=== PATIENT | male | born 1935 | race Caucasian/White ===

== ENCOUNTER 2017-01-12 16:01 | Emergency (ER) | payer OTHER ==
[2017-01-12 16:06] VITALS: BP 141/63; PULSE 100; TEMP 98; BMI 25.8
[2017-01-12] MEDS ORDERED: DIPHTH,PERTUSS(ACELL),TET 0.5 ML DISP.SYRIN IM ONE (16:54)
--- NOTE | 2017-01-12 16:57 | PDOC ---
Rapid Medical Evaluation Chief Complaint: Laceration Time Seen by Provider: 01/12/17 16:20 Medical Evaluation: Allergies Allergy/AdvReac Type Severity Reaction Status Date / Time Sulfa (Sulfonamide Allergy Mild Rash Verified 01/12/17 16:06 Antibiotics) Vital Signs Temp Pulse Resp BP Pulse Ox 98 F 100 H 18 141/63 99 01/12/17 16:03 01/12/17 16:03 01/12/17 16:03 01/12/17 16:03 01/12/17 16:03 01/12/17 16:53 Mr. Arguelles is an 81 yo M presenting to the ER s/p fall last night onto a glass bottle PT denies other complaints of pain or trauma on examination: 2cm laceration of the palm overlying 5th metacarpal head superficial laceration center of the palm Will order xray right hand (r/o fb) Boostrix (I was not clear as to whether this pt had recent tetanus shot) 01/12/17 16:55 01/12/17 18:14
--- NOTE | 2017-01-12 18:35 | PDOC ---
History of Present Illness - General Chief Complaint: Laceration Stated Complaint: LT HAND LACERATION Time Seen by Provider: 01/12/17 16:20 History Source: Patient Exam Limitations: No Limitations - History of Present Illness Initial Comments: 01/12/17 18:30 Status post fall last night causing palmar laceration to his left hand. States left fifth metatarsal injury was gaping and had a superficial laceration midpoint palm that approximately 5 cm. States washed with soap and water and alcohol. Put antibiotic cream on, and thought could have evaluated and treated today. Patient states is mildly uncomfortable but no drainage, redness or swelling. Has full range of motion to fingers Occurred: reports: yesterday Severity: reports: mild, moderate Pain Location: reports: upper extremity Modifying Factors: improves with: None Loss of Consciousness: no loss of consciousness Associated Symptoms (Fall): denies symptoms Past History - Travel Traveled outside of the country in the last 30 days: No Close contact w/someone who was outside of country & ill: No (left hand) - Past Medical History Allergies/Adverse Reactions: Allergies Allergy/AdvReac Type Severity Reaction Status Date / Time Sulfa (Sulfonamide Allergy Mild Rash Verified 01/12/17 16:06 Antibiotics) Home Medications: Ambulatory Orders Atacand Hct 32-12.5 mg Tab 32 mg PO DAILY 01/12/12 Atorvastatin Ca [Lipitor] 10 mg PO DAILY 01/12/12 Omeprazole 20 mg PO DAILY 01/12/12 Anemia: Yes Asthma: No Cancer: No Cardiac Disorders: No CVA: No COPD: No CHF: No Dementia: No Diabetes: No GI Disorders: Yes (GERD) Disorders: No HTN: Yes Hypercholesterolemia: Yes Liver Disease: No Seizures: No Thyroid Disease: No - Surgical History Abdominal Surgery: Yes (PROSTATECTOMY) Appendectomy: No Cardiac Surgery: No Cholecystectomy: No Lung Surgery: No Neurologic Surgery: No Orthopedic Surgery: No - Psycho/Social/Smoking Cessation Hx Suicidal Ideation: No Smoking History: Never smoked Have you smoked in the past 12 months: No Information on smoking cessation initiated: No Hx Alcohol Use: Yes (SOCIAL) Drug/Substance Use Hx: No Substance Use Type: None Hx Substance Use Treatment: No Trauma Specific PMHX - Complaint Specific PMHX Back Injury: No Neck Injury: No Review of Systems - Review of Systems Able to Perform ROS?: Yes Is the patient limited Mohawk proficient: Yes Constitutional: Yes: Symptoms Reported HEENTM: No: Symptoms Reported Musculoskeletal: Yes: Symptoms Reported All Other Systems: Reviewed and Negative *Physical Exam - Vital Signs Last Vital Signs Temp Pulse Resp BP Pulse Ox 98 F 100 H 18 141/63 99 01/12/17 16:03 01/12/17 16:03 01/12/17 16:03 01/12/17 16:03 01/12/17 16:03 - Physical Exam General Appearance: Yes: Nourished, Appropriately Dressed HEENT: positive: ABHISHEK, Normal ENT Inspection, TMs Normal, Pharynx Normal Neck: positive: Supple. negative: Lymphadenopathy (R), Lymphadenopathy (L) Gastrointestinal/Abdominal: positive: Soft Musculoskeletal: positive: Normal Inspection (full range of motion with strong flexion and extension all fingers, neurovascular intact, patient has extensive osteoarthritis but no changes in contour. No deformity) Extremity: positive: Normal Capillary Refill, Normal Inspection Integumentary: positive: Normal Color Neurologic: positive: ux developer II-XII NML intact, Fully Oriented, Alert, Normal Mood/ Affect, Normal Response, Motor Strength 5/5 ED Treatment Course - Medications Given in the ED: ED Medications Discontinued Medications Generic Name Dose Route Start Last Admin Trade Name Freq PRN Reason Stop Dose Admin Diphtheria/Tetanus/Acell Pertussis 0.5 ml 01/12/17 16:54 01/12/17 17:59 Boostrix - IM 01/12/17 16:55 0.5 ml .ONCE ONE Administration Progress Note - Progress Note Progress Note: Hand lacerations 24 hours old, wounds were cleaned and superficially dressed with Steri-Strips and dressing as are too old for suture repair. Tetanus/ diphtheria/pertussis booster updated today *DC/Admit/Observation/Transfer Diagnosis at time of Disposition: Laceration of hand, left Qualifiers: Encounter type: initial encounter Foreign body presence: without foreign body Qualified Code(s): S61.412A - Laceration without foreign body of left hand, initial encounter - Discharge Dispostion Disposition: HOME Condition at time of disposition: Stable Admit: No - Patient Instructions Printed Discharge Instructions: DI for Abrasion Additional Instructions: Rest, elevate, avoid strenuous activity or heavy lifting until STERI- strips fall away Leave dressing on for the next 24 hours, Return to emergency department for redness, swelling, signs of infection Your tetanus/diphtheria/pertussis booster was updated today May use Tylenol or Motrin for pain relief
== END 2017-01-12 18:41 | disposition home or self-care (01) ==
LOC: JERFT 16:01
PROC: 3E0234Z Introduction of Serum, Toxoid and Vaccine into Muscle, Percutaneous Approach (ICD-10-PCS; principal; 2017-01-12)
DX: S61.412A Laceration without foreign body of left hand, initial encounter (principal); W18.39XA Other fall on same level, initial encounter; Y93.9 Activity, unspecified; Y92.9 Unspecified place or not applicable; K21.9 Gastro-esophageal reflux disease without esophagitis; I10 Essential (primary) hypertension
CPT/HCPCS: 73130-TC-RT; 90471; 90715; 99281-25

== ENCOUNTER 2019-05-21 13:33 | Inpatient (IN) | payer OTHER ==
--- NOTE | 2019-05-21 13:46 | PDOC ---
Rapid Medical Evaluation Time Seen by Provider: 05/21/19 13:40 Medical Evaluation: Allergies Allergy/AdvReac Type Severity Reaction Status Date / Time Sulfa (Sulfonamide Allergy Mild Rash Verified 01/12/17 16:06 Antibiotics) 05/21/19 13:44 This patient had a brief in-person evaluation in triage CC:sent by pmd for admission for chf. Patient states had echo done and sent to ed for abnormal results reports shortness of breath and chest discomfort PE: NAD clear lungs bilaterally + bipedal edema L>R orders: ekg, labs, iv access This patient will proceed to the ED for further evaluation Discharge Disposition - Diagnosis Chest discomfort - Referrals - Patient Instructions - Post Discharge Activity
--- NOTE | 2019-05-21 14:57 | EKG ---
Test Reason : Blood Pressure : / mmHG Vent. Rate : 118 BPM Atrial Rate : 141 BPM P-R Int : 000 ms QRS Dur : 092 ms QT Int : 342 ms P-R-T Axes : 000 077 041 degrees QTc Int : 479 ms ATRIAL FIBRILLATION WITH RAPID VENTRICULAR RESPONSE WITH PREMATURE VENTRICULAR OR ABERRANTLY CONDUCTED COMPLEXES INCOMPLETE RIGHT BUNDLE BRANCH BLOCK CANNOT RULE OUT ANTERIOR INFARCT , AGE UNDETERMINED ABNORMAL ECG WHEN COMPARED WITH ECG OF 07-APR-2008 11:22, ATRIAL FIBRILLATION HAS REPLACED SINUS RHYTHM VENT. RATE HAS INCREASED BY 45 BPM INCOMPLETE RIGHT BUNDLE BRANCH BLOCK IS NOW PRESENT MINIMAL CRITERIA FOR ANTERIOR INFARCT ARE NOW PRESENT Confirmed by BERNICE LA, FRANK ([id number]) on 05/21/2019 2:56:51 PM Referred By: Confirmed By:FRANK QUEEN MD
--- NOTE | 2019-05-21 15:17 | PDOC ---
History of Present Illness - General Chief Complaint: Chest Pain Stated Complaint: CHEST PAIN Time Seen by Provider: 05/21/19 13:40 Past History - Past Medical History Allergies/Adverse Reactions: Allergies Allergy/AdvReac Type Severity Reaction Status Date / Time Sulfa (Sulfonamide Allergy Mild Rash Verified 01/12/17 16:06 Antibiotics) Home Medications: Ambulatory Orders Atacand Hct 32-12.5 mg Tab 32 mg PO DAILY 01/12/12 Atorvastatin Ca [Lipitor] 10 mg PO DAILY 01/12/12 Omeprazole 20 mg PO DAILY 01/12/12 Anemia: Yes Asthma: No Cancer: No Cardiac Disorders: No CVA: No COPD: No CHF: No Dementia: No Diabetes: No GI Disorders: Yes (GERD) Disorders: No HTN: Yes Hypercholesterolemia: Yes Liver Disease: No Seizures: No Thyroid Disease: No - Surgical History Abdominal Surgery: Yes (PROSTATECTOMY) Appendectomy: No Cardiac Surgery: No Cholecystectomy: No Lung Surgery: No Neurologic Surgery: No Orthopedic Surgery: No - Suicide/Smoking/Psychosocial Hx Smoking History: Never smoked Have you smoked in the past 12 months: No Information on smoking cessation initiated: No Hx Alcohol Use: No Drug/Substance Use Hx: No Substance Use Type: None Hx Substance Use Treatment: No *Physical Exam - Vital Signs Last Vital Signs Temp Pulse Resp BP Pulse Ox 97.6 F 66 18 117/78 96 05/21/19 13:41 05/21/19 13:41 05/21/19 13:41 05/21/19 13:41 05/21/19 13:41 *DC/Admit/Observation/Transfer Diagnosis at time of Disposition: Chest discomfort - Referrals Referrals: Manolo Brunson MD [Primary Care Provider] - - Patient Instructions - Post Discharge Activity
--- NOTE | 2019-05-21 16:09 | PDOC ---
History of Present Illness - General Chief Complaint: Chest Pain Stated Complaint: CHEST PAIN Time Seen by Provider: 05/21/19 13:40 Past History - Past Medical History Allergies/Adverse Reactions: Allergies Allergy/AdvReac Type Severity Reaction Status Date / Time Sulfa (Sulfonamide Allergy Mild Rash Verified 05/21/19 20:24 Antibiotics) Home Medications: Ambulatory Orders Atorvastatin Ca [Lipitor] 10 mg PO HS 05/21/19 Calcium Citrate/Vitamin D3 [Calcium Cit 315-Vit D3 200 Cpt] 2 each PO DAILY Iron 65 mg PO DAILY 05/21/19 Lansoprazole [Prevacid] 30 mg PO DAILY 05/21/19 Olmesartan/Hydrochlorothiazide [Olmesartan-Hctz 20-12.5 mg Tab] 1 each PO DAILY 05/21/19 Anemia: Yes Asthma: No Cancer: No Cardiac Disorders: No CVA: No COPD: No CHF: No Dementia: No Diabetes: No GI Disorders: Yes (GERD) Disorders: No HTN: Yes Hypercholesterolemia: Yes Liver Disease: No Seizures: No Thyroid Disease: No - Surgical History Abdominal Surgery: Yes (PROSTATECTOMY) Appendectomy: No Cardiac Surgery: No Cholecystectomy: No Lung Surgery: No Neurologic Surgery: No Orthopedic Surgery: No - Suicide/Smoking/Psychosocial Hx Smoking History: Never smoked Have you smoked in the past 12 months: No Information on smoking cessation initiated: No Hx Alcohol Use: No Drug/Substance Use Hx: No Substance Use Type: None Hx Substance Use Treatment: No *Physical Exam - Vital Signs Last Vital Signs Temp Pulse Resp BP Pulse Ox 97.6 F 66 18 117/78 96 05/21/19 13:41 05/21/19 13:41 05/21/19 13:41 05/21/19 13:41 05/21/19 13:41 ED Treatment Course - LABORATORY CBC & Chemistry Diagram: 05/21/19 16:14 05/21/19 16:14 Medical Decision Making - Medical Decision Making HPI: 83yo M with PMH of HTN, HLD, prostate CA sent by his primary care physician for admission for new-onset CHF. Patient had an ECHO two days ago. He endorses mild substernal chest pain on exertion x 1 week. He has dyspnea on exertion just walking across the room. He has noticed leg swelling for the past five months. Denies orthopnea. No nausea, vomiting, or diaphoresis. Never seen a customer relations representative before. Denies personal or family history of [place]. No fevers or chills. All My Data Dial Painter: [id number] PCP: Dr. Jimmy Enriquez: does not know what they are, one for HTN and one for HLD ROS: Constitutional: no fever, no chills HEENT: no throat pain, no dysphagia Cardiovascular: +chest pain, no palpitations Respiratory: no cough, +shortness of breath Gastrointestinal: no abdominal pain, no nausea Genitourinary: no dysuria, no frequency Musculoskeletal: no myalgia, +BLE edema Skin: no rash, no itching Neurologic: no headache, +weakness PE: General: Awake, alert, and fully oriented, in no acute distress Head: No signs of trauma Eyes: EOMI, sclera anicteric ENT: Moist mucus membranes Neck: Normal ROM, supple Lungs: Lungs clear, Normal breath sounds Cardio: Irregular rhythm, S1 and S2 present Abdomen: Soft, nontender Extremities: Normal range of motion, Distal pulses present, 2+ pitting edema BLE , no calf tenderness SKIN: Warm, Dry, normal turgor Neurologic: Cranial nerves II through XII grossly intact. Normal Speech ED Courses/MDM: DDX including but not limited to afib, CHF, ACS, PE EKG: rate 118, QTc 478, Afib with RVR, incomplete RBBB Patient denies history of abnormal heart rhythm. This is likely new-onset afib. CHADS-VASc Score for Atrial Fibrillation Stroke Risk: 4, moderate-high 40 Lasix Labs CXR 05/21/19 16:07 20 gauge IV placed in Left AC by myself Labs sent 05/21/19 16:28 CXR: "3 views of the chest have been submitted. Since the prior study of 2007, there is a more prominent mediastinum with larger heart, sclerotic unfolded aorta, increased central lung markings and blunting of the right angle with some scarring or atelectasis. The soft tissues are intact and there are degenerative changes with wedging. Correlation recommended. " CMP Sodium 139 mmol/L (136-145) 05/21/19 16:14 Potassium 4.5 mmol/L (3.5-5.1) 05/21/19 16:14 Chloride 103 mmol/L (98-107) 05/21/19 16:14 Carbon Dioxide 30 mmol/L (21-32) 05/21/19 16:14 Anion Gap 7 MMOL/L (8-16) L 05/21/19 16:14 BUN 36.5 mg/dL (7-18) H 05/21/19 16:14 Creatinine 1.8 mg/dL (0.55-1.3) H 05/21/19 16:14 Est GFR (CKD-EPI)AfAm 39.46 05/21/19 16:14 Est GFR (CKD-EPI)NonAf 34.05 05/21/19 16:14 Random Glucose 94 mg/dL (74-106) 05/21/19 16:14 Calcium 9.2 mg/dL (8.5-10.1) 05/21/19 16:14 Total Bilirubin 0.8 mg/dL (0.2-1) 05/21/19 16:14 AST 60 U/L (15-37) H 05/21/19 16:14 ALT 49 U/L (13-61) 05/21/19 16:14 Alkaline Phosphatase 133 U/L (45-117) H 05/21/19 16:14 Troponin I < 0.02 ng/ml (0.00-0.05) 05/21/19 16:14 B-Natriuretic Peptide 7707.9 pg/ml (5-450) H 05/21/19 16:14 Total Protein 6.3 g/dl (6.4-8.2) L 05/21/19 16:14 Albumin 3.8 g/dl (3.4-5.0) 05/21/19 16:14 Electrolytes unremarkable BUN and Cr elevated, 36.5/1.8 (was 32.2/1.5 on 05/12/19) Tpn undetectable BNP is high, no prior values Pending CBC. Call to lab that it is processing as patient has cold-agglutin variant. 05/21/19 17:07 Updated daughter, Diaz, at the bedside. She can be reached at [phone] 05/21/19 18:33 CBC WBC 13.7 K/mm3 (4.0-10.0) H 05/21/19 16:14 RBC 4.03 M/mm3 (4.00-5.60) 05/21/19 16:14 Hgb 12.8 GM/dL (11.7-16.9) 05/21/19 16:14 Hct 36.6 % (35.4-49) 05/21/19 16:14 MCV 90.9 fl (80-96) 05/21/19 16:14 MCH 31.7 pg (25.7-33.7) 05/21/19 16:14 MCHC 34.9 g/dl (32.0-35.9) 05/21/19 16:14 RDW 14.5 % (11.9-15.9) 05/21/19 16:14 Plt Count 175 K/MM3 (134-434) 05/21/19 16:14 MPV 8.5 fl (7.5-11.1) 05/21/19 16:14 Absolute Neuts (auto) 7.9 K/mm3 (1.5-8.0) 05/21/19 16:14 Neutrophils % No Result Required. 05/21/19 16:14 Neutrophils % (Manual) 68.0 % (42.8-82.8) 05/21/19 16:14 Band Neutrophils % 2.0 % 05/21/19 16:14 Lymphocytes % No Result Required. 05/21/19 16:14 Lymphocytes % (Manual) 23.0 % (8-40) 05/21/19 16:14 Monocytes % (Manual) 7 % (3.8-10.2) 05/21/19 16:14 Eosinophils % (Manual) 0.0 % (0-4.5) 05/21/19 16:14 Basophils % (Manual) 0.0 % (0-2.0) 05/21/19 16:14 Platelet Estimate Adequate 05/21/19 16:14 Mild leukocytosis No anemia Plan for admission 05/21/19 18:46 Discussed case with hospitalist, Tino Penny, who accepted patient for admission under Dr. Marquez. 05/21/19 19:23 *DC/Admit/Observation/Transfer Diagnosis at time of Disposition: Chest discomfort, New onset of congestive heart failure, New onset a-fib - Discharge Dispostion Condition at time of disposition: Guarded Decision to Admit order: Yes - Referrals - Patient Instructions - Post Discharge Activity
[2019-05-21] MEDS ORDERED: FUROSEMIDE 40 MG/4 ML INJECTABLE VIAL IVPUSH ONE (16:22)
--- NOTE | 2019-05-21 16:25 | PDOC ---
Documentation entered by Jose A Alvarado SCRIBE, acting as scribe for Yady Mai MD. Yady Mai MD: This documentation has been prepared by the Jenny simon Xhesika, SCRIBE, under my direction and personally reviewed by me in its entirety. I confirm that the documentation accurately reflects all work, treatment, procedures, and medical decision making performed by me. Attending Attestation - Resident Resident Name: Anna Marie SheppardMagalys - ED Attending Attestation I have performed the following: I have examined & evaluated the patient, The case was reviewed & discussed with the resident, I agree w/resident's findings & plan, Exceptions are as noted - HPI HPI: 05/21/19 16:23 83 yo M h/o HTN, HLD referred to the ER for assessment due to progressive shortness of breath Pt has noted increasing shortness of breath with exertion He now notes symptoms after walking 15 feet He also notes chest pain He has lower extremity edema He is able to lay flat No h/o CAD No prior MS - Physicial Exam PE: 05/21/19 16:16 GENERAL: The patient is in no acute distress. ENT: Ears normal, nares patent, oropharynx clear without exudates. Moist mucous membranes. NECK: Normal range of motion LUNGS: Breath sounds equal, clear to auscultation bilaterally. No wheezes, and no crackles. HEART: Irregularly Irregular, no murmurs noted ABDOMEN: Soft, nontender EXTREMITIES: Bilateral 3 + pitting edema to above the knees NEUROLOGICAL: Cranial nerves II through XII grossly intact. Normal speech. No focal neurological deficits. SKIN: Warm, Dry, normal turgor, no rashes or lesions noted. - Medical Decision Making 05/21/19 16:21 EKG: Afib rate of 118 bpm, axis nml, intervals nml, no st elevation or depression Pt examination reveals CHF and new onset Afib Will place on monitor Will give Lasix Will give Cardizem for rate control if needed Awaiting labs (including trop) Admit to hospitalist Cardiology consult 05/21/19 18:18 Laboratory Tests 05/21/19 05/21/19 16:14 16:14 INR 1.52 H Sodium 139 Potassium 4.5 Chloride 103 Carbon Dioxide 30 BUN 36.5 H Creatinine 1.8 H Random Glucose 94 Troponin I < 0.02 B-Natriuretic Peptide 7707.9 H 05/21/19 18:20 CXR - cardiomegaly, increased central lung markings and blunting of the right angle with scarring/atalectasis CBC pending (had to be repeated) will admit Clinical Impression: Stable angina, initial presentation CHF, initial presentation Afib, initial presentation
[2019-05-21] MEDS ORDERED: FUROSEMIDE 40 MG/4 ML INJECTABLE VIAL ONE (16:29)
[2019-05-21 16:54] LABS: INR 1.52 (0.83-1.09)
[2019-05-21 16:57] LABS: ACTIVATED PTT 28.9 SECONDS (25.2-36.5)
[2019-05-21 17:02] LABS: ALBUMIN 3.8 g/dl (3.4-5.0); ALK PHOS 133 U/L (45-117); ANION GAP 7 MMOL/L (8-16); BILIRUBIN,TOTAL 0.8 mg/dL (0.2-1); BLOOD UREA NITROGEN 36.5 mg/dL (7-18); CALCIUM 9.2 mg/dL (8.5-10.1); CHLORIDE 103 mmol/L (98-107); CO2 30 mmol/L (21-32); CREATININE 1.8 mg/dL (0.55-1.3); GLUCOSE,RANDOM 94 mg/dL (74-106); N-TERMINAL BNP 7707.9 pg/ml (5-450); POTASSIUM 4.5 mmol/L (3.5-5.1); SGOT/AST 60 U/L (15-37); SGPT/ALT 49 U/L (13-61); SODIUM 139 mmol/L (136-145); TOT PROT 6.3 g/dl (6.4-8.2)
[2019-05-21 18:36] LABS: HEMATOCRIT 36.6 % (35.4-49); HEMOGLOBIN 12.8 GM/dL (11.7-16.9); MEAN CELL VOLUME 90.9 fl (80-96); RBC 4.03 M/mm3 (4.00-5.60); WHITE BLOOD COUNT 13.7 K/mm3 (4.0-10.0)
[2019-05-21 18:37] LABS: MCH 31.7 pg (25.7-33.7); MCHC 34.9 g/dl (32.0-35.9); MEAN PLT VOLUME 8.5 fl (7.5-11.1); PLATELET COUNT 175 K/MM3 (134-434); RDW 14.5 % (11.9-15.9)
[2019-05-21 18:38] LABS: PLATELET ESTIMATE ADEQUATE
[2019-05-21] MEDS ORDERED: HEPARIN NA (PORCINE) 5,000 UNITS/ML 1ML VIAL SQ SCH (22:30)
[2019-05-21] MEDS ORDERED: HEPARIN NA (PORCINE) 5,000 UNITS/ML 1ML VIAL ONE (22:54)
--- NOTE | 2019-05-22 00:05 | HP ---
CHIEF COMPLAINT: Chest Pain and Shortness of Breath PCP: Himanshu Marquez HISTORY OF PRESENT ILLNESS: 83yo M, (Vincentian speaking) with PMH of HTN, HLD, prostate CA sent by his primary care physician for admission for new-onset CHF. Patient had an ECHO two days ago. He complains of mild substernal chest pain on exertion x 1 week. He has dyspnea on exertion just walking across the room. He has noticed leg swelling for the past five months. Denies orthopnea. No nausea, vomiting, or diaphoresis. 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 Denies personal or family history of [place]. No fevers or chills. Daughter at at bedside translated. Daughter explains patient was driving around about a week and now he has just been too tired to so lately. Pt states he has been having dark stools and has one today. ER course was notable for: (1) New onset AFib (2) New onset CHF (3) 40mg Lasix (4) CXR- "3 views of the chest have been submitted. Since the prior study of 07/2008, there is a more prominent mediastinum with larger heart, sclerotic unfolded aorta, increased central lung markings and blunting of the right angle with some scarring or atelectasis. The soft tissues are intact and there are degenerative changes with wedging. Correlation recommended. " Recent Travel: PAST MEDICAL HISTORY: Prostate Cancer PAST SURGICAL HISTORY: Prostate Social History: Smoking: Denies Alcohol: 5 Beers a day Drugs: Denies Family History: Allergies Sulfa (Sulfonamide Antibiotics) Allergy (Mild, Verified 05/21/19 20:24) Rash HOME MEDICATIONS: Home Medications Medication Instructions Recorded Atorvastatin Ca [Lipitor] 10 mg PO HS 05/21/19 Calcium Citrate/Vitamin D3 2 each PO DAILY 05/21/19 [Calcium Cit 315-Vit D3 200 Cpt] Iron 65 mg PO DAILY 05/21/19 Lansoprazole [Prevacid] 30 mg PO DAILY 05/21/19 Olmesartan/Hydrochlorothiazide 1 each PO DAILY 05/21/19 [Olmesartan-Hctz 20-12.5 mg Tab] REVIEW OF SYSTEMS CONSTITUTIONAL: Absent: fever, chills, diaphoresis, generalized weakness, malaise, loss of appetite, weight change HEENT: Absent: rhinorrhea, nasal congestion, throat pain, throat swelling, difficulty swallowing, mouth swelling, ear pain, eye pain, visual changes CARDIOVASCULAR: Absent: chest pain, syncope, palpitations, irregular heart rate, lightheadedness , peripheral edema RESPIRATORY: Absent: cough, shortness of breath, dyspnea with exertion, orthopnea, wheezing, stridor, hemoptysis GASTROINTESTINAL: Absent: abdominal pain, abdominal distension, nausea, vomiting, diarrhea, constipation, melena, hematochezia GENITOURINARY: Absent: dysuria, frequency, urgency, hesitancy, hematuria, flank pain, genital pain MUSCULOSKELETAL: Absent: myalgia, arthralgia, joint swelling, back pain, neck pain SKIN: Absent: rash, itching, pallor HEMATOLOGIC/IMMUNOLOGIC: Absent: easy bleeding, easy bruising, lymphadenopathy, frequent infections ENDOCRINE: Absent: unexplained weight gain, unexplained weight loss, heat intolerance, cold intolerance NEUROLOGIC: Absent: headache, focal weakness or paresthesias, dizziness, unsteady gait, seizure, mental status changes, bladder or bowel incontinence PSYCHIATRIC: Absent: anxiety, depression, suicidal or homicidal ideation, hallucinations. PHYSICAL EXAMINATION Vital Signs - 24 hr 05/21/19 05/21/19 05/21/19 13:41 16:22 18:13 Temperature 97.6 F 97.4 F L Pulse Rate 66 Pulse Rate [ 101 H Left Radial] Respiratory 18 Rate Blood Pressure 117/78 Blood Pressure 128/90 [Right Arm] O2 Sat by Pulse 96 96 98 Oximetry (%) 05/21/19 21:03 Temperature 97.2 F L Pulse Rate Pulse Rate [ 95 H Left Radial] Respiratory 22 H Rate Blood Pressure Blood Pressure 123/82 [Right Arm] O2 Sat by Pulse 100 Oximetry (%) GENERAL: Awake, alert, and fully oriented, in no acute distress. HEAD: Normal with no signs of trauma. EYES: Pupils equal, round and reactive to light, extraocular movements intact, sclera anicteric, conjunctiva clear. No lid lag. EARS, NOSE, THROAT: Ears normal, nares patent, oropharynx clear without exudates. Moist mucous membranes. NECK: Normal range of motion, supple without lymphadenopathy, JVD, or masses. LUNGS: Breath sounds equal, clear to auscultation bilaterally. No wheezes, and no crackles. No accessory muscle use. HEART: Currently in A Fib ABDOMEN: Soft, nontender, not distended, normoactive bowel sounds, no guarding, no rebound, no masses. MUSCULOSKELETAL: Normal range of motion at all joints. No bony deformities or tenderness. No CVA tenderness. UPPER EXTREMITIES: 2+ pulses, warm, well-perfused. No cyanosis. No clubbing. No edema LOWER EXTREMITIES: 2+ pulses, warm, well-perfused. No calf tenderness. +2 pitting edema BLLE NEUROLOGICAL: Normal speech. Normal gait. PSYCHIATRIC: Cooperative. Good eye contact. Appropriate mood and affect. SKIN: Warm, dry, normal turgor, no rashes or lesions noted, normal capillary refill. Laboratory Results - last 24 hr 05/21/19 05/21/19 05/21/19 16:14 16:14 16:14 WBC 13.7 H RBC 4.03 Hgb 12.8 Hct 36.6 MCV 90.9 MCH 31.7 MCHC 34.9 RDW 14.5 Plt Count 175 MPV 8.5 Absolute Neuts (auto) 7.9 Neutrophils % No Result Required. Neutrophils % (Manual) 68.0 Band Neutrophils % 2.0 Lymphocytes % No Result Required. Lymphocytes % (Manual) 23.0 Monocytes % (Manual) 7 Eosinophils % (Manual) 0.0 Basophils % (Manual) 0.0 Platelet Estimate Adequate PT with INR 18.00 H INR 1.52 H PTT (Actin FS) 28.9 Sodium 139 Potassium 4.5 Chloride 103 Carbon Dioxide 30 Anion Gap 7 L BUN 36.5 H Creatinine 1.8 H Est GFR (CKD-EPI)AfAm 39.46 Est GFR (CKD-EPI)NonAf 34.05 Random Glucose 94 Calcium 9.2 Total Bilirubin 0.8 AST 60 H ALT 49 Alkaline Phosphatase 133 H Troponin I < 0.02 B-Natriuretic Peptide 7707.9 H Total Protein 6.3 L Albumin 3.8 ASSESSMENT/PLAN: 83yo M with PMH of HTN, HLD, prostate CA sent by his primary care physician for admission for new-onset CHF, Melena. Patient had an ECHO two days ago Chest Pain -serial troponins -chest xray -ekg x2 Afib (New Onset) -Stable -Eliquis 2.5 BID CHF (New Onset) -40mg IV Push Lasix Daily -Daughter said he had an Echo on Sunday. Provider tomorrow will have to work on getting the report. -Monitor I&0s -Daily Weights JOHN -Monitor Labs -Nephrology Consulted HTN -Valsartan 160mg HLD -Continue Atorvastatin Melena -Occult Blood sample-Negative -No Bleeding noted on exam -Monitor H&H -Monitor Vitals -Consider GI consult if condition worsens FEN -Cholesterol low sodium diet DVT Prophylaxis -Eliquis 2.5mg BID -Duplex Vasc US Bilateral Legs Dispo inpatient Full code Daughter, Diaz Fontaine [phone] Visit type - Emergency Visit Emergency Visit: Yes ED Registration Date: 05/21/19 Care time: The patient presented to the Emergency Department on the above date and was hospitalized for further evaluation of their emergent condition. - New Patient This patient is new to me today: Yes Date on this admission: 05/22/19 - Critical Care Critical Care patient: No
[2019-05-22 01:16] LABS: EPI CELLS 7.7 /HPF (0-5/HPF); HYALINE CASTS 82 /lpf (0-8); URINE APPEARANCE CLEAR; URINE BILIRUBIN NEGATIVE (NEGATIVE); URINE COLOR YELLOW; URINE GLUCOSE (UA) NEGATIVE (NEGATIVE); URINE KETONE NEGATIVE (NEGATIVE); URINE LEUK ESTERASE 3+ (NEGATIVE); URINE NITRITE NEGATIVE (NEGATIVE); URINE PROTEIN NEGATIVE (NEGATIVE); URINE RBC 1 /hpf (0-4); URINE UROBILINOGEN 0.2 mg/dL (0.2-1.0); URINE WBC 1 /hpf (0-5)
[2019-05-22 07:33] LABS: INR 1.47 (0.83-1.09); PROTHROMBIN TIME (PATIENT) 17.4 SEC (9.7-13.0)
[2019-05-22 07:36] LABS: ACTIVATED PTT 24.7 SECONDS (25.2-36.5); ALBUMIN 3.2 g/dl (3.4-5.0); BILIRUBIN,TOTAL 0.8 mg/dL (0.2-1); BLOOD UREA NITROGEN 38.6 mg/dL (7-18); CALCIUM 8.6 mg/dL (8.5-10.1); CREATININE 1.7 mg/dL (0.55-1.3); MAGNESIUM 2.1 mg/dL (1.8-2.4); PHOSPHOROUS 4.1 mg/dL (2.5-4.9); POTASSIUM 3.5 mmol/L (3.5-5.1); TOT PROT 5.3 g/dl (6.4-8.2)
--- NOTE | 2019-05-22 08:09 | PN ---
Progress Note (short form) - Note Progress Note: Admission noted reviewed CBC, BMP 05/22/19 06:30 Abnormal Lab Results 05/21/19 05/21/19 05/21/19 16:14 16:14 16:14 WBC 13.7 H PT with INR 18.00 H INR 1.52 H PTT (Actin FS) Anion Gap 7 L BUN 36.5 H Creatinine 1.8 H AST 60 H Alkaline Phosphatase 133 H B-Natriuretic Peptide 7707.9 H Total Protein 6.3 L Albumin Ur Leukocyte Esterase 05/22/19 05/22/19 05/22/19 00:52 06:30 06:30 WBC PT with INR 17.40 H INR 1.47 H PTT (Actin FS) 24.7 L Anion Gap BUN 38.6 H Creatinine 1.7 H AST 51 H Alkaline Phosphatase B-Natriuretic Peptide Total Protein 5.3 L Albumin 3.2 L Ur Leukocyte Esterase 3+ H Vital Signs Period Temp Pulse Resp BP Sys/Brewer Pulse Ox Last 24 Hr 97.2 F-98.4 F 66-116 18-22 117-146/78-90 96-100 s1s2 irreg.irreg. 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 palpitations and lower extremity edema in er in rapid afib acute fritz plan telemetry bblocker eliquis iv lasix NOAC decrease arb dose requested card. 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
[2019-05-22] MEDS ORDERED: HYDROCHLOROTHIAZIDE 12.5 MG CAPSULE (FP) PO SCH (10:00)
[2019-05-22] MEDS ORDERED: VALSARTAN 80 MG TABLET (UD) PO SCH (10:00)
[2019-05-22] MEDS ORDERED: METOPROLOL TARTRATE 25 MG TABLET (FP) PO SCH (10:00)
[2019-05-22] MEDS ORDERED: VALSARTAN 160 MG TABLET (UD) PO SCH (10:00)
[2019-05-22] MEDS ORDERED: FERROUS SO4 325 MG TABLET (FP) PO SCH (10:00)
[2019-05-22] MEDS ORDERED: PANTOPRAZOLE 40 MG TABLET (FP) PO SCH (10:00)
[2019-05-22] MEDS: FUROSEMIDE 40 MG/4 ML INJECTABLE VIAL IVPUSH SCH (10:03)
[2019-05-22] MEDS: CALCIUM (OYSTER SHELL) 500 MG TABLET (FP) PO SCH (10:03)
[2019-05-22] MEDS: APIXABAN 2.5 MG TABLET PO SCH ×2 (10:03→22:33)
[2019-05-22 11:29] LABS: HEMOGLOBIN 11.3 GM/dL (11.7-16.9); MCH 31.7 pg (25.7-33.7); MCHC 35.4 g/dl (32.0-35.9); MEAN CELL VOLUME 89.5 fl (80-96); MEAN PLT VOLUME 9.3 fl (7.5-11.1); PLATELET COUNT 225 K/MM3 (134-434); RBC 3.58 M/mm3 (4.00-5.60); RDW 14.7 % (11.9-15.9)
[2019-05-22 12:52] LABS: PH,URINE 6.5 (5.0-8.0); URINE APPEARANCE CLEAR; URINE BILIRUBIN NEGATIVE (NEGATIVE); URINE COLOR YELLOW; URINE GLUCOSE (UA) NEGATIVE (NEGATIVE); URINE KETONE NEGATIVE (NEGATIVE); URINE LEUK ESTERASE NEGATIVE (NEGATIVE); URINE NITRITE NEGATIVE (NEGATIVE); URINE PROTEIN NEGATIVE (NEGATIVE); URINE UROBILINOGEN 0.2 mg/dL (0.2-1.0)
--- NOTE | 2019-05-22 13:21 | PN ---
Progress Note (short form) - Note Progress Note: ID CONSULT DICTATED LEUKOCYTOSIS, SOURCE UNCLEAR DECOMPENSATED CHF NEW ONSET AFIB AZOTEMIA OBTAIN BC OBSERVE OFF ANTIBIOTICS DOPPLER LE B/L
--- NOTE | 2019-05-22 13:31 | ECHO ---
Name: RYAN, KOKO Exam:Adult Echocardiogram Study Date: 05/22/2019 10:55 AM Age: 83 yrs Reason For Study: LVSF Height: 69 in Weight: 164 lb BSA: 1.9 m2 MMode/2D Measurements & Calculations IVSd: 1.1 cm Ao root diam: 2.5 cm LVIDd: 4.1 cm ACS: 1.8 cm LVIDs: 3.0 cm LVPWd: 1.5 cm EDV(Teich): 74.9 ml LVOT diam: 1.8 cm ESV(Teich): 35.9 ml RV S Tomas: 10.8 cm/sec Doppler Measurements & Calculations Ao V2 max: 129.4 cm/sec LV V1 max P.4 mmHg Ao max P.7 mmHg LV V1 mean P.2 mmHg Ao V2 mean: 85.9 cm/sec LV V1 max: 77.7 cm/sec Ao mean P.3 mmHg LV V1 mean: 49.0 cm/sec Ao V2 VTI: 22.4 cm LV V1 VTI: 14.8 cm PAVEL(I,D): 1.7 cm2 PAVEL(V,D): 1.5 cm2 SV(LVOT): 38.3 ml TR max tomas: 304.1 cm/sec TR max P.6 mmHg PI end-d tomas: 120.8 cm/sec Med Peak E' Tomas: 7.7 cm/sec Lat Peak E' Tomas: 8.8 cm/sec Procedure A complete two-dimensional transthoracic echocardiogram was performed (2D, M-mode, Doppler and color flow Doppler). The patient was in atrial fibrillation with rapid ventricular response during the exam with a heart rate exceeding 100 bpm. Left Ventricle The left ventricular size, thickness and function are normal. The left ventricular ejection fraction is normal. Ejection Fraction = 55-60%. The left ventricular wall motion is normal. Right Ventricle The right ventricle is mildly dilated. The right ventricular systolic function is mildly reduced. Atria The left atrium is moderately dilated. The right atrium is moderately dilated. Mitral Valve There is trace to mild mitral regurgitation. Tricuspid Valve There is moderate to severe tricuspid regurgitation. Right ventricular systolic pressure is elevated at 40- 50mmHg. Aortic Valve The aortic valve is trileaflet. There is mild aortic valve thickening. Pulmonic Valve Mild pulmonic valvular regurgitation. Great Vessels The aortic root is normal size. Pericardium/Pleura There is no pericardial effusion. Interpretation Summary The patient was in atrial fibrillation with rapid ventricular response during the exam. The left ventricular size, thickness and function are normal The right ventricle is mildly dilated. The right ventricular systolic function is mildly reduced. The left atrium is moderately dilated. The right atrium is moderately dilated. There is trace to mild mitral regurgitation. There is moderate to severe tricuspid regurgitation. Right ventricular systolic pressure is elevated at 40-50mmHg. Mild pulmonic valvular regurgitation. MD Matteo Gavin 05/22/2019 01:30 PM
--- NOTE | 2019-05-22 13:40 | CONS ---
INFECTIOUS DISEASE CONSULTATION DATE OF CONSULTATION: DATE OF DICTATION: 05/22/2019 The patient is an 83-year-old male who is evaluated for leukocytosis. He was admitted to the hospital with worsening shortness of breath and chest discomfort. The patient was found to have bilateral lower extremity edema. He was diagnosed with decompensated congestive heart failure. His course was complicated by new onset of atrial fibrillation. His clinical course has been significant for tachycardia. Today, he was noted to have a white blood cell count 22,000. At the present time, he denies chest pain. He denies any dyspnea at rest. No complaints of cough, sputum production, or hemoptysis. He denies any vomiting or diarrhea. No dysuria or hematuria. He did not appear to receive any corticosteroid therapy. PAST MEDICAL HISTORY: Positive for hypertension, hyperlipidemia. PAST SURGICAL HISTORY: Status post prostatectomy. ALLERGIES: SULFA. MEDICATIONS: Eliquis, Lipitor, Lasix, metoprolol, Protonix, valsartan. SOCIAL HISTORY: He resides at home in the community. He is a nonsmoker. Positive history of alcohol use. SYSTEMS REVIEW: Neurologic: No loss of consciousness, seizure activity, focal weakness. Cardiac: As per HPI. Respiratory: As per HPI. Gastrointestinal: Negative vomiting or diarrhea. Genitourinary: Negative for urinary tract infection. LABORATORY DATA: White count on admission 13.7, presently 22,000; no differential available; hematocrit 32.0; platelet count 225. Creatinine 1.7. Total bilirubin 0.8. Alkaline phosphatase 103, AST 51. Urinalysis: White cells 1. Chest x-ray shows congestion bilaterally. No focal consolidation. PHYSICAL EXAMINATION: General: He is awake and alert, supine in bed, in no acute distress. Vital Signs: Temperature 98; blood pressure 143/82; pulse 118, regular; respirations 20 per minute. HEENT: Sclerae are anicteric. Heart: Sounds S1, S2. Irregular. Lungs: Crepitations at the bases bilaterally. Abdomen: Soft. No tenderness elicited. No mass, rebound, or rigidity. Extremities: Lower extremity edema 2+ bilaterally. IMPRESSION: 1. Leukocytosis, unclear source. 2. Decompensated congestive heart failure. 3. New-onset atrial fibrillation. Source of leukocytosis is not clear. The patient is afebrile, does not appear toxic. Will observe off antibiotic therapy, obtain cultures, follow up CBC. Will follow. Thank you for the kind referral. HILARY ORANTES M.D. GHASSAN/[id number]
--- NOTE | 2019-05-22 13:52 | CON.CARD ---
Consult Consult Specialty:: Cardiology Referred by:: Chuck Reason for Consultation:: CHF, Afib, cp - History of Present Illness Chief Complaint: sob, edema cp History of Present Illness: 83yo M, (Chinese speaking) with PMH of HTN, HLD, prostate CA sent by his primary care physician for admission for new-onset CHF and atrial fibrillation with RVR. He complains of mild substernal chest pain on exertion x 1 week. He has dyspnea on exertion just walking across the room. He has noticed leg swelling for the past five months. +2-3 pillow orthopnea. No PND. No palpitations, dizziness or syncope. Echo 05/22/19: normal EF, dilated RV, mild dec RV function. mod LAE/KARRIE. trace to mild MR. Mod to sev TR RVSP 40-50. - History Source History Provided By: Patient, Medical Record - Alcohol/Substance Use Hx Alcohol Use: No - Smoking History Smoking history: Never smoked Have you smoked in the past 12 months: No Home Medications - Allergies Allergies/Adverse Reactions: Allergies Allergy/AdvReac Type Severity Reaction Status Date / Time Sulfa (Sulfonamide Allergy Mild Rash Verified 05/21/19 20:24 Antibiotics) - Home Medications Home Medications: Ambulatory Orders Atorvastatin Ca [Lipitor] 10 mg PO HS 05/21/19 Calcium Citrate/Vitamin D3 [Calcium Cit 315-Vit D3 200 Cpt] 2 each PO DAILY Iron 65 mg PO DAILY 05/21/19 Lansoprazole [Prevacid] 30 mg PO DAILY 05/21/19 Olmesartan/Hydrochlorothiazide [Olmesartan-Hctz 20-12.5 mg Tab] 1 each PO DAILY 05/21/19 Vital Signs: Vital Signs Temperature 98 F 05/22/19 08:36 Pulse Rate 118 H 05/22/19 08:36 Respiratory Rate 20 05/22/19 08:39 Blood Pressure 143/82 05/22/19 08:36 O2 Sat by Pulse Oximetry (%) 97 05/22/19 08:39 Constitutional: Yes: No Distress, Calm Eyes: Yes: EOM Intact HENT: Yes: Normocephalic Neck: Yes: Trachea Midline Gastrointestinal: Yes: Normal Bowel Sounds, Soft Cardiovascular: Yes: Tachycardia, Pulse Irregular JVD: Yes Carotid Bruit: No PMI: Non-Displaced Heart Sounds: Yes: S1, S2 Murmur: Yes: Systolic Murmur, Grade 2 Extremities: Yes: WNL Edema: Yes Edema: LLE: 3+, RLE: 3+ - Other Data Labs, Other Data: CBC, BMP 05/22/19 06:30 05/22/19 06:30 INR, PTT INR 1.47 (0.83-1.09) H 05/22/19 06:30 Troponin, BNP 05/21/19 05/21/19 05/22/19 16:14 23:45 06:30 Troponin I < 0.02 0.02 0.02 B-Natriuretic Peptide 7707.9 H Troponin, BNP 05/21/19 05/21/19 05/22/19 16:14 23:45 06:30 Troponin I < 0.02 0.02 0.02 B-Natriuretic Peptide 7707.9 H Imaging - Results Chest X-ray: Report Reviewed EKG: Report Reviewed (af rvr irbbb) Assessment/Plan 83 year old man with a history of HTN, HLD, prostate CA sent by his primary care physician for admission for new-onset CHF and atrial fibrillation with RVR. He complains of mild substernal chest pain on exertion x 1 week. He has dyspnea on exertion just walking across the room. He has noticed leg swelling for the past five months. +2-3 pillow orthopnea. No PND. No palpitations, dizziness or syncope. Echo 05/22/19: normal EF, dilated RV, mild dec RV function. mod LAE/KARRIE. trace to mild MR. Mod to sev TR RVSP 40-50. New onset atrial fibrillation -agree with eliquis -would get CTA or VQ scan to rule out PE given RV findings and new afib, cp -increase metoprolol to 75 mg bid. CHF -acute on chronic right sided chf -mainly edema rather than pulmonary congestion. -diurese with lasix 40 bid -stop diovan given CKD and normal EF.
--- NOTE | 2019-05-22 14:38 | EKG ---
Test Reason : Blood Pressure : / mmHG Vent. Rate : 093 BPM Atrial Rate : 202 BPM P-R Int : 000 ms QRS Dur : 094 ms QT Int : 364 ms P-R-T Axes : 000 079 060 degrees QTc Int : 452 ms ATRIAL FIBRILLATION INCOMPLETE RIGHT BUNDLE BRANCH BLOCK ABNORMAL ECG WHEN COMPARED WITH ECG OF 21-MAY-2019 13:29, NO SIGNIFICANT CHANGE WAS FOUND Confirmed by YUSEF NIEVES MD ([id number]) on 05/22/2019 2:38:03 PM Referred By: Confirmed By:YUESF NIEVES MD
--- NOTE | 2019-05-22 14:49 | CONSULT ---
Consult Consult Specialty:: Nephrology Reason for Consultation:: JOHN - History of Present Illness Chief Complaint: shortness of breath and lower ext edema History of Present Illness: Pt is an 83 year old male with pmhx of htn, HLD, prostate cancer who was sent in for chf. He was also found to be in new onset a-fib. He complains of lower ext edema that began a few months ago and has gotten worse. He is unable to lay flat without shortness of breath. He gets shortness of breath with ambulation. He was found to be in [facility] and I was called to evaluate him. He denies hematuria or dysuria. He denies nsaid use. He is on olmesartan hctz at home. - History Source History Provided By: Patient, Medical Record - Past Medical History Cardio/Vascular: Yes: HTN Gastrointestinal: Yes: GERD - Alcohol/Substance Use Hx Alcohol Use: No - Smoking History Smoking history: Never smoked Have you smoked in the past 12 months: No Home Medications - Allergies Allergies/Adverse Reactions: Allergies Allergy/AdvReac Type Severity Reaction Status Date / Time Sulfa (Sulfonamide Allergy Mild Rash Verified 05/21/19 20:24 Antibiotics) - Home Medications Home Medications: Ambulatory Orders Atorvastatin Ca [Lipitor] 10 mg PO HS 05/21/19 Calcium Citrate/Vitamin D3 [Calcium Cit 315-Vit D3 200 Cpt] 2 each PO DAILY Iron 65 mg PO DAILY 05/21/19 Lansoprazole [Prevacid] 30 mg PO DAILY 05/21/19 Olmesartan/Hydrochlorothiazide [Olmesartan-Hctz 20-12.5 mg Tab] 1 each PO DAILY 05/21/19 Family Disease History - Family Disease History Family History: Denies Review of Systems - Review of Systems Constitutional: reports: Malaise Eyes: reports: No Symptoms HENT: reports: No Symptoms Neck: reports: No Symptoms Cardiovascular: reports: Edema, Shortness of Breath. denies: Palpitations Respiratory: reports: SOB, SOB on Exertion Gastrointestinal: reports: No Symptoms Genitourinary: reports: No Symptoms Musculoskeletal: reports: No Symptoms Integumentary: reports: No Symptoms Neurological: reports: No Symptoms Endocrine: reports: No Symptoms Hematology/Lymphatic: reports: No Symptoms Psychiatric: reports: No Symptoms Physical Exam Vital Signs: Vital Signs Temperature 98 F 05/22/19 08:36 Pulse Rate 118 H 05/22/19 08:36 Respiratory Rate 20 05/22/19 08:39 Blood Pressure 143/82 05/22/19 08:36 O2 Sat by Pulse Oximetry (%) 97 05/22/19 08:39 Constitutional: Yes: Calm Eyes: Yes: Conjunctiva Clear HENT: Yes: Atraumatic Neck: Yes: Supple Cardiovascular: Yes: S1 Respiratory: Yes: Rhonchi Gastrointestinal: Yes: Soft Renal/: Yes: WNL Musculoskeletal: Yes: WNL Edema: Yes Edema: LLE: 2+, RLE: 2+ Integumentary: Yes: Venous Stasis Changes Neurological: Yes: Oriented Psychiatric: Yes: Oriented Labs: CBC, BMP 05/22/19 06:30 05/22/19 06:30 Laboratory Tests 11/21/10 05/12/19 05/21/19 13:45 18:15 16:14 WBC 13.7 H Creatinine 0.9 1.5 H Urine Protein Urine Blood 05/21/19 05/22/19 05/22/19 16:14 00:52 06:30 WBC 22.0 H Creatinine 1.8 H Urine Protein Negative Urine Blood Trace 05/22/19 05/22/19 06:30 12:30 WBC Creatinine 1.7 H Urine Protein Negative Urine Blood Negative Imaging - Results Chest X-ray: Report Reviewed Problem List - Problems (1) JOHN (acute kidney injury) Code(s): N17.9 - ACUTE KIDNEY FAILURE, UNSPECIFIED (2) Chest discomfort Code(s): R07.89 - OTHER CHEST PAIN (3) New onset a-fib Code(s): I48.91 - UNSPECIFIED ATRIAL FIBRILLATION (4) New onset of congestive heart failure Code(s): I50.9 - HEART FAILURE, UNSPECIFIED Assessment/Plan Current Medications Generic Name Dose Route Start Last Admin Trade Name Freq PRN Reason Stop Dose Admin Apixaban 2.5 mg 05/22/19 10:00 05/22/19 10:03 Eliquis - PO 2.5 mg BID MILI Administration Atorvastatin Calcium 10 mg 05/22/19 22:00 Lipitor - PO HS MILI Calcium Carbonate 1,000 mg 05/22/19 10:00 05/22/19 10:03 Os-Dionicio 500mg - PO 1,000 mg DAILY MILI Administration Ferrous Sulfate 325 mg 05/22/19 10:00 05/22/19 10:03 Feosol - PO 325 mg DAILY MILI Administration Furosemide 40 mg 05/22/19 10:00 05/22/19 10:03 Lasix Injection - IVPUSH 40 mg DAILY MILI Administration Metoprolol Tartrate 50 mg 05/22/19 22:00 Lopressor - PO BID MILI Metoprolol Tartrate 5 mg 05/22/19 11:38 Lopressor Injection - IVPUSH Q4H PRN TACHYCARDIA Pantoprazole Sodium 40 mg 05/22/19 10:00 05/22/19 10:03 Protonix - PO 40 mg DAILY MILI Administration Impression 1. JOHN 2. chf 3. a-fib 4. htn 5. gerd Plan - ua neg for blood or protein - repeat labs in am - agree with holding arb for now - cont with lasix - monitor volume status - check renal ultrasound to r/o obstruction - check echo to evaluate cardiac function
[2019-05-22 15:32] LABS: OVALOCYTE 1+; TEAR DROP CELLS 1+
--- NOTE | 2019-05-22 21:25 | CON.GI ---
Consult Consult Specialty:: Gastroenterology Referred by:: Dr Kya Gore Reason for Consultation:: History of GI bleeding - History of Present Illness Chief Complaint: Dyspnea, leg swelling , chest pain History of Present Illness: 83M was referred from the office with c/o chest pain and NAIR in the setting of increasing lower extremity edema. In the ER he was found to be in new BECKY and was started on Eliquis. He tells me that his stools were black for the last 3 days. 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 He underwent ERBE cauterizations with ar in 2007, 2009, 2010 and the last on 01/02/12 at which point he had only a few recurrent ectasias. He last had a colonoscopy with ar in 12/09 which led to the removal of 2 descending colon adenomas and which revealed diverticulosis universally. His baseline Hb when I last saw him on 03/02/14 was 11. Despite my advice against it he continues top drink about a six pack of beer daily and has occasional vodka. - History Source History Provided By: Patient, Medical Record - Past Medical History Cardio/Vascular: Yes: AFIB, HTN, Hyperlipdemia Gastrointestinal: Yes: GERD, 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 , and .), Hiatal Hernia, Other (descending colon adenomas removed 12/09) Renal/: Yes: Cancer (Prostate cancer with radical prostatectomy in 2002) - Past Surgical History Past Surgical History: Yes: Colonoscopy, Prostatectomy (radical prostatectomy 2002 for cancer), Upper Endoscopy - Alcohol/Substance Use Hx Alcohol Use: Yes (6 pacn beer daily) History of Substance Use: reports: None - Smoking History Smoking history: Former smoker Have you smoked in the past 12 months: No If you are a former smoker, when did you quit?: 1999 - Social History Usual Living Arrangement: With Spouse ADL: Independent Place of : Other ([place]) Came to [place]year): age 50 Home Medications - Allergies Allergies/Adverse Reactions: Allergies Allergy/AdvReac Type Severity Reaction Status Date / Time Sulfa (Sulfonamide Allergy Mild Rash Verified 05/21/19 20:24 Antibiotics) - Home Medications Home Medications: Ambulatory Orders Atorvastatin Ca [Lipitor] 10 mg PO HS 05/21/19 Calcium Citrate/Vitamin D3 [Calcium Cit 315-Vit D3 200 Cpt] 2 each PO DAILY Iron 65 mg PO DAILY 05/21/19 Lansoprazole [Prevacid] 30 mg PO DAILY 05/21/19 Olmesartan/Hydrochlorothiazide [Olmesartan-Hctz 20-12.5 mg Tab] 1 each PO DAILY 05/21/19 Family Disease History - Family Disease History Family Disease History: CA: Father ( prostate cancer), Other: Mother ( of CVA), Brother (seizure disorder) Review of Systems - Review of Systems Constitutional: reports: Lethargy, Malaise, Weakness Eyes: reports: No Symptoms HENT: reports: No Symptoms Neck: reports: No Symptoms Cardiovascular: reports: Chest Pain, Palpitations, Shortness of Breath, Other ( leg swelling for 5 months) Respiratory: reports: Exercise Intolerance Gastrointestinal: reports: Diarrhea Genitourinary: reports: No Symptoms Musculoskeletal: reports: Joint Pain Physical Exam-GI Vital Signs: Vital Signs Temperature 98.5 F 05/22/19 17:00 Pulse Rate 96 H 05/22/19 17:00 Respiratory Rate 18 05/22/19 17:00 Blood Pressure 119/78 05/22/19 17:00 O2 Sat by Pulse Oximetry (%) 97 05/22/19 08:39 CBC,CMP WBC 22.0 K/mm3 (4.0-10.0) H 05/22/19 06:30 RBC 3.58 M/mm3 (4.00-5.60) L 05/22/19 06:30 Hgb 11.3 GM/dL (11.7-16.9) L 05/22/19 06:30 Hct 32.0 % (35.4-49) L 05/22/19 06:30 MCV 89.5 fl (80-96) 05/22/19 06:30 MCH 31.7 pg (25.7-33.7) 05/22/19 06:30 MCHC 35.4 g/dl (32.0-35.9) 05/22/19 06:30 RDW 14.7 % (11.9-15.9) 05/22/19 06:30 Plt Count 225 K/MM3 (134-434) D 05/22/19 06:30 MPV 9.3 fl (7.5-11.1) 05/22/19 06:30 Absolute Neuts (auto) 10.7 K/mm3 (1.5-8.0) H 05/22/19 06:30 Total Counted 100 05/22/19 06:30 Neutrophils % No Result Required. 05/22/19 06:30 Neutrophils % (Manual) 50.0 % (42.8-82.8) D 05/22/19 06:30 Band Neutrophils % 1.0 % 05/22/19 06:30 Lymphocytes % No Result Required. 05/22/19 06:30 Lymphocytes % (Manual) 34.0 % (8-40) D 05/22/19 06:30 Monocytes % (Manual) 15 % (3.8-10.2) H D 05/22/19 06:30 Eosinophils % (Manual) 0.0 % (0-4.5) 05/21/19 16:14 Basophils % (Manual) 0.0 % (0-2.0) 05/21/19 16:14 Myelocytes % (Man) Cancelled 05/22/19 06:30 Promyelocytes % (Man) Cancelled 05/22/19 06:30 Blast Cells % (Manual) Cancelled 05/22/19 06:30 Nucleated RBC % 1 % (0-0) H 05/22/19 06:30 Metamyelocytes Cancelled 05/22/19 06:30 Differential Comment Cancelled 05/22/19 06:30 Hypersegmented Neuts Cancelled 05/22/19 06:30 Plasma Cells Cancelled 05/22/19 06:30 Smudge Cells Cancelled 05/22/19 06:30 Other Cell Type Cancelled 05/22/19 06:30 Hypochromia Cancelled 05/22/19 06:30 Toxic Granulation Cancelled 05/22/19 06:30 Dohle Bodies Cancelled 05/22/19 06:30 Olinda Rods Cancelled 05/22/19 06:30 Platelet Estimate Adequate 05/21/19 16:14 Platelet Comment Cancelled 05/22/19 06:30 Platelet Comment Cancelled 05/22/19 06:30 Polychromasia Cancelled 05/22/19 06:30 Poikilocytosis Cancelled 05/22/19 06:30 Basophilic Stippling Cancelled 05/22/19 06:30 Anisocytosis Cancelled 05/22/19 06:30 Microcytosis Cancelled 05/22/19 06:30 Macrocytosis Cancelled 05/22/19 06:30 Spherocytes Cancelled 05/22/19 06:30 Siderocytes Cancelled 05/22/19 06:30 Sickle Cells Cancelled 05/22/19 06:30 Target Cells Cancelled 05/22/19 06:30 Tear Drop Cells 1+ 05/22/19 06:30 Ovalocytes 1+ 05/22/19 06:30 Stomatocytes Cancelled 05/22/19 06:30 Helmet Cells Cancelled 05/22/19 06:30 Ji-[place] Bodies Cancelled 05/22/19 06:30 [place] Rings Cancelled 05/22/19 06:30 [place] Cells Cancelled 05/22/19 06:30 Acanthocytes (Spur) Cancelled 05/22/19 06:30 Rouleaux Cancelled 05/22/19 06:30 Fragmented RBCs Cancelled 05/22/19 06:30 Schistocytes Cancelled 05/22/19 06:30 Sodium 140 mmol/L (136-145) 05/22/19 06:30 Potassium 3.5 mmol/L (3.5-5.1) 05/22/19 06:30 Chloride 104 mmol/L (98-107) 05/22/19 06:30 Carbon Dioxide 27 mmol/L (21-32) 05/22/19 06:30 Anion Gap 9 MMOL/L (8-16) 05/22/19 06:30 BUN 38.6 mg/dL (7-18) H 05/22/19 06:30 Creatinine 1.7 mg/dL (0.55-1.3) H 05/22/19 06:30 Est GFR (CKD-EPI)AfAm 42.28 05/22/19 06:30 Est GFR (CKD-EPI)NonAf 36.48 05/22/19 06:30 Random Glucose 82 mg/dL (74-106) 05/22/19 06:30 Calcium 8.6 mg/dL (8.5-10.1) 05/22/19 06:30 Phosphorus 4.1 mg/dL (2.5-4.9) 05/22/19 06:30 Magnesium 2.1 mg/dL (1.8-2.4) 05/22/19 06:30 Total Bilirubin 0.8 mg/dL (0.2-1) 05/22/19 06:30 AST 51 U/L (15-37) H 05/22/19 06:30 ALT 40 U/L (13-61) 05/22/19 06:30 Alkaline Phosphatase 103 U/L (45-117) 05/22/19 06:30 Creatine Kinase 84 U/L (26-308) 05/22/19 06:30 Troponin I 0.02 ng/ml (0.00-0.05) 05/22/19 06:30 B-Natriuretic Peptide 7707.9 pg/ml (5-450) H 05/21/19 16:14 Total Protein 5.3 g/dl (6.4-8.2) L 05/22/19 06:30 Albumin 3.2 g/dl (3.4-5.0) L 05/22/19 06:30 Current Medications Generic Name Dose Route Start Last Admin Trade Name Freq PRN Reason Stop Dose Admin Apixaban 2.5 mg 05/22/19 10:00 05/22/19 10:03 Eliquis - PO 2.5 mg BID MILI Administration Atorvastatin Calcium 10 mg 05/22/19 22:00 Lipitor - PO HS MILI Calcium Carbonate 1,000 mg 05/22/19 10:00 05/22/19 10:03 Os-Dionicio 500mg - PO 1,000 mg DAILY MILI Administration Ferrous Sulfate 325 mg 05/22/19 10:00 05/22/19 10:03 Feosol - PO 325 mg DAILY MILI Administration Furosemide 40 mg 05/22/19 10:00 05/22/19 10:03 Lasix Injection - IVPUSH 40 mg DAILY MILI Administration Metoprolol Tartrate 50 mg 05/22/19 22:00 Lopressor - PO BID MILI Metoprolol Tartrate 5 mg 05/22/19 11:38 Lopressor Injection - IVPUSH Q4H PRN TACHYCARDIA Pantoprazole Sodium 40 mg 05/22/19 10:00 05/22/19 10:03 Protonix - PO 40 mg DAILY MILI Administration Constitutional: Yes: Calm Eyes: Yes: Conjunctiva Clear HENT: Yes: Atraumatic Neck: Yes: Supple Cardiovascular: Yes: Tachycardia, Pulse Irregular Respiratory: Yes: Rales (at bases) Gastrointestinal Inspection: Yes: Scars (healed vertical suprapubic and RIH incisions) ...Auscultate: Yes: Normoactive Bowel Sounds ...Palpate: Yes: Soft, Other (nontender) ...Rectal Exam: Yes: Guaiac Positive (loose iron stained strongly guaiac positive stool, no prostate palpable) Edema: Yes Edema: LLE: 4+, RLE: 4+ Neurological: Yes: Alert, Oriented Labs: CBC, BMP 05/22/19 06:30 05/22/19 06:30 INR, PTT INR 1.47 (0.83-1.09) H 05/22/19 06:30 Laboratory Tests 05/21/19 16:14 Total Bilirubin 0.8 AST 60 H ALT 49 Alkaline Phosphatase 133 H B-Natriuretic Peptide 7707.9 H Imaging - Results Ultrasound: Report Reviewed ( Final Report US KIDNEY / RENAL US Show Printer-Friendly Version Patient Name: Maximino Davis : 1935 ID: [id number] Study Date: 22-May-2019 19:10 Yvonne Marleen Name: MAXIMINO DAVIS DEPARTMENT OF RADIOLOGY Phys: Amy Ceja MD : 1935 Age : 83 Sex: M [facility] Acct: [id number] Loc: [address] Exam Date: 05/22/19 Status: [place] [address] Unit Number : [id number] EXAM#: TYPE/ EXAM: RESULT: [id number] US/KIDNEY / RENAL US HISTORY PROVIDED: Renal insufficiency. Real time examination of the kidneys demonstrates the following: There is a small amount of ascites within the upper abdomen. The kidneys are normal in size with the right kidney measuring 11.3 x 6.1 x 5.2 cm and the left kidney measuring 12.3 x 6.0 x 6.4 cm. They are normal in position and texture with no evidence of hydronephrosis or contour deforming renal masses. IMPRESSION: 1. Ascites. 2. Morphologically normal kidneys with no evidence of hydronephrosis or acute pathology. Reported By: Christopher Patel MD 05/22/191999 Technologist: Angelica Hansen Transcribed Date/Time: 05/22/191999 Veterinary Virologist: Christopher Patel Printed Date/Time: By: Signed by: Christopher Patel Signed on: 22-May-2019 20:02) Problem List - Problems (1) GI bleed Assessment/Plan: I suspect that the bleeding is from recurrent gastric vascular ectasias and that they will require further ablation. Please notify us when he is cardiologically stable enough to have an EGD and to have his anticoagulation interrupted temporarily so as to allow cauterization. I cannot exclude an ulcer , GERD or alcohol induced gastritis or even perhaps portal gastropathy as contributing given his daily alcohol consumption so I will start a PPI drip. I have told him that he must stop his alcohol intake. He will need to be watched for alcohol withdrawal. Code(s): K92.2 - GASTROINTESTINAL HEMORRHAGE, UNSPECIFIED (2) Abnormal liver function tests Assessment/Plan: Given his regular alcohol intake and the AST/ALT pattern I suspect alcoholic gastritis. 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 Code(s): R94.5 - ABNORMAL RESULTS OF LIVER FUNCTION STUDIES (3) GAVE (gastric antral vascular ectasia) Code(s): K31.819 - ANGIODYSPLASIA OF STOMACH AND DUODENUM WITHOUT BLEEDING (4) Colon adenomas Code(s): D12.6 - BENIGN NEOPLASM OF COLON, UNSPECIFIED (5) Diverticulosis Code(s): K57.90 - DVRTCLOS OF INTEST, PART UNSP, W/O PERF OR ABSCESS W/O BLEED (6) History of radical prostatectomy Code(s): Z90.79 - ACQUIRED ABSENCE OF OTHER GENITAL ORGAN(S) (7) Prostate cancer Code(s): C61 - MALIGNANT NEOPLASM OF PROSTATE (8) Hypertension Code(s): I10 - ESSENTIAL (PRIMARY) HYPERTENSION (9) Hyperlipidemia Code(s): E78.5 - HYPERLIPIDEMIA, UNSPECIFIED Assessment/Plan Assessment: - I suspect that the bleeding is from recurrent gastric vascular ectasias and that they will require further ablation. Please notify us when he is cardiologically stable enough to have an EGD and to have his anticoagulation interrupted temporarily so as to allow cauterization. I cannot exclude an ulcer , GERD or alcohol induced gastritis or even perhaps portal gastropathy as contributing given his daily alcohol consumption so I will start a PPI drip. -Given his regular alcohol intake and the AST/ALT pattern I suspect alcoholic gastritis. 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 -- He will need to be watched for alcohol withdrawal. -- EGD with GAVE ablation when the clinical condition permits . This will require interrupting his A/C -- Fibroscan as outpatient -- AFP and other liver testing including a sonogram to exclude a hepatoma
[2019-05-22] MEDS: METOPROLOL TARTRATE 25 MG TABLET (FP) PO SCH (22:33)
[2019-05-22] MEDS: ATORVASTATIN CA 10 MG TABLET (FP) PO SCH (22:33)
[2019-05-22] MEDS: PANTOPRAZOLE SODIUM 80 MG in SODIUM CHLORIDE 100 ML IVPB SCH (23:16)
--- NOTE | 2019-05-23 07:26 | PN ---
Progress Note (short form) - Note Progress Note: Vital Signs Period Temp Pulse Resp BP Sys/Brewer Pulse Ox Last 24 Hr 97.7 F-98.6 F 80-118 18-20 119-143/69-88 97 s1s2 irreg.irreg. 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 palpitations and lower extremity edema in er in rapid afib-hr better now with bblocker, echo a acute fritz-renal us ok, +ascites echo nl lv fnct, dilated ra, la, rv, mod.severe tr, pulm htn anemia with guiac pos stools-h/o gastric ectasias plan telemetry bbsuzaner stop eliquis, start lmwh, since egd planned, tentatively next week iv lasix ppi drip consults appreciated
[2019-05-23] MEDS: PANTOPRAZOLE SODIUM 80 MG in SODIUM CHLORIDE 100 ML IVPB SCH ×2 (08:09→20:38)
[2019-05-23 08:16] LABS: ALBUMIN 3.2 g/dl (3.4-5.0); BILIRUBIN,TOTAL 0.8 mg/dL (0.2-1); BLOOD UREA NITROGEN 40.7 mg/dL (7-18); CALCIUM 8.7 mg/dL (8.5-10.1); CREATININE 1.7 mg/dL (0.55-1.3); POTASSIUM 3.4 mmol/L (3.5-5.1); TOT PROT 5.6 g/dl (6.4-8.2)
[2019-05-23 09:18] LABS: BILIRUBIN,DIRECT 0.3 mg/dL (0.0-0.2)
[2019-05-23] MEDS: METOPROLOL TARTRATE 25 MG TABLET (FP) PO SCH (10:46)
[2019-05-23] MEDS: FUROSEMIDE 40 MG/4 ML INJECTABLE VIAL IVPUSH SCH (10:46)
[2019-05-23] MEDS: CALCIUM (OYSTER SHELL) 500 MG TABLET (FP) PO SCH (10:46)
[2019-05-23] MEDS: ENOXAPARIN NA (PORCINE) 80 MG/0.8 ML DISP.SYRIN SQ SCH (10:52)
--- NOTE | 2019-05-23 12:20 | PN ---
Progress Note, Physician Chief Complaint: still with soboe tele af controlled VR while lying down, RVR on minimal exertion. History of Present Illness: 83yo M, ([place] speaking) with PMH of HTN, HLD, prostate CA sent by his primary care physician for admission for new-onset CHF and atrial fibrillation with RVR. He complains of mild substernal chest pain on exertion x 1 week. He has dyspnea on exertion just walking across the room. He has noticed leg swelling for the past five months. +2-3 pillow orthopnea. No PND. No palpitations, dizziness or syncope. Echo 05/22/19: normal EF, dilated RV, mild dec RV function. mod LAE/KARRIE. trace to mild MR. Mod to sev TR RVSP 40-50. - Current Medication List Current Medications: Active Medications Atorvastatin Calcium (Lipitor -) 10 mg PO HS [facility] Last Admin: 05/22/19 22:33 Dose: 10 mg Calcium Carbonate (Os-Dionicio 500mg -) 1,000 mg PO DAILY [facility] Last Admin: 05/23/19 10:46 Dose: 1,000 mg Enoxaparin Sodium (Lovenox -) 70 mg SQ DAILY [facility] Last Admin: 05/23/19 10:52 Dose: 70 mg Furosemide (Lasix Injection -) 40 mg IVPUSH DAILY [facility] Last Admin: 05/23/19 10:46 Dose: 40 mg Pantoprazole Sodium 80 mg/ (Sodium Chloride) 100 mls @ 10 mls/hr IVPB Q10H [facility] Last Admin: 05/23/19 08:09 Dose: 10 mls/hr Metoprolol Tartrate (Lopressor -) 50 mg PO BID [facility] Last Admin: 05/23/19 10:46 Dose: 50 mg Metoprolol Tartrate (Lopressor Injection -) 5 mg IVPUSH Q4H PRN PRN Reason: TACHYCARDIA - Objective Vital Signs: Vital Signs Temperature 97.8 F 05/23/19 08:43 Pulse Rate 90 05/23/19 08:43 Respiratory Rate 18 05/23/19 08:46 Blood Pressure 130/75 05/23/19 08:43 O2 Sat by Pulse Oximetry (%) 97 05/22/19 08:39 Constitutional: Yes: No Distress, Calm Eyes: Yes: EOM Intact HENT: Yes: Normocephalic Neck: Yes: Trachea Midline Cardiovascular: Yes: Pulse Irregular Respiratory: Yes: CTA Bilaterally Gastrointestinal: Yes: Normal Bowel Sounds, Soft Musculoskeletal: Yes: WNL Extremities: Yes: WNL Edema: LLE: 1+, RLE: 1+ Labs: CBC, BMP 05/23/19 06:35 INR, PTT INR 1.47 (0.83-1.09) H 05/22/19 06:30 Assessment/Plan 83 year old man with a history of HTN, HLD, prostate CA sent by his primary care physician for admission for new-onset CHF and atrial fibrillation with RVR. He complains of mild substernal chest pain on exertion x 1 week. He has dyspnea on exertion just walking across the room. He has noticed leg swelling for the past five months. +2-3 pillow orthopnea. No PND. No palpitations, dizziness or syncope. Echo 05/22/19: normal EF, dilated RV, mild dec RV function. mod LAE/KARRIE. trace to mild MR. Mod to sev TR RVSP 40-50. New onset atrial fibrillation -agree with eliquis -would get CTA or VQ scan to rule out PE given RV findings and new afib, cp -increase metoprolol to 100 mg bid. CHF -acute on chronic right sided chf -mainly edema rather than pulmonary congestion. -diurese with lasix 40 bid -stop diovan given CKD and normal EF.
[2019-05-23 13:55] LABS: BASO % 0.9 % (0-2.0); EOS % 0.8 % (0-4.5); HEMOGLOBIN 10.9 GM/dL (11.7-16.9); LYMPH % 35.7 % (8-40); MCH 37.2 pg (25.7-33.7); MEAN CELL VOLUME 92.1 fl (80-96); MEAN PLT VOLUME 9.3 fl (7.5-11.1); MONO % 19.1 % (3.8-10.2); NEUT % 43.5 % (42.8-82.8); PLATELET COUNT 416 K/MM3 (134-434); RBC 2.93 M/mm3 (4.00-5.60); RDW 14.4 % (11.9-15.9); RETICULOCYTES 1.19 % (0.5-1.5)
[2019-05-23 13:56] LABS: MCHC 40.4 g/dl (32.0-35.9)
[2019-05-23 13:58] LABS: WHITE BLOOD COUNT 47.5 K/mm3 (4.0-10.0)
[2019-05-23 14:11] LABS: ANISOCYTOSIS 2+; MACROCYTOSIS 0; PLATELET ESTIMATE NORMAL; TEAR DROP CELLS 1+
[2019-05-23] MEDS ORDERED: FUROSEMIDE 40 MG/4 ML INJECTABLE VIAL IVPUSH ONE ×2 (15:11→20:45)
--- NOTE | 2019-05-23 15:11 | PN ---
Progress Note, Physician History of Present Illness: Pt seen and examined at bedside. He still gets shortness of breath and does not feel that the lower ext edema is improved. - Current Medication List Current Medications: Active Medications Atorvastatin Calcium (Lipitor -) 10 mg PO HS [facility] Last Admin: 05/22/19 22:33 Dose: 10 mg Calcium Carbonate (Os-Dionicio 500mg -) 1,000 mg PO DAILY [facility] Last Admin: 05/23/19 10:46 Dose: 1,000 mg Enoxaparin Sodium (Lovenox -) 70 mg SQ DAILY [facility] Last Admin: 05/23/19 10:52 Dose: 70 mg Furosemide (Lasix Injection -) 40 mg IVPUSH DAILY [facility] Last Admin: 05/23/19 10:46 Dose: 40 mg Pantoprazole Sodium 80 mg/ (Sodium Chloride) 100 mls @ 10 mls/hr IVPB Q10H [facility] Last Admin: 05/23/19 08:09 Dose: 10 mls/hr Metoprolol Tartrate (Lopressor Injection -) 5 mg IVPUSH Q4H PRN PRN Reason: TACHYCARDIA Metoprolol Tartrate (Lopressor -) 100 mg PO BID [facility] - Objective Vital Signs: Vital Signs Temperature 97.8 F 05/23/19 08:43 Pulse Rate 90 05/23/19 08:43 Respiratory Rate 18 05/23/19 08:46 Blood Pressure 130/75 05/23/19 08:43 O2 Sat by Pulse Oximetry (%) 97 05/22/19 08:39 Constitutional: Yes: Calm Eyes: Yes: Conjunctiva Clear HENT: Yes: Atraumatic Neck: Yes: Supple Cardiovascular: Yes: S1, S2 Respiratory: Yes: CTA Bilaterally Gastrointestinal: Yes: Soft Genitourinary: Yes: WNL Musculoskeletal: Yes: WNL Edema: Yes Edema: LLE: 2+, RLE: 2+ Neurological: Yes: Oriented Psychiatric: Yes: Oriented Labs: CBC, BMP 05/23/19 06:35 05/23/19 06:35 INR, PTT INR 1.47 (0.83-1.09) H 05/22/19 06:30 Problem List - Problems (1) JOHN (acute kidney injury) Code(s): N17.9 - ACUTE KIDNEY FAILURE, UNSPECIFIED (2) Chest discomfort Code(s): R07.89 - OTHER CHEST PAIN (3) New onset a-fib Code(s): I48.91 - UNSPECIFIED ATRIAL FIBRILLATION (4) New onset of congestive heart failure Code(s): I50.9 - HEART FAILURE, UNSPECIFIED Assessment/Plan Current Medications Generic Name Dose Route Start Last Admin Trade Name Robert PRN Reason Stop Dose Admin Atorvastatin Calcium 10 mg 05/22/19 22:00 05/22/19 22:33 Lipitor - PO 10 mg HS MILI Administration Calcium Carbonate 1,000 mg 05/22/19 10:00 05/23/19 10:46 Os-Dionicio 500mg - PO 1,000 mg DAILY MILI Administration Enoxaparin Sodium 70 mg 05/23/19 10:00 05/23/19 10:52 Lovenox - SQ 70 mg DAILY MILI Administration Furosemide 40 mg 05/22/19 10:00 05/23/19 10:46 Lasix Injection - IVPUSH 40 mg DAILY MILI Administration Pantoprazole Sodium 80 mg/ 100 mls @ 10 mls/hr 05/22/19 22:15 05/23/19 08:09 Sodium Chloride IVPB 10 mls/hr Q10H MILI Administration 8 MG/HR Metoprolol Tartrate 5 mg 05/22/19 11:38 Lopressor Injection - IVPUSH Q4H PRN TACHYCARDIA Metoprolol Tartrate 100 mg 05/23/19 13:35 Lopressor - PO BID MILI Impression 1. JOHN 2. chf 3. a-fib 4. htn 5. gerd Plan - increase lasix to bid, cardio input appreciated - will order for a second dose - monitor renal function - last ua neg for blood or protein - will need outpt follow up - renal ultrasound report reviewed
[2019-05-23] MEDS ORDERED: POTASSIUM CHLORIDE TABS 20 MEQ TABLET.ER (FP) PO ONE ×2 (15:12→20:45)
--- NOTE | 2019-05-23 15:46 | PN ---
Progress Note, Physician History of Present Illness: SUPINE IN BED WBC TODAY 47k! NO FEVER NO C/O CHEST PAIN/ COUGH NO DIARRHEA BC (-) URINE C/S CONTAMINANT - Current Medication List Current Medications: Active Medications Atorvastatin Calcium (Lipitor -) 10 mg PO HS [facility] Last Admin: 05/22/19 22:33 Dose: 10 mg Calcium Carbonate (Os-Dionicio 500mg -) 1,000 mg PO DAILY [facility] Last Admin: 05/23/19 10:46 Dose: 1,000 mg Enoxaparin Sodium (Lovenox -) 70 mg SQ DAILY [facility] Last Admin: 05/23/19 10:52 Dose: 70 mg Furosemide (Lasix Injection -) 40 mg IVPUSH BID@0600,1400 [facility] Pantoprazole Sodium 80 mg/ (Sodium Chloride) 100 mls @ 10 mls/hr IVPB Q10H [facility] Last Admin: 05/23/19 08:09 Dose: 10 mls/hr Metoprolol Tartrate (Lopressor Injection -) 5 mg IVPUSH Q4H PRN PRN Reason: TACHYCARDIA Metoprolol Tartrate (Lopressor -) 100 mg PO BID [facility] - Objective Vital Signs: Vital Signs Temperature 98 F 05/23/19 14:00 Pulse Rate 92 H 05/23/19 14:00 Respiratory Rate 18 05/23/19 14:00 Blood Pressure 129/75 05/23/19 14:00 O2 Sat by Pulse Oximetry (%) 97 05/22/19 08:39 Constitutional: Yes: No Distress Eyes: Yes: Conjunctiva Clear Cardiovascular: Yes: Regular Rate and Rhythm, S1, S2 Respiratory: Yes: CTA Bilaterally Gastrointestinal: Yes: Normal Bowel Sounds, Soft. No: Tenderness Edema: Yes Edema: LLE: 1+, RLE: 1+ Labs: CBC, BMP 05/23/19 06:35 05/23/19 06:35 INR, PTT INR 1.47 (0.83-1.09) H 05/22/19 06:30 Assessment/Plan MARKED LEUKOCYTOSIS ? SOURCE CULTURES NEGATIVE OBSERVE OFF ANTIBIOTICS ? HEMATOLOGY EVALUATION
[2019-05-23] MEDS: METOPROLOL TARTRATE 50 MG TABLET (FP) PO SCH (21:22)
[2019-05-23] MEDS: ATORVASTATIN CA 10 MG TABLET (FP) PO SCH (21:22)
[2019-05-23] MEDS ORDERED: PT OWN MED DRAWER 7, Y5N ONE (22:44)
[2019-05-24] MEDS: PANTOPRAZOLE SODIUM 80 MG in SODIUM CHLORIDE 100 ML IVPB SCH ×2 (05:25→13:45)
[2019-05-24] MEDS ORDERED: FUROSEMIDE 40 MG/4 ML INJECTABLE VIAL IVPUSH SCH (06:00)
[2019-05-24 07:36] LABS: ALBUMIN 3.1 g/dl (3.4-5.0); BILIRUBIN,DIRECT 0.3 mg/dL (0.0-0.2); BILIRUBIN,TOTAL 0.9 mg/dL (0.2-1); TOT PROT 5.4 g/dl (6.4-8.2)
[2019-05-24 09:53] LABS: MEAN PLT VOLUME 8.9 fl (7.5-11.1); PLATELET COUNT 163 K/MM3 (134-434); WHITE BLOOD COUNT 19.3 K/mm3 (4.0-10.0)
[2019-05-24 10:01] LABS: HEMATOCRIT 36.8 % (35.4-49); MCH 30.1 pg (25.7-33.7); MCHC 32.7 g/dl (32.0-35.9); MEAN CELL VOLUME 92.3 fl (80-96); RBC 3.99 M/mm3 (4.00-5.60); RDW 14.6 % (11.9-15.9)
[2019-05-24] MEDS: ENOXAPARIN NA (PORCINE) 80 MG/0.8 ML DISP.SYRIN SQ SCH (10:07)
[2019-05-24] MEDS: METOPROLOL TARTRATE 50 MG TABLET (FP) PO SCH ×2 (10:08→21:51)
[2019-05-24] MEDS: CALCIUM (OYSTER SHELL) 500 MG TABLET (FP) PO SCH (10:08)
[2019-05-24 12:43] LABS: BLOOD UREA NITROGEN 41.8 mg/dL (7-18); CALCIUM 8.8 mg/dL (8.5-10.1); CREATININE 1.9 mg/dL (0.55-1.3); POTASSIUM 3.7 mmol/L (3.5-5.1)
--- NOTE | 2019-05-24 12:57 | PN ---
Progress Note, Physician History of Present Illness: Pt seen and examined at bedside. He is awake and alert. He feels that his lower ext edema is starting to improve. - Current Medication List Current Medications: Active Medications Atorvastatin Calcium (Lipitor -) 10 mg PO HS [facility] Last Admin: 05/23/19 21:22 Dose: 10 mg Calcium Carbonate (Os-Dionicio 500mg -) 1,000 mg PO DAILY [facility] Last Admin: 05/24/19 10:08 Dose: 1,000 mg Enoxaparin Sodium (Lovenox -) 70 mg SQ DAILY [facility] Last Admin: 05/24/19 10:07 Dose: 70 mg Furosemide (Lasix Injection -) 40 mg IVPUSH BID@0600,1400 [facility] Last Admin: 05/24/19 06:29 Dose: 40 mg Pantoprazole Sodium 80 mg/ (Sodium Chloride) 100 mls @ 10 mls/hr IVPB Q10H [facility] Last Admin: 05/24/19 05:25 Dose: 10 mls/hr Metoprolol Tartrate (Lopressor Injection -) 5 mg IVPUSH Q4H PRN PRN Reason: TACHYCARDIA Metoprolol Tartrate (Lopressor -) 100 mg PO BID [facility] Last Admin: 05/24/19 10:08 Dose: 100 mg - Objective Vital Signs: Vital Signs Temperature 98.0 F 05/24/19 08:52 Pulse Rate 98 H 05/24/19 08:52 Respiratory Rate 18 05/24/19 08:52 Blood Pressure 127/81 05/24/19 08:52 O2 Sat by Pulse Oximetry (%) 97 05/22/19 08:39 Constitutional: Yes: Calm Eyes: Yes: Conjunctiva Clear HENT: Yes: Atraumatic Neck: Yes: Supple Cardiovascular: Yes: S1, S2 Respiratory: Yes: CTA Bilaterally Gastrointestinal: Yes: Soft Genitourinary: Yes: WNL Musculoskeletal: Yes: WNL Edema: Yes Edema: LLE: 2+, RLE: 2+ Neurological: Yes: Oriented Psychiatric: Yes: Oriented Labs: CBC, BMP 05/24/19 06:20 05/24/19 06:20 INR, PTT INR 1.47 (0.83-1.09) H 05/22/19 06:30 Problem List - Problems (1) JOHN (acute kidney injury) Code(s): N17.9 - ACUTE KIDNEY FAILURE, UNSPECIFIED (2) Chest discomfort Code(s): R07.89 - OTHER CHEST PAIN (3) New onset a-fib Code(s): I48.91 - UNSPECIFIED ATRIAL FIBRILLATION (4) New onset of congestive heart failure Code(s): I50.9 - HEART FAILURE, UNSPECIFIED Assessment/Plan Current Medications Generic Name Dose Route Start Last Admin Trade Name Freq PRN Reason Stop Dose Admin Atorvastatin Calcium 10 mg 05/22/19 22:00 05/23/19 21:22 Lipitor - PO 10 mg HS MILI Administration Calcium Carbonate 1,000 mg 05/22/19 10:00 05/24/19 10:08 Os-Dionicio 500mg - PO 1,000 mg DAILY [facility]I Administration Enoxaparin Sodium 70 mg 05/23/19 10:00 05/24/19 10:07 Lovenox - SQ 70 mg DAILY [facility]I Administration Furosemide 40 mg 05/24/19 06:00 05/24/19 06:29 Lasix Injection - IVPUSH 40 mg BID@0600,1400 MILI Administration Pantoprazole Sodium 80 mg/ 100 mls @ 10 mls/hr 05/22/19 22:15 05/24/19 05:25 Sodium Chloride IVPB 10 mls/hr Q10H MILI Administration 8 MG/HR Metoprolol Tartrate 5 mg 05/22/19 11:38 Lopressor Injection - IVPUSH Q4H PRN TACHYCARDIA Metoprolol Tartrate 100 mg 05/23/19 13:35 05/24/19 10:08 Lopressor - PO 100 mg BID MILI Administration Impression 1. JOHN 2. chf 3. a-fib 4. htn 5. gerd Plan - cont lasix - repeat labs in am - will change back to daily as senior project controls specialist is rising - will order more extensive renal workup - echo report reviewed - cardio follow up
--- NOTE | 2019-05-24 15:08 | PN ---
Progress Note, Physician Chief Complaint: No new complaints - Current Medication List Current Medications: Active Medications Atorvastatin Calcium (Lipitor -) 10 mg PO HS [facility] Last Admin: 05/23/19 21:22 Dose: 10 mg Calcium Carbonate (Os-Dionicio 500mg -) 1,000 mg PO DAILY [facility] Last Admin: 05/24/19 10:08 Dose: 1,000 mg Enoxaparin Sodium (Lovenox -) 70 mg SQ DAILY [facility] Last Admin: 05/24/19 10:07 Dose: 70 mg Furosemide (Lasix Injection -) 40 mg IVPUSH DAILY [facility] Pantoprazole Sodium 80 mg/ (Sodium Chloride) 100 mls @ 10 mls/hr IVPB Q10H [facility] Last Admin: 05/24/19 13:45 Dose: 10 mls/hr Metoprolol Tartrate (Lopressor Injection -) 5 mg IVPUSH Q4H PRN PRN Reason: TACHYCARDIA Metoprolol Tartrate (Lopressor -) 100 mg PO BID [facility] Last Admin: 05/24/19 10:08 Dose: 100 mg - Objective Vital Signs: Vital Signs Temperature 98.0 F 05/24/19 08:52 Pulse Rate 98 H 05/24/19 08:52 Respiratory Rate 18 05/24/19 08:52 Blood Pressure 127/81 05/24/19 08:52 O2 Sat by Pulse Oximetry (%) 97 05/22/19 08:39 Constitutional: Yes: No Distress Neck: Yes: Supple Cardiovascular: Yes: Pulse Irregular, S1, S2 Respiratory: Yes: CTA Bilaterally Gastrointestinal: Yes: Normal Bowel Sounds, Soft Edema: Yes Neurological: Yes: Alert, Oriented. No: Loss of Sensation ...Motor Strength: WNL Labs: CBC, BMP 05/24/19 06:20 05/24/19 06:20 INR, PTT INR 1.47 (0.83-1.09) H 05/22/19 06:30 Problem List - Problems (1) GI bleed Assessment/Plan: EGD planned, IV PPI Code(s): K92.2 - GASTROINTESTINAL HEMORRHAGE, UNSPECIFIED (2) New onset a-fib Assessment/Plan: Rate controlled, metoprolol reduced as per cardiology, Lovenox Code(s): I48.91 - UNSPECIFIED ATRIAL FIBRILLATION (3) Leukocytosis Assessment/Plan: WBC lower today, no apparent source Code(s): D72.829 - ELEVATED WHITE BLOOD CELL COUNT, UNSPECIFIED (4) JOHN (acute kidney injury) Assessment/Plan: Cr 1.9, cont Lasix Code(s): N17.9 - ACUTE KIDNEY FAILURE, UNSPECIFIED
--- NOTE | 2019-05-24 15:48 | PN ---
Progress Note (short form) - Note Progress Note: feels improved, less lower extremity edema no cough no diarrhea or dysuria Vital Signs Period Temp Pulse Resp BP Sys/Brewer Pulse Ox Last 24 Hr 98.0 F-98.4 F 81-98 18-18 127-134/77-91 cor-rrr lungs decreased bs at bases abd soft,nt ext +edema CBC, BMP 05/24/19 06:20 05/24/19 06:20 Microbiology 05/22/19 12:55 Blood - Peripheral Venous Blood Culture - Preliminary NO GROWTH OBTAINED AFTER 48 HOURS, INCUBATION TO CONTINUE FOR 3 DAYS. 05/22/19 12:37 Blood - Peripheral Venous Blood Culture - Preliminary NO GROWTH OBTAINED AFTER 48 HOURS, INCUBATION TO CONTINUE FOR 3 DAYS. 05/22/19 12:30 Urine - Urine Clean Catch Urine Culture - Final Lactobacillus Species Staphylococcus Coagulase Neg a/p leukocytosis trending down- ?reactive observe off antibiotics diuresis/chf management per PMD
[2019-05-24 16:08] LABS: TRANSGLUTAMINASE IGA < 2 U/mL (0-3); TRANSGLUTAMINASE IGG < 2 U/mL (0-5)
--- NOTE | 2019-05-24 17:28 | PN ---
Progress Note, Physician Chief Complaint: Appears comfortable History of Present Illness: This is a 83yo M, (Polish speaking) with PMH of HTN, HLD, prostate CA sent by his primary care physician for admission for new-onset CHF and atrial fibrillation with RVR. He complains of mild substernal chest pain on exertion x 1 week. He has dyspnea on exertion just walking across the room. He has noticed leg swelling for the past five months. +2-3 pillow orthopnea. No PND. No palpitations, dizziness or syncope. Echo 05/22/19: normal EF, dilated RV, mild dec RV function. mod LAE/KARRIE. trace to mild MR. Mod to sev TR RVSP 40-50. - Current Medication List Current Medications: Active Medications Atorvastatin Calcium (Lipitor -) 10 mg PO HS [facility] Last Admin: 05/23/19 21:22 Dose: 10 mg Calcium Carbonate (Os-Dionicio 500mg -) 1,000 mg PO DAILY [facility] Last Admin: 05/24/19 10:08 Dose: 1,000 mg Enoxaparin Sodium (Lovenox -) 70 mg SQ DAILY [facility] Last Admin: 05/24/19 10:07 Dose: 70 mg Furosemide (Lasix Injection -) 40 mg IVPUSH DAILY [facility] Pantoprazole Sodium 80 mg/ (Sodium Chloride) 100 mls @ 10 mls/hr IVPB Q10H [facility] Last Admin: 05/24/19 13:45 Dose: 10 mls/hr Metoprolol Tartrate (Lopressor Injection -) 5 mg IVPUSH Q4H PRN PRN Reason: TACHYCARDIA Metoprolol Tartrate (Lopressor -) 50 mg PO BID [facility] - Objective Vital Signs: Vital Signs Temperature 98.4 F 05/24/19 14:00 Pulse Rate 88 05/24/19 14:00 Respiratory Rate 18 05/24/19 14:00 Blood Pressure 126/92 05/24/19 14:00 O2 Sat by Pulse Oximetry (%) 97 05/22/19 08:39 Constitutional: Yes: No Distress Eyes: Yes: WNL HENT: Yes: WNL Neck: Yes: WNL Cardiovascular: Yes: Pulse Irregular, S1, S2 Respiratory: Yes: Dullness Gastrointestinal: Yes: Soft Edema: LLE: 2+, RLE: 2+ Neurological: Yes: Oriented Labs: CBC, BMP 05/24/19 06:20 05/24/19 06:20 INR, PTT INR 1.47 (0.83-1.09) H 05/22/19 06:30 Assessment/Plan 83yo M, (Polish speaking) with PMH of HTN, HLD, prostate CA sent by his primary care physician for admission for new-onset CHF and atrial fibrillation with RVR. He complains of mild substernal chest pain on exertion x 1 week. He has dyspnea on exertion just walking across the room. He has noticed leg swelling for the past five months. +2-3 pillow orthopnea. No PND. No palpitations, dizziness or syncope. New onset atrial fibrillation -Would favore Eliquis 2.5 mg PO BID -PE evaluation -increase metoprolol to 75 mg bid for better rate control CHF -acute on chronic right sided chf -mainly edema rather than pulmonary congestion. -Continue lasix 40 bid -Daily I's/O's/Wt's/Lytes
[2019-05-24 20:08] LABS: HEP B CORE AB, TOT Negative (Negative)
[2019-05-24] MEDS: ATORVASTATIN CA 10 MG TABLET (FP) PO SCH (21:51)
[2019-05-25] MEDS: PANTOPRAZOLE SODIUM 80 MG in SODIUM CHLORIDE 100 ML IVPB SCH ×2 (01:15→10:15)
[2019-05-25 07:17] LABS: ALBUMIN 3.1 g/dl (3.4-5.0); BILIRUBIN,DIRECT 0.3 mg/dL (0.0-0.2); BILIRUBIN,TOTAL 0.8 mg/dL (0.2-1); TOT PROT 5.4 g/dl (6.4-8.2)
[2019-05-25] MEDS: METOPROLOL TARTRATE 50 MG TABLET (FP) PO SCH ×2 (09:44→21:46)
[2019-05-25] MEDS: CALCIUM (OYSTER SHELL) 500 MG TABLET (FP) PO SCH (09:44)
[2019-05-25] MEDS: FUROSEMIDE 40 MG/4 ML INJECTABLE VIAL IVPUSH SCH (09:44)
[2019-05-25] MEDS: ENOXAPARIN NA (PORCINE) 80 MG/0.8 ML DISP.SYRIN SQ SCH (09:44)
[2019-05-25 12:23] LABS: HEMATOCRIT 33.2 % (35.4-49); HEMOGLOBIN 12.3 GM/dL (11.7-16.9); MCH 33.6 pg (25.7-33.7); MCHC 36.9 g/dl (32.0-35.9); MEAN CELL VOLUME 91.1 fl (80-96); MEAN PLT VOLUME 9.2 fl (7.5-11.1); PLATELET COUNT 214 K/MM3 (134-434); RBC 3.64 M/mm3 (4.00-5.60); RDW 14.4 % (11.9-15.9); WHITE BLOOD COUNT 16.8 K/mm3 (4.0-10.0)
--- NOTE | 2019-05-25 13:06 | PN ---
Progress Note, Physician History of Present Illness: Pt seen and examined at bedside. He is awake and alert. He feels that his breathing is improved. - Current Medication List Current Medications: Active Medications Atorvastatin Calcium (Lipitor -) 10 mg PO HS [facility] Last Admin: 05/24/19 21:51 Dose: 10 mg Calcium Carbonate (Os-Dionicio 500mg -) 1,000 mg PO DAILY [facility] Last Admin: 05/25/19 09:44 Dose: 1,000 mg Enoxaparin Sodium (Lovenox -) 70 mg SQ DAILY [facility] Last Admin: 05/25/19 09:44 Dose: 70 mg Furosemide (Lasix Injection -) 40 mg IVPUSH DAILY [facility] Last Admin: 05/25/19 09:44 Dose: 40 mg Pantoprazole Sodium 80 mg/ (Sodium Chloride) 100 mls @ 10 mls/hr IVPB Q10H [facility] Last Admin: 05/25/19 01:15 Dose: 10 mls/hr Metoprolol Tartrate (Lopressor Injection -) 5 mg IVPUSH Q4H PRN PRN Reason: TACHYCARDIA Metoprolol Tartrate (Lopressor -) 50 mg PO BID [facility] Last Admin: 05/25/19 09:44 Dose: 50 mg - Objective Vital Signs: Vital Signs Temperature 98.5 F 05/25/19 10:00 Pulse Rate 100 H 05/25/19 10:00 Respiratory Rate 20 05/25/19 10:00 Blood Pressure 141/86 05/25/19 10:00 O2 Sat by Pulse Oximetry (%) 95 05/25/19 09:00 Constitutional: Yes: Calm Eyes: Yes: Conjunctiva Clear HENT: Yes: Atraumatic Neck: Yes: Supple Cardiovascular: Yes: S1, S2 Respiratory: Yes: CTA Bilaterally Gastrointestinal: Yes: Soft Genitourinary: Yes: WNL Musculoskeletal: Yes: WNL Edema: Yes Edema: LLE: 2+, RLE: 2+ Neurological: Yes: Oriented Psychiatric: Yes: Oriented Labs: CBC, BMP 05/25/19 06:19 05/24/19 06:20 INR, PTT INR 1.47 (0.83-1.09) H 05/22/19 06:30 Problem List - Problems (1) JOHN (acute kidney injury) Code(s): N17.9 - ACUTE KIDNEY FAILURE, UNSPECIFIED (2) Chest discomfort Code(s): R07.89 - OTHER CHEST PAIN (3) New onset a-fib Code(s): I48.91 - UNSPECIFIED ATRIAL FIBRILLATION (4) New onset of congestive heart failure Code(s): I50.9 - HEART FAILURE, UNSPECIFIED Assessment/Plan Current Medications Generic Name Dose Route Start Last Admin Trade Name Freq PRN Reason Stop Dose Admin Atorvastatin Calcium 10 mg 05/22/19 22:00 05/24/19 21:51 Lipitor - PO 10 mg HS MILI Administration Calcium Carbonate 1,000 mg 05/22/19 10:00 05/25/19 09:44 Os-Dionicio 500mg - PO 1,000 mg DAILY [facility] Administration Enoxaparin Sodium 70 mg 05/23/19 10:00 05/25/19 09:44 Lovenox - SQ 70 mg DAILY [facility] Administration Furosemide 40 mg 05/25/19 10:00 05/25/19 09:44 Lasix Injection - IVPUSH 40 mg DAILY [facility] Administration Pantoprazole Sodium 80 mg/ 100 mls @ 10 mls/hr 05/22/19 22:15 05/25/19 01:15 Sodium Chloride IVPB 10 mls/hr Q10H [facility]I Administration 8 MG/HR Metoprolol Tartrate 5 mg 05/22/19 11:38 Lopressor Injection - IVPUSH Q4H PRN TACHYCARDIA Metoprolol Tartrate 50 mg 05/24/19 22:00 05/25/19 09:44 Lopressor - PO 50 mg BID [facility]I Administration Impression 1. JOHN 2. chf 3. a-fib 4. htn 5. gerd Plan - cont with lasix - pulmonary status improving, pt still with edea - renal workup in progress - check bmp - may need a bigger dose of lasix - cardio follow up appreciated
--- NOTE | 2019-05-25 18:32 | PN ---
Progress Note, Physician Chief Complaint: No new complaints - Current Medication List Current Medications: Active Medications Atorvastatin Calcium (Lipitor -) 10 mg PO HS [facility] Last Admin: 05/24/19 21:51 Dose: 10 mg Calcium Carbonate (Os-Dionicio 500mg -) 1,000 mg PO DAILY [facility] Last Admin: 05/25/19 09:44 Dose: 1,000 mg Enoxaparin Sodium (Lovenox -) 70 mg SQ DAILY [facility] Last Admin: 05/25/19 09:44 Dose: 70 mg Furosemide (Lasix Injection -) 40 mg IVPUSH DAILY [facility] Last Admin: 05/25/19 09:44 Dose: 40 mg Pantoprazole Sodium 80 mg/ (Sodium Chloride) 100 mls @ 10 mls/hr IVPB Q10H [facility] Last Admin: 05/25/19 10:15 Dose: 10 mls/hr Metoprolol Tartrate (Lopressor Injection -) 5 mg IVPUSH Q4H PRN PRN Reason: TACHYCARDIA Metoprolol Tartrate (Lopressor -) 50 mg PO BID [facility] Last Admin: 05/25/19 09:44 Dose: 50 mg - Objective Vital Signs: Vital Signs Temperature 98.4 F 05/25/19 17:00 Pulse Rate 87 05/25/19 17:00 Respiratory Rate 20 05/25/19 17:00 Blood Pressure 127/79 05/25/19 17:00 O2 Sat by Pulse Oximetry (%) 95 05/25/19 09:00 Constitutional: Yes: No Distress Neck: Yes: Supple Cardiovascular: Yes: Pulse Irregular, S1, S2 Respiratory: Yes: CTA Bilaterally Gastrointestinal: Yes: Normal Bowel Sounds, Soft Neurological: Yes: Alert, Oriented Labs: CBC, BMP 05/25/19 06:19 05/24/19 06:20 INR, PTT INR 1.47 (0.83-1.09) H 05/22/19 06:30 Problem List - Problems (1) GI bleed Assessment/Plan: EGD planned, IV PPI Code(s): K92.2 - GASTROINTESTINAL HEMORRHAGE, UNSPECIFIED Qualifiers: GI bleed type/associated pathology: unspecified gastrointestinal hemorrhage type Qualified Code(s): K92.2 - Gastrointestinal hemorrhage, unspecified (2) New onset a-fib Assessment/Plan: Rate controlled. Code(s): I48.91 - UNSPECIFIED ATRIAL FIBRILLATION (3) Leukocytosis Assessment/Plan: WBC lower. Code(s): D72.829 - ELEVATED WHITE BLOOD CELL COUNT, UNSPECIFIED Qualifiers: Leukocytosis type: unspecified Qualified Code(s): D72.829 - Elevated white blood cell count, unspecified
[2019-05-25] MEDS: ATORVASTATIN CA 10 MG TABLET (FP) PO SCH (21:46)
[2019-05-26] MEDS: PANTOPRAZOLE SODIUM 80 MG in SODIUM CHLORIDE 100 ML IVPB SCH ×3 (02:00→16:15)
[2019-05-26 06:29] LABS: HEMATOCRIT 34.5 % (35.4-49); HEMOGLOBIN 11.9 GM/dL (11.7-16.9); MCH 31.4 pg (25.7-33.7); MCHC 34.4 g/dl (32.0-35.9); MEAN CELL VOLUME 91.1 fl (80-96); MEAN PLT VOLUME 9.2 fl (7.5-11.1); RBC 3.79 M/mm3 (4.00-5.60); RDW 14.2 % (11.9-15.9); WHITE BLOOD COUNT 29.9 K/mm3 (4.0-10.0)
[2019-05-26 08:09] LABS: ALBUMIN 3.1 g/dl (3.4-5.0); BILIRUBIN,DIRECT 0.3 mg/dL (0.0-0.2); BILIRUBIN,TOTAL 0.7 mg/dL (0.2-1); BLOOD UREA NITROGEN 33.8 mg/dL (7-18); CALCIUM 8.2 mg/dL (8.5-10.1); CREATININE 1.5 mg/dL (0.55-1.3); TOT PROT 5.2 g/dl (6.4-8.2)
[2019-05-26 08:10] LABS: POTASSIUM 2.9 mmol/L (3.5-5.1)
[2019-05-26] MEDS ORDERED: POTASSIUM CHLORIDE TABS 20 MEQ TABLET.ER (FP) PO ONE (08:51)
[2019-05-26 10:36] LABS: MAGNESIUM 1.9 mg/dL (1.8-2.4)
[2019-05-26] MEDS: CALCIUM (OYSTER SHELL) 500 MG TABLET (FP) PO SCH (10:38)
[2019-05-26] MEDS: FUROSEMIDE 40 MG/4 ML INJECTABLE VIAL IVPUSH SCH (10:38)
[2019-05-26] MEDS: METOPROLOL TARTRATE 50 MG TABLET (FP) PO SCH ×2 (10:38→21:32)
[2019-05-26] MEDS: KCL 10 MEQ IVPB 10 MEQ/100 ML INFUS.BAG IVPB SCH ×3 (10:39→13:33)
[2019-05-26] MEDS: POTASSIUM CHLORIDE TABS 20 MEQ TABLET.ER (FP) PO SCH ×2 (10:40→13:35)
[2019-05-26] MEDS: ENOXAPARIN NA (PORCINE) 80 MG/0.8 ML DISP.SYRIN SQ SCH (10:40)
[2019-05-26 11:31] LABS: PLATELET COUNT 216 K/MM3 (134-434)
--- NOTE | 2019-05-26 12:47 | PN ---
Progress Note, Physician History of Present Illness: SUPINE IN BED WBC TODAY BACK UP 29k NO FEVER C/O DYSPNEA ON EXERTION. NO C/O CHEST PAIN/ COUGH NO DIARRHEA (REPORTS NO BM FOR SEVERAL DAYS) BC (-) URINE C/S CONTAMINANT - Current Medication List Current Medications: Active Medications Atorvastatin Calcium (Lipitor -) 10 mg PO HS [facility] Last Admin: 05/25/19 21:46 Dose: 10 mg Calcium Carbonate (Os-Dionicio 500mg -) 1,000 mg PO DAILY [facility] Last Admin: 05/26/19 10:38 Dose: 1,000 mg Enoxaparin Sodium (Lovenox -) 70 mg SQ DAILY [facility] Last Admin: 05/26/19 10:40 Dose: 70 mg Furosemide (Lasix Injection -) 40 mg IVPUSH DAILY [facility] Last Admin: 05/26/19 10:38 Dose: 40 mg Pantoprazole Sodium 80 mg/ (Sodium Chloride) 100 mls @ 10 mls/hr IVPB Q10H [facility] Last Admin: 05/26/19 02:00 Dose: 10 mls/hr Metoprolol Tartrate (Lopressor Injection -) 5 mg IVPUSH Q4H PRN PRN Reason: TACHYCARDIA Metoprolol Tartrate (Lopressor -) 50 mg PO BID [facility] Last Admin: 05/26/19 10:38 Dose: 50 mg Potassium Chloride (K-Dur -) 40 meq PO 1000,1400 [facility] Stop: 05/26/19 14:01 Last Admin: 05/26/19 10:40 Dose: 40 meq - Objective Vital Signs: Vital Signs Temperature 98.3 F 05/26/19 10:00 Pulse Rate 98 H 05/26/19 10:00 Respiratory Rate 20 05/26/19 10:00 Blood Pressure 110/74 05/26/19 10:00 O2 Sat by Pulse Oximetry (%) 96 05/26/19 09:00 Constitutional: Yes: No Distress Eyes: Yes: Conjunctiva Clear Cardiovascular: Yes: Regular Rate and Rhythm, S1, S2 Respiratory: Yes: Other (+ RALES, BASES BILATERALLY) Gastrointestinal: Yes: Normal Bowel Sounds, Soft. No: Tenderness Edema: Yes Labs: CBC, BMP 05/26/19 05:50 05/26/19 05:50 INR, PTT INR 1.47 (0.83-1.09) H 05/22/19 06:30 Assessment/Plan MARKED LEUKOCYTOSIS ? SOURCE CULTURES NEGATIVE OFF ANTIBIOTICS WILL ORDER DOPPLER LE B/L R/O DVT ? HEMATOLOGY EVALUATION
[2019-05-26] MEDS ORDERED: SPIRONOLACTONE 25 MG TABLET (FP) PO ONE (14:23)
--- NOTE | 2019-05-26 14:23 | PN ---
Progress Note, Physician History of Present Illness: Pt seen and examined at bedside. He is awake and alert. He still has shortness of breath with ambulation. - Current Medication List Current Medications: Active Medications Atorvastatin Calcium (Lipitor -) 10 mg PO HS [facility] Last Admin: 05/25/19 21:46 Dose: 10 mg Calcium Carbonate (Os-Dionicio 500mg -) 1,000 mg PO DAILY [facility] Last Admin: 05/26/19 10:38 Dose: 1,000 mg Enoxaparin Sodium (Lovenox -) 70 mg SQ DAILY [facility] Last Admin: 05/26/19 10:40 Dose: 70 mg Furosemide (Lasix Injection -) 40 mg IVPUSH DAILY [facility] Last Admin: 05/26/19 10:38 Dose: 40 mg Pantoprazole Sodium 80 mg/ (Sodium Chloride) 100 mls @ 10 mls/hr IVPB Q10H [facility] Last Admin: 05/26/19 13:33 Dose: 10 mls/hr Metoprolol Tartrate (Lopressor Injection -) 5 mg IVPUSH Q4H PRN PRN Reason: TACHYCARDIA Metoprolol Tartrate (Lopressor -) 50 mg PO BID [facility] Last Admin: 05/26/19 10:38 Dose: 50 mg - Objective Vital Signs: Vital Signs Temperature 98.3 F 05/26/19 10:00 Pulse Rate 98 H 05/26/19 10:00 Respiratory Rate 20 05/26/19 10:00 Blood Pressure 110/74 05/26/19 10:00 O2 Sat by Pulse Oximetry (%) 96 05/26/19 09:00 Constitutional: Yes: Calm Eyes: Yes: Conjunctiva Clear HENT: Yes: Atraumatic Cardiovascular: Yes: S1, S2 Respiratory: Yes: CTA Bilaterally Gastrointestinal: Yes: Soft Genitourinary: Yes: WNL Musculoskeletal: Yes: WNL Edema: Yes Edema: LLE: 2+, RLE: 2+ Integumentary: Yes: WNL Neurological: Yes: Oriented Psychiatric: Yes: Oriented Labs: CBC, BMP 05/26/19 05:50 05/26/19 05:50 INR, PTT INR 1.47 (0.83-1.09) H 05/22/19 06:30 Problem List - Problems (1) JOHN (acute kidney injury) Code(s): N17.9 - ACUTE KIDNEY FAILURE, UNSPECIFIED (2) Chest discomfort Code(s): R07.89 - OTHER CHEST PAIN (3) New onset a-fib Code(s): I48.91 - UNSPECIFIED ATRIAL FIBRILLATION (4) New onset of congestive heart failure Code(s): I50.9 - HEART FAILURE, UNSPECIFIED Assessment/Plan Current Medications Generic Name Dose Route Start Last Admin Trade Name Freq PRN Reason Stop Dose Admin Atorvastatin Calcium 10 mg 05/22/19 22:00 05/25/19 21:46 Lipitor - PO 10 mg HS MILI Administration Calcium Carbonate 1,000 mg 05/22/19 10:00 05/26/19 10:38 Os-Dionicio 500mg - PO 1,000 mg DAILY [facility] Administration Enoxaparin Sodium 70 mg 05/23/19 10:00 05/26/19 10:40 Lovenox - SQ 70 mg DAILY [facility] Administration Furosemide 40 mg 05/25/19 10:00 05/26/19 10:38 Lasix Injection - IVPUSH 40 mg DAILY [facility] Administration Pantoprazole Sodium 80 mg/ 100 mls @ 10 mls/hr 05/22/19 22:15 05/26/19 13:33 Sodium Chloride IVPB 10 mls/hr Q10H [facility]I Administration 8 MG/HR Metoprolol Tartrate 5 mg 05/22/19 11:38 Lopressor Injection - IVPUSH Q4H PRN TACHYCARDIA Metoprolol Tartrate 50 mg 05/24/19 22:00 05/26/19 10:38 Lopressor - PO 50 mg BID [facility] Administration Impression 1. JOHN 2. chf 3. a-fib 4. htn 5. gerd 6. hypokalemia Plan - will replace potassium - cont with lasix - will give a dose of aldactone - cardiology follow up - follow repeat labs
[2019-05-26 15:39] LABS: BLOOD UREA NITROGEN 34.3 mg/dL (7-18); CALCIUM 8.7 mg/dL (8.5-10.1); CREATININE 1.8 mg/dL (0.55-1.3); MAGNESIUM 2.2 mg/dL (1.8-2.4); POTASSIUM 3.9 mmol/L (3.5-5.1)
--- NOTE | 2019-05-26 16:33 | PN ---
Progress Note, Physician Chief Complaint: No new complaints - Current Medication List Current Medications: Active Medications Atorvastatin Calcium (Lipitor -) 10 mg PO HS [facility] Last Admin: 05/25/19 21:46 Dose: 10 mg Calcium Carbonate (Os-Dionicio 500mg -) 1,000 mg PO DAILY [facility] Last Admin: 05/26/19 10:38 Dose: 1,000 mg Enoxaparin Sodium (Lovenox -) 70 mg SQ DAILY [facility] Last Admin: 05/26/19 10:40 Dose: 70 mg Furosemide (Lasix Injection -) 40 mg IVPUSH DAILY [facility] Last Admin: 05/26/19 10:38 Dose: 40 mg Pantoprazole Sodium 80 mg/ (Sodium Chloride) 100 mls @ 10 mls/hr IVPB Q10H [facility] Last Admin: 05/26/19 13:33 Dose: 10 mls/hr Metoprolol Tartrate (Lopressor Injection -) 5 mg IVPUSH Q4H PRN PRN Reason: TACHYCARDIA Metoprolol Tartrate (Lopressor -) 50 mg PO BID [facility] Last Admin: 05/26/19 10:38 Dose: 50 mg - Objective Vital Signs: Vital Signs Temperature 98.3 F 05/26/19 10:00 Pulse Rate 98 H 05/26/19 10:00 Respiratory Rate 20 05/26/19 10:00 Blood Pressure 110/74 05/26/19 10:00 O2 Sat by Pulse Oximetry (%) 96 05/26/19 09:00 Constitutional: Yes: No Distress Neck: Yes: Supple Cardiovascular: Yes: Regular Rate and Rhythm, S1, S2 Respiratory: Yes: CTA Bilaterally Gastrointestinal: Yes: Normal Bowel Sounds, Soft Neurological: Yes: Alert, Oriented. No: Loss of Sensation ...Motor Strength: WNL Labs: CBC, BMP 05/26/19 05:50 05/26/19 14:50 INR, PTT INR 1.47 (0.83-1.09) H 05/22/19 06:30 Problem List - Problems (1) GI bleed Assessment/Plan: Hb stable Code(s): K92.2 - GASTROINTESTINAL HEMORRHAGE, UNSPECIFIED Qualifiers: GI bleed type/associated pathology: unspecified gastrointestinal hemorrhage type Qualified Code(s): K92.2 - Gastrointestinal hemorrhage, unspecified (2) New onset a-fib Assessment/Plan: Rate controlled. Code(s): I48.91 - UNSPECIFIED ATRIAL FIBRILLATION (3) Leukocytosis Assessment/Plan: No clear source, will get hematology eval Code(s): D72.829 - ELEVATED WHITE BLOOD CELL COUNT, UNSPECIFIED Qualifiers: Leukocytosis type: unspecified Qualified Code(s): D72.829 - Elevated white blood cell count, unspecified
--- NOTE | 2019-05-26 16:40 | PN ---
Progress Note, Physician Chief Complaint: Appears comfortable History of Present Illness: This is a 83yo male with PMH of HTN, HLD, prostate CA sent by his primary care physician for admission for new-onset CHF and atrial fibrillation with RVR. He complains of mild substernal chest pain on exertion x 1 week. He has dyspnea on exertion just walking across the room. He has noticed leg swelling for the past five months. +2-3 pillow orthopnea. No PND. No palpitations, dizziness or syncope. Echo 05/22/19: normal EF, dilated RV, mild dec RV function. mod LAE/KARRIE. trace to mild MR. Mod to sev TR RVSP 40-50. - Current Medication List Current Medications: Active Medications Atorvastatin Calcium (Lipitor -) 10 mg PO HS [facility] Last Admin: 05/25/19 21:46 Dose: 10 mg Calcium Carbonate (Os-Dionicio 500mg -) 1,000 mg PO DAILY [facility] Last Admin: 05/26/19 10:38 Dose: 1,000 mg Enoxaparin Sodium (Lovenox -) 70 mg SQ DAILY [facility] Last Admin: 05/26/19 10:40 Dose: 70 mg Furosemide (Lasix Injection -) 40 mg IVPUSH DAILY [facility] Last Admin: 05/26/19 10:38 Dose: 40 mg Pantoprazole Sodium 80 mg/ (Sodium Chloride) 100 mls @ 10 mls/hr IVPB Q10H [facility] Last Admin: 05/26/19 13:33 Dose: 10 mls/hr Metoprolol Tartrate (Lopressor Injection -) 5 mg IVPUSH Q4H PRN PRN Reason: TACHYCARDIA Metoprolol Tartrate (Lopressor -) 50 mg PO BID [facility] Last Admin: 05/26/19 10:38 Dose: 50 mg - Objective Vital Signs: Vital Signs Temperature 98.3 F 05/26/19 10:00 Pulse Rate 98 H 05/26/19 10:00 Respiratory Rate 20 05/26/19 10:00 Blood Pressure 110/74 05/26/19 10:00 O2 Sat by Pulse Oximetry (%) 96 05/26/19 09:00 Constitutional: Yes: No Distress Eyes: Yes: WNL HENT: Yes: WNL Cardiovascular: Yes: Pulse Irregular, S1, S2 Respiratory: Yes: Dullness (Bibasilar crackles) Gastrointestinal: Yes: Soft Edema: LLE: 1+, RLE: 1+ Neurological: Yes: Alert, Oriented Labs: CBC, BMP 05/26/19 05:50 05/26/19 14:50 INR, PTT INR 1.47 (0.83-1.09) H 05/22/19 06:30 Assessment/Plan 83yo M, ([place] speaking) with PMH of HTN, HLD, prostate CA sent by his primary care physician for admission for new-onset CHF and atrial fibrillation with RVR. He complains of mild substernal chest pain on exertion x 1 week. He has dyspnea on exertion just walking across the room. He has noticed leg swelling for the past five months. +2-3 pillow orthopnea. No PND. No palpitations, dizziness or syncope. New onset atrial fibrillation Would favor Eliquis 2.5 mg PO BID Increase metoprolol tartrate to 75 mg bid for better rate control (On metoprolol tartrate 100 mg PO BID he was having > 2 sec pauses, on metoprolol tartrate 50 mg PO BID his HR is ~ 98 BPM) CHF Acute on chronic diastolic Would increase IV Lasix to 60 mg IVSS daily Daily I's/O's/Wt's/Lytes
[2019-05-26] MEDS: ATORVASTATIN CA 10 MG TABLET (FP) PO SCH (21:32)
[2019-05-26] MEDS: METOPROLOL TARTRATE 5 MG/5 ML VIAL IVPUSH PRN (21:53)
[2019-05-27] MEDS: PANTOPRAZOLE SODIUM 80 MG in SODIUM CHLORIDE 100 ML IVPB SCH ×2 (02:00→12:15)
[2019-05-27 08:19] LABS: ALBUMIN 3.3 g/dl (3.4-5.0); BILIRUBIN,TOTAL 0.7 mg/dL (0.2-1); BLOOD UREA NITROGEN 40.2 mg/dL (7-18); CALCIUM 8.4 mg/dL (8.5-10.1); CREATININE 1.9 mg/dL (0.55-1.3); MAGNESIUM 2.1 mg/dL (1.8-2.4); POTASSIUM 4.6 mmol/L (3.5-5.1); TOT PROT 5.9 g/dl (6.4-8.2)
--- NOTE | 2019-05-27 08:33 | PN ---
Progress Note, Physician Chief Complaint: still sob but lying flat edema improving tele intermittent RVR History of Present Illness: 83yo M, (Monegasque speaking) with PMH of HTN, HLD, prostate CA sent by his primary care physician for admission for new-onset CHF and atrial fibrillation with RVR. He complains of mild substernal chest pain on exertion x 1 week. He has dyspnea on exertion just walking across the room. He has noticed leg swelling for the past five months. +2-3 pillow orthopnea. No PND. No palpitations, dizziness or syncope. - Current Medication List Current Medications: Active Medications Atorvastatin Calcium (Lipitor -) 10 mg PO HS [facility] Last Admin: 05/26/19 21:32 Dose: 10 mg Calcium Carbonate (Os-Dionicio 500mg -) 1,000 mg PO DAILY [facility] Last Admin: 05/26/19 10:38 Dose: 1,000 mg Enoxaparin Sodium (Lovenox -) 70 mg SQ DAILY [facility] Last Admin: 05/26/19 10:40 Dose: 70 mg Furosemide (Lasix Injection -) 40 mg IVPUSH DAILY [facility] Last Admin: 05/26/19 10:38 Dose: 40 mg Pantoprazole Sodium 80 mg/ (Sodium Chloride) 100 mls @ 10 mls/hr IVPB Q10H [facility] Last Admin: 05/27/19 02:00 Dose: 10 mls/hr Metoprolol Tartrate (Lopressor Injection -) 5 mg IVPUSH Q4H PRN PRN Reason: TACHYCARDIA Last Admin: 05/26/19 21:53 Dose: 5 mg Metoprolol Tartrate (Lopressor -) 50 mg PO BID [facility] Last Admin: 05/26/19 21:32 Dose: 50 mg - Objective Vital Signs: Vital Signs Temperature 97.9 F 05/27/19 05:11 Pulse Rate 90 05/27/19 05:11 Respiratory Rate 20 05/27/19 05:11 Blood Pressure 127/74 05/27/19 05:11 O2 Sat by Pulse Oximetry (%) 96 05/26/19 20:34 Constitutional: Yes: Well Nourished, No Distress Eyes: Yes: Conjunctiva Clear, EOM Intact HENT: Yes: Normocephalic Neck: Yes: Trachea Midline Cardiovascular: Yes: Tachycardia, Pulse Irregular Respiratory: Yes: CTA Bilaterally Gastrointestinal: Yes: Normal Bowel Sounds, Soft Extremities: Yes: WNL Edema: Yes Edema: LLE: 1+, RLE: 1+ Peripheral Pulses WNL: Yes Labs: CBC, BMP 05/26/19 05:50 05/27/19 07:00 INR, PTT INR 1.47 (0.83-1.09) H 05/22/19 06:30 Assessment/Plan 83yo M, (Monegasque speaking) with PMH of HTN, HLD, prostate CA sent by his primary care physician for admission for new-onset CHF and atrial fibrillation with RVR. He complains of mild substernal chest pain on exertion x 1 week. He has dyspnea on exertion just walking across the room. He has noticed leg swelling for the past five months. +2-3 pillow orthopnea. No PND. No palpitations, dizziness or syncope. New onset atrial fibrillation Would favor Eliquis 2.5 mg PO BID Increase metoprolol tartrate to 75 mg bid for better rate control (On metoprolol tartrate 100 mg PO BID he was having > 2 sec pauses, on metoprolol tartrate 50 mg PO BID his HR is ~ 98 BPM) CHF Acute on chronic diastolic Would increase IV Lasix to 60 mg IVSS daily Daily I's/O's/Wt's/Lytes
[2019-05-27] MEDS: METOPROLOL TARTRATE 25 MG TABLET (FP) PO SCH ×2 (09:46→21:35)
[2019-05-27] MEDS: ENOXAPARIN NA (PORCINE) 80 MG/0.8 ML DISP.SYRIN SQ SCH (09:46)
[2019-05-27] MEDS: CALCIUM (OYSTER SHELL) 500 MG TABLET (FP) PO SCH (09:46)
[2019-05-27] MEDS: FUROSEMIDE 40 MG/4 ML INJECTABLE VIAL IVPUSH SCH (09:46)
[2019-05-27 10:10] LABS: ANTIGLOMERULAR BASEMENT MEN.AB 2 units (0-20)
--- NOTE | 2019-05-27 12:02 | CONSULT ---
Consultation: CONSULT REQUEST: Heme/Onc HISTORY OF PRESENT ILLNESS: Patient is an 83 yo M with a PMHx HTN, prostate ca (s/p prostectomy 2012), GAVE syndome w/ Iron deficiency, was sent to the ED by his PCP for new onset CHF. In the ED he was also found with new A-Fib. He complains of SOB and lower extremity swelling. He is now being treated with Lasix and rate control. He also mentions having dark stools over the last 4 days. He denies hematuria, hematochezia. During the hospitilization his WBC increased to 47.5, now 29. He says he has a history of anemia but denies known leukocytosis. He denies fevers, night sweats , weight loss, chills, abdominal pain. Colonoscopy: 2010 Background: [place] Family hx: Anemia in family Social: denies tobacco, drinks 6 packs of beer daily Allergies: sulfa Meds: Lipitor, olmesartan, prevacid, Iron 65mg daily REVIEW OF SYSTEMS: CONSTITUTIONAL: Absent: fever, chills, diaphoresis, generalized weakness, malaise, loss of appetite, weight change CARDIOVASCULAR: Absent: chest pain, syncope, palpitations, irregular heart rate, lightheadedness , peripheral edema RESPIRATORY: sob, fletcher Absent: cough, orthopnea, wheezing, stridor, hemoptysis GASTROINTESTINAL: melena Absent: abdominal pain, abdominal distension, nausea, vomiting, diarrhea, constipation, hematochezia GENITOURINARY: Absent: dysuria, frequency, urgency, hesitancy, hematuria, flank pain, genital pain HEMATOLOGIC/IMMUNOLOGIC: Absent: easy bleeding, easy bruising, lymphadenopathy, frequent infections NEUROLOGIC: Absent: headache, focal weakness or paresthesias, dizziness, unsteady gait, seizure, mental status changes, bladder or bowel incontinence PSYCHIATRIC: Absent: anxiety, depression, suicidal or homicidal ideation, hallucinations. PHYSICAL EXAMINATION Vital Signs - 24 hr 05/26/19 05/26/19 05/26/19 18:00 20:34 21:53 Temperature 98.5 F 98.4 F Pulse Rate 105 H 135 H 160 H Respiratory 20 20 Rate Blood Pressure 118/71 119/78 110/70 O2 Sat by Pulse 96 Oximetry (%) 05/27/19 05/27/19 05/27/19 01:40 05:11 09:00 Temperature 98.6 F 97.9 F Pulse Rate 99 H 90 Respiratory 20 20 20 Rate Blood Pressure 110/68 127/74 O2 Sat by Pulse 95 Oximetry (%) GENERAL: Awake, alert, and fully oriented, in no acute distress. EYES: Pupils equal, round and reactive to light, sclera anicteric, conjunctiva clear. EARS, NOSE, THROAT: oropharynx clear without exudates. Moist mucous membranes. NECK:supple without lymphadenopathy, JVD, or masses. LUNGS: bibasilar rales HEART: irregular rhythm, no murmurs appreciated ABDOMEN: Soft, nontender, not distended, normoactive bowel sounds, no guarding, no rebound, no masses LOWER EXTREMITIES: 2+ pulses, +edema. stasis. mottling of skin? TESTES: no palpable masses, circumsized, no discharge Laboratory Results - last 24 hr 05/25/19 05/26/19 05/27/19 06:19 14:50 07:00 Sodium 138 142 Potassium 3.9 4.6 Chloride 100 104 Carbon Dioxide 32 32 Anion Gap 6 L 6 L BUN 34.3 H 40.2 H Creatinine 1.8 H 1.9 H Est GFR (CKD-EPI)AfAm 39.46 36.96 Est GFR (CKD-EPI)NonAf 34.05 31.89 Random Glucose 122 H 87 Calcium 8.7 8.4 L Magnesium 2.2 2.1 Total Bilirubin 0.7 AST 52 H ALT 45 Alkaline Phosphatase 138 H Total Protein 5.9 L Albumin 3.3 L Double Strand DNA Ab <1 Glomerular Base Memb Ab 2 ASSESSMENT/PLAN: #Leukocytosis #Monocytosis -Likely reactive but r/o other causes: CMML, CML, AML, MDS. -Infectious causes, autoimmune, other inflammatory causes, bone marrow involvement by prostate cancer cannot be ruled out -TSH -EBV -order peripheral smear -will order Flow cytometry -consider bone marrow biopsy if no resolution Dispo: We will continue to follow the patient. Thank you for this consultative opportunity. <Arash Olson - Last Filed: 05/28/19 10:21> Consultation: REQUESTING PROVIDER: CONSULT REQUEST: We have been asked to medically evaluate this patient for ( specify). HISTORY OF PRESENT ILLNESS: REVIEW OF SYSTEMS: CONSTITUTIONAL: Absent: fever, chills, diaphoresis, generalized weakness, malaise, loss of appetite, weight change HEENT: Absent: rhinorrhea, nasal congestion, throat pain, throat swelling, difficulty swallowing, mouth swelling, ear pain, eye pain, visual changes CARDIOVASCULAR: Absent: chest pain, syncope, palpitations, irregular heart rate, lightheadedness , peripheral edema RESPIRATORY: Absent: cough, shortness of breath, dyspnea with exertion, orthopnea, wheezing, stridor, hemoptysis GASTROINTESTINAL: Absent: abdominal pain, abdominal distension, nausea, vomiting, diarrhea, constipation, melena, hematochezia GENITOURINARY: Absent: dysuria, frequency, urgency, hesitancy, hematuria, flank pain, genital pain MUSCULOSKELETAL: Absent: myalgia, arthralgia, joint swelling, back pain, neck pain SKIN: Absent: rash, itching, pallor HEMATOLOGIC/IMMUNOLOGIC: Absent: easy bleeding, easy bruising, lymphadenopathy, frequent infections ENDOCRINE: Absent: unexplained weight gain, unexplained weight loss, heat intolerance, cold intolerance NEUROLOGIC: Absent: headache, focal weakness or paresthesias, dizziness, unsteady gait, seizure, mental status changes, bladder or bowel incontinence PSYCHIATRIC: Absent: anxiety, depression, suicidal or homicidal ideation, hallucinations. PHYSICAL EXAMINATION GENERAL: Awake, alert, and fully oriented, in no acute distress. HEAD: Normal with no signs of trauma. EYES: Pupils equal, round and reactive to light, extraocular movements intact, sclera anicteric, conjunctiva clear. No lid lag. EARS, NOSE, THROAT: Ears normal, nares patent, oropharynx clear without exudates. Moist mucous membranes. NECK: Normal range of motion, supple without lymphadenopathy, JVD, or masses. LUNGS: Breath sounds equal, clear to auscultation bilaterally. No wheezes, and no crackles. No accessory muscle use. HEART: Regular rate and rhythm, normal S1 and S2 without murmur, rub or gallop. ABDOMEN: Soft, nontender, not distended, normoactive bowel sounds, no guarding, no rebound, no masses. No hepatomegaly or splenomegaly. MUSCULOSKELETAL: Normal range of motion at all joints. No bony deformities or tenderness. No CVA tenderness. UPPER EXTREMITIES: 2+ pulses, warm, well-perfused. No cyanosis. No clubbing. Cap refill <2 seconds. No peripheral edema. LOWER EXTREMITIES: 2+ pulses, warm, well-perfused. No calf tenderness. No peripheral edema. NEUROLOGICAL: Cranial nerves II-XII intact. Normal speech. Normal gait. PSYCHIATRIC: Cooperative. Good eye contact. Appropriate mood and affect. SKIN: Warm, dry, normal turgor, no rashes or lesions noted. ASSESSMENT/PLAN: Dispo: We will continue to follow the patient. Thank you for this consultative opportunity. <Sandip Bolaños - Last Filed: 06/14/19 13:54> Visit type - Emergency Visit Emergency Visit: Yes ED Registration Date: 05/21/19 Care time: The patient presented to the Emergency Department on the above date and was hospitalized for further evaluation of their emergent condition. - New Patient This patient is new to me today: Yes Date on this admission: 05/28/19 - Critical Care Critical Care patient: No <Arash Olson - Last Filed: 05/28/19 10:21> ATTENDING PHYSICIAN STATEMENT I saw and evaluated the patient. I reviewed the resident's note and discussed the case with the resident. I agree with the resident's findings and plan as documented. SUBJECTIVE: OBJECTIVE: ASSESSMENT AND PLAN: <Arash Olson - Last Filed: 05/28/19 10:21> ATTENDING PHYSICIAN STATEMENT I saw and evaluated the patient. I reviewed the resident's note and discussed the case with the resident. I agree with the resident's findings and plan as documented. 83 yo gentleman with a PMHx HTN, prostate ca (s/p prostectomy 2012), GAVE syndome w/ Iron deficiency, was sent to the ED by his PCP for new onset CHF. In the ED he was also found with new A-Fib. He complains of SOB and lower extremity swelling. He is now being treated with Lasix and rate control. He also mentions having dark stools over the last 4 days. He denies hematuria, hematochezia. During the hospitilization his WBC increased to 47.5, now 29. He says he has a history of anemia but denies known leukocytosis. He denies fevers, night sweats , weight loss, chills, abdominal pain. Plan: 1) GI Bleed/GAVE per primary team 2) Pathology review of peripheral blood 3) Flow cytometry analysis. 4) Thank you for this consult <Sandip Bolaños - Last Filed: 06/14/19 13:54>
--- NOTE | 2019-05-27 12:23 | PN ---
Progress Note, Physician History of Present Illness: Pt seen and examined at bedside. He complains of shortness of breath with ambulation. - Current Medication List Current Medications: Active Medications Atorvastatin Calcium (Lipitor -) 10 mg PO HS [facility] Last Admin: 05/26/19 21:32 Dose: 10 mg Calcium Carbonate (Os-Dionciio 500mg -) 1,000 mg PO DAILY [facility] Last Admin: 05/27/19 09:46 Dose: 1,000 mg Enoxaparin Sodium (Lovenox -) 70 mg SQ DAILY [facility] Last Admin: 05/27/19 09:46 Dose: 70 mg Furosemide (Lasix Injection -) 60 mg IVPUSH DAILY [facility] Last Admin: 05/27/19 09:46 Dose: 60 mg Pantoprazole Sodium 80 mg/ (Sodium Chloride) 100 mls @ 10 mls/hr IVPB Q10H [facility] Last Admin: 05/27/19 02:00 Dose: 10 mls/hr Metoprolol Tartrate (Lopressor Injection -) 5 mg IVPUSH Q4H PRN PRN Reason: TACHYCARDIA Last Admin: 05/26/19 21:53 Dose: 5 mg Metoprolol Tartrate (Lopressor -) 75 mg PO BID [facility] Last Admin: 05/27/19 09:46 Dose: 75 mg - Objective Vital Signs: Vital Signs Temperature 97.9 F 05/27/19 05:11 Pulse Rate 90 05/27/19 05:11 Respiratory Rate 20 05/27/19 09:00 Blood Pressure 127/74 05/27/19 05:11 O2 Sat by Pulse Oximetry (%) 95 05/27/19 09:00 Constitutional: Yes: Calm Eyes: Yes: Conjunctiva Clear HENT: Yes: Atraumatic Neck: Yes: Supple Cardiovascular: Yes: S1, S2 Respiratory: Yes: CTA Bilaterally Gastrointestinal: Yes: Normal Bowel Sounds, Soft Genitourinary: Yes: WNL Musculoskeletal: Yes: WNL Edema: Yes Edema: LLE: 1+, RLE: 1+ Neurological: Yes: Oriented Psychiatric: Yes: Oriented Labs: CBC, BMP 05/26/19 05:50 05/27/19 07:00 INR, PTT INR 1.47 (0.83-1.09) H 05/22/19 06:30 Problem List - Problems (1) JOHN (acute kidney injury) Code(s): N17.9 - ACUTE KIDNEY FAILURE, UNSPECIFIED (2) Chest discomfort Code(s): R07.89 - OTHER CHEST PAIN (3) New onset a-fib Code(s): I48.91 - UNSPECIFIED ATRIAL FIBRILLATION (4) New onset of congestive heart failure Code(s): I50.9 - HEART FAILURE, UNSPECIFIED Assessment/Plan Current Medications Generic Name Dose Route Start Last Admin Trade Name Freq PRN Reason Stop Dose Admin Atorvastatin Calcium 10 mg 05/22/19 22:00 05/26/19 21:32 Lipitor - PO 10 mg HS [facility] Administration Calcium Carbonate 1,000 mg 05/22/19 10:00 05/27/19 09:46 Os-Dionicio 500mg - PO 1,000 mg DAILY [facility] Administration Enoxaparin Sodium 70 mg 05/23/19 10:00 05/27/19 09:46 Lovenox - SQ 70 mg DAILY [facility] Administration Furosemide 60 mg 05/27/19 09:15 05/27/19 09:46 Lasix Injection - IVPUSH 60 mg DAILY [facility] Administration Pantoprazole Sodium 80 mg/ 100 mls @ 10 mls/hr 05/22/19 22:15 05/27/19 02:00 Sodium Chloride IVPB 10 mls/hr Q10H [facility] Administration 8 MG/HR Metoprolol Tartrate 5 mg 05/22/19 11:38 05/26/19 21:53 Lopressor Injection - IVPUSH 5 mg Q4H PRN Administration TACHYCARDIA Metoprolol Tartrate 75 mg 05/27/19 09:12 05/27/19 09:46 Lopressor - PO 75 mg BID [facility] Administration Impression 1. JOHN 2. chf 3. a-fib 4. htn 5. gerd 6. hypokalemia Plan - cont lasix - no congestion on cxr - monitor lytes - repeat labs in am - cardio input appreciated - monitor potassium level - aldactone held secondary to allergy history
[2019-05-27] MEDS: DOCUSATE SODIUM 100 MG CAPSULE (FP) PO SCH ×3 (15:42→21:35)
[2019-05-27] MEDS: MAGNESIUM HYDROX 2400MG/30ML ORAL SUSPENSION 30 ML CUP PO PRN (15:42)
--- NOTE | 2019-05-27 19:58 | PN ---
Teaching Attending Note Name of Resident: Arash Olson ATTENDING PHYSICIAN STATEMENT I saw and evaluated the patient. I reviewed the resident's note and discussed the case with the resident. I agree with the resident's findings and plan as documented. 83 y/o gentleman with a PMHx HTN, prostate ca (s/p prostectomy 2012), GAVE syndome w/ Iron deficiency, was sent to the ED by his PCP for new onset CHF. In the ED he was also found to have Rapid Atrial Fibrillation. His presenting symptoms were shortness of breath, lower extremity swelling and fatigue. He is being diuresed, rate controlled and anticoagulated. His WBC increased up to 47.5 K and Hematology consultation was requested SUBJECTIVE: Doing well. Mentioned fatigue and leg swelling for several weeks before presenting to his physician. Continues to feel fatigued, mentioned dark stools before but did not move his bowels for the past 3 days. OBJECTIVE: Last Vital Signs Temp Pulse Resp BP Pulse Ox 98.4 F 87 20 122/76 95 05/27/19 18:17 05/27/19 18:17 05/27/19 18:17 05/27/19 18:17 05/27/19 09:00 General: NAD. Pleasant HEENT: MMM. CVS: Irregular rhythm and rate Lungs: CTAB. Abdomen: Soft, NT, ND. Extremities: 1-2+ Edema Psych: Alert oriented. Conversant Neuro: Moves all extremities 05/26/19 05:50 05/27/19 07:00 ASSESSMENT AND PLAN: 83 y/o gentleman with newly diagnosed BECKY and CHF. He has a history of GAVE, HTN, prostate cancer (s/p prostatectomy 2012) with dynamic leukocytosis. Given the onset of leukocytosis at the time of significant stress (BECKY, CHF), possible gastrointestinal bleed and the subsequent decrease during the improvement phase, stress-induced leukocytosis should be high in the differential. Nevertheless, additional causes should be ruled out as well. Recommend: 1) Repeat CBC with differential and obtain peripheral blood smear for review. Obtain CRP. TSH. Consider EBV testing. 2) Peripheral blood flow cytometry. Monocytosis present. Unlikely but will need to rule out CMML, CML AML, MDS and other primary hematologic disorders. 3) Infectious causes, autoimmune, other inflammatory causes, bone marrow involvement by prostate cancer cannot be ruled out but appear less likely. 4) Will monitor with serial CBC, Differential and Smears. If no resolution, consideration for bone marrow examination should be given. 5) Thank you for this consultation
--- NOTE | 2019-05-27 20:34 | PN ---
Progress Note, Physician History of Present Illness: no complaints - Current Medication List Current Medications: Active Medications Apixaban (Eliquis -) 2.5 mg PO BID [facility] Atorvastatin Calcium (Lipitor -) 10 mg PO HS [facility] Last Admin: 05/26/19 21:32 Dose: 10 mg Calcium Carbonate (Os-Dionicio 500mg -) 1,000 mg PO DAILY [facility] Last Admin: 05/27/19 09:46 Dose: 1,000 mg Docusate Sodium (Colace -) 100 mg PO TID [facility] Last Admin: 05/27/19 15:43 Dose: Not Given Furosemide (Lasix Injection -) 60 mg IVPUSH DAILY [facility] Last Admin: 05/27/19 09:46 Dose: 60 mg Pantoprazole Sodium 80 mg/ (Sodium Chloride) 100 mls @ 10 mls/hr IVPB Q10H [facility] Last Admin: 05/27/19 12:15 Dose: 10 mls/hr Magnesium Hydroxide (Milk Of Magnesia -) 30 ml PO PRN PRN PRN Reason: CONSTIPATION Metoprolol Tartrate (Lopressor Injection -) 5 mg IVPUSH Q4H PRN PRN Reason: TACHYCARDIA Last Admin: 05/26/19 21:53 Dose: 5 mg Metoprolol Tartrate (Lopressor -) 75 mg PO BID [facility] Last Admin: 05/27/19 09:46 Dose: 75 mg - Objective Vital Signs: Vital Signs Temperature 98.2 F 05/27/19 19:58 Pulse Rate 105 H 05/27/19 19:58 Respiratory Rate 20 05/27/19 19:58 Blood Pressure 123/90 05/27/19 19:58 O2 Sat by Pulse Oximetry (%) 96 05/27/19 19:58 Constitutional: Yes: No Distress HENT: Yes: Atraumatic Neck: Yes: Supple Cardiovascular: Yes: Regular Rate and Rhythm Respiratory: Yes: Rhonchi Gastrointestinal: Yes: Normal Bowel Sounds Extremities: Yes: WNL Edema: No Peripheral Pulses WNL: Yes Neurological: Yes: Alert, Oriented Labs: CBC, BMP 05/26/19 05:50 05/27/19 07:00 INR, PTT INR 1.47 (0.83-1.09) H 05/22/19 06:30 Problem List - Problems (1) JOHN (acute kidney injury) Code(s): N17.9 - ACUTE KIDNEY FAILURE, UNSPECIFIED (2) GI bleed Assessment/Plan: h/h stable on protonix for endoscopy Code(s): K92.2 - GASTROINTESTINAL HEMORRHAGE, UNSPECIFIED Qualifiers: GI bleed type/associated pathology: unspecified gastrointestinal hemorrhage type Qualified Code(s): K92.2 - Gastrointestinal hemorrhage, unspecified (3) Hyperlipidemia Assessment/Plan: on meds Code(s): E78.5 - HYPERLIPIDEMIA, UNSPECIFIED (4) Hypertension Assessment/Plan: on meds Code(s): I10 - ESSENTIAL (PRIMARY) HYPERTENSION (5) New onset a-fib Assessment/Plan: on meds on AC Code(s): I48.91 - UNSPECIFIED ATRIAL FIBRILLATION (6) New onset of congestive heart failure Assessment/Plan: stable on meds Code(s): I50.9 - HEART FAILURE, UNSPECIFIED Assessment/Plan Impression 1. JOHN 2. chf 3. a-fib 4. htn 5. gerd 6. hypokalemia 7.gi bleed COVERING FOR DR LOPEZ TODAY
[2019-05-27] MEDS: APIXABAN 2.5 MG TABLET PO SCH (21:35)
[2019-05-27] MEDS: ATORVASTATIN CA 10 MG TABLET (FP) PO SCH (21:35)
[2019-05-27] MEDS ORDERED: APIXABAN 5 MG TABLET PO SCH (22:00)
[2019-05-28] MEDS: PANTOPRAZOLE SODIUM 80 MG in SODIUM CHLORIDE 100 ML IVPB SCH ×3 (00:12→20:20)
[2019-05-28] MEDS: DOCUSATE SODIUM 100 MG CAPSULE (FP) PO SCH ×3 (06:51→22:17)
[2019-05-28] MEDS: FUROSEMIDE 40 MG/4 ML INJECTABLE VIAL IVPUSH SCH (10:43)
[2019-05-28] MEDS: METOPROLOL TARTRATE 25 MG TABLET (FP) PO SCH ×2 (10:44→22:16)
[2019-05-28] MEDS: APIXABAN 2.5 MG TABLET PO SCH (10:44)
[2019-05-28] MEDS: CALCIUM (OYSTER SHELL) 500 MG TABLET (FP) PO SCH (10:44)
[2019-05-28 10:56] LABS: EOS % 0.3 % (0-4.5); HEMATOCRIT 23.3 % (35.4-49); HEMOGLOBIN 11.2 GM/dL (11.7-16.9); LYMPH % 34.7 % (8-40); MEAN CELL VOLUME 90.7 fl (80-96); MEAN PLT VOLUME 9.4 fl (7.5-11.1); MONO % 19.5 % (3.8-10.2); NEUT % 42.5 % (42.8-82.8); PLATELET COUNT 337 K/MM3 (134-434); RBC 2.57 M/mm3 (4.00-5.60); RDW 14.4 % (11.9-15.9)
[2019-05-28 10:57] LABS: MCH 43.5 pg (25.7-33.7)
[2019-05-28 11:03] LABS: WHITE BLOOD COUNT 31.1 K/mm3 (4.0-10.0)
[2019-05-28 11:54] LABS: ANISOCYTOSIS 0; MACROCYTOSIS 0; PLATELET ESTIMATE NORMAL
--- NOTE | 2019-05-28 12:04 | PN ---
Progress Note, Physician History of Present Illness: Pt seen and examined at bedside. He is awake and alert. He feels edema is getting better. He complains of shortness of breath with exertion. - Current Medication List Current Medications: Active Medications Apixaban (Eliquis -) 2.5 mg PO BID [facility] Last Admin: 05/28/19 10:44 Dose: 2.5 mg Atorvastatin Calcium (Lipitor -) 10 mg PO HS [facility] Last Admin: 05/27/19 21:35 Dose: 10 mg Calcium Carbonate (Os-Dionicio 500mg -) 1,000 mg PO DAILY [facility] Last Admin: 05/28/19 10:44 Dose: 1,000 mg Docusate Sodium (Colace -) 100 mg PO TID [facility] Last Admin: 05/28/19 06:51 Dose: Not Given Furosemide (Lasix Injection -) 60 mg IVPUSH DAILY [facility] Last Admin: 05/28/19 10:43 Dose: 60 mg Pantoprazole Sodium 80 mg/ (Sodium Chloride) 100 mls @ 10 mls/hr IVPB Q10H [facility] Last Admin: 05/28/19 10:43 Dose: 10 mls/hr Magnesium Hydroxide (Milk Of Magnesia -) 30 ml PO PRN PRN PRN Reason: CONSTIPATION Metoprolol Tartrate (Lopressor Injection -) 5 mg IVPUSH Q4H PRN PRN Reason: TACHYCARDIA Last Admin: 05/26/19 21:53 Dose: 5 mg Metoprolol Tartrate (Lopressor -) 75 mg PO BID [facility] Last Admin: 05/28/19 10:44 Dose: 75 mg - Objective Vital Signs: Vital Signs Temperature 97.9 F 05/28/19 05:50 Pulse Rate 76 05/28/19 05:50 Respiratory Rate 20 05/28/19 05:50 Blood Pressure 145/83 05/28/19 05:50 O2 Sat by Pulse Oximetry (%) 96 05/27/19 19:58 Constitutional: Yes: Calm Eyes: Yes: Conjunctiva Clear HENT: Yes: Atraumatic Neck: Yes: Supple Cardiovascular: Yes: S1, S2 Respiratory: Yes: CTA Bilaterally Gastrointestinal: Yes: Soft Genitourinary: Yes: WNL Musculoskeletal: Yes: WNL Extremities: Yes: WNL Edema: Yes Edema: LLE: 1+, RLE: 1+ Integumentary: Yes: WNL Neurological: Yes: Oriented Psychiatric: Yes: Oriented Labs: CBC, BMP 05/28/19 06:15 05/27/19 07:00 INR, PTT INR 1.47 (0.83-1.09) H 05/22/19 06:30 Problem List - Problems (1) JOHN (acute kidney injury) Code(s): N17.9 - ACUTE KIDNEY FAILURE, UNSPECIFIED (2) Chest discomfort Code(s): R07.89 - OTHER CHEST PAIN (3) New onset a-fib Code(s): I48.91 - UNSPECIFIED ATRIAL FIBRILLATION (4) New onset of congestive heart failure Code(s): I50.9 - HEART FAILURE, UNSPECIFIED Assessment/Plan Current Medications Generic Name Dose Route Start Last Admin Trade Name Freq PRN Reason Stop Dose Admin Apixaban 2.5 mg 05/27/19 22:00 05/28/19 10:44 Eliquis - PO 2.5 mg BID MILI Administration Atorvastatin Calcium 10 mg 05/22/19 22:00 05/27/19 21:35 Lipitor - PO 10 mg HS [facility]I Administration Calcium Carbonate 1,000 mg 05/22/19 10:00 05/28/19 10:44 Os-Dionicio 500mg - PO 1,000 mg DAILY [facility] Administration Docusate Sodium 100 mg 05/27/19 15:00 05/28/19 06:51 Colace - PO Not Given TID MILI Furosemide 60 mg 05/27/19 09:15 05/28/19 10:43 Lasix Injection - IVPUSH 60 mg DAILY [facility] Administration Pantoprazole Sodium 80 mg/ 100 mls @ 10 mls/hr 05/22/19 22:15 05/28/19 10:43 Sodium Chloride IVPB 10 mls/hr Q10H [facility]I Administration 8 MG/HR Magnesium Hydroxide 30 ml 05/27/19 14:38 Milk Of Magnesia - PO PRN PRN CONSTIPATION Metoprolol Tartrate 5 mg 05/22/19 11:38 05/26/19 21:53 Lopressor Injection - IVPUSH 5 mg Q4H PRN Administration TACHYCARDIA Metoprolol Tartrate 75 mg 05/27/19 09:12 05/28/19 10:44 Lopressor - PO 75 mg BID MILI Administration Laboratory Tests 05/23/19 05/25/19 06:35 06:19 ANDRE Screen Positive H ANDRE Nucleolar Pattern 1:320 H c-ANCA Pending Proteinase 3 (PR3) Pending p-ANCA Pending Atypical p-ANCA Pending Myeloperoxidase Ab Pending Double Strand DNA Ab <1 Glomerular Base Memb Ab 2 Hep Bs Antigen Negative Hep Bs Antibody Non reactive Hep B Core Total Ab Negative Hep B Core IgM Ab Negative Hepatitis Be Antibody Negative Hepatitis Be Antigen Negative Hep C Ab Diagnostic <0.1 Impression 1. JOHN 2. chf 3. a-fib 4. htn 5. gerd 6. hypokalemia 7. positive andre Plan - volume status improving - monitor renal function - rheum eval for pos andre - cardio follow up - Laboratory Tests 05/22/19 12:30 Urine Protein Negative Urine Blood Negative Ur Leukocyte Esterase Negative - last ua neg for protein or blood Dr Ceja
--- NOTE | 2019-05-28 16:45 | PN ---
Progress Note, Physician Chief Complaint: f/u for and he is much better his hb is stable and seen by neprho no nausea or vomiting History of Present Illness: He has chf,htn, afib with rapid heart rate ,gi bleeding upper needing endoscopy but not stable for that yet. - Current Medication List Current Medications: Active Medications Apixaban (Eliquis -) 2.5 mg PO BID [facility] Last Admin: 05/28/19 10:44 Dose: 2.5 mg Atorvastatin Calcium (Lipitor -) 10 mg PO HS [facility] Last Admin: 05/27/19 21:35 Dose: 10 mg Calcium Carbonate (Os-Dionicio 500mg -) 1,000 mg PO DAILY [facility] Last Admin: 05/28/19 10:44 Dose: 1,000 mg Docusate Sodium (Colace -) 100 mg PO TID [facility] Last Admin: 05/28/19 06:51 Dose: Not Given Furosemide (Lasix Injection -) 60 mg IVPUSH DAILY [facility] Last Admin: 05/28/19 10:43 Dose: 60 mg Pantoprazole Sodium 80 mg/ (Sodium Chloride) 100 mls @ 10 mls/hr IVPB Q10H [facility] Last Admin: 05/28/19 10:43 Dose: 10 mls/hr Magnesium Hydroxide (Milk Of Magnesia -) 30 ml PO PRN PRN PRN Reason: CONSTIPATION Metoprolol Tartrate (Lopressor Injection -) 5 mg IVPUSH Q4H PRN PRN Reason: TACHYCARDIA Last Admin: 05/26/19 21:53 Dose: 5 mg Metoprolol Tartrate (Lopressor -) 75 mg PO BID [facility] Last Admin: 05/28/19 10:44 Dose: 75 mg - Objective Vital Signs: Vital Signs Temperature 98.6 F 05/28/19 14:00 Pulse Rate 85 05/28/19 14:00 Respiratory Rate 20 05/28/19 14:00 Blood Pressure 118/71 05/28/19 14:00 O2 Sat by Pulse Oximetry (%) 97 05/28/19 09:00 Constitutional: Yes: Well Nourished HENT: Yes: Atraumatic Neck: Yes: Supple Cardiovascular: Yes: Pulse Irregular, JVD Respiratory: Yes: WNL, Regular Gastrointestinal: Yes: Normal Bowel Sounds, Soft Edema: Yes Edema: LLE: 1+, RLE: 1+ Labs: CBC, BMP 05/28/19 06:15 07/30/19 07:00 INR, PTT INR 1.47 (0.83-1.09) H 05/22/19 06:30 Problem List - Problems (1) GI bleed Assessment/Plan: He needs endoscopy and he is not stable yet and still have high heart rate Code(s): K92.2 - GASTROINTESTINAL HEMORRHAGE, UNSPECIFIED Qualifiers: GI bleed type/associated pathology: unspecified gastrointestinal hemorrhage type Qualified Code(s): K92.2 - Gastrointestinal hemorrhage, unspecified (2) Hyperlipidemia Assessment/Plan: continue cholesterol medications Code(s): E78.5 - HYPERLIPIDEMIA, UNSPECIFIED (3) Hypertension Assessment/Plan: blood pressure is good Code(s): I10 - ESSENTIAL (PRIMARY) HYPERTENSION (4) Leukocytosis Assessment/Plan: repeat labs is still high and he has no sign of infection and seen by hematology and recommended to f/u and may need w/u for bone marrow disorder Code(s): D72.829 - ELEVATED WHITE BLOOD CELL COUNT, UNSPECIFIED Qualifiers: Leukocytosis type: unspecified Qualified Code(s): D72.829 - Elevated white blood cell count, unspecified (5) New onset a-fib Assessment/Plan: getting his heart rate under control f/u cardiac continue eliquis Code(s): I48.91 - UNSPECIFIED ATRIAL FIBRILLATION (6) New onset of congestive heart failure Assessment/Plan: getting better , continue lasix Code(s): I50.9 - HEART FAILURE, UNSPECIFIED
--- NOTE | 2019-05-28 16:47 | PN ---
Progress Note, Physician Chief Complaint: Appears comfortable History of Present Illness: This is a 83yo male with PMH of HTN, HLD, prostate CA sent by his primary care physician for admission for new-onset CHF and atrial fibrillation with RVR. He complains of mild substernal chest pain on exertion x 1 week. He has dyspnea on exertion just walking across the room. He has noticed leg swelling for the past five months. +2-3 pillow orthopnea. No PND. No palpitations, dizziness or syncope. Echo 05/22/19: normal EF, dilated RV, mild dec RV function. mod LAE/KARRIE. trace to mild MR. Mod to sev TR RVSP 40-50. 05/28/19 clinically improving. - Current Medication List Current Medications: Active Medications Apixaban (Eliquis -) 2.5 mg PO BID [facility] Last Admin: 05/28/19 10:44 Dose: 2.5 mg Atorvastatin Calcium (Lipitor -) 10 mg PO HS [facility] Last Admin: 05/27/19 21:35 Dose: 10 mg Calcium Carbonate (Os-Dionicio 500mg -) 1,000 mg PO DAILY [facility] Last Admin: 05/28/19 10:44 Dose: 1,000 mg Docusate Sodium (Colace -) 100 mg PO TID [facility] Last Admin: 05/28/19 06:51 Dose: Not Given Furosemide (Lasix Injection -) 60 mg IVPUSH DAILY [facility] Last Admin: 05/28/19 10:43 Dose: 60 mg Pantoprazole Sodium 80 mg/ (Sodium Chloride) 100 mls @ 10 mls/hr IVPB Q10H [facility] Last Admin: 05/28/19 10:43 Dose: 10 mls/hr Magnesium Hydroxide (Milk Of Magnesia -) 30 ml PO PRN PRN PRN Reason: CONSTIPATION Metoprolol Tartrate (Lopressor Injection -) 5 mg IVPUSH Q4H PRN PRN Reason: TACHYCARDIA Last Admin: 05/26/19 21:53 Dose: 5 mg Metoprolol Tartrate (Lopressor -) 75 mg PO BID [facility] Last Admin: 05/28/19 10:44 Dose: 75 mg - Objective Vital Signs: Vital Signs Temperature 98.6 F 05/28/19 14:00 Pulse Rate 85 05/28/19 14:00 Respiratory Rate 20 05/28/19 14:00 Blood Pressure 118/71 05/28/19 14:00 O2 Sat by Pulse Oximetry (%) 97 05/28/19 09:00 Constitutional: Yes: No Distress Eyes: Yes: WNL HENT: Yes: WNL Neck: Yes: WNL Cardiovascular: Yes: Regular Rate and Rhythm, S1, S2 Respiratory: Yes: Rales (Minimal basilar rales) Gastrointestinal: Yes: Soft Edema: LLE: 1+, RLE: 1+ Neurological: Yes: Alert, Oriented Labs: CBC, BMP 05/28/19 06:15 05/27/19 07:00 INR, PTT INR 1.47 (0.83-1.09) H 05/22/19 06:30 Assessment/Plan 83yo M, with PMH of HTN, HLD, prostate CA sent by his primary care physician for admission for new-onset CHF and atrial fibrillation with RVR. He complains of mild substernal chest pain on exertion x 1 week. He has dyspnea on exertion just walking across the room. He has noticed leg swelling for the past five months. +2-3 pillow orthopnea. No PND. No palpitations, dizziness or syncope. New onset atrial fibrillation Would favor Eliquis 2.5 mg PO BID Increase metoprolol tartrate to 75 mg bid for better rate control (On metoprolol tartrate 100 mg PO BID he was having > 2 sec pauses, on metoprolol tartrate 50 mg PO BID his HR is ~ 98 BPM) CHF Acute on chronic diastolic Would increase IV Lasix to 60 mg IVSS daily Daily I's/O's/Wt's/Lytes HCT dropped from 34% to 23%, Would hold Eliquis and evaluate for GI bleeding There are no cardiac contraindications to a GI work-up including upper endoscopy and/or colonoscopy, the benefits outweigh the risks
--- NOTE | 2019-05-28 19:36 | CONS ---
DATE OF CONSULTATION: DATE OF DICTATION: 05/28/2019 CHIEF COMPLAINT: This is an 83-year-old male with past medical history of hypertension, hyperlipidemia, and prostate carcinoma admitted with new onset of congestive heart failure, elevation of creatinine and positive MAR. HISTORY OF PRESENT ILLNESS: The patient was admitted with a 1-week history of shortness of breath and edema in lower limbs. On admission, he was found to have atrial fibrillation, a chest x-ray was reported with enlarged mediastinum, large heart, and increased central lung markings. There were no infiltrates. An echocardiogram was reported with atrial fibrillation, left ventricle normal in size and function, right ventricle with mild dilatation and right ventricle systolic pressure of 40 to 50. Laboratory workup revealed on admission a CBC with a white blood cell count of 13.7, that increased on May 23, 2019, to 47 and the next day was 19.3. Today was 31.1. Hemoglobin was 10.9, platelets 406. Creatinine on admission was 1.5 and the next day 1.9. EGFR was 34.09, and urinalysis was negative for blood and protein. AST was 52 and ALT 45. MAR was 1:320 with nuclear pattern. Protein electrophoresis was negative for M spike. Anti-DNA double stranded, anti-Peterson and anti-ROUTE RIDER were negative, tissue transglutaminase IGG and IGA and glomerular basement membrane antibody were all negative. ANCA is pending. The patient denies peripheral joint pain, oral ulcers or fever. PHYSICAL EXAMINATION: General: The patient was not in distress. HEENT: Normal. Lungs: Clear. Heart: S1 and S2 normal with no gallop and no murmur. Abdomen: Soft, nontender, with no masses. Musculoskeletal: No active joints. Pitting edema in lower limbs extending to the middle third of both legs. IMPRESSION: New onset of congestive heart failure and probable pulmonary hypertension. The patient had MAR positive, urinalysis with normal sediment, and no clinical changes suggestive of lupus or other connective tissue disease. Probable prerenal disease. It is unlikely that he has a connective tissue disease, however ANCA testing for vasculitis evaluation is pending. Etiology of probable pulmonary hypertension to be determined . PLAN: Follow up results of ANCA. Thank you for this consult. Vy [id number] WARD
[2019-05-28] MEDS: ATORVASTATIN CA 10 MG TABLET (FP) PO SCH (22:16)
[2019-05-29] MEDS: DOCUSATE SODIUM 100 MG CAPSULE (FP) PO SCH ×3 (05:52→21:32)
[2019-05-29] MEDS: PANTOPRAZOLE SODIUM 80 MG in SODIUM CHLORIDE 100 ML IVPB SCH ×2 (05:52→19:08)
[2019-05-29] MEDS: FUROSEMIDE 40 MG/4 ML INJECTABLE VIAL IVPUSH SCH (11:02)
[2019-05-29] MEDS: CALCIUM (OYSTER SHELL) 500 MG TABLET (FP) PO SCH (11:02)
[2019-05-29] MEDS: METOPROLOL TARTRATE 25 MG TABLET (FP) PO SCH ×2 (11:02→21:29)
[2019-05-29] MEDS: METOPROLOL TARTRATE 5 MG/5 ML VIAL IVPUSH PRN (11:47)
[2019-05-29 15:08] LABS: ATYPICAL pANCA <1:20 titer (Neg:<1:20); C-ANCA <1:20 titer (Neg:<1:20)
--- NOTE | 2019-05-29 15:45 | PN ---
Progress Note, Physician History of Present Illness: Pt seen and examined at bedside. He still complains of shortness of breath. - Current Medication List Current Medications: Active Medications Amoxicillin/Clavulanate Potassium (Augmentin - 500mg Tablet) 1 tab PO BID [facility] Apixaban (Eliquis -) 2.5 mg PO BID [facility] Last Admin: 05/28/19 10:44 Dose: 2.5 mg Atorvastatin Calcium (Lipitor -) 10 mg PO HS [facility] Last Admin: 05/28/19 22:16 Dose: 10 mg Calcium Carbonate (Os-Dionicio 500mg -) 1,000 mg PO DAILY [facility] Last Admin: 05/29/19 11:02 Dose: 1,000 mg Docusate Sodium (Colace -) 100 mg PO TID [facility] Last Admin: 05/29/19 05:52 Dose: Not Given Furosemide (Lasix Injection -) 60 mg IVPUSH DAILY [facility] Last Admin: 05/29/19 11:02 Dose: 60 mg Pantoprazole Sodium 80 mg/ (Sodium Chloride) 100 mls @ 10 mls/hr IVPB Q10H [facility] Last Admin: 05/29/19 05:52 Dose: 10 mls/hr Magnesium Hydroxide (Milk Of Magnesia -) 30 ml PO PRN PRN PRN Reason: CONSTIPATION Metoprolol Tartrate (Lopressor Injection -) 5 mg IVPUSH Q4H PRN PRN Reason: TACHYCARDIA Last Admin: 05/29/19 11:47 Dose: 5 mg Metoprolol Tartrate (Lopressor -) 75 mg PO BID [facility] Last Admin: 05/29/19 11:02 Dose: 75 mg - Objective Vital Signs: Vital Signs Temperature 98.3 F 05/29/19 14:00 Pulse Rate 84 05/29/19 14:00 Respiratory Rate 18 05/29/19 14:00 Blood Pressure 131/75 05/29/19 14:00 O2 Sat by Pulse Oximetry (%) 98 05/29/19 09:00 Constitutional: Yes: Calm Eyes: Yes: Conjunctiva Clear HENT: Yes: Atraumatic Neck: Yes: Supple Cardiovascular: Yes: S1, S2 Respiratory: Yes: CTA Bilaterally Gastrointestinal: Yes: Normal Bowel Sounds, Soft Genitourinary: Yes: WNL Musculoskeletal: Yes: WNL Edema: Yes Edema: LLE: 1+, RLE: 1+ Integumentary: Yes: WNL Neurological: Yes: Oriented Psychiatric: Yes: Oriented Labs: CBC, BMP 05/28/19 06:15 05/27/19 07:00 INR, PTT INR 1.47 (0.83-1.09) H 05/22/19 06:30 Problem List - Problems (1) JOHN (acute kidney injury) Code(s): N17.9 - ACUTE KIDNEY FAILURE, UNSPECIFIED (2) Chest discomfort Code(s): R07.89 - OTHER CHEST PAIN (3) New onset a-fib Code(s): I48.91 - UNSPECIFIED ATRIAL FIBRILLATION (4) New onset of congestive heart failure Code(s): I50.9 - HEART FAILURE, UNSPECIFIED Assessment/Plan Current Medications Generic Name Dose Route Start Last Admin Trade Name Freq PRN Reason Stop Dose Admin Amoxicillin/Clavulanate Potassium 1 tab 05/29/19 11:15 Augmentin - 500mg Tablet PO BID MILI Apixaban 2.5 mg 05/27/19 22:00 05/28/19 10:44 Eliquis - PO 2.5 mg BID MILI Administration Atorvastatin Calcium 10 mg 05/22/19 22:00 05/28/19 22:16 Lipitor - PO 10 mg HS MILI Administration Calcium Carbonate 1,000 mg 05/22/19 10:00 05/29/19 11:02 Os-Dionicio 500mg - PO 1,000 mg DAILY MILI Administration Docusate Sodium 100 mg 05/27/19 15:00 05/29/19 05:52 Colace - PO Not Given TID MILI Furosemide 60 mg 05/27/19 09:15 05/29/19 11:02 Lasix Injection - IVPUSH 60 mg DAILY [facility]I Administration Pantoprazole Sodium 80 mg/ 100 mls @ 10 mls/hr 05/22/19 22:15 05/29/19 05:52 Sodium Chloride IVPB 10 mls/hr Q10H MILI Administration 8 MG/HR Magnesium Hydroxide 30 ml 05/27/19 14:38 Milk Of Magnesia - PO PRN PRN CONSTIPATION Metoprolol Tartrate 5 mg 05/22/19 11:38 05/29/19 11:47 Lopressor Injection - IVPUSH 5 mg Q4H PRN Administration TACHYCARDIA Metoprolol Tartrate 75 mg 05/27/19 09:12 05/29/19 11:02 Lopressor - PO 75 mg BID MILI Administration Laboratory Tests 05/23/19 05/25/19 06:35 06:19 ANDRE Screen Positive H c-ANCA <1:20 Proteinase 3 (PR3) <3.5 p-ANCA <1:20 Atypical p-ANCA <1:20 Myeloperoxidase Ab <9.0 Glomerular Base Memb Ab 2 Hep Bs Antigen Negative Hep Bs Antibody Non reactive Hep B Core Total Ab Negative Hep B Core IgM Ab Negative Hep C Ab Diagnostic <0.1 Impression 1. JOHN 2. chf 3. a-fib 4. htn 5. gerd 6. hypokalemia 7. positive andre Plan - follow rheum eval - check cmp - cont lasix - cardio input appreciated Dr Ceja
--- NOTE | 2019-05-29 16:39 | PN ---
Progress Note, Physician Chief Complaint: No new complaints - Current Medication List Current Medications: Active Medications Amoxicillin/Clavulanate Potassium (Augmentin - 500mg Tablet) 1 tab PO BID [facility] Apixaban (Eliquis -) 2.5 mg PO BID [facility] Last Admin: 05/28/19 10:44 Dose: 2.5 mg Atorvastatin Calcium (Lipitor -) 10 mg PO HS [facility] Last Admin: 05/28/19 22:16 Dose: 10 mg Calcium Carbonate (Os-Dionicio 500mg -) 1,000 mg PO DAILY [facility] Last Admin: 05/29/19 11:02 Dose: 1,000 mg Docusate Sodium (Colace -) 100 mg PO TID [facility] Last Admin: 05/29/19 05:52 Dose: Not Given Furosemide (Lasix Injection -) 60 mg IVPUSH DAILY [facility] Last Admin: 05/29/19 11:02 Dose: 60 mg Pantoprazole Sodium 80 mg/ (Sodium Chloride) 100 mls @ 10 mls/hr IVPB Q10H [facility] Last Admin: 05/29/19 05:52 Dose: 10 mls/hr Magnesium Hydroxide (Milk Of Magnesia -) 30 ml PO PRN PRN PRN Reason: CONSTIPATION Metoprolol Tartrate (Lopressor Injection -) 5 mg IVPUSH Q4H PRN PRN Reason: TACHYCARDIA Last Admin: 05/29/19 11:47 Dose: 5 mg Metoprolol Tartrate (Lopressor -) 75 mg PO BID [facility] Last Admin: 05/29/19 11:02 Dose: 75 mg - Objective Vital Signs: Vital Signs Temperature 98.3 F 05/29/19 14:00 Pulse Rate 84 05/29/19 14:00 Respiratory Rate 18 05/29/19 14:00 Blood Pressure 131/75 05/29/19 14:00 O2 Sat by Pulse Oximetry (%) 98 05/29/19 09:00 Constitutional: Yes: No Distress Neck: Yes: Supple Respiratory: Yes: CTA Bilaterally Gastrointestinal: Yes: Normal Bowel Sounds, Soft Neurological: Yes: Alert, Oriented. No: Loss of Sensation Labs: CBC, BMP 05/28/19 06:15 05/27/19 07:00 INR, PTT INR 1.47 (0.83-1.09) H 05/22/19 06:30 Problem List - Problems (1) GI bleed Assessment/Plan: Hb stable Code(s): K92.2 - GASTROINTESTINAL HEMORRHAGE, UNSPECIFIED Qualifiers: GI bleed type/associated pathology: unspecified gastrointestinal hemorrhage type Qualified Code(s): K92.2 - Gastrointestinal hemorrhage, unspecified (2) New onset a-fib Assessment/Plan: Rate controlled. Code(s): I48.91 - UNSPECIFIED ATRIAL FIBRILLATION (3) Leukocytosis Assessment/Plan: Started on Augmentin Code(s): D72.829 - ELEVATED WHITE BLOOD CELL COUNT, UNSPECIFIED Qualifiers: Leukocytosis type: unspecified Qualified Code(s): D72.829 - Elevated white blood cell count, unspecified
--- NOTE | 2019-05-29 16:46 | PN ---
Progress Note, Physician Chief Complaint: Appears comfortable History of Present Illness: This is a 83yo male with PMH of HTN, HLD, prostate CA sent by his primary care physician for admission for new-onset CHF and atrial fibrillation with RVR. He complains of mild substernal chest pain on exertion x 1 week. He has dyspnea on exertion just walking across the room. He has noticed leg swelling for the past five months. +2-3 pillow orthopnea. No PND. No palpitations, dizziness or syncope. Echo 05/22/19: normal EF, dilated RV, mild dec RV function. mod LAE/KARRIE. trace to mild MR. Mod to sev TR RVSP 40-50. 05/28/19 clinically improving. HCT 23.3 noted yesterday - Current Medication List Current Medications: Active Medications Amoxicillin/Clavulanate Potassium (Augmentin - 500mg Tablet) 1 tab PO BID [facility] Apixaban (Eliquis -) 2.5 mg PO BID [facility] Last Admin: 05/28/19 10:44 Dose: 2.5 mg Atorvastatin Calcium (Lipitor -) 10 mg PO HS [facility] Last Admin: 05/28/19 22:16 Dose: 10 mg Calcium Carbonate (Os-Dionicio 500mg -) 1,000 mg PO DAILY [facility] Last Admin: 05/29/19 11:02 Dose: 1,000 mg Docusate Sodium (Colace -) 100 mg PO TID [facility] Last Admin: 05/29/19 05:52 Dose: Not Given Furosemide (Lasix Injection -) 60 mg IVPUSH DAILY [facility] Last Admin: 05/29/19 11:02 Dose: 60 mg Pantoprazole Sodium 80 mg/ (Sodium Chloride) 100 mls @ 10 mls/hr IVPB Q10H [facility] Last Admin: 05/29/19 05:52 Dose: 10 mls/hr Magnesium Hydroxide (Milk Of Magnesia -) 30 ml PO PRN PRN PRN Reason: CONSTIPATION Metoprolol Tartrate (Lopressor Injection -) 5 mg IVPUSH Q4H PRN PRN Reason: TACHYCARDIA Last Admin: 05/29/19 11:47 Dose: 5 mg Metoprolol Tartrate (Lopressor -) 75 mg PO BID [facility] Last Admin: 05/29/19 11:02 Dose: 75 mg - Objective Vital Signs: Vital Signs Temperature 98.3 F 05/29/19 14:00 Pulse Rate 84 05/29/19 14:00 Respiratory Rate 18 05/29/19 14:00 Blood Pressure 131/75 05/29/19 14:00 O2 Sat by Pulse Oximetry (%) 98 05/29/19 09:00 Constitutional: Yes: No Distress Eyes: Yes: WNL HENT: Yes: WNL Neck: Yes: WNL Cardiovascular: Yes: Pulse Irregular, S1, S2 Respiratory: Yes: CTA Bilaterally Gastrointestinal: Yes: Soft Edema: LLE: 1+, RLE: 1+ Neurological: Yes: Alert, Oriented Labs: CBC, BMP 05/28/19 06:15 05/27/19 07:00 INR, PTT INR 1.47 (0.83-1.09) H 05/22/19 06:30 Assessment/Plan 83yo M, with PMH of HTN, HLD, prostate CA sent by his primary care physician for admission for new-onset CHF and atrial fibrillation with RVR. He complains of mild substernal chest pain on exertion x 1 week. He has dyspnea on exertion just walking across the room. He has noticed leg swelling for the past five months. +2-3 pillow orthopnea. No PND. No palpitations, dizziness or syncope. New onset atrial fibrillation Would favor Eliquis 2.5 mg PO BID Increase metoprolol tartrate to 75 mg bid for better rate control (On metoprolol tartrate 100 mg PO BID he was having > 2 sec pauses, on metoprolol tartrate 50 mg PO BID his HR is ~ 98 BPM) CHF Acute on chronic diastolic Would increase IV Lasix to 60 mg IVSS daily Daily I's/O's/Wt's/Lytes HCT dropped from 34% to 23%, Would hold Eliquis and evaluate for GI bleeding There are no cardiac contraindications to a GI work-up including upper endoscopy and/or colonoscopy, the benefits outweigh the risks
--- NOTE | 2019-05-29 18:27 | PN ---
Progress Note (short form) - Note Progress Note: Pending Flow Cytometry results Will order: BCL ABL, Kamila 2, FISH, Cytogenetics
[2019-05-29] MEDS: AMOX TR/POT CLAV 500MG/125MG TABLETS (FP) PO SCH ×2 (19:08→21:28)
[2019-05-29] MEDS: ATORVASTATIN CA 10 MG TABLET (FP) PO SCH (21:29)
--- NOTE | 2019-05-29 21:53 | PN ---
Teaching Attending Note ATTENDING PHYSICIAN STATEMENT I saw and evaluated the patient. I reviewed the resident's note and discussed the case with the resident. I agree with the resident's findings and plan as documented. SUBJECTIVE: OBJECTIVE: ASSESSMENT AND PLAN:
[2019-05-30] MEDS: DOCUSATE SODIUM 100 MG CAPSULE (FP) PO SCH ×2 (06:13→14:09)
[2019-05-30 08:47] LABS: HEMATOCRIT 35.5 % (35.4-49); HEMOGLOBIN 11.5 GM/dL (11.7-16.9); MCH 29.5 pg (25.7-33.7); MCHC 32.3 g/dl (32.0-35.9); MEAN CELL VOLUME 91.3 fl (80-96); MEAN PLT VOLUME 9.6 fl (7.5-11.1); RBC 3.89 M/mm3 (4.00-5.60); RDW 14.1 % (11.9-15.9)
[2019-05-30] MEDS ORDERED: PT OWN MED DRAWER 7, Y5N ONE (08:55)
[2019-05-30] MEDS: AMOX TR/POT CLAV 500MG/125MG TABLETS (FP) PO SCH ×2 (09:24→22:29)
[2019-05-30] MEDS: PANTOPRAZOLE 40 MG TABLET (FP) PO SCH ×2 (09:24→22:29)
[2019-05-30] MEDS: CALCIUM (OYSTER SHELL) 500 MG TABLET (FP) PO SCH (09:24)
[2019-05-30] MEDS: MAGNESIUM HYDROX 2400MG/30ML ORAL SUSPENSION 30 ML CUP PO PRN (09:25)
[2019-05-30] MEDS: FUROSEMIDE 40 MG/4 ML INJECTABLE VIAL IVPUSH SCH (09:25)
[2019-05-30] MEDS: METOPROLOL TARTRATE 25 MG TABLET (FP) PO SCH ×2 (09:25→22:29)
[2019-05-30 10:30] LABS: ALBUMIN 3.1 g/dl (3.4-5.0); BILIRUBIN,TOTAL 0.4 mg/dL (0.2-1); BLOOD UREA NITROGEN 32.5 mg/dL (7-18); CALCIUM 8.2 mg/dL (8.5-10.1); CREATININE 1.6 mg/dL (0.55-1.3); TOT PROT 5.1 g/dl (6.4-8.2)
[2019-05-30] MEDS: METOPROLOL TARTRATE 5 MG/5 ML VIAL IVPUSH PRN (10:56)
[2019-05-30 11:21] LABS: PLATELET ESTIMATE NORMAL
[2019-05-30] MEDS ORDERED: POTASSIUM CHLORIDE TABS 20 MEQ TABLET.ER (FP) PO ONE (11:30)
[2019-05-30 11:35] LABS: PLATELET COUNT 367 K/MM3 (134-434)
--- NOTE | 2019-05-30 13:45 | PN.GI ---
GI Progress Note Subjective: GI NOte: Recalled by Jimmy Jonas to schedule endoscopies as Maximino has now been cardiologically cleared for these. Maximino tells me that his stools are brown and formed. He denies abdominal pain or diarrhea. The etiology for his recurring leukocytosis remains to be determined. 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 I have again informed him of the potential for such complications as perforation and hemorrhage as well as BECKY. He has signed an informed consent for both. I have scheduled him for 06/02. - Objective Vital Signs: Vital Signs Temperature 98.6 F 05/30/19 10:00 Pulse Rate 132 H 05/30/19 10:59 Respiratory Rate 22 H 05/30/19 10:00 Blood Pressure 137/83 05/30/19 10:59 O2 Sat by Pulse Oximetry (%) 96 05/30/19 09:00 Laboratory Tests 05/21/19 05/23/19 05/24/19 16:14 06:35 06:20 WBC 13.7 H 47.5 H* 19.3 H Hgb 12.8 Neutrophils % (Manual) Lymphocytes % (Manual) Monocytes % (Manual) 05/26/19 05/28/19 05/30/19 05:50 06:15 05:56 WBC 29.9 H 31.1 H* 54.3 H* Hgb 11.5 L Neutrophils % (Manual) 37.8 L D Lymphocytes % (Manual) 45.2 H D Monocytes % (Manual) 16 H D Constitutional: Calm ...Auscultate: Yes: Normoactive Bowel Sounds ...Palpate: Yes: Soft, Other (nontender) Labs: CBC, BMP 05/30/19 05:56 05/30/19 05:56 INR, PTT INR 1.47 (0.83-1.09) H 05/22/19 06:30 Assessment/Plan Assessment: - 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 . -Alcoholic hepatitis. - Personal h/o colon adenomas - Diverticulosis Plan: -- PPI drip stopped -- I have told him Maximino that he must prep for the colonoscopy. -- EGD with GAVE ablation and colonoscopy to remove recurrent adenomas on 06/02 -- Dr Stein will be covering this weekend Problem List - Problems (1) GI bleed Code(s): K92.2 - GASTROINTESTINAL HEMORRHAGE, UNSPECIFIED Qualifiers: GI bleed type/associated pathology: unspecified gastrointestinal hemorrhage type Qualified Code(s): K92.2 - Gastrointestinal hemorrhage, unspecified (2) Abnormal liver function tests Code(s): R94.5 - ABNORMAL RESULTS OF LIVER FUNCTION STUDIES (3) GAVE (gastric antral vascular ectasia) Code(s): K31.819 - ANGIODYSPLASIA OF STOMACH AND DUODENUM WITHOUT BLEEDING (4) Colon adenomas Code(s): D12.6 - BENIGN NEOPLASM OF COLON, UNSPECIFIED (5) Diverticulosis Code(s): K57.90 - DVRTCLOS OF INTEST, PART UNSP, W/O PERF OR ABSCESS W/O BLEED (6) History of radical prostatectomy Code(s): Z90.79 - ACQUIRED ABSENCE OF OTHER GENITAL ORGAN(S) (7) Prostate cancer Code(s): C61 - MALIGNANT NEOPLASM OF PROSTATE (8) Hypertension Code(s): I10 - ESSENTIAL (PRIMARY) HYPERTENSION (9) Hyperlipidemia Code(s): E78.5 - HYPERLIPIDEMIA, UNSPECIFIED (10) Leukocytosis Code(s): D72.829 - ELEVATED WHITE BLOOD CELL COUNT, UNSPECIFIED Qualifiers: Leukocytosis type: unspecified Qualified Code(s): D72.829 - Elevated white blood cell count, unspecified
--- NOTE | 2019-05-30 13:58 | PN ---
Progress Note, Physician History of Present Illness: Pt seen and examined at bedside. He is awake and alert. He feels edema is improving. He denies dysuria. - Current Medication List Current Medications: Active Medications Amoxicillin/Clavulanate Potassium (Augmentin - 500mg Tablet) 1 tab PO BID [facility] Last Admin: 05/30/19 09:24 Dose: 1 tab Apixaban (Eliquis -) 2.5 mg PO BID [facility] Last Admin: 05/28/19 10:44 Dose: 2.5 mg Atorvastatin Calcium (Lipitor -) 10 mg PO HS [facility] Last Admin: 05/29/19 21:29 Dose: 10 mg Calcium Carbonate (Os-Dionicio 500mg -) 1,000 mg PO DAILY [facility] Last Admin: 05/30/19 09:24 Dose: 1,000 mg Docusate Sodium (Colace -) 100 mg PO TID [facility] Last Admin: 05/30/19 06:13 Dose: 100 mg Furosemide (Lasix Injection -) 60 mg IVPUSH DAILY [facility] Last Admin: 05/30/19 09:25 Dose: 60 mg Magnesium Hydroxide (Milk Of Magnesia -) 30 ml PO PRN PRN PRN Reason: CONSTIPATION Last Admin: 05/30/19 09:25 Dose: 30 ml Metoprolol Tartrate (Lopressor Injection -) 5 mg IVPUSH Q4H PRN PRN Reason: TACHYCARDIA Last Admin: 05/30/19 10:56 Dose: 5 mg Metoprolol Tartrate (Lopressor -) 75 mg PO BID [facility] Last Admin: 05/30/19 09:25 Dose: 75 mg Pantoprazole Sodium (Protonix -) 40 mg PO BID [facility] Last Admin: 05/30/19 09:24 Dose: 40 mg - Objective Vital Signs: Vital Signs Temperature 98.6 F 05/30/19 10:00 Pulse Rate 132 H 05/30/19 10:59 Respiratory Rate 22 H 05/30/19 10:00 Blood Pressure 137/83 05/30/19 10:59 O2 Sat by Pulse Oximetry (%) 96 05/30/19 09:00 Constitutional: Yes: Calm Eyes: Yes: Conjunctiva Clear HENT: Yes: Atraumatic Neck: Yes: Supple Cardiovascular: Yes: S1, S2 Respiratory: Yes: CTA Bilaterally Gastrointestinal: Yes: Soft Genitourinary: Yes: WNL Musculoskeletal: Yes: WNL Edema: Yes Edema: LLE: 1+, RLE: 1+ Neurological: Yes: Oriented Psychiatric: Yes: Oriented Labs: CBC, BMP 05/30/19 05:56 05/30/19 05:56 INR, PTT INR 1.47 (0.83-1.09) H 05/22/19 06:30 Problem List - Problems (1) JOHN (acute kidney injury) Code(s): N17.9 - ACUTE KIDNEY FAILURE, UNSPECIFIED (2) Chest discomfort Code(s): R07.89 - OTHER CHEST PAIN (3) New onset a-fib Code(s): I48.91 - UNSPECIFIED ATRIAL FIBRILLATION (4) New onset of congestive heart failure Code(s): I50.9 - HEART FAILURE, UNSPECIFIED Assessment/Plan Laboratory Tests Current Medications Generic Name Dose Route Start Last Admin Trade Name Freq PRN Reason Stop Dose Admin Amoxicillin/Clavulanate Potassium 1 tab 05/29/19 11:15 05/30/19 09:24 Augmentin - 500mg Tablet PO 1 tab BID [facility] Administration Apixaban 2.5 mg 05/27/19 22:00 05/28/19 10:44 Eliquis - PO 2.5 mg BID [facility] Administration Atorvastatin Calcium 10 mg 05/22/19 22:00 05/29/19 21:29 Lipitor - PO 10 mg HS [facility] Administration Calcium Carbonate 1,000 mg 05/22/19 10:00 05/30/19 09:24 Os-Dionicio 500mg - PO 1,000 mg DAILY [facility] Administration Docusate Sodium 100 mg 05/27/19 15:00 05/30/19 06:13 Colace - PO 100 mg TID [facility] Administration Furosemide 60 mg 05/27/19 09:15 05/30/19 09:25 Lasix Injection - IVPUSH 60 mg DAILY [facility] Administration Magnesium Hydroxide 30 ml 05/27/19 14:38 05/30/19 09:25 Milk Of Magnesia - PO 30 ml PRN PRN Administration CONSTIPATION Metoprolol Tartrate 5 mg 05/22/19 11:38 05/30/19 10:56 Lopressor Injection - IVPUSH 5 mg Q4H PRN Administration TACHYCARDIA Metoprolol Tartrate 75 mg 05/27/19 09:12 05/30/19 09:25 Lopressor - PO 75 mg BID [facility] Administration Pantoprazole Sodium 40 mg 05/30/19 10:00 05/30/19 09:24 Protonix - PO 40 mg BID [facility] Administration 05/23/19 05/25/19 06:35 06:19 ANDRE Screen Positive H c-ANCA <1:20 Proteinase 3 (PR3) <3.5 p-ANCA <1:20 Atypical p-ANCA <1:20 Myeloperoxidase Ab <9.0 Glomerular Base Memb Ab 2 Hep Bs Antigen Negative Hep Bs Antibody Non reactive Hep B Core Total Ab Negative Hep B Core IgM Ab Negative Hep C Ab Diagnostic <0.1 Impression 1. JOHN 2. chf 3. a-fib 4. htn 5. gerd 6. hypokalemia 7. positive andre Plan - replace potassium - cont to monitor renal function - rheum input appreciated, anca neg - cont lasix for now - GI workup in progress - oncology workup in progress, follow flow cytometry Dr Ceja
[2019-05-30] MEDS ORDERED: PHYTONADIONE 10 MG/1 ML AMP IVPB ONE (14:08)
[2019-05-30 14:21] LABS: WHITE BLOOD COUNT 35.4 K/mm3 (4.0-10.0)
--- NOTE | 2019-05-30 15:49 | PN ---
Progress Note, Physician Chief Complaint: Appears comfortable History of Present Illness: This is a 83yo male with PMH of HTN, HLD, prostate CA sent by his primary care physician for admission for new-onset CHF and atrial fibrillation with RVR. He complains of mild substernal chest pain on exertion x 1 week. He has dyspnea on exertion just walking across the room. He has noticed leg swelling for the past five months. +2-3 pillow orthopnea. No PND. No palpitations, dizziness or syncope. Echo 05/22/19: normal EF, dilated RV, mild dec RV function. mod LAE/KARRIE. trace to mild MR. Mod to sev TR RVSP 40-50. HCT 23.3 noted 05/28/19 Repeat HCT 05/30/19 35.5% K+ 3.0 Cr 1.8 WBC 35.4 - Current Medication List Current Medications: Active Medications Amoxicillin/Clavulanate Potassium (Augmentin - 500mg Tablet) 1 tab PO BID [facility] Last Admin: 05/30/19 09:24 Dose: 1 tab Apixaban (Eliquis -) 2.5 mg PO BID [facility] Last Admin: 05/28/19 10:44 Dose: 2.5 mg Atorvastatin Calcium (Lipitor -) 10 mg PO HS [facility] Last Admin: 05/29/19 21:29 Dose: 10 mg Calcium Carbonate (Os-Dionicio 500mg -) 1,000 mg PO DAILY [facility] Last Admin: 05/30/19 09:24 Dose: 1,000 mg Furosemide (Lasix Injection -) 60 mg IVPUSH DAILY [facility] Last Admin: 05/30/19 09:25 Dose: 60 mg Magnesium Hydroxide (Milk Of Magnesia -) 30 ml PO PRN PRN PRN Reason: CONSTIPATION Last Admin: 05/30/19 09:25 Dose: 30 ml Metoprolol Tartrate (Lopressor Injection -) 5 mg IVPUSH Q4H PRN PRN Reason: TACHYCARDIA Last Admin: 05/30/19 10:56 Dose: 5 mg Metoprolol Tartrate (Lopressor -) 75 mg PO BID [facility] Last Admin: 05/30/19 09:25 Dose: 75 mg Pantoprazole Sodium (Protonix -) 40 mg PO BID [facility] Last Admin: 05/30/19 09:24 Dose: 40 mg Polyethylene Glycol (Miralax (For Daily Use) -) 17 gm PO TID [facility] Polyethylene Glycol/Electrolytes (Golytely Solution -) 4,000 ml PO ONCE ONE Stop: 06/01/19 08:01 - Objective Vital Signs: Vital Signs Temperature 98.6 F 05/30/19 10:00 Pulse Rate 132 H 05/30/19 10:59 Respiratory Rate 22 H 05/30/19 10:00 Blood Pressure 137/83 05/30/19 10:59 O2 Sat by Pulse Oximetry (%) 96 05/30/19 09:00 Constitutional: Yes: No Distress Eyes: Yes: WNL, Occular Prosthesis HENT: Yes: Tonsillar Exudate Cardiovascular: Yes: Pulse Irregular, S1, S2 Respiratory: Yes: CTA Bilaterally Gastrointestinal: Yes: Soft Edema: LLE: 1+, RLE: Trace Neurological: Yes: Alert, Oriented Labs: CBC, BMP 05/30/19 05:56 05/30/19 05:56 INR, PTT INR 1.47 (0.83-1.09) H 05/22/19 06:30 Assessment/Plan 83yo male with PMH of HTN, HLD, prostate CA sent by his primary care physician for admission for new-onset CHF and atrial fibrillation with RVR. He complains of mild substernal chest pain on exertion x 1 week. He has dyspnea on exertion just walking across the room. He has noticed leg swelling for the past five months. +2-3 pillow orthopnea. No PND. No palpitations, dizziness or syncope. Echo 05/22/19: normal EF, dilated RV, mild dec RV function. mod LAE/KARRIE. trace to mild MR. Mod to sev TR RVSP 40-50. HCT 23.3 noted 05/28/19 Repeat HCT 05/30/19 35.5% K+ 3.0 Cr 1.8 WBC 35.4 New onset atrial fibrillation Eliquis 2.5 mg PO BID, Elliquis on hold pending GI evaluation Continue metoprolol tartrate to 75 mg bid CHF Acute on chronic diastolic Continue IV Lasix to 60 mg IVSS daily Daily I's/O's/Wt's/Lytes There are no cardiac contraindications to a GI work-up including upper endoscopy and/or colonoscopy, the benefits outweigh the risks
--- NOTE | 2019-05-30 17:54 | PN ---
Progress Note, Physician Chief Complaint: f/u for and he is much better his hb is stable and seen by stellao no nausea or vomiting his heart rate is better but still have mild sob\ his wbc count is still high and he has no symptoms of any infection History of Present Illness: He has chf,htn, afib with rapid heart rate ,gi bleeding upper needing endoscopy but not stable for that yet. - Current Medication List Current Medications: Active Medications Amoxicillin/Clavulanate Potassium (Augmentin - 500mg Tablet) 1 tab PO BID [facility] Last Admin: 05/30/19 09:24 Dose: 1 tab Apixaban (Eliquis -) 2.5 mg PO BID [facility] Last Admin: 05/28/19 10:44 Dose: 2.5 mg Atorvastatin Calcium (Lipitor -) 10 mg PO HS [facility] Last Admin: 05/29/19 21:29 Dose: 10 mg Calcium Carbonate (Os-Dionicio 500mg -) 1,000 mg PO DAILY [facility] Last Admin: 05/30/19 09:24 Dose: 1,000 mg Furosemide (Lasix Injection -) 60 mg IVPUSH DAILY [facility] Last Admin: 05/30/19 09:25 Dose: 60 mg Magnesium Hydroxide (Milk Of Magnesia -) 30 ml PO PRN PRN PRN Reason: CONSTIPATION Last Admin: 05/30/19 09:25 Dose: 30 ml Metoprolol Tartrate (Lopressor Injection -) 5 mg IVPUSH Q4H PRN PRN Reason: TACHYCARDIA Last Admin: 05/30/19 10:56 Dose: 5 mg Metoprolol Tartrate (Lopressor -) 75 mg PO BID [facility] Last Admin: 05/30/19 09:25 Dose: 75 mg Pantoprazole Sodium (Protonix -) 40 mg PO BID [facility] Last Admin: 05/30/19 09:24 Dose: 40 mg Polyethylene Glycol (Miralax (For Daily Use) -) 17 gm PO TID [facility] Polyethylene Glycol/Electrolytes (Golytely Solution -) 4,000 ml PO ONCE ONE Stop: 06/01/19 08:01 - Objective Vital Signs: Vital Signs Temperature 97.6 F 05/30/19 14:00 Pulse Rate 93 H 05/30/19 14:00 Respiratory Rate 20 05/30/19 14:00 Blood Pressure 131/87 05/30/19 14:00 O2 Sat by Pulse Oximetry (%) 96 05/30/19 09:00 Constitutional: Yes: No Distress Eyes: Yes: Conjunctiva Clear Neck: Yes: Supple Cardiovascular: Yes: Regular Rate and Rhythm, Pulse Irregular Respiratory: Yes: CTA Bilaterally Musculoskeletal: Yes: WNL Edema: LLE: Trace, RLE: Trace Labs: CBC, BMP 05/30/19 05:56 05/30/19 05:56 INR, PTT INR 1.47 (0.83-1.09) H 05/22/19 06:30 - ....Imaging Chest X-ray: Report Reviewed Problem List - Problems (1) GI bleed Assessment/Plan: He is cleared by cardio for endosocpy and d/w GI and will have upper and lower endo on Sunday continue protonox Code(s): K92.2 - GASTROINTESTINAL HEMORRHAGE, UNSPECIFIED Qualifiers: GI bleed type/associated pathology: unspecified gastrointestinal hemorrhage type Qualified Code(s): K92.2 - Gastrointestinal hemorrhage, unspecified (2) Hyperlipidemia Assessment/Plan: continue cholesterol medications Code(s): E78.5 - HYPERLIPIDEMIA, UNSPECIFIED (3) Hypertension Assessment/Plan: blood pressure is good Code(s): I10 - ESSENTIAL (PRIMARY) HYPERTENSION (4) Leukocytosis Assessment/Plan: repeat labs is still high and he has no sign of infection and seen by hematology and recommended to f/u and may need w/u for bone marrow disorder \ at this time will do ct chest abd and pelvis r/o any abscess and even though he has no diarrhea but will still do stool for c diff bc it may cuase high wbc count Code(s): D72.829 - ELEVATED WHITE BLOOD CELL COUNT, UNSPECIFIED Qualifiers: Leukocytosis type: unspecified Qualified Code(s): D72.829 - Elevated white blood cell count, unspecified (5) New onset a-fib Code(s): I48.91 - UNSPECIFIED ATRIAL FIBRILLATION (6) New onset of congestive heart failure Code(s): I50.9 - HEART FAILURE, UNSPECIFIED
[2019-05-30] MEDS: ATORVASTATIN CA 10 MG TABLET (FP) PO SCH (22:29)
[2019-05-30] MEDS: APIXABAN 2.5 MG TABLET PO SCH (22:29)
[2019-05-30] MEDS: POLYETHYLENE GLYCOL 3350 119 GM BTL PO SCH (22:30)
[2019-05-31] MEDS: POLYETHYLENE GLYCOL 3350 119 GM BTL PO SCH ×3 (06:50→22:28)
[2019-05-31 09:01] LABS: ALBUMIN 3.2 g/dl (3.4-5.0); BILIRUBIN,TOTAL 0.6 mg/dL (0.2-1); BLOOD UREA NITROGEN 37.5 mg/dL (7-18); CALCIUM 8.5 mg/dL (8.5-10.1); CREATININE 1.7 mg/dL (0.55-1.3); MAGNESIUM 2.4 mg/dL (1.8-2.4); POTASSIUM 3.5 mmol/L (3.5-5.1); TOT PROT 5.4 g/dl (6.4-8.2)
[2019-05-31 09:07] LABS: INR 1.41 (0.83-1.09); PROTHROMBIN TIME (PATIENT) 16.7 SEC (9.7-13.0)
[2019-05-31] MEDS: AMOX TR/POT CLAV 500MG/125MG TABLETS (FP) PO SCH ×2 (09:26→22:27)
[2019-05-31] MEDS: PANTOPRAZOLE 40 MG TABLET (FP) PO SCH ×2 (09:26→22:27)
[2019-05-31] MEDS: METOPROLOL TARTRATE 25 MG TABLET (FP) PO SCH ×2 (09:26→22:27)
[2019-05-31] MEDS: CALCIUM (OYSTER SHELL) 500 MG TABLET (FP) PO SCH (09:26)
[2019-05-31] MEDS: APIXABAN 2.5 MG TABLET PO SCH ×2 (09:26→22:27)
[2019-05-31] MEDS: FUROSEMIDE 40 MG/4 ML INJECTABLE VIAL IVPUSH SCH (10:12)
[2019-05-31 11:42] LABS: HEMATOCRIT 23.6 % (35.4-49); HEMOGLOBIN 8.9 GM/dL (11.7-16.9); MCH 33.6 pg (25.7-33.7); MCHC 37.5 g/dl (32.0-35.9); MEAN CELL VOLUME 89.7 fl (80-96); RBC 2.63 M/mm3 (4.00-5.60); RDW 14.3 % (11.9-15.9)
[2019-05-31 11:43] LABS: BASO % 0.4 % (0-2.0); EOS % 0.6 % (0-4.5); LYMPH % 32.9 % (8-40); MEAN PLT VOLUME 9.1 fl (7.5-11.1); MONO % 17.6 % (3.8-10.2); NEUT % 48.5 % (42.8-82.8); PLATELET COUNT 302 K/MM3 (134-434)
[2019-05-31 11:46] LABS: WHITE BLOOD COUNT 98.5 K/mm3 (4.0-10.0)
--- NOTE | 2019-05-31 12:25 | PN ---
Progress Note (short form) - Note Progress Note: RENAL Pt is awake and alert says he is dizzy and is difficult to walk he is able to move all extremities Last Vital Signs Temp Pulse Resp BP Pulse Ox 97.2 F L 82 20 129/83 96 05/31/19 09:00 05/31/19 09:00 05/31/19 09:00 05/31/19 09:00 05/31/19 09:00 lungs clear anteriorly cvs s1s2 rr abd soft ext +edema, has raynauds neuro a+ox3, +nystagmus CBC, BMP 05/31/19 07:05 05/31/19 07:05 Current Medications Generic Name Dose Route Start Last Admin Trade Name Freq PRN Reason Stop Dose Admin Amoxicillin/Clavulanate Potassium 1 tab 05/29/19 11:15 05/31/19 09:26 Augmentin - 500mg Tablet PO 1 tab BID [facility] Administration Apixaban 2.5 mg 05/27/19 22:00 05/31/19 09:26 Eliquis - PO 2.5 mg BID [facility] Administration Atorvastatin Calcium 10 mg 05/22/19 22:00 05/30/19 22:29 Lipitor - PO 10 mg HS [facility] Administration Calcium Carbonate 1,000 mg 05/22/19 10:00 05/31/19 09:26 Os-Dionicio 500mg - PO 1,000 mg DAILY [facility] Administration Furosemide 60 mg 05/27/19 09:15 05/31/19 10:12 Lasix Injection - IVPUSH 60 mg DAILY [facility] Administration Magnesium Hydroxide 30 ml 05/27/19 14:38 05/30/19 09:25 Milk Of Magnesia - PO 30 ml PRN PRN Administration CONSTIPATION Metoprolol Tartrate 5 mg 05/22/19 11:38 05/30/19 10:56 Lopressor Injection - IVPUSH 5 mg Q4H PRN Administration TACHYCARDIA Metoprolol Tartrate 75 mg 05/27/19 09:12 05/31/19 09:26 Lopressor - PO 75 mg BID [facility] Administration Pantoprazole Sodium 40 mg 05/30/19 10:00 05/31/19 09:26 Protonix - PO 40 mg BID [facility] Administration Polyethylene Glycol 17 gm 05/30/19 22:00 05/31/19 06:50 Miralax (For Daily Use) - PO Not Given TID [facility] Polyethylene Glycol/Electrolytes 4,000 ml 06/01/19 08:00 Golytely Solution - PO 06/01/19 08:01 ONCE ONE Impression 1. JOHN 2. chf 3. a-fib 4. htn 5. gerd 6. hypokalemia 7. positive andre 8 leukemoid reaction? 9. hyperviscosity syndrome Plan -heme and neuro follow up -CT/MRI of head - hold lasix for now MV
--- NOTE | 2019-05-31 14:12 | PN ---
Progress Note (short form) - Note Progress Note: Had d/w Dr. Grande. Thinks procedure should be postponed. WBC now 98K. Also Patient still receiving eliquis. D/C'd bowel prep.
--- NOTE | 2019-05-31 14:16 | PN ---
Progress Note (short form) - Note Progress Note: Patient seen and examined c/o visual distortion on waking up and unsteadiness/weakness Last Vital Signs Temp Pulse Resp BP Pulse Ox 97.2 F L 82 20 129/83 96 05/31/19 09:00 05/31/19 09:00 05/31/19 09:00 05/31/19 09:00 05/31/19 09:00 Cor: RSR, No murmurs, No gallops Lungs: Clear to P&A Abd: Soft, Normal bowel sounds, No organomegaly Ext:chronic venous stasis Abnormal Lab Results 05/30/19 05/31/19 05/31/19 05:56 07:05 07:05 WBC 35.4 H* 98.5 H* RBC 2.63 L Hgb 8.9 L Hct 23.6 L D MCHC 37.5 H Absolute Neuts (auto) 40.2 H Monocytes % 17.6 H Nucleated RBC % 1 H PT with INR INR Anion Gap 7 L BUN 37.5 H Creatinine 1.7 H AST 39 H Alkaline Phosphatase 126 H Total Protein 5.4 L Albumin 3.2 L 05/31/19 07:05 WBC RBC Hgb Hct MCHC Absolute Neuts (auto) Monocytes % Nucleated RBC % PT with INR 16.70 H INR 1.41 H Anion Gap BUN Creatinine AST Alkaline Phosphatase Total Protein Albumin Active Medications Amoxicillin/Clavulanate Potassium (Augmentin - 500mg Tablet) 1 tab PO BID [facility] Last Admin: 05/31/19 09:26 Dose: 1 tab Apixaban (Eliquis -) 2.5 mg PO BID [facility] Last Admin: 05/31/19 09:26 Dose: 2.5 mg Atorvastatin Calcium (Lipitor -) 10 mg PO HS [facility] Last Admin: 05/30/19 22:29 Dose: 10 mg Calcium Carbonate (Os-Dionicio 500mg -) 1,000 mg PO DAILY [facility] Last Admin: 05/31/19 09:26 Dose: 1,000 mg Furosemide (Lasix Injection -) 60 mg IVPUSH DAILY [facility] Last Admin: 05/31/19 10:12 Dose: 60 mg Magnesium Hydroxide (Milk Of Magnesia -) 30 ml PO PRN PRN PRN Reason: CONSTIPATION Last Admin: 05/30/19 09:25 Dose: 30 ml Metoprolol Tartrate (Lopressor Injection -) 5 mg IVPUSH Q4H PRN PRN Reason: TACHYCARDIA Last Admin: 05/30/19 10:56 Dose: 5 mg Metoprolol Tartrate (Lopressor -) 75 mg PO BID [facility] Last Admin: 05/31/19 09:26 Dose: 75 mg Pantoprazole Sodium (Protonix -) 40 mg PO BID [facility] Last Admin: 05/31/19 09:26 Dose: 40 mg Polyethylene Glycol (Miralax (For Daily Use) -) 17 gm PO TID [facility] Last Admin: 05/31/19 14:08 Dose: Not Given A/P 83 y/o gentleman with newly diagnosed BECKY and CHF. He has a history of GAVE, HTN, prostate cancer (s/p prostatectomy 2012) with dynamic leukocytosis. Came in with fatigue/exertional SOB Being treated for CHF On lasix 60mg bid Suspect dizziness due to diuresis/dehydration component Suspect part of leukocytosis due to fluid shift aswell Would hold lasix Gentle hydration Leukocytosis -- ruling our bone marrow pathology --- ? 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 Differential --neutrophilia/increased monocytes awaiting flow/cytognetics/FISH/bcr;abl Suspect componenet of stress/ fluid shifts aswell in addition recheck urine cx check LDH/uric acid Anemia -- ? gi bleed h/o GAVE discussed with cardiology/renal discussed with patient via shadowgraph scale operator
[2019-05-31 14:20] LABS: PLATELET ESTIMATE ADEQUATE
[2019-05-31] MEDS ORDERED: SODIUM CHLORIDE 1,000 ML IV SCH (14:30)
--- NOTE | 2019-05-31 16:13 | PN ---
Progress Note, Physician Chief Complaint: Cardiology FU Dyspnea and dizziness with minimal effort. HR increases to 160s w ambulation. - Current Medication List Current Medications: Active Medications Amoxicillin/Clavulanate Potassium (Augmentin - 500mg Tablet) 1 tab PO BID [facility] Last Admin: 05/31/19 09:26 Dose: 1 tab Apixaban (Eliquis -) 2.5 mg PO BID [facility] Last Admin: 05/31/19 09:26 Dose: 2.5 mg Atorvastatin Calcium (Lipitor -) 10 mg PO HS [facility] Last Admin: 05/30/19 22:29 Dose: 10 mg Calcium Carbonate (Os-Dionicio 500mg -) 1,000 mg PO DAILY [facility] Last Admin: 05/31/19 09:26 Dose: 1,000 mg Diltiazem HCl (Cardizem -) 30 mg PO Q6HPO [facility] Sodium Chloride (Normal Saline -) 1,000 mls @ 42 mls/hr IV ASDIR [facility] Magnesium Hydroxide (Milk Of Magnesia -) 30 ml PO PRN PRN PRN Reason: CONSTIPATION Last Admin: 05/30/19 09:25 Dose: 30 ml Metoprolol Tartrate (Lopressor Injection -) 5 mg IVPUSH Q4H PRN PRN Reason: TACHYCARDIA Last Admin: 05/30/19 10:56 Dose: 5 mg Metoprolol Tartrate (Lopressor -) 75 mg PO BID [facility] Last Admin: 05/31/19 09:26 Dose: 75 mg Pantoprazole Sodium (Protonix -) 40 mg PO BID [facility] Last Admin: 05/31/19 09:26 Dose: 40 mg Polyethylene Glycol (Miralax (For Daily Use) -) 17 gm PO TID [facility] Last Admin: 05/31/19 14:08 Dose: Not Given - Objective Vital Signs: Vital Signs Temperature 97.2 F L 05/31/19 09:00 Pulse Rate 82 05/31/19 09:00 Respiratory Rate 20 05/31/19 09:00 Blood Pressure 129/83 05/31/19 09:00 O2 Sat by Pulse Oximetry (%) 96 05/31/19 09:00 Constitutional: Yes: Well Nourished, No Distress Eyes: Yes: Conjunctiva Clear Neck: Yes: Trachea Midline Cardiovascular: Yes: Pulse Irregular, JVD, S1, S2 Respiratory: Yes: Regular, CTA Bilaterally Edema: Yes Edema: LLE: 2+, RLE: 2+ Labs: CBC, BMP 05/31/19 07:05 05/31/19 07:05 INR, PTT INR 1.41 (0.83-1.09) H 05/31/19 07:05 Problem List - Problems (1) New onset a-fib Code(s): I48.91 - UNSPECIFIED ATRIAL FIBRILLATION (2) New onset of congestive heart failure Code(s): I50.9 - HEART FAILURE, UNSPECIFIED Assessment/Plan 83yo male with PMH of HTN, HLD, prostate CA, GAVE with new-onset CHF and atrial fibrillation with RVR. He has noticed leg swelling for the past five months. Echo 05/22/19: normal EF, dilated RV, mild dec RV function. mod LAE/KARRIE. trace to mild MR. Mod to sev TR RVSP 40-50. Has dyspnea and dizziness with minimal effort. HR during ambulation is up to 170BPM Poorly controlled atrial fibrillation Add Diltiazem 30mg q6 hr Eliquis 2.5 mg PO BID Continue metoprolol tartrate to 75 mg bid CHF Lasix on hold. Monitor for volume overload. He has acute H/H drop. Repeat Hct and if further decline, would transfuse patient.
[2019-05-31] MEDS: dilTIAZem HCL 30 MG TABLET (FP) PO SCH (18:22)
--- NOTE | 2019-05-31 19:12 | PN ---
Progress Note, Physician Chief Complaint: f/u for and he is much better his hb is stable and seen by neprho no nausea or vomiting his heart rate is better but still have mild sob\ his wbc count is still high and he has no symptoms of any infection History of Present Illness: He has chf,htn, afib with rapid heart rate ,gi bleeding upper needing endoscopy but not stable for that yet. - Current Medication List Current Medications: Active Medications Amoxicillin/Clavulanate Potassium (Augmentin - 500mg Tablet) 1 tab PO BID [facility] Last Admin: 05/31/19 09:26 Dose: 1 tab Apixaban (Eliquis -) 2.5 mg PO BID [facility] Last Admin: 05/31/19 09:26 Dose: 2.5 mg Atorvastatin Calcium (Lipitor -) 10 mg PO HS [facility] Last Admin: 05/30/19 22:29 Dose: 10 mg Calcium Carbonate (Os-Dionicio 500mg -) 1,000 mg PO DAILY [facility] Last Admin: 05/31/19 09:26 Dose: 1,000 mg Diltiazem HCl (Cardizem -) 30 mg PO Q6HPO [facility] Last Admin: 05/31/19 18:22 Dose: 30 mg Sodium Chloride (Normal Saline -) 1,000 mls @ 42 mls/hr IV ASDIR [facility] Magnesium Hydroxide (Milk Of Magnesia -) 30 ml PO PRN PRN PRN Reason: CONSTIPATION Last Admin: 05/30/19 09:25 Dose: 30 ml Metoprolol Tartrate (Lopressor Injection -) 5 mg IVPUSH Q4H PRN PRN Reason: TACHYCARDIA Last Admin: 05/30/19 10:56 Dose: 5 mg Metoprolol Tartrate (Lopressor -) 75 mg PO BID [facility] Last Admin: 05/31/19 09:26 Dose: 75 mg Pantoprazole Sodium (Protonix -) 40 mg PO BID [facility] Last Admin: 05/31/19 09:26 Dose: 40 mg Polyethylene Glycol (Miralax (For Daily Use) -) 17 gm PO TID [facility] Last Admin: 05/31/19 14:08 Dose: Not Given - Objective Vital Signs: Vital Signs Temperature 98.3 F 05/31/19 18:30 Pulse Rate 92 H 05/31/19 18:30 Respiratory Rate 20 05/31/19 18:30 Blood Pressure 111/78 05/31/19 18:30 O2 Sat by Pulse Oximetry (%) 96 05/31/19 09:00 Constitutional: Yes: Well Nourished HENT: Yes: Atraumatic Cardiovascular: Yes: Tachycardia, Pulse Irregular Respiratory: Yes: Regular Edema: LLE: 1+, RLE: 1+ Neurological: Yes: WNL Labs: CBC, BMP 05/31/19 07:05 INR, PTT INR 1.41 (0.83-1.09) H 05/31/19 07:05 Problem List - Problems (1) GI bleed Assessment/Plan: He is cleared by cardio for endosocpy and d/w GI and will have upper and lower endo on Sunday continue protonox Code(s): K92.2 - GASTROINTESTINAL HEMORRHAGE, UNSPECIFIED Qualifiers: GI bleed type/associated pathology: unspecified gastrointestinal hemorrhage type Qualified Code(s): K92.2 - Gastrointestinal hemorrhage, unspecified (2) Hyperlipidemia Assessment/Plan: continue cholesterol medications Code(s): E78.5 - HYPERLIPIDEMIA, UNSPECIFIED (3) Hypertension Assessment/Plan: blood pressure is good Code(s): I10 - ESSENTIAL (PRIMARY) HYPERTENSION (4) Leukocytosis Assessment/Plan: repeat labs is still high and he has no sign of infection and seen by hematology and recommended to f/u and may need w/u for bone marrow disorder \ ct scans are no abscess found seen by oncology Code(s): D72.829 - ELEVATED WHITE BLOOD CELL COUNT, UNSPECIFIED Qualifiers: Leukocytosis type: unspecified Qualified Code(s): D72.829 - Elevated white blood cell count, unspecified (5) New onset a-fib Assessment/Plan: getting his heart rate under control f/u cardiac held eliquis for endoscopy added cardizem by cardio Code(s): I48.91 - UNSPECIFIED ATRIAL FIBRILLATION (6) New onset of congestive heart failure Code(s): I50.9 - HEART FAILURE, UNSPECIFIED
[2019-05-31 22:25] LABS: HEMATOCRIT 37.8 % (35.4-49); HEMOGLOBIN 12.6 GM/dL (11.7-16.9); MCH 30.4 pg (25.7-33.7); MCHC 33.3 g/dl (32.0-35.9); MEAN CELL VOLUME 91.2 fl (80-96); RBC 4.14 M/mm3 (4.00-5.60); RDW 14.4 % (11.9-15.9)
[2019-05-31] MEDS: ATORVASTATIN CA 10 MG TABLET (FP) PO SCH (22:27)
[2019-05-31 22:37] LABS: PLATELET COUNT 234 K/MM3 (134-434)
[2019-05-31 22:40] LABS: WHITE BLOOD COUNT 40.6 K/mm3 (4.0-10.0)
[2019-05-31] MEDS ORDERED: PT OWN MED DRAWER 7, Y5N ONE (22:51)
[2019-06-01] MEDS: dilTIAZem HCL 30 MG TABLET (FP) PO SCH ×4 (00:23→17:39)
[2019-06-01] MEDS: POLYETHYLENE GLYCOL 3350 119 GM BTL PO SCH ×3 (06:29→21:17)
[2019-06-01] MEDS ORDERED: PEG 3350/NA SULF BICARB CL/KCL 4000 ML SOLN.RECON PO ONE (08:00)
[2019-06-01 08:26] LABS: INR 1.59 (0.83-1.09); PROTHROMBIN TIME (PATIENT) 18.8 SEC (9.7-13.0)
[2019-06-01 08:45] LABS: BLOOD UREA NITROGEN 39.1 mg/dL (7-18); CALCIUM 8.2 mg/dL (8.5-10.1); CREATININE 1.6 mg/dL (0.55-1.3); POTASSIUM 3.5 mmol/L (3.5-5.1); URIC ACID 10.2 mg/dL (2.6-7.2)
[2019-06-01] MEDS: PANTOPRAZOLE 40 MG TABLET (FP) PO SCH ×2 (10:14→21:16)
[2019-06-01] MEDS: AMOX TR/POT CLAV 500MG/125MG TABLETS (FP) PO SCH ×2 (10:14→21:16)
[2019-06-01] MEDS: CALCIUM (OYSTER SHELL) 500 MG TABLET (FP) PO SCH (10:14)
[2019-06-01] MEDS: APIXABAN 2.5 MG TABLET PO SCH ×2 (10:14→21:16)
[2019-06-01] MEDS: METOPROLOL TARTRATE 25 MG TABLET (FP) PO SCH ×2 (10:14→21:16)
[2019-06-01 11:14] LABS: BASO % 0.5 % (0-2.0); EOS % 0.4 % (0-4.5); HEMATOCRIT 24.8 % (35.4-49); MCH 32.6 pg (25.7-33.7); MCHC 36.3 g/dl (32.0-35.9); MEAN CELL VOLUME 89.7 fl (80-96); MEAN PLT VOLUME 8.6 fl (7.5-11.1); MONO % 16.9 % (3.8-10.2); NEUT % 49.2 % (42.8-82.8); PLATELET COUNT 284 K/MM3 (134-434); RBC 2.76 M/mm3 (4.00-5.60); RDW 14.1 % (11.9-15.9)
--- NOTE | 2019-06-01 11:17 | PN ---
Progress Note (short form) - Note Progress Note: RENAL Pt is awake and alert still weak now edematous Last Vital Signs Temp Pulse Resp BP Pulse Ox 98.2 F 75 20 123/74 95 06/01/19 06:00 06/01/19 06:00 06/01/19 06:00 06/01/19 06:00 05/31/19 22:00 lungs clear anteriorly cvs s1s2 rr abd soft ext +edema, neuro a+ox3, has some edema of fingers and has mottling CBC, BMP 06/01/19 06:20 Current Medications Generic Name Dose Route Start Last Admin Trade Name Freq PRN Reason Stop Dose Admin Amoxicillin/Clavulanate Potassium 1 tab 05/29/19 11:15 06/01/19 10:14 Augmentin - 500mg Tablet PO 1 tab BID MILI Administration Apixaban 2.5 mg 05/27/19 22:00 06/01/19 10:14 Eliquis - PO 2.5 mg BID MILI Administration Atorvastatin Calcium 10 mg 05/22/19 22:00 05/31/19 22:27 Lipitor - PO 10 mg HS MILI Administration Calcium Carbonate 1,000 mg 05/22/19 10:00 06/01/19 10:14 Os-Dionicio 500mg - PO 1,000 mg DAILY [facility] Administration Diltiazem HCl 30 mg 05/31/19 18:00 06/01/19 06:29 Cardizem - PO 30 mg Q6HPO MILI Administration Sodium Chloride 1,000 mls @ 42 mls/hr 05/31/19 14:30 Normal Saline - IV ASDIR MILI Magnesium Hydroxide 30 ml 05/27/19 14:38 05/30/19 09:25 Milk Of Magnesia - PO 30 ml PRN PRN Administration CONSTIPATION Metoprolol Tartrate 5 mg 05/22/19 11:38 05/30/19 10:56 Lopressor Injection - IVPUSH 5 mg Q4H PRN Administration TACHYCARDIA Metoprolol Tartrate 75 mg 05/27/19 09:12 06/01/19 10:14 Lopressor - PO 75 mg BID MILI Administration Pantoprazole Sodium 40 mg 05/30/19 10:00 06/01/19 10:14 Protonix - PO 40 mg BID MILI Administration Polyethylene Glycol 17 gm 05/30/19 22:00 06/01/19 06:29 Miralax (For Daily Use) - PO Not Given TID MILI Impression 1. JOHN 2. chf 3. a-fib 4. htn 5. gerd 6. hypokalemia 7. positive andre 8 leukemoid reaction? 9. cmml possible according to heme, note splenomegaly 10 hyperuricemia Plan -heme follow up noted -monitor renal function -would keep off lasix and fluids -would start allopurinol low dose MV
[2019-06-01 11:32] LABS: WHITE BLOOD COUNT 90.2 K/mm3 (4.0-10.0)
[2019-06-01] MEDS: ALLOPURINOL 100 MG TABLET (FP) PO SCH (12:24)
--- NOTE | 2019-06-01 14:57 | PN ---
Progress Note, Physician Chief Complaint: Cardiology FU Unchanged dyspnea No dizziness. tele HR controlled. - Current Medication List Current Medications: Active Medications Allopurinol (Zyloprim -) 100 mg PO DAILY [facility] Last Admin: 06/01/19 12:24 Dose: 100 mg Amoxicillin/Clavulanate Potassium (Augmentin - 500mg Tablet) 1 tab PO BID [facility] Last Admin: 06/01/19 10:14 Dose: 1 tab Apixaban (Eliquis -) 2.5 mg PO BID [facility] Last Admin: 06/01/19 10:14 Dose: 2.5 mg Atorvastatin Calcium (Lipitor -) 10 mg PO HS [facility] Last Admin: 05/31/19 22:27 Dose: 10 mg Calcium Carbonate (Os-Dionicio 500mg -) 1,000 mg PO DAILY [facility] Last Admin: 06/01/19 10:14 Dose: 1,000 mg Diltiazem HCl (Cardizem -) 30 mg PO Q6HPO [facility] Last Admin: 06/01/19 12:24 Dose: 30 mg Sodium Chloride (Normal Saline -) 1,000 mls @ 42 mls/hr IV ASDIR [facility] Magnesium Hydroxide (Milk Of Magnesia -) 30 ml PO PRN PRN PRN Reason: CONSTIPATION Last Admin: 05/30/19 09:25 Dose: 30 ml Metoprolol Tartrate (Lopressor Injection -) 5 mg IVPUSH Q4H PRN PRN Reason: TACHYCARDIA Last Admin: 05/30/19 10:56 Dose: 5 mg Metoprolol Tartrate (Lopressor -) 75 mg PO BID [facility] Last Admin: 06/01/19 10:14 Dose: 75 mg Pantoprazole Sodium (Protonix -) 40 mg PO BID [facility] Last Admin: 06/01/19 10:14 Dose: 40 mg Polyethylene Glycol (Miralax (For Daily Use) -) 17 gm PO TID [facility] Last Admin: 06/01/19 13:50 Dose: Not Given - Objective Vital Signs: Vital Signs Temperature 98.1 F 06/01/19 10:00 Pulse Rate 80 06/01/19 10:00 Respiratory Rate 20 06/01/19 10:00 Blood Pressure 133/74 06/01/19 10:00 O2 Sat by Pulse Oximetry (%) 95 06/01/19 09:00 Constitutional: Yes: Well Nourished, No Distress Eyes: Yes: Conjunctiva Clear, EOM Intact HENT: Yes: Atraumatic, Normocephalic Neck: Yes: Supple, Trachea Midline Cardiovascular: Yes: Pulse Irregular, JVD Respiratory: Yes: Regular, Rales Gastrointestinal: Yes: Normal Bowel Sounds, Soft Edema: Yes Edema: LLE: 1+, RLE: 1+ Labs: CBC, BMP 06/01/19 06:20 06/01/19 06:20 INR, PTT INR 1.59 (0.83-1.09) H 06/01/19 06:20 Problem List - Problems (1) New onset a-fib Code(s): I48.91 - UNSPECIFIED ATRIAL FIBRILLATION (2) New onset of congestive heart failure Code(s): I50.9 - HEART FAILURE, UNSPECIFIED Assessment/Plan 83yo male with PMH of HTN, HLD, prostate CA, GAVE with new-onset CHF and atrial fibrillation with RVR. He has noticed leg swelling for the past five months. Echo 05/22/19: normal EF, dilated RV, mild dec RV function. mod LAE/KARRIE. trace to mild MR. Mod to sev TR RVSP 40-50. Has dyspnea and dizziness with minimal effort. HR during ambulation is up to 170BPM which seems better after adding diltiazem Afib rates are better today. Diltiazem 30mg q6 hr Eliquis 2.5 mg PO BID Continue metoprolol tartrate to 75 mg bid CHF Lasix on hold. Would stop IVF as well.
--- NOTE | 2019-06-01 20:58 | PN ---
Progress Note, Physician Chief Complaint: He is much better and wbc count is up again and his cr is better History of Present Illness: He has chf,htn, afib with rapid heart rate ,gi bleeding upper needing endoscopy but not stable for that yet. - Current Medication List Current Medications: Active Medications Allopurinol (Zyloprim -) 100 mg PO DAILY [facility] Last Admin: 06/01/19 12:24 Dose: 100 mg Amoxicillin/Clavulanate Potassium (Augmentin - 500mg Tablet) 1 tab PO BID [facility] Last Admin: 06/01/19 10:14 Dose: 1 tab Apixaban (Eliquis -) 2.5 mg PO BID [facility] Last Admin: 06/01/19 10:14 Dose: 2.5 mg Atorvastatin Calcium (Lipitor -) 10 mg PO HS [facility] Last Admin: 05/31/19 22:27 Dose: 10 mg Calcium Carbonate (Os-Dionicio 500mg -) 1,000 mg PO DAILY [facility] Last Admin: 06/01/19 10:14 Dose: 1,000 mg Diltiazem HCl (Cardizem -) 30 mg PO Q6HPO [facility] Last Admin: 06/01/19 17:39 Dose: 30 mg Magnesium Hydroxide (Milk Of Magnesia -) 30 ml PO PRN PRN PRN Reason: CONSTIPATION Last Admin: 05/30/19 09:25 Dose: 30 ml Metoprolol Tartrate (Lopressor Injection -) 5 mg IVPUSH Q4H PRN PRN Reason: TACHYCARDIA Last Admin: 05/30/19 10:56 Dose: 5 mg Metoprolol Tartrate (Lopressor -) 75 mg PO BID [facility] Last Admin: 06/01/19 10:14 Dose: 75 mg Pantoprazole Sodium (Protonix -) 40 mg PO BID [facility] Last Admin: 06/01/19 10:14 Dose: 40 mg Polyethylene Glycol (Miralax (For Daily Use) -) 17 gm PO TID [facility] Last Admin: 06/01/19 13:50 Dose: Not Given - Objective Vital Signs: Vital Signs Temperature 98.6 F 06/01/19 18:19 Pulse Rate 75 06/01/19 18:19 Respiratory Rate 20 06/01/19 18:19 Blood Pressure 132/81 06/01/19 18:19 O2 Sat by Pulse Oximetry (%) 95 06/01/19 09:00 Constitutional: Yes: No Distress HENT: Yes: Atraumatic Cardiovascular: Yes: Regular Rate and Rhythm, Pulse Irregular Respiratory: Yes: CTA Bilaterally Gastrointestinal: Yes: Normal Bowel Sounds Musculoskeletal: Yes: WNL Edema: LLE: 1+, RLE: 1+ Labs: CBC, BMP 06/01/19 06:20 06/01/19 06:20 INR, PTT INR 1.59 (0.83-1.09) H 06/01/19 06:20 - ....Imaging Chest X-ray: Report Reviewed Problem List - Problems (1) GI bleed Assessment/Plan: He is cleared by cardio for endosocpy and d/w GI and will upper and lower endo tomorrow continue protonox Code(s): K92.2 - GASTROINTESTINAL HEMORRHAGE, UNSPECIFIED Qualifiers: GI bleed type/associated pathology: unspecified gastrointestinal hemorrhage type Qualified Code(s): K92.2 - Gastrointestinal hemorrhage, unspecified (2) Hyperlipidemia Code(s): E78.5 - HYPERLIPIDEMIA, UNSPECIFIED (3) Hypertension Assessment/Plan: blood pressure is good Code(s): I10 - ESSENTIAL (PRIMARY) HYPERTENSION (4) Leukocytosis Assessment/Plan: repeat labs is still high and he has no sign of infection and seen by hematology and recommended to f/u and may need w/u for bone marrow disorder \ ct scans are no abscess found awaiting flow cytometery seen by oncology Code(s): D72.829 - ELEVATED WHITE BLOOD CELL COUNT, UNSPECIFIED Qualifiers: Leukocytosis type: unspecified Qualified Code(s): D72.829 - Elevated white blood cell count, unspecified (5) New onset a-fib Code(s): I48.91 - UNSPECIFIED ATRIAL FIBRILLATION (6) New onset of congestive heart failure Assessment/Plan: will hold iv fluids bc he is off lasix and i dont want him to go to heart failure Code(s): I50.9 - HEART FAILURE, UNSPECIFIED
[2019-06-01] MEDS: ATORVASTATIN CA 10 MG TABLET (FP) PO SCH (21:16)
--- NOTE | 2019-06-01 22:44 | PN ---
Progress Note, Physician History of Present Illness: No new complaints. Still with SOB. - Current Medication List Current Medications: Active Medications Allopurinol (Zyloprim -) 100 mg PO DAILY [facility] Last Admin: 06/01/19 12:24 Dose: 100 mg Amoxicillin/Clavulanate Potassium (Augmentin - 500mg Tablet) 1 tab PO BID [facility] Last Admin: 06/01/19 21:16 Dose: 1 tab Apixaban (Eliquis -) 2.5 mg PO BID [facility] Last Admin: 06/01/19 21:16 Dose: 2.5 mg Atorvastatin Calcium (Lipitor -) 10 mg PO HS [facility] Last Admin: 06/01/19 21:16 Dose: 10 mg Calcium Carbonate (Os-Dionicio 500mg -) 1,000 mg PO DAILY [facility] Last Admin: 06/01/19 10:14 Dose: 1,000 mg Diltiazem HCl (Cardizem -) 30 mg PO Q6HPO [facility] Last Admin: 06/01/19 17:39 Dose: 30 mg Magnesium Hydroxide (Milk Of Magnesia -) 30 ml PO PRN PRN PRN Reason: CONSTIPATION Last Admin: 05/30/19 09:25 Dose: 30 ml Metoprolol Tartrate (Lopressor Injection -) 5 mg IVPUSH Q4H PRN PRN Reason: TACHYCARDIA Last Admin: 05/30/19 10:56 Dose: 5 mg Metoprolol Tartrate (Lopressor -) 75 mg PO BID [facility] Last Admin: 06/01/19 21:16 Dose: 75 mg Pantoprazole Sodium (Protonix -) 40 mg PO BID [facility] Last Admin: 06/01/19 21:16 Dose: 40 mg Polyethylene Glycol (Miralax (For Daily Use) -) 17 gm PO TID [facility] Last Admin: 06/01/19 21:17 Dose: Not Given - Objective Vital Signs: Vital Signs Temperature 98.6 F 06/01/19 18:19 Pulse Rate 75 06/01/19 18:19 Respiratory Rate 20 06/01/19 18:19 Blood Pressure 132/81 06/01/19 18:19 O2 Sat by Pulse Oximetry (%) 95 06/01/19 09:00 Constitutional: Yes: No Distress Eyes: Yes: Conjunctiva Clear Neck: No: Lymphadenopathy Respiratory: Yes: Regular, CTA Bilaterally Gastrointestinal: Yes: Soft. No: Tenderness Edema: LLE: 2+, RLE: 2+ Labs: CBC, BMP 06/01/19 06:20 06/01/19 06:20 INR, PTT INR 1.59 (0.83-1.09) H 06/01/19 06:20 Assessment/Plan 83M with HTN, prostate cancer (s/p prostatectomy 2012), newly diagnosed AF and CHF. Also with leukocytosis and mild splenomegaly. Awaiting w/u -- peripheral flow, FISH, cytogenetics, BCR-ABL. Started on allopurinol. Continue to monitor CBC, uric acid, LDH, lytes, RF.
[2019-06-02] MEDS: dilTIAZem HCL 30 MG TABLET (FP) PO SCH ×4 (01:02→18:14)
[2019-06-02] MEDS: POLYETHYLENE GLYCOL 3350 119 GM BTL PO SCH ×3 (05:53→22:51)
[2019-06-02 06:24] LABS: MEAN PLT VOLUME 8.7 fl (7.5-11.1)
[2019-06-02 06:37] LABS: INR 1.74 (0.83-1.09); PROTHROMBIN TIME (PATIENT) 20.6 SEC (9.7-13.0)
[2019-06-02 06:49] LABS: BLOOD UREA NITROGEN 31.3 mg/dL (7-18); CALCIUM 8.2 mg/dL (8.5-10.1); CREATININE 1.5 mg/dL (0.55-1.3); POTASSIUM 3.3 mmol/L (3.5-5.1); URIC ACID 8.8 mg/dL (2.6-7.2)
[2019-06-02 10:23] LABS: RBC 3.77 M/mm3 (4.00-5.60)
[2019-06-02 10:24] LABS: HEMOGLOBIN 12.1 GM/dL (11.7-16.9)
[2019-06-02 10:25] LABS: HEMATOCRIT 34.1 % (35.4-49)
[2019-06-02 10:26] LABS: MEAN CELL VOLUME 90.5 fl (80-96)
[2019-06-02 10:27] LABS: MCHC 35.4 g/dl (32.0-35.9); RDW 14.2 % (11.9-15.9)
[2019-06-02 10:33] LABS: WHITE BLOOD COUNT 21.5 K/mm3 (4.0-10.0)
[2019-06-02 10:45] LABS: ROULEAU 3+
[2019-06-02 11:01] LABS: PLATELET COUNT 411 K/MM3 (134-434)
[2019-06-02] MEDS: METOPROLOL TARTRATE 25 MG TABLET (FP) PO SCH ×2 (11:06→22:51)
[2019-06-02] MEDS: ALLOPURINOL 100 MG TABLET (FP) PO SCH (11:07)
[2019-06-02] MEDS: AMOX TR/POT CLAV 500MG/125MG TABLETS (FP) PO SCH ×2 (11:07→22:51)
[2019-06-02] MEDS: PANTOPRAZOLE 40 MG TABLET (FP) PO SCH ×2 (11:07→22:52)
[2019-06-02] MEDS: CALCIUM (OYSTER SHELL) 500 MG TABLET (FP) PO SCH (11:07)
[2019-06-02 11:18] LABS: PLATELET ESTIMATE NORMAL
[2019-06-02] MEDS: APIXABAN 2.5 MG TABLET PO SCH (12:00)
--- NOTE | 2019-06-02 13:22 | PN ---
Progress Note, Physician History of Present Illness: 83yo male with PMH of HTN, HLD, prostate CA, GAVE with new-onset CHF and atrial fibrillation with RVR. He has noticed leg swelling for the past five months. Echo 05/22/19: normal EF, dilated RV, mild dec RV function. mod LAE/KARRIE. trace to mild MR. Mod to sev TR RVSP 40-50. - Current Medication List Current Medications: Active Medications Allopurinol (Zyloprim -) 100 mg PO DAILY [facility] Last Admin: 06/02/19 11:07 Dose: 100 mg Amoxicillin/Clavulanate Potassium (Augmentin - 500mg Tablet) 1 tab PO BID [facility] Last Admin: 06/02/19 11:07 Dose: 1 tab Apixaban (Eliquis -) 2.5 mg PO BID [facility] Last Admin: 06/01/19 21:16 Dose: 2.5 mg Atorvastatin Calcium (Lipitor -) 10 mg PO HS [facility] Last Admin: 06/01/19 21:16 Dose: 10 mg Calcium Carbonate (Os-Dionicio 500mg -) 1,000 mg PO DAILY [facility] Last Admin: 06/02/19 11:07 Dose: 1,000 mg Diltiazem HCl (Cardizem -) 30 mg PO Q6HPO [facility] Last Admin: 06/02/19 11:07 Dose: 30 mg Magnesium Hydroxide (Milk Of Magnesia -) 30 ml PO PRN PRN PRN Reason: CONSTIPATION Last Admin: 05/30/19 09:25 Dose: 30 ml Metoprolol Tartrate (Lopressor Injection -) 5 mg IVPUSH Q4H PRN PRN Reason: TACHYCARDIA Last Admin: 05/30/19 10:56 Dose: 5 mg Metoprolol Tartrate (Lopressor -) 75 mg PO BID [facility] Last Admin: 06/02/19 11:06 Dose: 75 mg Pantoprazole Sodium (Protonix -) 40 mg PO BID [facility] Last Admin: 06/02/19 11:07 Dose: 40 mg Polyethylene Glycol (Miralax (For Daily Use) -) 17 gm PO TID [facility] Last Admin: 06/02/19 05:53 Dose: Not Given - Objective Vital Signs: Vital Signs Temperature 98.2 F 06/02/19 06:00 Pulse Rate 73 06/02/19 06:00 Respiratory Rate 18 06/02/19 06:00 Blood Pressure 130/82 06/02/19 06:00 O2 Sat by Pulse Oximetry (%) 95 06/01/19 22:00 Constitutional: Yes: Well Nourished, No Distress, Calm Eyes: Yes: WNL, Conjunctiva Clear, EOM Intact HENT: Yes: WNL, Atraumatic, Normocephalic Neck: Yes: WNL, Supple, Trachea Midline Cardiovascular: Yes: Pulse Irregular, S1, S2 Respiratory: Yes: WNL, Regular, CTA Bilaterally Gastrointestinal: Yes: WNL, Normal Bowel Sounds, Soft ...Rectal Exam: Yes: Deferred Genitourinary: Yes: WNL Musculoskeletal: Yes: WNL Extremities: Yes: WNL Edema: LLE: Trace, RLE: Trace Peripheral Pulses WNL: Yes Peripheral Pulses: Left Radial: 2+, Right Radial: 2+, Left Doralis Pedis: 2+, Right Dorsalis Pedis: 2+, Left Femoral: 2+, Right Femoral: 2+ Integumentary: Yes: WNL Neurological: Yes: WNL, Alert, Oriented ...Motor Strength: WNL Psychiatric: Yes: WNL Labs: CBC, BMP 06/02/19 05:45 06/02/19 05:45 INR, PTT INR 1.74 (0.83-1.09) H 06/02/19 05:45 Fibrinogen 362.0 mg/dL (238-498) 06/02/19 05:00 Assessment/Plan 83yo male with PMH of HTN, HLD, prostate CA, GAVE with new-onset CHF and atrial fibrillation with RVR. He has noticed leg swelling for the past five months. Echo 05/22/19: normal EF, dilated RV, mild dec RV function. mod LAE/KARRIE. trace to mild MR. Mod to sev TR RVSP 40-50. Ventricular rates are better controlled in atrial fibrillation. Only short, nonsignificant pauses noted on telemetry. Continue metoprolol as currently. Switch to Cardizem CD 120 mg by mouth daily. Continue the other medications as currently. Hemoglobin seems to be stable. Medically optimized from the cardiac standpoint for GI workup. Cardiac stable.
--- NOTE | 2019-06-02 16:10 | PATH ---
Surgical Pathology Report Patient Name: KOKO DAVIS Med. Rec. #: [id number] /Age/Gender: 1935 (Age: 83) / M Account: [id number] Location: 4 W TELEMETRY U Taken: 05/30/2019 Received: 05/30/2019 Reported: 06/02/2019 Physicians: Christiane Altamirano M.D. Specimen(s) Received PERIPHERAL BLOOD Clinical History Monocytosis Rule out myeloproliferative disorder Final Diagnosis COMPREHENSIVE FLOW CYTOMETRY performed and interpreted at [facility], [place], [place] ([id number]) INTERPRETATION: The monocytic cells are 14% of total events. Decreased granulocytes No increase of myeloblasts. Small atypical B-cell population with nonspecific immunophenotype, 1.5% of total events, is detected. Expanded T-LGL (CD3+/CD57+) population, 21.6% of totals Phenotype: The CD34+ myeloblasts are 0.1%. Granulocytes are 30% of total cells. Monocytes are 14% of total cells. The T-cells (43% of total) show no vargas T-cell antigenic deletion. .The CD4:CD8 ratio is 0.3:1. The T-LGLs are 21.6%, the NK cells are 1.1% of total events. Atypical B-cell population with dim CD19 and moderate CD20 expression, with no definite surface immunoglobulin light chain expression or restriction, negative for CD5, CD10, and bright CD11c, 1.5% of total events, is present. MYELODYSPLASIA FISH PANEL performed and interpreted at [facility] in [place], [place] ([id number]) shows the following. INTERPRETATION: No evidence of deletion 5q or monosomy 5 is present. No evidence of deletion 7q or monosomy 7 is present. No evidence of trisomy 8 (+8) is present. No evidence of deletion 13q14.2 is present. No evidence of a rearrangement of 11q23. No evidence of a deletion of the p53 (17p13) locus. No evidence of deletion 20q12 is present. No BCR/ABL1 t (9;22) translocation is detected. Comment: The study is negative for many of the most common recurrent genetic abnormalities in Myelodysplastic Syndrome. Correlation with pending cytogenetics is recommended. See [facility] report for additional details. Electronically Signed Adrianna Chapman M.D. Addendum Reported: 06/03/2019 Addendum Diagnosis JAK2 (V617F) MUTATION ANALYSIS BY PCR performed and interpreted at [place], [place] ([id number]) shows the following: RESULTS: JAK2 V617F Mutation Status: NOT DETECTED INTERPRETATION: Negative for JAK2 (V617F) Mutation. See [facility] report ([id number]) for additional details. Adrianna Chapman M.D. Addendum Reported: 06/06/2019 Addendum Diagnosis JAK2 Exon 12 & 13 Mutation Analysis performed and interpreted at [place], [place] ([id number]). RESULTS: JAK2 Exon 12 Mutation: NOT DETECTED JAK2 Exon 13 Mutation: NOT DETECTED Interpretation: Negative for JAK2 (Exon 12 & 13) Mutations. See [facility] report for details. Adrianna Chapman M.D. Addendum Reported: 06/06/2019 Addendum Diagnosis BCR-ABL Gene Rearrangement (IS) Analysis performed and interpreted at [place], [place] ([id number]) Results: Negative BCR/ABL Major breakpoints (b2a2 and b3a2): Not Detected BCR/ABL Minor breakpoint (e1a2): Not Detected Interpretation: No BCR-ABL translocation was detected in this sample. Comment: The BCR/ABL fusion gene, formed by rearrangement of the breakpoint cluster region (bcr) on chromosome 22 with the c-abl gwendolyn-oncogene on chromosome 9, is present in vast majority of CML patients, and 35% of Ransom chromosome-positive precursor B-ALL. The BCR/ABL rearrangement causes production of an abnormal tyrosine kinase molecule with increased activity. The major breakpoint cluster region (M-bcr), detected mainly in CML, has two junctional variants, b2a2 and b3a2. The M-bcr gives rise to the BCR/ABL1 chimeric protein p210, a deregulated tyrosine kinase. The minor breakpoint region (m-bcr), detected in a small minority of CML patients and in a majority of patients with Ransom chromosome-positive precursor B-ALL, codes for the BCR/ABL1 chimeric protein p190. The quantification of BCR-ABL major breakpoints (b3a2 and b2a2) was compliant with the updated international recommendations, and contains an IS-MMR Calibrator to the International Scale (IS). The International Randomized Study of Interferon (IRIS) trial and follow up studies have demonstrated that achieving MMR, or a 3-log reduction in BCR-ABL1 expression from the standardized baseline level, is a somers clinical outcome. See [facility] report for additional details. Adrianna Chapman M.D. 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 Only sixteen metaphase cells were available for analysis. Two of these cell showed three copies of whole chromosomes 4 and 18. Four cells exhibited these trisomies for chromosomes 4 and 18, as well as, a rearranged chromosome 1 that had split at the centromere region and had a small quantity of unidentified chromatin added to the exposed short and long arm centromere regions, an translocation that placed most of the short arm of a chromosome 6 onto the distal short arm of a chromosome 10, and loss of one whole chromosome 21. The remaining ten cells displayed a normal chromosome complement. 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 Please correlate with clinical presentation and other diagnostic modalities. Analysis was performed on cells from an unstimulated culture and a culture that was stimulated with lymphoid mitogens. See [facility] report for additional details. Adrianna Chapman M.D. Gross Description Received are 3 lavender top tubes and 3 green top tubes of blood which are sent to [facility]. DL05/30/2019 saudi05/30/2019
--- NOTE | 2019-06-02 16:36 | PN ---
Physical Exam: SUBJECTIVE: Patient seen and examined. Offers no complaints. OBJECTIVE: Vital Signs Period Temp Pulse Resp BP Sys/Brewer Pulse Ox Last 24 Hr 97.5 F-98.6 F 73-83 18-20 125-132/74-82 95 GENERAL: The patient is awake, alert, and fully oriented, in no acute distress. ENT: moist mucous membranes. NECK: supple. LUNGS: cta HEART: irregular EXTREMITIES: 2+ pulses, +edema, stasis. mottling of skin? Laboratory Results - last 24 hr 06/01/19 06/02/19 06/02/19 06:20 05:00 05:45 WBC 21.5 H RBC 3.77 L Hgb 12.1 Hct 34.1 L D MCV 90.5 MCH 32.0 MCHC 35.4 RDW 14.2 Plt Count 411 D MPV 8.7 Absolute Neuts (auto) Total Counted Neutrophils % C Architect Neutrophils % (Manual) 55.0 47.0 Band Neutrophils % 2.0 0.0 Lymphocytes % C Architect Lymphocytes % (Manual) 28.0 31.4 Monocytes % C Architect Monocytes % (Manual) 14 H 20 H Eosinophils % C Architect Eosinophils % (Manual) 0.0 D Basophils % C Architect Basophils % (Manual) 0.0 Myelocytes % (Man) 0 Promyelocytes % (Man) 0 Blast Cells % (Manual) 0 Nucleated RBC % 1 H Metamyelocytes 0 D Differential Comment Hypersegmented Neuts Plasma Cells Smudge Cells Other Cell Type Hypochromia Toxic Granulation Dohle Bodies Olinda Rods Platelet Estimate Normal Platelet Comment Polychromasia Poikilocytosis Basophilic Stippling Anisocytosis Microcytosis Macrocytosis Spherocytes Siderocytes Sickle Cells Target Cells Tear Drop Cells Ovalocytes Stomatocytes Helmet Cells Ji-[place] Bodies [place] Rings [place] Cells Acanthocytes (Spur) Rouleaux 3+ Fragmented RBCs Schistocytes PT with INR INR Fibrinogen 362.0 Sodium Potassium Chloride Carbon Dioxide Anion Gap BUN Creatinine Est GFR (CKD-EPI)AfAm Est GFR (CKD-EPI)NonAf Random Glucose Uric Acid Calcium ASSESSMENT/PLAN: #Leukocytosis- 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 T-LGL, increased monocytes. May need further workup. -Will consider bone marrow biopsy if he agrees. -EGD/colon planned Visit type - Emergency Visit Emergency Visit: Yes ED Registration Date: 05/21/19 Care time: The patient presented to the Emergency Department on the above date and was hospitalized for further evaluation of their emergent condition. - New Patient This patient is new to me today: Yes Date on this admission: 06/04/19 - Critical Care Critical Care patient: No ATTENDING PHYSICIAN STATEMENT I saw and evaluated the patient. I reviewed the resident's note and discussed the case with the resident. I agree with the resident's findings and plan as documented. SUBJECTIVE: OBJECTIVE: ASSESSMENT AND PLAN:
--- NOTE | 2019-06-02 18:57 | PN ---
Progress Note (short form) - Note Progress Note: he is better but still dizzy nad sob his wbc count is coming down no fever or chills no distress vs stable Vital Signs Period Temp Pulse Resp BP Sys/Brewer Pulse Ox Last 24 Hr 97.5 F-98.3 F 73-83 18-20 125-132/74-82 95 Heent nad neck supple lungs sara basal rales heart no change rate is better ext edema ++ bilateral labs CBC, BMP 06/02/19 05:45 06/02/19 05:45 ap afib rate is better and on po michelle will hold eliquis for endoscopy Sunday Htn stable chf he is off lasix due high cr and now it is better and material spreader is looking into it and if ok will start on lasix high wbc count source is still not available but it is coming down his tooth pain is better. dizziness probably due to low bp will watch Problem List - Problems (1) GI bleed Code(s): K92.2 - GASTROINTESTINAL HEMORRHAGE, UNSPECIFIED Qualifiers: GI bleed type/associated pathology: unspecified gastrointestinal hemorrhage type Qualified Code(s): K92.2 - Gastrointestinal hemorrhage, unspecified (2) Hyperlipidemia Code(s): E78.5 - HYPERLIPIDEMIA, UNSPECIFIED (3) Hypertension Code(s): I10 - ESSENTIAL (PRIMARY) HYPERTENSION (4) Leukocytosis Code(s): D72.829 - ELEVATED WHITE BLOOD CELL COUNT, UNSPECIFIED Qualifiers: Leukocytosis type: unspecified Qualified Code(s): D72.829 - Elevated white blood cell count, unspecified (5) New onset a-fib Code(s): I48.91 - UNSPECIFIED ATRIAL FIBRILLATION (6) New onset of congestive heart failure Code(s): I50.9 - HEART FAILURE, UNSPECIFIED
[2019-06-02] MEDS ORDERED: POTASSIUM CHLORIDE TABS 20 MEQ TABLET.ER (FP) PO ONE (19:03)
--- NOTE | 2019-06-02 19:03 | PN ---
Progress Note (short form) - Note Progress Note: RENAL Pt is awake and alert still weak now edematous dyspneic on minimal exertion Last Vital Signs Temp Pulse Resp BP Pulse Ox 97.9 F 83 18 126/77 95 06/02/19 14:00 06/02/19 14:00 06/02/19 14:00 06/02/19 14:00 06/01/19 22:00 lungs crackles at both bases cvs s1s2 rr abd soft ext +edema, neuro a+ox3, has some edema of fingers and has mottling CBC, BMP 06/02/19 05:45 06/02/19 05:45 Current Medications Generic Name Dose Route Start Last Admin Trade Name Freq PRN Reason Stop Dose Admin Allopurinol 100 mg 06/01/19 11:30 06/02/19 11:07 Zyloprim - PO 100 mg DAILY MILI Administration Amoxicillin/Clavulanate Potassium 1 tab 05/29/19 11:15 06/02/19 11:07 Augmentin - 500mg Tablet PO 1 tab BID MILI Administration Atorvastatin Calcium 10 mg 05/22/19 22:00 06/01/19 21:16 Lipitor - PO 10 mg HS MILI Administration Bisacodyl 20 mg 06/03/19 18:00 Dulcolax - PO 06/03/19 18:01 ONCE ONE Calcium Carbonate 1,000 mg 05/22/19 10:00 06/02/19 11:07 Os-Dionicio 500mg - PO 1,000 mg DAILY MILI Administration Diltiazem HCl 30 mg 05/31/19 18:00 06/02/19 18:14 Cardizem - PO 30 mg Q6HPO MILI Administration Magnesium Hydroxide 30 ml 05/27/19 14:38 05/30/19 09:25 Milk Of Magnesia - PO 30 ml PRN PRN Administration CONSTIPATION Metoprolol Tartrate 5 mg 05/22/19 11:38 05/30/19 10:56 Lopressor Injection - IVPUSH 5 mg Q4H PRN Administration TACHYCARDIA Metoprolol Tartrate 75 mg 05/27/19 09:12 06/02/19 11:06 Lopressor - PO 75 mg BID MILI Administration Pantoprazole Sodium 40 mg 05/30/19 10:00 06/02/19 11:07 Protonix - PO 40 mg BID MILI Administration Polyethylene Glycol 17 gm 05/30/19 22:00 06/02/19 15:15 Miralax (For Daily Use) - PO Not Given TID MILI Polyethylene Glycol/Electrolytes 4,000 ml 06/03/19 09:00 Golytely Solution - PO 06/03/19 09:01 ONCE ONE Impression 1. JOHN 2. chf 3. a-fib 4. htn 5. gerd 6. hypokalemia 7. positive andre 8 leukemoid reaction- wbc is improving 9. cmml possible according to heme, note splenomegaly 10 hyperuricemia Plan - would give lasix and keep holding fluids - heme follow up - replace k orally MV
[2019-06-02] MEDS: FUROSEMIDE 40 MG/4 ML INJECTABLE VIAL IVPUSH SCH (20:58)
--- NOTE | 2019-06-02 21:37 | PN ---
Progress Note (short form) - Note Progress Note: GI NOte: I was contacted by Dr. Marquez earlier today that Maximino's WBC was decreasing and that the Eliquis can be stopped. I have ordered a bowel prep for tomorrow to allow for EGD and colonoscopy on 06/04 Problem List - Problems (1) GI bleed Code(s): K92.2 - GASTROINTESTINAL HEMORRHAGE, UNSPECIFIED Qualifiers: GI bleed type/associated pathology: unspecified gastrointestinal hemorrhage type Qualified Code(s): K92.2 - Gastrointestinal hemorrhage, unspecified (2) Abnormal liver function tests Code(s): R94.5 - ABNORMAL RESULTS OF LIVER FUNCTION STUDIES (3) GAVE (gastric antral vascular ectasia) Code(s): K31.819 - ANGIODYSPLASIA OF STOMACH AND DUODENUM WITHOUT BLEEDING (4) Colon adenomas Code(s): D12.6 - BENIGN NEOPLASM OF COLON, UNSPECIFIED (5) Diverticulosis Code(s): K57.90 - DVRTCLOS OF INTEST, PART UNSP, W/O PERF OR ABSCESS W/O BLEED (6) History of radical prostatectomy Code(s): Z90.79 - ACQUIRED ABSENCE OF OTHER GENITAL ORGAN(S) (7) Prostate cancer Code(s): C61 - MALIGNANT NEOPLASM OF PROSTATE (8) Hypertension Code(s): I10 - ESSENTIAL (PRIMARY) HYPERTENSION (9) Hyperlipidemia Code(s): E78.5 - HYPERLIPIDEMIA, UNSPECIFIED (10) Leukocytosis Code(s): D72.829 - ELEVATED WHITE BLOOD CELL COUNT, UNSPECIFIED Qualifiers: Leukocytosis type: unspecified Qualified Code(s): D72.829 - Elevated white blood cell count, unspecified
--- NOTE | 2019-06-02 22:21 | PN ---
Progress Note (short form) - Note Progress Note: Patient seen and examined c/o visual distortion on waking up and unsteadiness/weakness afvss Cor: RSR, No murmurs, No gallops Lungs: Clear to P&A Abd: Soft, Normal bowel sounds, No organomegaly Ext:chronic venous stasis Labs/Meds reviewed A/P 83 y/o gentleman with newly diagnosed BECKY and CHF. He has a history of GAVE, HTN, prostate cancer (s/p prostatectomy 2012) with dynamic leukocytosis. Came in with fatigue/exertional SOB Being treated for CHF Leukocytosis -- ruling our bone marrow pathology --- ? 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 Differential --neutrophilia/increased monocytes/increased lymphocytes Flowcyometry-- T-LGL , increased monocytes---? reactive vs marrow pathology Molecular studies pending To consider bmbxbased on w/u Anemia -- ? gi bleed h/o GAVE For gi w/u dizziness-lasix reduced to 20mg daily will reques neuro consult
[2019-06-02] MEDS: ATORVASTATIN CA 10 MG TABLET (FP) PO SCH (22:51)
[2019-06-03] MEDS: dilTIAZem HCL 30 MG TABLET (FP) PO SCH ×4 (01:19→17:12)
[2019-06-03] MEDS: POLYETHYLENE GLYCOL 3350 119 GM BTL PO SCH ×2 (06:47→13:35)
[2019-06-03] MEDS ORDERED: PEG 3350/NA SULF BICARB CL/KCL 4000 ML SOLN.RECON PO ONE (09:00)
[2019-06-03] MEDS: FUROSEMIDE 40 MG/4 ML INJECTABLE VIAL IVPUSH SCH (10:16)
[2019-06-03] MEDS: PANTOPRAZOLE 40 MG TABLET (FP) PO SCH ×2 (10:16→22:42)
[2019-06-03] MEDS: METOPROLOL TARTRATE 25 MG TABLET (FP) PO SCH ×2 (10:16→22:42)
[2019-06-03] MEDS: CALCIUM (OYSTER SHELL) 500 MG TABLET (FP) PO SCH (10:17)
[2019-06-03] MEDS: ALLOPURINOL 100 MG TABLET (FP) PO SCH (10:17)
[2019-06-03] MEDS: AMOX TR/POT CLAV 500MG/125MG TABLETS (FP) PO SCH ×2 (10:17→22:42)
--- NOTE | 2019-06-03 11:09 | PN ---
Progress Note, Physician History of Present Illness: pt seen and examined today in nad. no overnight events. no new complaints. - Current Medication List Current Medications: Active Medications Allopurinol (Zyloprim -) 100 mg PO DAILY [facility] Last Admin: 06/03/19 10:17 Dose: 100 mg Amoxicillin/Clavulanate Potassium (Augmentin - 500mg Tablet) 1 tab PO BID [facility] Last Admin: 06/03/19 10:17 Dose: 1 tab Atorvastatin Calcium (Lipitor -) 10 mg PO HS [facility] Last Admin: 06/02/19 22:51 Dose: 10 mg Bisacodyl (Dulcolax -) 20 mg PO ONCE ONE Stop: 06/03/19 18:01 Calcium Carbonate (Os-Dionicio 500mg -) 1,000 mg PO DAILY [facility] Last Admin: 06/03/19 10:17 Dose: 1,000 mg Diltiazem HCl (Cardizem -) 30 mg PO Q6HPO [facility] Last Admin: 06/03/19 06:47 Dose: 30 mg Furosemide (Lasix Injection -) 40 mg IVPUSH DAILY [facility] Last Admin: 06/03/19 10:16 Dose: 40 mg Magnesium Hydroxide (Milk Of Magnesia -) 30 ml PO PRN PRN PRN Reason: CONSTIPATION Last Admin: 05/30/19 09:25 Dose: 30 ml Metoprolol Tartrate (Lopressor Injection -) 5 mg IVPUSH Q4H PRN PRN Reason: TACHYCARDIA Last Admin: 05/30/19 10:56 Dose: 5 mg Metoprolol Tartrate (Lopressor -) 75 mg PO BID [facility] Last Admin: 06/03/19 10:16 Dose: 75 mg Pantoprazole Sodium (Protonix -) 40 mg PO BID [facility] Last Admin: 06/03/19 10:16 Dose: 40 mg Polyethylene Glycol (Miralax (For Daily Use) -) 17 gm PO TID [facility] Last Admin: 06/03/19 06:47 Dose: Not Given - Objective Vital Signs: Vital Signs Temperature 98.7 F 06/03/19 06:00 Pulse Rate 94 H 06/03/19 06:00 Respiratory Rate 20 06/03/19 06:00 Blood Pressure 132/78 06/03/19 06:00 O2 Sat by Pulse Oximetry (%) 97 06/02/19 21:00 Constitutional: Yes: No Distress, Calm Eyes: Yes: Conjunctiva Clear, EOM Intact HENT: Yes: Atraumatic, Normocephalic Neck: Yes: Supple, Trachea Midline Cardiovascular: Yes: Pulse Irregular, S1, S2. No: Regular Rate and Rhythm, Bradycardia, Tachycardia, Bruit, JVD, Gallop, Murmur, Rub, S3, S4, Varicosities Respiratory: Yes: Regular, CTA Bilaterally Gastrointestinal: Yes: Normal Bowel Sounds, Soft Extremities: Yes: WNL Edema: No Peripheral Pulses WNL: Yes Neurological: Yes: Alert, Oriented Psychiatric: Yes: Alert, Oriented Labs: CBC, BMP 06/02/19 05:45 06/02/19 05:45 INR, PTT INR 1.74 (0.83-1.09) H 06/02/19 05:45 Fibrinogen 362.0 mg/dL (238-498) 06/02/19 05:00 - ....Imaging Chest X-ray: Report Reviewed, Image Reviewed EKG: Report Reviewed, Image Reviewed Other: Report Reviewed, Image Reviewed (tele-AF, HR well controlled currently) Assessment/Plan 83yo male with PMH of HTN, HLD, prostate CA, GAVE with new-onset CHF and atrial fibrillation with RVR. He has noticed leg swelling for the past five months. Echo 05/22/19: normal EF, dilated RV, mild dec RV function. mod LAE/KARRIE. trace to mild MR. Mod to sev TR RVSP 40-50. Ventricular rates are currently well controlled in atrial fibrillation. Only short, nonsignificant pauses noted on telemetry. no further RVR recorded since yesterday Continue metoprolol as currently. Can wwitch to Cardizem CD 120 mg by mouth daily. Continue the other medications as currently. If HR remains well controlled in next 24 hours can dc tele Plan to start oral AC after procedures
[2019-06-03 13:15] VITALS: BMI 23.6
[2019-06-03] MEDS: THIAMINE HCL 200 MG/2 ML VIAL IVPB SCH ×2 (13:35→22:44)
--- NOTE | 2019-06-03 14:47 | CONSULT ---
Consult - text type - Consultation Consultation Note: NEUROLOGY CONSULT GREATLY APPRECIATED: Events reviewed and discussed with VERO Green. 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 PMHX: HTN, HLD, GAVE syndrome, GERD, Prostate CA S/P prostatectomy, ETOH use (7 beers daily, last drink 2 weeks ago). On: atorvastatin, calcium, Iron, lansoprazole, olmesartan, HCTZ. Admitted with new onset CHF, complicated by new onset atrial fibrillation, now on NOAC. Workup revealed WBC 98.5K, H/H of 8.9/23.6, pending further GI workup and heme onc for possible (?) leukemia. Pt seen and examined for reports of 1-2 months of "imbalance." He notes he originally sought an ENT doctor, Dr. Will Lees as he began to hear "whoosing" in the left ear and then the right. MRI of brain was done 05/13/19 (reviewed): Moderate diffuse cerebral atrophy. Scattered chronic periventricular microvascular ischemic changes. Uric acid = 8.8; MAR (+), Iron 48, TIBC = 237; Ferritin= 644; TSH= 1.59; BNP 7707 Review of systems sig for complaints of "arthritic" pains in hands. TREVER: Cor irregular. No bruit. Neck supple. Neg SLR. 2+ pitting edema in legs. NEURO: Awake, alert, responsive. Ox "[facility]" "June 03, 2019." TRUMP and reversals. 1/3 recall @ 5 min. CNII-CNXII: Few beats of conjugate nystagmus on left gaze. Full rodriguez. No facial. Gag ok. Motor: No drift or tremor. Strength normal. Reflexes normal in arms, but reduced at KJ's and absent AJ's. Plantars silent. Decreased ERNESTINA's B/L. Coordination: No FTN dystaxia. Sensation: Reduced vibration toes. Romberg +/- Gait: Wide-based, unsteady. 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 Suggest: Check B12, ammonia level Add thiamine 250 mg IVP q8H x 3 days Await further GI and heme workup PT for gait training with walker. Abstinence counselling. Neuro f/u as out patient Thank you very much, Dylan Webber MD
--- NOTE | 2019-06-03 15:20 | PN ---
Progress Note, Physician History of Present Illness: Pt seen and examined at bedside. He is awake and alert. He does not feel that his breathing has changed. He denies dysuria. - Current Medication List Current Medications: Active Medications Allopurinol (Zyloprim -) 100 mg PO DAILY [facility] Last Admin: 06/03/19 10:17 Dose: 100 mg Amoxicillin/Clavulanate Potassium (Augmentin - 500mg Tablet) 1 tab PO BID [facility] Last Admin: 06/03/19 10:17 Dose: 1 tab Atorvastatin Calcium (Lipitor -) 10 mg PO HS [facility] Last Admin: 06/02/19 22:51 Dose: 10 mg Bisacodyl (Dulcolax -) 20 mg PO ONCE ONE Stop: 06/03/19 18:01 Calcium Carbonate (Os-Dionicio 500mg -) 1,000 mg PO DAILY [facility] Last Admin: 06/03/19 10:17 Dose: 1,000 mg Diltiazem HCl (Cardizem -) 30 mg PO Q6HPO [facility] Last Admin: 06/03/19 13:35 Dose: 30 mg Furosemide (Lasix Injection -) 40 mg IVPUSH DAILY [facility] Last Admin: 06/03/19 10:16 Dose: 40 mg Magnesium Hydroxide (Milk Of Magnesia -) 30 ml PO PRN PRN PRN Reason: CONSTIPATION Last Admin: 05/30/19 09:25 Dose: 30 ml Metoprolol Tartrate (Lopressor Injection -) 5 mg IVPUSH Q4H PRN PRN Reason: TACHYCARDIA Last Admin: 05/30/19 10:56 Dose: 5 mg Metoprolol Tartrate (Lopressor -) 75 mg PO BID [facility] Last Admin: 06/03/19 10:16 Dose: 75 mg Pantoprazole Sodium (Protonix -) 40 mg PO BID [facility] Last Admin: 06/03/19 10:16 Dose: 40 mg Polyethylene Glycol (Miralax (For Daily Use) -) 17 gm PO TID [facility] Last Admin: 06/03/19 13:35 Dose: Not Given Thiamine HCl (Vitamin B1 Injection -) 250 mg IVPB TID [facility] Stop: 06/06/19 13:59 Last Admin: 06/03/19 13:35 Dose: 250 mg - Objective Vital Signs: Vital Signs Temperature 98.6 F 06/03/19 10:00 Pulse Rate 74 06/03/19 10:00 Respiratory Rate 20 06/03/19 10:00 Blood Pressure 131/74 06/03/19 10:00 O2 Sat by Pulse Oximetry (%) 97 06/03/19 10:00 Constitutional: Yes: Calm Eyes: Yes: Conjunctiva Clear HENT: Yes: Atraumatic Neck: Yes: Supple Cardiovascular: Yes: S1, S2 Respiratory: Yes: CTA Bilaterally Gastrointestinal: Yes: Soft Genitourinary: Yes: WNL Musculoskeletal: Yes: WNL, Other Extremities: Yes: WNL Edema: Yes Edema: LLE: 1+, RLE: 1+ Neurological: Yes: Oriented Psychiatric: Yes: Oriented Labs: CBC, BMP 06/02/19 05:45 06/02/19 05:45 INR, PTT INR 1.74 (0.83-1.09) H 06/02/19 05:45 Fibrinogen 362.0 mg/dL (238-498) 06/02/19 05:00 Problem List - Problems (1) JOHN (acute kidney injury) Code(s): N17.9 - ACUTE KIDNEY FAILURE, UNSPECIFIED (2) Chest discomfort Code(s): R07.89 - OTHER CHEST PAIN (3) New onset a-fib Code(s): I48.91 - UNSPECIFIED ATRIAL FIBRILLATION (4) New onset of congestive heart failure Code(s): I50.9 - HEART FAILURE, UNSPECIFIED Assessment/Plan Current Medications Generic Name Dose Route Start Last Admin Trade Name Freq PRN Reason Stop Dose Admin Allopurinol 100 mg 06/01/19 11:30 06/03/19 10:17 Zyloprim - PO 100 mg DAILY MILI Administration Amoxicillin/Clavulanate Potassium 1 tab 05/29/19 11:15 06/03/19 10:17 Augmentin - 500mg Tablet PO 1 tab BID MILI Administration Atorvastatin Calcium 10 mg 05/22/19 22:00 06/02/19 22:51 Lipitor - PO 10 mg HS MILI Administration Bisacodyl 20 mg 06/03/19 18:00 Dulcolax - PO 06/03/19 18:01 ONCE ONE Calcium Carbonate 1,000 mg 05/22/19 10:00 06/03/19 10:17 Os-Dionicio 500mg - PO 1,000 mg DAILY MILI Administration Diltiazem HCl 30 mg 05/31/19 18:00 06/03/19 13:35 Cardizem - PO 30 mg Q6HPO MILI Administration Furosemide 40 mg 06/02/19 19:15 06/03/19 10:16 Lasix Injection - IVPUSH 40 mg DAILY MILI Administration Magnesium Hydroxide 30 ml 05/27/19 14:38 05/30/19 09:25 Milk Of Magnesia - PO 30 ml PRN PRN Administration CONSTIPATION Metoprolol Tartrate 5 mg 05/22/19 11:38 05/30/19 10:56 Lopressor Injection - IVPUSH 5 mg Q4H PRN Administration TACHYCARDIA Metoprolol Tartrate 75 mg 05/27/19 09:12 06/03/19 10:16 Lopressor - PO 75 mg BID MILI Administration Pantoprazole Sodium 40 mg 05/30/19 10:00 06/03/19 10:16 Protonix - PO 40 mg BID MILI Administration Polyethylene Glycol 17 gm 05/30/19 22:00 06/03/19 13:35 Miralax (For Daily Use) - PO Not Given TID MILI Thiamine HCl 250 mg 06/03/19 14:00 06/03/19 13:35 Vitamin B1 Injection - IVPB 06/06/19 13:59 250 mg TID MILI Administration Impression 1. JOHN 2. chf 3. a-fib 4. htn 5. gerd 6. hypokalemia 7. positive andre Plan - renal function is stable - monitor lytes - cont lasix - oncology follow up - gi workup in progress Dr Ceja
[2019-06-03] MEDS ORDERED: POTASSIUM CHLORIDE TABS 20 MEQ TABLET.ER (FP) PO ONE (17:25)
--- NOTE | 2019-06-03 17:33 | PN.GI ---
GI Progress Note Subjective: GI NOte: I had the opportunity to speak with Maximino's daughter Jatin by phone this morning who asked to be informed about he indications for her father's EGD and colonoscopy. 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 I discussed the likely need for laser ablation of recurrent GAVE lesions. I met her again at Maximino's bedside together with her brother Maximino. I used this opportunity to have them review the endoscopy consents that Maximino had previously granted and in the context of the risks of perforation and hemorrhage that could culminate in transfusions and surgery. He confirmed that we had already discussed this and that he wishes to proceed with both procedures. Maximino's son and daughter endorsed their father's decisions and consent. He has only gotten through a half of his bowel prep and I reinforced the need to complete it by midnight. LFTs have normalized but he was hypokalemic yesterday when one dose of K Dur was given. - Objective Vital Signs: Vital Signs Temperature 98.6 F 06/03/19 10:00 Pulse Rate 74 06/03/19 10:00 Respiratory Rate 20 06/03/19 10:00 Blood Pressure 131/74 06/03/19 10:00 O2 Sat by Pulse Oximetry (%) 97 06/03/19 10:00 Laboratory Tests 05/23/19 05/31/19 05/31/19 06:35 07:05 20:00 WBC 98.5 H* 40.6 H* Hgb Retic Count 1.19 Potassium BUN Creatinine 06/01/19 06/02/19 06/02/19 06:20 05:45 05:45 WBC 90.2 H* 21.5 H Hgb 12.1 Retic Count Potassium 3.3 L BUN 31.3 H Creatinine 1.5 H Laboratory Tests 05/31/19 07:05 Total Bilirubin 0.6 AST 39 H ALT 39 Alkaline Phosphatase 126 H Constitutional: Calm ...Auscultate: Yes: Hyperactive Bowel Sounds ...Palpate: Yes: Soft, Other (nontender) Labs: CBC, BMP 06/02/19 05:45 06/02/19 05:45 INR, PTT INR 1.74 (0.83-1.09) H 06/02/19 05:45 Fibrinogen 362.0 mg/dL (238-498) 06/02/19 05:00 Assessment/Plan Assessment: - 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 . -Alcoholic hepatitis. LFTs normalized - Personal h/o colon adenomas - Diverticulosis Plan: -- Bowel prep in progress. Jeffery give another K dur and repat electrolytes in the AM -- I have told him Maximino that he must complete the prep for the colonoscopy. -- EGD with GAVE ablation and colonoscopy to remove recurrent adenomas tomorrow -- Have informed mutual consent of Maximino and his children. I communicated with Dr Marquez earlier today. Maximino has been cleared by his cardiology and pulmonary consultants. Problem List - Problems (1) GI bleed Code(s): K92.2 - GASTROINTESTINAL HEMORRHAGE, UNSPECIFIED Qualifiers: GI bleed type/associated pathology: unspecified gastrointestinal hemorrhage type Qualified Code(s): K92.2 - Gastrointestinal hemorrhage, unspecified (2) Abnormal liver function tests Code(s): R94.5 - ABNORMAL RESULTS OF LIVER FUNCTION STUDIES (3) GAVE (gastric antral vascular ectasia) Code(s): K31.819 - ANGIODYSPLASIA OF STOMACH AND DUODENUM WITHOUT BLEEDING (4) Colon adenomas Code(s): D12.6 - BENIGN NEOPLASM OF COLON, UNSPECIFIED (5) Diverticulosis Code(s): K57.90 - DVRTCLOS OF INTEST, PART UNSP, W/O PERF OR ABSCESS W/O BLEED (6) History of radical prostatectomy Code(s): Z90.79 - ACQUIRED ABSENCE OF OTHER GENITAL ORGAN(S) (7) Prostate cancer Code(s): C61 - MALIGNANT NEOPLASM OF PROSTATE (8) Hypertension Code(s): I10 - ESSENTIAL (PRIMARY) HYPERTENSION (9) Hyperlipidemia Code(s): E78.5 - HYPERLIPIDEMIA, UNSPECIFIED (10) Leukocytosis Code(s): D72.829 - ELEVATED WHITE BLOOD CELL COUNT, UNSPECIFIED Qualifiers: Leukocytosis type: unspecified Qualified Code(s): D72.829 - Elevated white blood cell count, unspecified
[2019-06-03] MEDS ORDERED: BISACODYL 5 MG TABLET.DR (FP) PO ONE (18:00)
[2019-06-03] MEDS: ATORVASTATIN CA 10 MG TABLET (FP) PO SCH (22:42)
[2019-06-04] MEDS: dilTIAZem HCL 30 MG TABLET (FP) PO SCH ×5 (00:45→18:21)
[2019-06-04] MEDS: THIAMINE HCL 200 MG/2 ML VIAL IVPB SCH ×3 (06:35→21:38)
[2019-06-04] MEDS: AMOX TR/POT CLAV 500MG/125MG TABLETS (FP) PO SCH ×2 (09:08→21:38)
[2019-06-04] MEDS: METOPROLOL TARTRATE 25 MG TABLET (FP) PO SCH ×2 (09:08→21:38)
[2019-06-04] MEDS: CALCIUM (OYSTER SHELL) 500 MG TABLET (FP) PO SCH (09:09)
[2019-06-04] MEDS: PANTOPRAZOLE 40 MG TABLET (FP) PO SCH ×2 (09:09→21:38)
[2019-06-04] MEDS: ALLOPURINOL 100 MG TABLET (FP) PO SCH (09:09)
[2019-06-04] MEDS: FUROSEMIDE 40 MG/4 ML INJECTABLE VIAL IVPUSH SCH (09:19)
[2019-06-04 09:54] LABS: ALBUMIN 3.2 g/dl (3.4-5.0); BILIRUBIN,TOTAL 0.8 mg/dL (0.2-1); CALCIUM 8.6 mg/dL (8.5-10.1); CREATININE 1.4 mg/dL (0.55-1.3); MAGNESIUM 2.2 mg/dL (1.8-2.4); POTASSIUM 3.1 mmol/L (3.5-5.1); TOT PROT 5.6 g/dl (6.4-8.2)
[2019-06-04 10:52] LABS: HEMATOCRIT 36.3 % (35.4-49); HEMOGLOBIN 12.4 GM/dL (11.7-16.9); MCH 31.1 pg (25.7-33.7); MCHC 34.1 g/dl (32.0-35.9); MEAN CELL VOLUME 91.2 fl (80-96); MEAN PLT VOLUME 10.1 fl (7.5-11.1); PLATELET COUNT 219 K/MM3 (134-434); RBC 3.98 M/mm3 (4.00-5.60); RDW 14.1 % (11.9-15.9)
[2019-06-04 10:56] LABS: WHITE BLOOD COUNT 23.2 K/mm3 (4.0-10.0)
--- NOTE | 2019-06-04 11:57 | PN ---
Progress Note, Physician History of Present Illness: Pt seen and examined at bedside. He is awake and alert. He does not feel that his breathing is much different. - Current Medication List Current Medications: Active Medications Allopurinol (Zyloprim -) 100 mg PO DAILY [facility] Last Admin: 06/04/19 09:09 Dose: Not Given Amoxicillin/Clavulanate Potassium (Augmentin - 500mg Tablet) 1 tab PO BID [facility] Last Admin: 06/04/19 09:08 Dose: Not Given Atorvastatin Calcium (Lipitor -) 10 mg PO HS [facility] Last Admin: 06/03/19 22:42 Dose: 10 mg Calcium Carbonate (Os-Dionicio 500mg -) 1,000 mg PO DAILY [facility] Last Admin: 06/04/19 09:09 Dose: Not Given Diltiazem HCl (Cardizem -) 30 mg PO Q6HPO [facility] Last Admin: 06/04/19 11:51 Dose: Not Given Furosemide (Lasix Injection -) 40 mg IVPUSH DAILY [facility] Last Admin: 06/04/19 09:19 Dose: 40 mg Magnesium Hydroxide (Milk Of Magnesia -) 30 ml PO PRN PRN PRN Reason: CONSTIPATION Last Admin: 05/30/19 09:25 Dose: 30 ml Metoprolol Tartrate (Lopressor Injection -) 5 mg IVPUSH Q4H PRN PRN Reason: TACHYCARDIA Last Admin: 05/30/19 10:56 Dose: 5 mg Metoprolol Tartrate (Lopressor -) 75 mg PO BID [facility] Last Admin: 06/04/19 09:08 Dose: Not Given Pantoprazole Sodium (Protonix -) 40 mg PO BID [facility] Last Admin: 06/04/19 09:09 Dose: Not Given Thiamine HCl (Vitamin B1 Injection -) 250 mg IVPB TID [facility] Stop: 06/06/19 13:59 Last Admin: 06/04/19 06:35 Dose: 250 mg - Objective Vital Signs: Vital Signs Temperature 98.1 F 06/04/19 09:00 Pulse Rate 82 06/04/19 09:00 Respiratory Rate 18 06/04/19 09:00 Blood Pressure 125/77 06/04/19 09:00 O2 Sat by Pulse Oximetry (%) 96 06/04/19 09:00 Constitutional: Yes: Calm Eyes: Yes: Conjunctiva Clear HENT: Yes: Atraumatic Neck: Yes: Supple Cardiovascular: Yes: S1, S2 Respiratory: Yes: CTA Bilaterally Gastrointestinal: Yes: Soft Genitourinary: Yes: WNL Edema: Yes Edema: LLE: 1+, RLE: 1+ Neurological: Yes: Oriented Psychiatric: Yes: Oriented Labs: CBC, BMP 06/04/19 05:46 06/04/19 05:46 INR, PTT INR 1.74 (0.83-1.09) H 06/02/19 05:45 Fibrinogen 362.0 mg/dL (238-498) 06/02/19 05:00 Problem List - Problems (1) JOHN (acute kidney injury) Code(s): N17.9 - ACUTE KIDNEY FAILURE, UNSPECIFIED (2) Chest discomfort Code(s): R07.89 - OTHER CHEST PAIN (3) New onset a-fib Code(s): I48.91 - UNSPECIFIED ATRIAL FIBRILLATION (4) New onset of congestive heart failure Code(s): I50.9 - HEART FAILURE, UNSPECIFIED Assessment/Plan Current Medications Generic Name Dose Route Start Last Admin Trade Name Freq PRN Reason Stop Dose Admin Allopurinol 100 mg 06/01/19 11:30 06/04/19 09:09 Zyloprim - PO Not Given DAILY [facility] Amoxicillin/Clavulanate Potassium 1 tab 05/29/19 11:15 06/04/19 09:08 Augmentin - 500mg Tablet PO Not Given BID [facility] Atorvastatin Calcium 10 mg 05/22/19 22:00 06/03/19 22:42 Lipitor - PO 10 mg HS [facility] Administration Calcium Carbonate 1,000 mg 05/22/19 10:00 06/04/19 09:09 Os-Dionicio 500mg - PO Not Given DAILY [facility] Diltiazem HCl 30 mg 05/31/19 18:00 06/04/19 11:51 Cardizem - PO Not Given Q6HPO [facility] Furosemide 40 mg 06/02/19 19:15 06/04/19 09:19 Lasix Injection - IVPUSH 40 mg DAILY [facility] Administration Magnesium Hydroxide 30 ml 05/27/19 14:38 05/30/19 09:25 Milk Of Magnesia - PO 30 ml PRN PRN Administration CONSTIPATION Metoprolol Tartrate 5 mg 05/22/19 11:38 05/30/19 10:56 Lopressor Injection - IVPUSH 5 mg Q4H PRN Administration TACHYCARDIA Metoprolol Tartrate 75 mg 05/27/19 09:12 06/04/19 09:08 Lopressor - PO Not Given BID [facility] Pantoprazole Sodium 40 mg 05/30/19 10:00 06/04/19 09:09 Protonix - PO Not Given BID [facility] Thiamine HCl 250 mg 06/03/19 14:00 06/04/19 06:35 Vitamin B1 Injection - IVPB 06/06/19 13:59 250 mg TID [facility] Administration Impression 1. JOHN 2. chf 3. a-fib 4. htn 5. gerd 6. hypokalemia 7. positive andre Plan - replace potassium - monitor renal function - GI workup in progress - cont lasix - oncology follow up Dr Ceja
--- NOTE | 2019-06-04 13:20 | PN ---
Progress Note (short form) - Note Progress Note: GI Procedure NOte: Please see EGD and colonoscopy reports. No source of bleeding found. Colonoscopy incomplete due to sigmoid stirtcure so shawnee be having a gastrograffin enema. I believe that he has a healed alcoholic gastritis and no longer has GAVE syndrome. Two transverse colon polyps were removed no no A/C until tomorrow.Discussed findings with Maximino, and daughter.Advised him to stop alcohol. Problem List - Problems (1) GI bleed Code(s): K92.2 - GASTROINTESTINAL HEMORRHAGE, UNSPECIFIED Qualifiers: Qualified Code(s): K92.2 - Gastrointestinal hemorrhage, unspecified (2) Abnormal liver function tests Code(s): R94.5 - ABNORMAL RESULTS OF LIVER FUNCTION STUDIES (3) GAVE (gastric antral vascular ectasia) Code(s): K31.819 - ANGIODYSPLASIA OF STOMACH AND DUODENUM WITHOUT BLEEDING (4) Colon adenomas Code(s): D12.6 - BENIGN NEOPLASM OF COLON, UNSPECIFIED (5) Diverticulosis Code(s): K57.90 - DVRTCLOS OF INTEST, PART UNSP, W/O PERF OR ABSCESS W/O BLEED (6) History of radical prostatectomy Code(s): Z90.79 - ACQUIRED ABSENCE OF OTHER GENITAL ORGAN(S) (7) Prostate cancer Code(s): C61 - MALIGNANT NEOPLASM OF PROSTATE (8) Hypertension Code(s): I10 - ESSENTIAL (PRIMARY) HYPERTENSION (9) Hyperlipidemia Code(s): E78.5 - HYPERLIPIDEMIA, UNSPECIFIED (10) Leukocytosis Code(s): D72.829 - ELEVATED WHITE BLOOD CELL COUNT, UNSPECIFIED Qualifiers: Qualified Code(s): D72.829 - Elevated white blood cell count, unspecified
--- NOTE | 2019-06-04 13:20 | PN ---
Progress Note, Physician Chief Complaint: Hartness of breath History of Present Illness: 83yo male with PMH of HTN, HLD, prostate CA, GAVE with new-onset CHF and atrial fibrillation with RVR. He has noticed leg swelling for the past five months. Echo 05/22/19: normal EF, dilated RV, mild dec RV function. mod LAE/KARRIE. trace to mild MR. Mod to sev TR RVSP 40-50. Endoscopy earlier today showed no evidence of acute bleed. Polypectomies were performed. - Current Medication List Current Medications: Active Medications Allopurinol (Zyloprim -) 100 mg PO DAILY [facility] Last Admin: 06/04/19 09:09 Dose: Not Given Amoxicillin/Clavulanate Potassium (Augmentin - 500mg Tablet) 1 tab PO BID [facility] Last Admin: 06/04/19 09:08 Dose: Not Given Atorvastatin Calcium (Lipitor -) 10 mg PO HS [facility] Last Admin: 06/03/19 22:42 Dose: 10 mg Calcium Carbonate (Os-Dionicio 500mg -) 1,000 mg PO DAILY [facility] Last Admin: 06/04/19 09:09 Dose: Not Given Diltiazem HCl (Cardizem -) 30 mg PO Q6HPO [facility] Last Admin: 06/04/19 11:51 Dose: Not Given Furosemide (Lasix Injection -) 40 mg IVPUSH DAILY [facility] Last Admin: 06/04/19 09:19 Dose: 40 mg Potassium Chloride (Potassium Chloride 10 Meq Premix Ivpb -) 10 meq in 100 mls @ 100 mls/hr IVPB Q60M [facility] Stop: 06/04/19 13:59 Magnesium Hydroxide (Milk Of Magnesia -) 30 ml PO PRN PRN PRN Reason: CONSTIPATION Last Admin: 05/30/19 09:25 Dose: 30 ml Metoprolol Tartrate (Lopressor Injection -) 5 mg IVPUSH Q4H PRN PRN Reason: TACHYCARDIA Last Admin: 05/30/19 10:56 Dose: 5 mg Metoprolol Tartrate (Lopressor -) 75 mg PO BID [facility] Last Admin: 06/04/19 09:08 Dose: Not Given Pantoprazole Sodium (Protonix -) 40 mg PO BID [facility] Last Admin: 06/04/19 09:09 Dose: Not Given Potassium Chloride (K-Dur -) 40 meq PO DAILY [facility] Thiamine HCl (Vitamin B1 Injection -) 250 mg IVPB TID [facility] Stop: 06/06/19 13:59 Last Admin: 06/04/19 06:35 Dose: 250 mg - Objective Vital Signs: Vital Signs Temperature 98.6 F 06/04/19 12:40 Pulse Rate 77 06/04/19 12:55 Respiratory Rate 23 H 06/04/19 12:55 Blood Pressure 114/78 06/04/19 12:55 O2 Sat by Pulse Oximetry (%) 100 06/04/19 12:55 Constitutional: Yes: Well Nourished, No Distress, Calm Eyes: Yes: WNL, Conjunctiva Clear, EOM Intact HENT: Yes: WNL, Atraumatic, Normocephalic Neck: Yes: WNL, Supple, Trachea Midline Cardiovascular: Yes: Pulse Irregular, S1, S2 Respiratory: Yes: WNL, Regular, CTA Bilaterally Gastrointestinal: Yes: WNL, Normal Bowel Sounds, Soft ...Rectal Exam: Yes: Deferred Genitourinary: Yes: WNL Musculoskeletal: Yes: WNL Extremities: Yes: WNL Edema: Yes Edema: LLE: Trace, RLE: Trace Peripheral Pulses WNL: Yes Peripheral Pulses: Left Radial: 2+, Right Radial: 2+, Left Doralis Pedis: 2+, Right Dorsalis Pedis: 2+, Left Femoral: 2+, Right Femoral: 2+ Integumentary: Yes: WNL Neurological: Yes: WNL, Alert, Oriented ...Motor Strength: WNL Psychiatric: Yes: WNL Labs: CBC, BMP 06/04/19 05:46 06/04/19 05:46 INR, PTT INR 1.74 (0.83-1.09) H 06/02/19 05:45 Fibrinogen 362.0 mg/dL (238-498) 06/02/19 05:00 Assessment/Plan 83yo male with PMH of HTN, HLD, prostate CA, GAVE with new-onset CHF and atrial fibrillation with RVR. He has noticed leg swelling for the past five months. Echo 05/22/19: normal EF, dilated RV, mild dec RV function. mod LAE/KARRIE. trace to mild MR. Mod to sev TR RVSP 40-50. Endoscopy earlier today showed no evidence of acute bleed. Polypectomies were performed. Please switch to Cardizem CD on 1120 mg daily. Stop intravenous Lasix. Give Lasix 40 mg by mouth daily. Continue to hold Eliquis until tomorrow, as per GI. Low-sodium diet. The patient is stable.
[2019-06-04] MEDS: POTASSIUM CHLORIDE TABS 20 MEQ TABLET.ER (FP) PO SCH (15:13)
[2019-06-04] MEDS: KCL 10 MEQ IVPB 10 MEQ/100 ML INFUS.BAG IVPB SCH ×2 (15:13→15:54)
--- NOTE | 2019-06-04 15:19 | PN ---
Progress Note, Physician History of Present Illness: doing well , no acute distress , - Current Medication List Current Medications: Active Medications Allopurinol (Zyloprim -) 100 mg PO DAILY [facility] Last Admin: 06/04/19 09:09 Dose: Not Given Amoxicillin/Clavulanate Potassium (Augmentin - 500mg Tablet) 1 tab PO BID [facility] Last Admin: 06/04/19 09:08 Dose: Not Given Atorvastatin Calcium (Lipitor -) 10 mg PO HS [facility] Last Admin: 06/03/19 22:42 Dose: 10 mg Calcium Carbonate (Os-Dionicio 500mg -) 1,000 mg PO DAILY [facility] Last Admin: 06/04/19 09:09 Dose: Not Given Diltiazem HCl (Cardizem -) 30 mg PO Q6HPO [facility] Last Admin: 06/04/19 11:51 Dose: Not Given Furosemide (Lasix Injection -) 40 mg IVPUSH DAILY [facility] Last Admin: 06/04/19 09:19 Dose: 40 mg Magnesium Hydroxide (Milk Of Magnesia -) 30 ml PO PRN PRN PRN Reason: CONSTIPATION Last Admin: 05/30/19 09:25 Dose: 30 ml Metoprolol Tartrate (Lopressor Injection -) 5 mg IVPUSH Q4H PRN PRN Reason: TACHYCARDIA Last Admin: 05/30/19 10:56 Dose: 5 mg Metoprolol Tartrate (Lopressor -) 75 mg PO BID [facility] Last Admin: 06/04/19 09:08 Dose: Not Given Pantoprazole Sodium (Protonix -) 40 mg PO BID [facility] Last Admin: 06/04/19 09:09 Dose: Not Given Potassium Chloride (K-Dur -) 40 meq PO DAILY [facility] Thiamine HCl (Vitamin B1 Injection -) 250 mg IVPB TID [facility] Stop: 06/06/19 13:59 Last Admin: 06/04/19 06:35 Dose: 250 mg - Objective Vital Signs: Vital Signs Temperature 98.6 F 06/04/19 13:17 Pulse Rate 82 06/04/19 13:17 Respiratory Rate 20 06/04/19 13:17 Blood Pressure 143/95 06/04/19 13:17 O2 Sat by Pulse Oximetry (%) 96 06/04/19 13:17 Constitutional: Yes: Well Nourished, No Distress Eyes: Yes: WNL HENT: Yes: WNL Neck: Yes: WNL Cardiovascular: Yes: WNL Respiratory: Yes: Regular, CTA Bilaterally Gastrointestinal: Yes: WNL, Normal Bowel Sounds Musculoskeletal: Yes: WNL Extremities: Yes: WNL Neurological: Yes: WNL Psychiatric: Yes: WNL Labs: CBC, BMP 06/04/19 05:46 06/04/19 05:46 INR, PTT INR 1.74 (0.83-1.09) H 06/02/19 05:45 Fibrinogen 362.0 mg/dL (238-498) 06/02/19 05:00 Problem List - Problems (1) GAVE (gastric antral vascular ectasia) Code(s): K31.819 - ANGIODYSPLASIA OF STOMACH AND DUODENUM WITHOUT BLEEDING (2) History of radical prostatectomy Code(s): Z90.79 - ACQUIRED ABSENCE OF OTHER GENITAL ORGAN(S) (3) Hyperlipidemia Code(s): E78.5 - HYPERLIPIDEMIA, UNSPECIFIED (4) Hypertension Code(s): I10 - ESSENTIAL (PRIMARY) HYPERTENSION (5) Leukocytosis Code(s): D72.829 - ELEVATED WHITE BLOOD CELL COUNT, UNSPECIFIED Qualifiers: Leukocytosis type: unspecified Qualified Code(s): D72.829 - Elevated white blood cell count, unspecified (6) Prostate cancer Code(s): C61 - MALIGNANT NEOPLASM OF PROSTATE Assessment/Plan Impression 1. JOHN stable stacy function 2. chf stable , continue diuretics, 3. a-fib , resume A/c , continue diltiazem, 4. htn controlled 5.anemia , and leukocytosis, Leukocytosis - Flowcyometry-- T-LGL , increased monocytes---? reactive vs marrow pathology Molecular studies pending 6. hypokalemia supplement monitor renal function,
[2019-06-04 15:34] LABS: ANISOCYTOSIS 0; MACROCYTOSIS 0; PLATELET ESTIMATE NORMAL
[2019-06-04] MEDS ORDERED: POTASSIUM CHLORIDE TABS 20 MEQ TABLET.ER (FP) PO ONE (17:09)
[2019-06-04] MEDS: ATORVASTATIN CA 10 MG TABLET (FP) PO SCH (21:38)
[2019-06-05] MEDS: dilTIAZem HCL 30 MG TABLET (FP) PO SCH ×3 (00:45→12:23)
[2019-06-05] MEDS: THIAMINE HCL 200 MG/2 ML VIAL IVPB SCH ×3 (06:38→22:14)
[2019-06-05 08:25] LABS: BILIRUBIN,TOTAL 0.6 mg/dL (0.2-1); BLOOD UREA NITROGEN 27.4 mg/dL (7-18); CALCIUM 8.7 mg/dL (8.5-10.1); CREATININE 1.6 mg/dL (0.55-1.3); MAGNESIUM 2.3 mg/dL (1.8-2.4); POTASSIUM 3.4 mmol/L (3.5-5.1); TOT PROT 5.3 g/dl (6.4-8.2)
[2019-06-05] MEDS: AMOX TR/POT CLAV 500MG/125MG TABLETS (FP) PO SCH (10:15)
[2019-06-05] MEDS: POTASSIUM CHLORIDE TABS 20 MEQ TABLET.ER (FP) PO SCH (10:16)
[2019-06-05] MEDS: METOPROLOL TARTRATE 25 MG TABLET (FP) PO SCH (10:16)
[2019-06-05] MEDS: FUROSEMIDE 40 MG/4 ML INJECTABLE VIAL IVPUSH SCH (10:16)
[2019-06-05] MEDS: PANTOPRAZOLE 40 MG TABLET (FP) PO SCH ×2 (10:17→22:02)
[2019-06-05] MEDS: ALLOPURINOL 100 MG TABLET (FP) PO SCH (10:17)
[2019-06-05] MEDS: CALCIUM (OYSTER SHELL) 500 MG TABLET (FP) PO SCH (10:17)
[2019-06-05 11:08] LABS: HEMATOCRIT 36.8 % (35.4-49); HEMOGLOBIN 12.1 GM/dL (11.7-16.9); MCHC 32.8 g/dl (32.0-35.9); MEAN CELL VOLUME 91.4 fl (80-96); RBC 4.03 M/mm3 (4.00-5.60); RDW 14.1 % (11.9-15.9)
[2019-06-05 11:17] LABS: WHITE BLOOD COUNT 25.7 K/mm3 (4.0-10.0)
--- NOTE | 2019-06-05 12:17 | PN ---
Progress Note, Physician History of Present Illness: Pt seen and examined at bedside. He is awake and alert. His breathing is improved. - Current Medication List Current Medications: Active Medications Allopurinol (Zyloprim -) 100 mg PO DAILY [facility] Last Admin: 06/05/19 10:17 Dose: 100 mg Atorvastatin Calcium (Lipitor -) 10 mg PO HS [facility] Last Admin: 06/04/19 21:38 Dose: 10 mg Calcium Carbonate (Os-Dionicio 500mg -) 1,000 mg PO DAILY [facility] Last Admin: 06/05/19 10:17 Dose: 1,000 mg Diltiazem HCl (Cardizem -) 30 mg PO Q6HPO [facility] Last Admin: 06/05/19 06:38 Dose: 30 mg Furosemide (Lasix Injection -) 40 mg IVPUSH DAILY [facility] Last Admin: 06/05/19 10:16 Dose: 40 mg Magnesium Hydroxide (Milk Of Magnesia -) 30 ml PO PRN PRN PRN Reason: CONSTIPATION Last Admin: 05/30/19 09:25 Dose: 30 ml Metoprolol Tartrate (Lopressor Injection -) 5 mg IVPUSH Q4H PRN PRN Reason: TACHYCARDIA Last Admin: 05/30/19 10:56 Dose: 5 mg Metoprolol Tartrate (Lopressor -) 75 mg PO BID [facility] Last Admin: 06/05/19 10:16 Dose: 75 mg Pantoprazole Sodium (Protonix -) 40 mg PO BID [facility] Last Admin: 06/05/19 10:17 Dose: 40 mg Potassium Chloride (K-Dur -) 40 meq PO DAILY [facility] Last Admin: 06/05/19 10:16 Dose: 40 meq Thiamine HCl (Vitamin B1 Injection -) 250 mg IVPB TID [facility] Stop: 06/06/19 13:59 Last Admin: 06/05/19 06:38 Dose: 250 mg - Objective Vital Signs: Vital Signs Temperature 98.5 F 06/05/19 06:00 Pulse Rate 82 06/05/19 06:00 Respiratory Rate 20 06/05/19 06:00 Blood Pressure 118/70 06/05/19 06:00 O2 Sat by Pulse Oximetry (%) 96 06/04/19 13:17 Constitutional: Yes: Calm Eyes: Yes: Conjunctiva Clear HENT: Yes: Atraumatic Neck: Yes: Supple Cardiovascular: Yes: S1, S2 Respiratory: Yes: CTA Bilaterally Gastrointestinal: Yes: Normal Bowel Sounds, Soft Genitourinary: Yes: WNL Musculoskeletal: Yes: WNL Edema: Yes Edema: LLE: 2+, RLE: 2+ Neurological: Yes: Oriented Psychiatric: Yes: Oriented Labs: CBC, BMP 06/05/19 05:58 06/05/19 05:58 INR, PTT INR 1.74 (0.83-1.09) H 06/02/19 05:45 Fibrinogen 362.0 mg/dL (238-498) 06/02/19 05:00 Problem List - Problems (1) JOHN (acute kidney injury) Code(s): N17.9 - ACUTE KIDNEY FAILURE, UNSPECIFIED (2) Chest discomfort Code(s): R07.89 - OTHER CHEST PAIN (3) New onset a-fib Code(s): I48.91 - UNSPECIFIED ATRIAL FIBRILLATION (4) New onset of congestive heart failure Code(s): I50.9 - HEART FAILURE, UNSPECIFIED Assessment/Plan Current Medications Generic Name Dose Route Start Last Admin Trade Name Freq PRN Reason Stop Dose Admin Allopurinol 100 mg 06/01/19 11:30 06/05/19 10:17 Zyloprim - PO 100 mg DAILY [facility] Administration Atorvastatin Calcium 10 mg 05/22/19 22:00 06/04/19 21:38 Lipitor - PO 10 mg HS [facility] Administration Calcium Carbonate 1,000 mg 05/22/19 10:00 06/05/19 10:17 Os-Dionicio 500mg - PO 1,000 mg DAILY [facility] Administration Diltiazem HCl 30 mg 05/31/19 18:00 06/05/19 06:38 Cardizem - PO 30 mg Q6HPO [facility] Administration Furosemide 40 mg 06/02/19 19:15 06/05/19 10:16 Lasix Injection - IVPUSH 40 mg DAILY [facility] Administration Magnesium Hydroxide 30 ml 05/27/19 14:38 05/30/19 09:25 Milk Of Magnesia - PO 30 ml PRN PRN Administration CONSTIPATION Metoprolol Tartrate 5 mg 05/22/19 11:38 05/30/19 10:56 Lopressor Injection - IVPUSH 5 mg Q4H PRN Administration TACHYCARDIA Metoprolol Tartrate 75 mg 05/27/19 09:12 06/05/19 10:16 Lopressor - PO 75 mg BID [facility] Administration Pantoprazole Sodium 40 mg 05/30/19 10:00 06/05/19 10:17 Protonix - PO 40 mg BID [facility] Administration Potassium Chloride 40 meq 06/04/19 12:00 06/05/19 10:16 K-Dur - PO 40 meq DAILY [facility] Administration Thiamine HCl 250 mg 06/03/19 14:00 06/05/19 06:38 Vitamin B1 Injection - IVPB 06/06/19 13:59 250 mg TID [facility] Administration Impression 1. JOHN 2. chf 3. a-fib 4. htn 5. gerd 6. hypokalemia 7. positive andre Plan - cont with lasix - replace potassium - mag stable - monitor volume status - GI input appreciated - oncology follow up Dr Ceja
[2019-06-05 13:31] LABS: PLATELET ESTIMATE ADEQUATE; ROULEAU 3+
[2019-06-05 13:32] LABS: MEAN PLT VOLUME 12.6 fl (7.5-11.1)
[2019-06-05 13:33] LABS: PLATELET COUNT 315 K/MM3 (134-434)
--- NOTE | 2019-06-05 14:55 | PN ---
Progress Note, Physician Chief Complaint: Fatigue and shortness of breath History of Present Illness: 83yo male with PMH of HTN, HLD, prostate CA, GAVE with new-onset CHF and atrial fibrillation with RVR. He has noticed leg swelling for the past five months. Echo 05/22/19: normal EF, dilated RV, mild dec RV function. mod LAE/KARRIE. trace to mild MR. Mod to sev TR RVSP 40-50. - Current Medication List Current Medications: Active Medications Allopurinol (Zyloprim -) 100 mg PO DAILY [facility] Last Admin: 06/05/19 10:17 Dose: 100 mg Atorvastatin Calcium (Lipitor -) 10 mg PO HS [facility] Last Admin: 06/04/19 21:38 Dose: 10 mg Calcium Carbonate (Os-Dionicio 500mg -) 1,000 mg PO DAILY [facility] Last Admin: 06/05/19 10:17 Dose: 1,000 mg Diltiazem HCl (Cardizem -) 30 mg PO Q6HPO [facility] Last Admin: 06/05/19 06:38 Dose: 30 mg Furosemide (Lasix Injection -) 40 mg IVPUSH DAILY [facility] Last Admin: 06/05/19 10:16 Dose: 40 mg Magnesium Hydroxide (Milk Of Magnesia -) 30 ml PO PRN PRN PRN Reason: CONSTIPATION Last Admin: 05/30/19 09:25 Dose: 30 ml Metoprolol Tartrate (Lopressor Injection -) 5 mg IVPUSH Q4H PRN PRN Reason: TACHYCARDIA Last Admin: 05/30/19 10:56 Dose: 5 mg Metoprolol Tartrate (Lopressor -) 75 mg PO BID [facility] Last Admin: 06/05/19 10:16 Dose: 75 mg Pantoprazole Sodium (Protonix -) 40 mg PO BID [facility] Last Admin: 06/05/19 10:17 Dose: 40 mg Potassium Chloride (K-Dur -) 40 meq PO DAILY [facility] Last Admin: 06/05/19 10:16 Dose: 40 meq Thiamine HCl (Vitamin B1 Injection -) 250 mg IVPB TID [facility] Stop: 06/06/19 13:59 Last Admin: 06/05/19 06:38 Dose: 250 mg - Objective Vital Signs: Vital Signs Temperature 98.5 F 06/05/19 06:00 Pulse Rate 82 06/05/19 06:00 Respiratory Rate 20 06/05/19 06:00 Blood Pressure 118/70 08/08/19 06:00 O2 Sat by Pulse Oximetry (%) 96 06/04/19 13:17 Constitutional: Yes: Well Nourished, No Distress, Calm Eyes: Yes: WNL, Conjunctiva Clear, EOM Intact HENT: Yes: WNL, Atraumatic, Normocephalic Neck: Yes: WNL, Supple, Trachea Midline Cardiovascular: Yes: Tachycardia, Pulse Irregular, S1, S2 Respiratory: Yes: WNL, Regular, CTA Bilaterally Gastrointestinal: Yes: WNL, Normal Bowel Sounds, Soft ...Rectal Exam: Yes: Deferred Genitourinary: Yes: WNL Musculoskeletal: Yes: Back Pain Edema: Yes Edema: LLE: 1+, RLE: 1+ Peripheral Pulses: Left Radial: 1+, Right Radial: 1+, Left Doralis Pedis: 1+, Right Dorsalis Pedis: 1+, Left Femoral: 1+, Right Femoral: 1+ Integumentary: Yes: WNL Neurological: Yes: WNL, Alert, Oriented Labs: CBC, BMP 06/05/19 05:58 06/05/19 05:58 INR, PTT INR 1.74 (0.83-1.09) H 06/02/19 05:45 Fibrinogen 362.0 mg/dL (238-498) 06/02/19 05:00 Assessment/Plan 83yo male with PMH of HTN, HLD, prostate CA, GAVE with new-onset CHF and atrial fibrillation with RVR. He has noticed leg swelling for the past five months. Echo 05/22/19: normal EF, dilated RV, mild dec RV function. mod LAE/KARRIE. trace to mild MR. Mod to sev TR RVSP 40-50. Hemoglobin has been stable. No active bleeding noted during endoscopy. Ventricular rates are still rapid. Please increase metoprolol to 100 mg twice daily. Please switch to Cardizem CD 120 mg daily. Stop the current short acting Cardizem. Resume Eliquis if okay by GI. Continue Lasix as currently. Fluid and salt restrictions. Please remove all fluids and ice cubes from the bedside. Oncology to follow. Overall symptomatically better.
--- NOTE | 2019-06-05 16:28 | PN ---
Progress Note, Physician Chief Complaint: pt doing well, no cp , no sob , no tachycardia, - Current Medication List Current Medications: Active Medications Allopurinol (Zyloprim -) 100 mg PO DAILY [facility] Last Admin: 06/05/19 10:17 Dose: 100 mg Atorvastatin Calcium (Lipitor -) 10 mg PO HS [facility] Last Admin: 06/04/19 21:38 Dose: 10 mg Calcium Carbonate (Os-Dionicio 500mg -) 1,000 mg PO DAILY [facility] Last Admin: 06/05/19 10:17 Dose: 1,000 mg Diltiazem HCl (Cardizem -) 30 mg PO Q6HPO [facility] Last Admin: 06/05/19 06:38 Dose: 30 mg Furosemide (Lasix Injection -) 40 mg IVPUSH DAILY [facility] Last Admin: 06/05/19 10:16 Dose: 40 mg Magnesium Hydroxide (Milk Of Magnesia -) 30 ml PO PRN PRN PRN Reason: CONSTIPATION Last Admin: 05/30/19 09:25 Dose: 30 ml Metoprolol Tartrate (Lopressor Injection -) 5 mg IVPUSH Q4H PRN PRN Reason: TACHYCARDIA Last Admin: 05/30/19 10:56 Dose: 5 mg Metoprolol Tartrate (Lopressor -) 75 mg PO BID [facility] Last Admin: 06/05/19 10:16 Dose: 75 mg Pantoprazole Sodium (Protonix -) 40 mg PO BID [facility] Last Admin: 06/05/19 10:17 Dose: 40 mg Potassium Chloride (K-Dur -) 40 meq PO DAILY [facility] Last Admin: 06/05/19 10:16 Dose: 40 meq Thiamine HCl (Vitamin B1 Injection -) 250 mg IVPB TID [facility] Stop: 06/06/19 13:59 Last Admin: 06/05/19 06:38 Dose: 250 mg - Objective Vital Signs: Vital Signs Temperature 98 F 06/05/19 14:15 Pulse Rate 86 06/05/19 14:15 Respiratory Rate 18 06/05/19 14:15 Blood Pressure 119/86 06/05/19 14:15 O2 Sat by Pulse Oximetry (%) 96 06/04/19 13:17 Labs: CBC, BMP 06/05/19 05:58 06/05/19 05:58 INR, PTT INR 1.74 (0.83-1.09) H 06/02/19 05:45 Fibrinogen 362.0 mg/dL (238-498) 06/02/19 05:00 Problem List - Problems (1) GAVE (gastric antral vascular ectasia) Code(s): K31.819 - ANGIODYSPLASIA OF STOMACH AND DUODENUM WITHOUT BLEEDING (2) History of radical prostatectomy Code(s): Z90.79 - ACQUIRED ABSENCE OF OTHER GENITAL ORGAN(S) (3) Hyperlipidemia Code(s): E78.5 - HYPERLIPIDEMIA, UNSPECIFIED (4) Hypertension Code(s): I10 - ESSENTIAL (PRIMARY) HYPERTENSION (5) Leukocytosis Code(s): D72.829 - ELEVATED WHITE BLOOD CELL COUNT, UNSPECIFIED Qualifiers: Leukocytosis type: unspecified Qualified Code(s): D72.829 - Elevated white blood cell count, unspecified (6) Prostate cancer Code(s): C61 - MALIGNANT NEOPLASM OF PROSTATE Assessment/Plan 1. JOHN stable renal function continue lasix, check lytes, K low , but on supplementation, 2. chf stable , continue diuretics, 3. a-fib , resume A/c as per GI h/h stable , no s/o GI bleed, , continue diltiazem, increase metoprolol to 100 mg twice daily. switch to Cardizem CD 120 mg daily. Continue Lasix as currently. Fluid and salt restrictions. 4. htn controlled 5.anemia , and leukocytosis, Leukocytosis - oncology fu. Molecular studies pending 6. hypokalemia supplement monitor renal function,
--- NOTE | 2019-06-05 17:01 | PN ---
Physical Exam: SUBJECTIVE: Patient seen and examined. Offers no complaints today. OBJECTIVE: Vital Signs Period Temp Pulse Resp BP Sys/Brewer Pulse Ox Last 24 Hr 97.4 F-99 F 82-104 16-20 118-144/70-86 GENERAL: The patient is awake, alert, and fully oriented, in no acute distress. ENT: moist mucous membranes. NECK: supple. LUNGS: cta HEART: irregular EXTREMITIES: 2+ pulses, +edema, stasis. Laboratory Results - last 24 hr 06/05/19 06/05/19 05:58 05:58 WBC 25.7 H RBC 4.03 Hgb 12.1 Hct 36.8 MCV 91.4 MCH 30.0 MCHC 32.8 RDW 14.1 Plt Count 315 D MPV 12.6 H D Total Counted 100 Neutrophils % No Result Required. Neutrophils % (Manual) 60.0 D Lymphocytes % No Result Required. Lymphocytes % (Manual) 28.0 D Monocytes % (Manual) 12 H D Platelet Estimate Adequate Rouleaux 3+ Sodium 139 Potassium 3.4 L Chloride 100 Carbon Dioxide 33 H Anion Gap 7 L BUN 27.4 H Creatinine 1.6 H Est GFR (CKD-EPI)AfAm 45.50 Est GFR (CKD-EPI)NonAf 39.26 Random Glucose 89 Calcium 8.7 Magnesium 2.3 Total Bilirubin 0.6 AST 38 H ALT 36 Alkaline Phosphatase 106 Total Protein 5.3 L Albumin 3.0 L Active Medications Generic Name Dose Route Start Last Admin Trade Name Freq PRN Reason Stop Dose Admin Allopurinol 100 mg 06/01/19 11:30 06/05/19 10:17 Zyloprim - PO 100 mg DAILY [facility]I Administration Atorvastatin Calcium 10 mg 05/22/19 22:00 06/04/19 21:38 Lipitor - PO 10 mg HS MILI Administration Calcium Carbonate 1,000 mg 05/22/19 10:00 06/05/19 10:17 Os-Dionicio 500mg - PO 1,000 mg DAILY [facility] Administration Diltiazem HCl 120 mg 06/06/19 10:00 Cardizem Cd - PO DAILY [facility] Furosemide 40 mg 06/02/19 19:15 06/05/19 10:16 Lasix Injection - IVPUSH 40 mg DAILY [facility] Administration Magnesium Hydroxide 30 ml 05/27/19 14:38 05/30/19 09:25 Milk Of Magnesia - PO 30 ml PRN PRN Administration CONSTIPATION Metoprolol Succinate 100 mg 06/05/19 22:00 Toprol Xl - PO BID MILI Pantoprazole Sodium 40 mg 05/30/19 10:00 06/05/19 10:17 Protonix - PO 40 mg BID MILI Administration Potassium Chloride 40 meq 06/04/19 12:00 06/05/19 10:16 K-Dur - PO 40 meq DAILY MILI Administration Thiamine HCl 250 mg 06/03/19 14:00 06/05/19 06:38 Vitamin B1 Injection - IVPB 06/06/19 13:59 250 mg TID MILI Administration ASSESSMENT/PLAN: #Leukocytosis- 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 T-LGL, increased monocytes. May need further workup. -Will order T cell gamma receptor gene rearrangement test -will follow Visit type - Emergency Visit Emergency Visit: Yes ED Registration Date: 05/21/19 Care time: The patient presented to the Emergency Department on the above date and was hospitalized for further evaluation of their emergent condition. - New Patient This patient is new to me today: Yes Date on this admission: 06/06/19 - Critical Care Critical Care patient: No ATTENDING PHYSICIAN STATEMENT I saw and evaluated the patient. I reviewed the resident's note and discussed the case with the resident. I agree with the resident's findings and plan as documented. SUBJECTIVE: OBJECTIVE: ASSESSMENT AND PLAN:
--- NOTE | 2019-06-05 18:02 | PATH ---
Surgical Pathology Report Patient Name: KOKO DAVIS Med. Rec. #: [id number] /Age/Gender: 1935 (Age: 83) / M Account: [id number] Location: 4 W TELEMETRY U Taken: 06/04/2019 Received: 06/04/2019 Reported: 06/05/2019 Physicians: Essence Marrufo M.D. Specimen(s) Received A: SIGMOID STRICTURE B: POLYPS TRANSVERSE COLON Clinical History GI bleed Postoperative diagnosis: Gastritis, diverticulosis, colon polyps, hemorrhoids, sigmoid stricture Final Diagnosis A. SIGMOID COLON, STRICTURE, BIOPSY: COLONIC MUCOSA WITH MILD ARCHITECTURAL DISTORTION AND FOCAL SUPERFICIAL HYPERPLASTIC FEATURES. B. TRANSVERSE COLON, POLYPS, BIOPSY: TUBULAR ADENOMA(S). Electronically Signed Adrianna Chapman M.D. Gross Description A. Received in formalin, labeled "biopsy sigmoid stricture" is a zimmer, irregular portion of soft tissue measuring 0.3 cm. in greatest dimension. The specimen is submitted in toto in one cassette. B. Received in formalin, labeled "biopsy polyps transverse colon" are 2 zimmer, irregular portions of soft tissue measuring 0.2 and 0.3 cm. in greatest dimension. The specimens are submitted in toto in one cassette. 06/04/201906/04/2019
--- NOTE | 2019-06-05 18:48 | PN ---
Progress Note (short form) - Note Progress Note: Patient seen and examined c/o visual distortion on waking up and unsteadiness/weakness afvss Cor: RSR, No murmurs, No gallops Lungs: Clear to P&A Abd: Soft, Normal bowel sounds, No organomegaly Ext:chronic venous stasis Labs/Meds reviewed A/P 83 y/o gentleman with newly diagnosed BECKY and CHF. He has a history of GAVE, HTN, prostate cancer (s/p prostatectomy 2012) with dynamic leukocytosis. Came in with fatigue/exertional SOB Being treated for CHF Leukocytosis -- ruling our bone marrow pathology --- ? 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 Differential --neutrophilia/increased monocytes/increased lymphocytes Flowcyometry-- T-LGL , increased monocytes---? reactive vs marrow pathology Molecular studies pending-- T cell receptor generearrangement studies Anemia -- ? gi bleed h/o GAVE sigmoid stricture/gastritis/ diverticulosis to resume eliquis per GI /primary teams will discuss plan with family
--- NOTE | 2019-06-05 21:34 | PN.GI ---
GI Progress Note Subjective: GI NOte: Gastrograffin enema confirmed the tortuous and redundant colon path and sigmoid narrowing but no masses in the right colon. I have informed Maximino of this. He has no GI complaints. I did tell him that I believe that he has alcoholic gastritis that was much worse on admission and caused him to bleed. I again advised glendy to completely refrain from alcohol - Objective Vital Signs: Vital Signs Temperature 98.1 F 06/05/19 17:00 Pulse Rate 86 06/05/19 17:00 Respiratory Rate 20 06/05/19 20:39 Blood Pressure 133/72 06/05/19 17:00 O2 Sat by Pulse Oximetry (%) 96 06/05/19 20:39 Laboratory Tests 06/02/19 06/04/19 06/05/19 05:45 05:46 05:58 WBC 21.5 H 23.2 H Hgb Total Bilirubin 0.6 AST 38 H ALT 36 Alkaline Phosphatase 106 06/05/19 05:58 WBC 25.7 H Hgb 12.1 Total Bilirubin AST ALT Alkaline Phosphatase Constitutional: No Distress ...Auscultate: Yes: Normoactive Bowel Sounds ...Palpate: Yes: Soft, Other (nontender) Labs: CBC, BMP 06/05/19 05:58 06/05/19 05:58 INR, PTT INR 1.74 (0.83-1.09) H 06/02/19 05:45 Fibrinogen 362.0 mg/dL (238-498) 06/02/19 05:00 Assessment/Plan Assessment: - Suspect bleeding from alcoholic gastritis. - Diverticular sigmoid stricture -Alcoholic hepatitis. LFTs normalized - Personal h/o colon adenomas - Diverticulosis Plan: -- Pantoprazole and Miralax -- I have told him Maximino that he must abstain from alcohol Problem List - Problems (1) Alcoholic gastritis with bleeding Code(s): K29.21 - ALCOHOLIC GASTRITIS WITH BLEEDING (2) Sigmoid stricture Code(s): K56.699 - OTHER INTESTNL OBST UNSP TO PARTIAL VERSUS COMPLETE OBST (3) GI bleed Code(s): K92.2 - GASTROINTESTINAL HEMORRHAGE, UNSPECIFIED Qualifiers: GI bleed type/associated pathology: unspecified gastrointestinal hemorrhage type Qualified Code(s): K92.2 - Gastrointestinal hemorrhage, unspecified (4) Abnormal liver function tests Code(s): R94.5 - ABNORMAL RESULTS OF LIVER FUNCTION STUDIES (5) GAVE (gastric antral vascular ectasia) Code(s): K31.819 - ANGIODYSPLASIA OF STOMACH AND DUODENUM WITHOUT BLEEDING (6) Colon adenomas Code(s): D12.6 - BENIGN NEOPLASM OF COLON, UNSPECIFIED (7) Diverticulosis Code(s): K57.90 - DVRTCLOS OF INTEST, PART UNSP, W/O PERF OR ABSCESS W/O BLEED (8) History of radical prostatectomy Code(s): Z90.79 - ACQUIRED ABSENCE OF OTHER GENITAL ORGAN(S) (9) Prostate cancer Code(s): C61 - MALIGNANT NEOPLASM OF PROSTATE (10) Hypertension Code(s): I10 - ESSENTIAL (PRIMARY) HYPERTENSION (11) Hyperlipidemia Code(s): E78.5 - HYPERLIPIDEMIA, UNSPECIFIED (12) Leukocytosis Code(s): D72.829 - ELEVATED WHITE BLOOD CELL COUNT, UNSPECIFIED Qualifiers: Leukocytosis type: unspecified Qualified Code(s): D72.829 - Elevated white blood cell count, unspecified
[2019-06-05] MEDS: ATORVASTATIN CA 10 MG TABLET (FP) PO SCH (22:02)
[2019-06-06] MEDS: THIAMINE HCL 200 MG/2 ML VIAL IVPB SCH (05:54)
[2019-06-06 07:09] LABS: BILIRUBIN,TOTAL 0.5 mg/dL (0.2-1); BLOOD UREA NITROGEN 32.7 mg/dL (7-18); CALCIUM 8.7 mg/dL (8.5-10.1); CREATININE 1.8 mg/dL (0.55-1.3); POTASSIUM 3.4 mmol/L (3.5-5.1); TOT PROT 5.2 g/dl (6.4-8.2)
[2019-06-06 10:18] LABS: HEMATOCRIT 36.8 % (35.4-49); HEMOGLOBIN 12.6 GM/dL (11.7-16.9); MCH 31.2 pg (25.7-33.7); MCHC 34.2 g/dl (32.0-35.9); MEAN CELL VOLUME 91.1 fl (80-96); MEAN PLT VOLUME 8.8 fl (7.5-11.1); PLATELET COUNT 174 K/MM3 (134-434); RBC 4.05 M/mm3 (4.00-5.60); RDW 14.1 % (11.9-15.9)
[2019-06-06 10:20] LABS: WHITE BLOOD COUNT 18.5 K/mm3 (4.0-10.0)
[2019-06-06] MEDS: POTASSIUM CHLORIDE TABS 20 MEQ TABLET.ER (FP) PO SCH (11:40)
[2019-06-06] MEDS: FUROSEMIDE 40 MG/4 ML INJECTABLE VIAL IVPUSH SCH (11:41)
[2019-06-06] MEDS: CALCIUM (OYSTER SHELL) 500 MG TABLET (FP) PO SCH (11:41)
[2019-06-06] MEDS: PANTOPRAZOLE 40 MG TABLET (FP) PO SCH ×2 (11:42→21:11)
[2019-06-06] MEDS: ALLOPURINOL 100 MG TABLET (FP) PO SCH (11:42)
--- NOTE | 2019-06-06 12:02 | PN ---
Progress Note, Physician Chief Complaint: 83yo male with PMH of HTN, HLD, prostate CA, GAVE with new-onset CHF and atrial fibrillation with RVR. He has noticed leg swelling for the past five months. Echo 05/22/19: normal EF, dilated RV, mild dec RV function. mod LAE/KARRIE. trace to mild MR. Mod to sev TR RVSP 40-50. Hemoglobin has been stable. No active bleeding noted during endoscopy. Ventricular rates are still rapid. History of Present Illness: 83yo male with PMH of HTN, HLD, prostate CA, GAVE with new-onset CHF and atrial fibrillation with RVR. He has noticed leg swelling for the past five months. Echo 05/22/19: normal EF, dilated RV, mild dec RV function. mod LAE/KARRIE. trace to mild MR. Mod to sev TR RVSP 40-50. Hemoglobin has been stable. No active bleeding noted during endoscopy. Ventricular rates are still rapid. - Current Medication List Current Medications: Active Medications Allopurinol (Zyloprim -) 100 mg PO DAILY [facility] Last Admin: 06/06/19 11:42 Dose: 100 mg Atorvastatin Calcium (Lipitor -) 10 mg PO HS [facility] Last Admin: 06/05/19 22:02 Dose: 10 mg Calcium Carbonate (Os-Dionicio 500mg -) 1,000 mg PO DAILY [facility] Last Admin: 06/06/19 11:41 Dose: 1,000 mg Diltiazem HCl (Cardizem Cd -) 120 mg PO DAILY [facility] Last Admin: 06/06/19 11:41 Dose: 120 mg Furosemide (Lasix Injection -) 40 mg IVPUSH DAILY [facility] Last Admin: 06/06/19 11:41 Dose: 40 mg Magnesium Hydroxide (Milk Of Magnesia -) 30 ml PO PRN PRN PRN Reason: CONSTIPATION Last Admin: 05/30/19 09:25 Dose: 30 ml Metoprolol Succinate (Toprol Xl -) 100 mg PO BID [facility] Last Admin: 06/06/19 11:42 Dose: 100 mg Pantoprazole Sodium (Protonix -) 40 mg PO BID [facility] Last Admin: 06/06/19 11:42 Dose: 40 mg Potassium Chloride (K-Dur -) 40 meq PO DAILY [facility] Last Admin: 06/06/19 11:40 Dose: 40 meq Thiamine HCl (Vitamin B1 Injection -) 250 mg IVPB TID [facility] Stop: 06/06/19 13:59 Last Admin: 06/06/19 05:54 Dose: 250 mg - Objective Vital Signs: Vital Signs Temperature 99 F 06/06/19 08:21 Pulse Rate 88 06/06/19 08:21 Respiratory Rate 18 06/06/19 08:21 Blood Pressure 130/68 06/06/19 08:21 O2 Sat by Pulse Oximetry (%) 97 06/06/19 08:21 Constitutional: Yes: Well Nourished, No Distress, Calm Eyes: Yes: WNL, Conjunctiva Clear, EOM Intact HENT: Yes: WNL, Atraumatic, Normocephalic Neck: Yes: WNL, Supple, Trachea Midline Cardiovascular: Yes: Pulse Irregular, S1, S2 Respiratory: Yes: WNL, Regular, CTA Bilaterally Gastrointestinal: Yes: WNL, Normal Bowel Sounds, Soft ...Rectal Exam: Yes: Deferred Genitourinary: Yes: WNL Musculoskeletal: Yes: WNL Extremities: Yes: WNL Edema: LLE: Trace, RLE: Trace Peripheral Pulses: Left Radial: 1+, Right Radial: 1+, Left Doralis Pedis: 1+, Right Dorsalis Pedis: 1+, Left Femoral: 1+, Right Femoral: 1+ Neurological: Yes: WNL, Alert, Oriented ...Motor Strength: WNL Psychiatric: Yes: WNL, Alert, Oriented Labs: CBC, BMP 06/06/19 06:20 06/06/19 06:20 INR, PTT INR 1.74 (0.83-1.09) H 06/02/19 05:45 Fibrinogen 362.0 mg/dL (238-498) 06/02/19 05:00 Assessment/Plan 83yo male with PMH of HTN, HLD, prostate CA, GAVE with new-onset CHF and atrial fibrillation with RVR. He has noticed leg swelling for the past five months. Echo 05/22/19: normal EF, dilated RV, mild dec RV function. mod LAE/KARRIE. trace to mild MR. Mod to sev TR RVSP 40-50. Hemoglobin has been stable. No active bleeding noted during endoscopy. The patient continues to improve clinically and symptomatically. Ventricular rates are better controlled in atrial fibrillation. Hemoglobin is stable. Please restart Eliquis 5 mg twice daily. Switch to oral Lasix 40 mg by mouth twice daily. Continue the other medications as currently. Salt and fluid restrictions. May stop telemetry. No need for further cardiac workup at this point. Please arrange for an outpatient follow-up visit with within one week of discharge. Please do not hesitate to call us PRN
[2019-06-06 12:25] LABS: ANISOCYTOSIS 1+; MACROCYTOSIS 0; PLATELET ESTIMATE NORMAL
--- NOTE | 2019-06-06 13:04 | PN ---
Progress Note, Physician History of Present Illness: Pt seen and examined at bedside. HE is awake and alert. He feels that his breathing is a little better. - Current Medication List Current Medications: Active Medications Allopurinol (Zyloprim -) 100 mg PO DAILY [facility] Last Admin: 06/06/19 11:42 Dose: 100 mg Atorvastatin Calcium (Lipitor -) 10 mg PO HS [facility] Last Admin: 06/05/19 22:02 Dose: 10 mg Calcium Carbonate (Os-Dionicio 500mg -) 1,000 mg PO DAILY [facility] Last Admin: 06/06/19 11:41 Dose: 1,000 mg Diltiazem HCl (Cardizem Cd -) 120 mg PO DAILY [facility] Last Admin: 06/06/19 11:41 Dose: 120 mg Furosemide (Lasix Injection -) 40 mg IVPUSH DAILY [facility] Last Admin: 06/06/19 11:41 Dose: 40 mg Magnesium Hydroxide (Milk Of Magnesia -) 30 ml PO PRN PRN PRN Reason: CONSTIPATION Last Admin: 05/30/19 09:25 Dose: 30 ml Metoprolol Succinate (Toprol Xl -) 100 mg PO BID [facility] Last Admin: 06/06/19 11:42 Dose: 100 mg Pantoprazole Sodium (Protonix -) 40 mg PO BID [facility] Last Admin: 06/06/19 11:42 Dose: 40 mg Potassium Chloride (K-Dur -) 40 meq PO DAILY [facility] Last Admin: 06/06/19 11:40 Dose: 40 meq Thiamine HCl (Vitamin B1 Injection -) 250 mg IVPB TID [facility] Stop: 06/06/19 13:59 Last Admin: 06/06/19 05:54 Dose: 250 mg - Objective Vital Signs: Vital Signs Temperature 99 F 06/06/19 08:21 Pulse Rate 88 06/06/19 08:21 Respiratory Rate 18 06/06/19 08:21 Blood Pressure 130/68 06/06/19 08:21 O2 Sat by Pulse Oximetry (%) 97 06/06/19 08:21 Constitutional: Yes: Calm Eyes: Yes: Conjunctiva Clear HENT: Yes: Atraumatic Neck: Yes: Supple Cardiovascular: Yes: S1, S2 Respiratory: Yes: CTA Bilaterally Gastrointestinal: Yes: Soft Genitourinary: Yes: WNL Musculoskeletal: Yes: WNL Edema: Yes Edema: LLE: 1+, RLE: 1+ Neurological: Yes: Oriented Psychiatric: Yes: Oriented Labs: CBC, BMP 06/06/19 06:20 06/06/19 06:20 INR, PTT INR 1.74 (0.83-1.09) H 06/02/19 05:45 Fibrinogen 362.0 mg/dL (238-498) 06/02/19 05:00 Problem List - Problems (1) JOHN (acute kidney injury) Code(s): N17.9 - ACUTE KIDNEY FAILURE, UNSPECIFIED (2) Chest discomfort Code(s): R07.89 - OTHER CHEST PAIN (3) New onset a-fib Code(s): I48.91 - UNSPECIFIED ATRIAL FIBRILLATION (4) New onset of congestive heart failure Code(s): I50.9 - HEART FAILURE, UNSPECIFIED Assessment/Plan Current Medications Generic Name Dose Route Start Last Admin Trade Name Freq PRN Reason Stop Dose Admin Allopurinol 100 mg 06/01/19 11:30 06/06/19 11:42 Zyloprim - PO 100 mg DAILY MILI Administration Atorvastatin Calcium 10 mg 05/22/19 22:00 06/05/19 22:02 Lipitor - PO 10 mg HS MILI Administration Calcium Carbonate 1,000 mg 05/22/19 10:00 06/06/19 11:41 Os-Dionicio 500mg - PO 1,000 mg DAILY MILI Administration Diltiazem HCl 120 mg 06/06/19 10:00 06/06/19 11:41 Cardizem Cd - PO 120 mg DAILY MILI Administration Furosemide 40 mg 06/02/19 19:15 06/06/19 11:41 Lasix Injection - IVPUSH 40 mg DAILY MILI Administration Magnesium Hydroxide 30 ml 05/27/19 14:38 05/30/19 09:25 Milk Of Magnesia - PO 30 ml PRN PRN Administration CONSTIPATION Metoprolol Succinate 100 mg 06/05/19 22:00 06/06/19 11:42 Toprol Xl - PO 100 mg BID MILI Administration Pantoprazole Sodium 40 mg 05/30/19 10:00 06/06/19 11:42 Protonix - PO 40 mg BID MILI Administration Potassium Chloride 40 meq 06/04/19 12:00 06/06/19 11:40 K-Dur - PO 40 meq DAILY MILI Administration Thiamine HCl 250 mg 06/03/19 14:00 06/06/19 05:54 Vitamin B1 Injection - IVPB 06/06/19 13:59 250 mg TID MILI Administration Impression 1. JOHN 2. chf 3. a-fib 4. htn 5. gerd 6. hypokalemia 7. positive andre Plan - cont lasix - cont with potassium supplements - monitor lytes - will need outpt follow up - elevate legs when sitting - oncology follow up Dr Ceja
--- NOTE | 2019-06-06 14:42 | PN ---
Progress Note, Physician Chief Complaint: doing well , no sob ,no cp , no palpitations, - Current Medication List Current Medications: Active Medications Allopurinol (Zyloprim -) 100 mg PO DAILY [facility] Last Admin: 06/06/19 11:42 Dose: 100 mg Atorvastatin Calcium (Lipitor -) 10 mg PO HS [facility] Last Admin: 06/05/19 22:02 Dose: 10 mg Calcium Carbonate (Os-Dionicio 500mg -) 1,000 mg PO DAILY [facility] Last Admin: 06/06/19 11:41 Dose: 1,000 mg Diltiazem HCl (Cardizem Cd -) 120 mg PO DAILY [facility] Last Admin: 06/06/19 11:41 Dose: 120 mg Furosemide (Lasix Injection -) 40 mg IVPUSH DAILY [facility] Last Admin: 06/06/19 11:41 Dose: 40 mg Magnesium Hydroxide (Milk Of Magnesia -) 30 ml PO PRN PRN PRN Reason: CONSTIPATION Last Admin: 05/30/19 09:25 Dose: 30 ml Metoprolol Succinate (Toprol Xl -) 100 mg PO BID [facility] Last Admin: 06/06/19 11:42 Dose: 100 mg Pantoprazole Sodium (Protonix -) 40 mg PO BID [facility] Last Admin: 06/06/19 11:42 Dose: 40 mg Potassium Chloride (K-Dur -) 40 meq PO DAILY [facility] Last Admin: 06/06/19 11:40 Dose: 40 meq - Objective Vital Signs: Vital Signs Temperature 99 F 06/06/19 08:21 Pulse Rate 88 06/06/19 08:21 Respiratory Rate 18 06/06/19 08:21 Blood Pressure 130/68 06/06/19 08:21 O2 Sat by Pulse Oximetry (%) 97 06/06/19 08:21 Labs: CBC, BMP 06/06/19 06:20 06/06/19 06:20 INR, PTT INR 1.74 (0.83-1.09) H 06/02/19 05:45 Fibrinogen 362.0 mg/dL (238-498) 06/02/19 05:00 Problem List - Problems (1) GAVE (gastric antral vascular ectasia) Code(s): K31.819 - ANGIODYSPLASIA OF STOMACH AND DUODENUM WITHOUT BLEEDING (2) History of radical prostatectomy Code(s): Z90.79 - ACQUIRED ABSENCE OF OTHER GENITAL ORGAN(S) (3) Hyperlipidemia Code(s): E78.5 - HYPERLIPIDEMIA, UNSPECIFIED (4) Hypertension Code(s): I10 - ESSENTIAL (PRIMARY) HYPERTENSION (5) Leukocytosis Code(s): D72.829 - ELEVATED WHITE BLOOD CELL COUNT, UNSPECIFIED Qualifiers: Leukocytosis type: unspecified Qualified Code(s): D72.829 - Elevated white blood cell count, unspecified (6) Prostate cancer Code(s): C61 - MALIGNANT NEOPLASM OF PROSTATE Assessment/Plan 1. ARF stable renal function continue lasix, switched to po,check lytes, K low , but on supplementation, 2. chf stable , continue diuretics, 3. a-fib , resume A/c as per GI h/h stable , no s/o GI bleed, , metoprolol to 100 mg twice daily. cont Cardizem CD 120 mg daily. 4.HTN controlled 5.anemia , and leukocytosis, Leukocytosis - oncology fu. r/o CML CMML, lópez in progress as per onc. 6. hypokalemia supplement monitor renal function, dc tele,
--- NOTE | 2019-06-06 20:38 | PN ---
Progress Note (short form) - Note Progress Note: Patient seen and examined No specific complaints afvss Cor: RSR, No murmurs, No gallops Lungs: Clear to P&A Abd: Soft, Normal bowel sounds, No organomegaly Ext:cta Labs/Meds reviewed A/P 83 y/o gentleman with newly diagnosed BECKY and CHF. He has a history of GAVE, HTN, prostate cancer (s/p prostatectomy 2012) with dynamic leukocytosis. Came in with fatigue/exertional SOB Being treated for CHF Leukocytosis -- Flowcyometry-- T-LGL , increased monocytes-- CD3+ CD57+ LGL T cell large granular lymphocytosis Suspect TLGL to be reactive to his underlying h/o RA But awaiting T cell receptor gene rearrangement studies to differentiate TLGL leukemia vs reactive No cytopenias/ no B symptoms Monitoring closely as out patient ---discussed with paient/. Need to follow up closely in the office Anemia -- ? gi bleed h/o GAVE sigmoid stricture/gastritis/ diverticulosis to resume eliquis per GI /primary teams discussed paln with /patient Conact nos. given for close o upatien follow up
[2019-06-06] MEDS: ATORVASTATIN CA 10 MG TABLET (FP) PO SCH (21:11)
[2019-06-06] MEDS: APIXABAN 2.5 MG TABLET PO SCH (21:11)
[2019-06-06] MEDS ORDERED: APIXABAN 5 MG TABLET PO SCH (22:00)
[2019-06-07] MEDS: FUROSEMIDE 40 MG TABLET (FP) PO SCH ×2 (06:33→14:39)
[2019-06-07] MEDS: CALCIUM (OYSTER SHELL) 500 MG TABLET (FP) PO SCH (10:06)
[2019-06-07] MEDS: POTASSIUM CHLORIDE TABS 20 MEQ TABLET.ER (FP) PO SCH (10:07)
[2019-06-07] MEDS: ALLOPURINOL 100 MG TABLET (FP) PO SCH (10:07)
[2019-06-07] MEDS: APIXABAN 2.5 MG TABLET PO SCH (10:07)
[2019-06-07] MEDS: PANTOPRAZOLE 40 MG TABLET (FP) PO SCH (10:07)
--- NOTE | 2019-06-07 13:27 | DS ---
Physical Examination Vital Signs: Vital Signs Temperature 98.5 F 06/07/19 05:44 Pulse Rate 84 06/07/19 05:44 Respiratory Rate 20 06/07/19 05:44 Blood Pressure 127/91 06/07/19 05:44 O2 Sat by Pulse Oximetry (%) 96 06/06/19 21:00 Constitutional: Yes: Well Nourished, Calm Eyes: Yes: WNL, EOM Intact HENT: Yes: WNL, Normocephalic Neck: Yes: WNL, Supple Cardiovascular: Yes: WNL, Pulse Irregular Respiratory: Yes: WNL, CTA Bilaterally Gastrointestinal: Yes: WNL, Normal Bowel Sounds, Soft Renal/: Yes: WNL Extremities: Yes: WNL Edema: LLE: 1+, RLE: 1+ Neurological: Yes: WNL, Alert, Oriented ...Motor Strength: WNL Psychiatric: Yes: WNL Labs: CBC, BMP 06/06/19 06:20 06/06/19 06:20 Discharge Summary Reason For Visit: CHEST DISCOMFORT Current Active Problems JOHN (acute kidney injury) (Acute) Abnormal liver function tests (Acute) Alcoholic gastritis with bleeding (Acute) Chest discomfort (Acute) Colon adenomas (Acute) Diverticulosis (Acute) GAVE (gastric antral vascular ectasia) (Acute) GI bleed (Acute) History of radical prostatectomy (Acute) Hyperlipidemia (Acute) Hypertension (Acute) Leukocytosis (Acute) Leukocytosis (Acute) New onset a-fib (Acute) New onset of congestive heart failure (Acute) Prostate cancer (Acute) Sigmoid stricture (Acute) Hospital Course: 83yo M, (Martiniquais speaking) with PMH of HTN, HLD, prostate CA sent by his primary care physician for admission for new-onset CHF.GAVE with new-onset CHF and atrial fibrillation with RVR. He has noticed leg swelling for the past five months. and was found to have new onset atrail fibrillation, started on diltiazem and metoprolol, stable , now will see the cardiology as an outpt, had gerd, and was found to have a anemia , and had EGD and colonoscopy , showed gastritis , diverticular sigmoid stricture , and polyps , path pending, will fu as an outpt, Found to have leukocytosis and mild splenomegaly. Work-up with TLGL. Awaiting T cell receptor gene rearrangement studies to differentiate TLGL leukemia vs reactive. Testing for STAT3 may be helpful , will get out patient bone marrow biopsy, had positive andre, and rest of rheum lópez negative , had hyperuricemia, started on allopurinol, Condition: Fair - Instructions Diet, Activity, Other Instructions: 2 gram sodium diet Referrals: Essence Marrufo MD [Staff Physician] - 2 Weeks Christiane Altamirano MD [Staff Physician] - Kya Gore MD [Staff Physician] - 2 Weeks Amy Ceja MD [Staff Physician] - 1 Month Disposition: HOME - Home Medications Comprehensive Discharge Medication List: Ambulatory Orders Calcium Citrate/Vitamin D3 [Calcium Cit 315-Vit D3 200 Cpt] 2 each PO DAILY Allopurinol [Zyloprim -] 100 mg PO DAILY 30 Days #30 tablet 06/07/19 Apixaban [Eliquis -] 2.5 mg PO BID 30 Days #60 tablet 06/07/19 Atorvastatin Ca [Lipitor] 10 mg PO HS 30 Days #30 tablet 06/07/19 Calcium (Oyster Shell) [Os-Dionicio 500MG -] 1,000 mg PO DAILY tablet 06/07/19 Diltiazem Cd [Cardizem Cd -] 120 mg PO DAILY 30 Days #30 cap.cd.24h 06/07/19 Furosemide [Lasix -] 40 mg PO BID@0600,1400 30 Days #60 tablet 06/07/19 Metoprolol Succinate [Toprol XL -] 100 mg PO BID 30 Days #60 tab.sr.24h Pantoprazole Sodium [Protonix -] 40 mg PO BID 30 Days #30 tablet.ec 06/07/19 Potassium Chloride [K-Dur -] 20 meq PO DAILY 30 Days #30 tablet.er 06/07/19 Thiamine Mononitrate [Vitamin B-1] 100 mg PO DAILY 30 Days #30 tablet 06/07/19
[2019-06-07 15:08] VITALS: BP 127/70; PULSE 79; TEMP 98.2
--- NOTE | 2019-06-07 16:56 | PN ---
Progress Note, Physician History of Present Illness: Getting dressed to go home - Current Medication List Current Medications: Active Medications Allopurinol (Zyloprim -) 100 mg PO DAILY [facility] Last Admin: 06/07/19 10:07 Dose: 100 mg Apixaban (Eliquis -) 2.5 mg PO BID [facility] Last Admin: 06/07/19 10:07 Dose: 2.5 mg Atorvastatin Calcium (Lipitor -) 10 mg PO HS [facility] Last Admin: 06/06/19 21:11 Dose: 10 mg Calcium Carbonate (Os-Dionicio 500mg -) 1,000 mg PO DAILY [facility] Last Admin: 06/07/19 10:06 Dose: 1,000 mg Diltiazem HCl (Cardizem Cd -) 120 mg PO DAILY [facility] Last Admin: 06/07/19 10:07 Dose: 120 mg Furosemide (Lasix -) 40 mg PO BID@0600,1400 [facility] Last Admin: 06/07/19 06:33 Dose: 40 mg Magnesium Hydroxide (Milk Of Magnesia -) 30 ml PO PRN PRN PRN Reason: CONSTIPATION Last Admin: 05/30/19 09:25 Dose: 30 ml Metoprolol Succinate (Toprol Xl -) 100 mg PO BID [facility] Last Admin: 06/07/19 10:07 Dose: 100 mg Pantoprazole Sodium (Protonix -) 40 mg PO BID [facility] Last Admin: 06/07/19 10:07 Dose: 40 mg Potassium Chloride (K-Dur -) 40 meq PO DAILY [facility] Last Admin: 06/07/19 10:07 Dose: 40 meq - Objective Vital Signs: Vital Signs Temperature 98.2 F 06/07/19 14:00 Pulse Rate 79 06/07/19 14:00 Respiratory Rate 20 06/07/19 14:00 Blood Pressure 127/70 06/07/19 14:00 O2 Sat by Pulse Oximetry (%) 96 06/07/19 09:00 Constitutional: Yes: No Distress, Calm Labs: CBC, BMP 06/06/19 06:20 06/06/19 06:20 INR, PTT INR 1.74 (0.83-1.09) H 06/02/19 05:45 Fibrinogen 362.0 mg/dL (238-498) 06/02/19 05:00 Assessment/Plan 83M with HTN, prostate cancer (s/p prostatectomy 2012), AF, CHF admitted with fatigue and SOB. Found to have leukocytosis and mild splenomegaly. Work-up with TLGL. Awaiting T cell receptor gene rearrangement studies to differentiate TLGL leukemia vs reactive. Testing for STAT3 may be helpful. No new labs today. Being discharged.
--- NOTE | 2019-06-13 17:32 | PATH ---
Surgical Pathology Report Patient Name: KOKO DAVIS Med. Rec. #: [id number] /Age/Gender: 1935 (Age: 83) / M Account: [id number] Location: 4 W TELEMETRY U Taken: 06/05/2019 Received: 06/06/2019 Reported: 06/13/2019 Physicians: Vy Cadena M.D. Specimen(s) Received PERIPHERAL BLOOD Clinical History Lymphocytosis, monocytosis, expanded T- LGL Final Diagnosis T-CELL GENE REARRANGEMENT performed and interpreted at [facility], [place], [place] ([id number]) Results: Clonal T-cell population detected. 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 Comment: This specimen contains a clonal population of T-cell lineage. Results should be interpreted in the context of clinical status and correlation with morphology and immunophenotype. This analysis can detect abnormal populations comprising greater than 5% of the T-cells present in the sample. See [facility] report for additional details. Electronically Signed Adrianna Chapman M.D. Gross Description Received labelled with the patient's name are two lavender top tubes of peripheral blood which are forwarded to [facility] for ancillary testing. MLSZ/06/06/2019 marta/06/06/2019
== END 2019-06-07 18:21 | disposition home or self-care (01) | DRG 377 ==
LOC: JER 13:33 → JERBED 18:47 → J4W 05-22 04:06
PROVIDERS: ADMIT Internal Medicine; ATTEND Internal Medicine
PROC: 0DBL8ZX Excision of Transverse Colon, Via Natural or Artificial Opening Endoscopic, Diagnostic (ICD-10-PCS; 2019-06-04)
PROC: 0DJ08ZZ Inspection of Upper Intestinal Tract, Via Natural or Artificial Opening Endoscopic (ICD-10-PCS; principal; 2019-06-04 09:45)
DX: K29.21 Alcoholic gastritis with bleeding (principal); I50.33 Acute on chronic diastolic (congestive) heart failure; C91.Z0 Other lymphoid leukemia not having achieved remission; N17.9 Acute kidney failure, unspecified; R18.8 Other ascites; K56.699 Other intestinal obstruction unspecified as to partial versus complete obstruction; D62 Acute posthemorrhagic anemia; J98.11 Atelectasis; E51.2 Wernicke's encephalopathy; I11.0 Hypertensive heart disease with heart failure; I48.91 Unspecified atrial fibrillation; R42 Dizziness and giddiness; E78.5 Hyperlipidemia, unspecified; K21.9 Gastro-esophageal reflux disease without esophagitis; I45.10 Unspecified right bundle-branch block; D50.9 Iron deficiency anemia, unspecified; D72.828 Other elevated white blood cell count; K46.9 Unspecified abdominal hernia without obstruction or gangrene; K31.819 Angiodysplasia of stomach and duodenum without bleeding; D12.6 Benign neoplasm of colon, unspecified; K57.90 Diverticulosis of intestine, part unspecified, without perforation or abscess without bleeding; R16.1 Splenomegaly, not elsewhere classified; E87.6 Hypokalemia; D72.823 Leukemoid reaction; E79.0 Hyperuricemia without signs of inflammatory arthritis and tophaceous disease; R94.5 Abnormal results of liver function studies; G62.9 Polyneuropathy, unspecified; K70.10 Alcoholic hepatitis without ascites; K64.8 Other hemorrhoids; R16.0 Hepatomegaly, not elsewhere classified; Z85.46 Personal history of malignant neoplasm of prostate; Z90.79 Acquired absence of other genital organ(s)
CPT/HCPCS: 36415; 71045-TC-FY; 71046-TC-FY; 71250-TC; 74176-TC; 74270-TC-FY; 76705-TC; 76775-TC; 80048; 80053; 80076; 81003; 82105; 82140; 82272; 82550; 82607; 82728; 83516; 83520; 83540; 83550; 83615; 83735; 83880; 84100; 84155; 84165; 84443; 84484; 84550; 85025; 85027; 85044; 85384; 85610; 85730; 86038; 86140; 86225; 86256; 86704; 86706; 86707; 86708; 86709; 86803; 87040; 87077; 87086; 87324; 87340; 87449; 87799; 88300-TC; 88305-TC; 93005; 93010; 93306-TC; 93970-TC; 97116-GP; 97161-GP; 99285-25; J1644; Q9967

== ENCOUNTER 2019-06-13 11:54 | Inpatient (IN) | payer OTHER ==
--- NOTE | 2019-06-13 13:27 | PDOC ---
History of Present Illness - General Chief Complaint: Weakness Stated Complaint: WEAKNESS Time Seen by Provider: 06/13/19 12:33 History Source: Patient, Family Exam Limitations: Language Barrier (#[id number]) - History of Present Illness Initial Comments: 06/13/19 13:22 Source: Patient and , [employer] # [id number] HPI: 83yo man with PMH HTN, HLD, prostate CA, anemia, GERD, gastritis, new CHF and Afib w/ RvR recently admitted 05/21/19-06/07/19 for new CHF presenting today with 1 week of worsening sensation of poor balance and generalized weakness / fatigue. Patient reports sensation of loss of balance began while he was in the hospital shortly before discharge, he reports standing from the toilet and feeling like he was falling forward. Sense getting home the sensation has become more frequent and he has had at least 2 falls forward without hitting his head, without subsequent aches or pains. Denies that the room feels like it is spinning, denies feeling lightheaded. Endorses some shortness of breath, swelling of the ankles, and an intention tremor that has been going on since discharge. Has felt an irregular heart rate while at home. Reports that he has filled all prescriptions and is taking all medications daily. Denies chest pain, nausea, vomiting, dizziness, lightheadedness, headache, changes in vision, abdominal pain, dark or bloody stools, dysuria, focal weakness / numbness / tingling. All: Sulfa drugs cause a rash Meds: Per chart / discharge documentation PMH: as above PSH: per chart Past History - Travel Traveled outside of the country in the last 30 days: No Close contact w/someone who was outside of country & ill: No - Past Medical History Allergies/Adverse Reactions: Allergies Allergy/AdvReac Type Severity Reaction Status Date / Time Sulfa (Sulfonamide Allergy Mild Rash Verified 05/21/19 20:24 Antibiotics) Home Medications: Ambulatory Orders Calcium Citrate/Vitamin D3 [Calcium Cit 315-Vit D3 200 Cpt] 2 each PO DAILY Allopurinol [Zyloprim -] 100 mg PO DAILY 30 Days #30 tablet 06/07/19 Apixaban [Eliquis -] 2.5 mg PO BID 30 Days #60 tablet 06/07/19 Atorvastatin Ca [Lipitor] 10 mg PO HS 30 Days #30 tablet 06/07/19 Calcium (Oyster Shell) [Os-Dionicio 500MG -] 1,000 mg PO DAILY tablet 06/07/19 Diltiazem Cd [Cardizem Cd -] 120 mg PO DAILY 30 Days #30 cap.cd.24h 06/07/19 Furosemide [Lasix -] 40 mg PO BID@0600,1400 30 Days #60 tablet 06/07/19 Metoprolol Succinate [Toprol XL -] 100 mg PO BID 30 Days #60 tab.sr.24h Pantoprazole Sodium [Protonix -] 40 mg PO BID 30 Days #30 tablet.ec 06/07/19 Potassium Chloride [K-Dur -] 20 meq PO DAILY 30 Days #30 tablet.er 06/07/19 Thiamine Mononitrate [Vitamin B-1] 100 mg PO DAILY 30 Days #30 tablet 06/07/19 Anemia: Yes Asthma: No Cancer: No Cardiac Disorders: No CVA: No COPD: No CHF: No Dementia: No Diabetes: No GI Disorders: Yes (GERD) Disorders: No HTN: Yes Hypercholesterolemia: Yes Liver Disease: No Seizures: No Thyroid Disease: No - Surgical History Abdominal Surgery: Yes (PROSTATECTOMY) Appendectomy: No Cardiac Surgery: No Cholecystectomy: No Lung Surgery: No Neurologic Surgery: No Orthopedic Surgery: No - Immunization History Immunization Up to Date: Yes - Suicide/Smoking/Psychosocial Hx Smoking History: Never smoked Have you smoked in the past 12 months: No If you are a former smoker, when did you quit?: 1999 Information on smoking cessation initiated: No Hx Alcohol Use: No Drug/Substance Use Hx: No Substance Use Type: None Hx Substance Use Treatment: No Review of Systems - Review of Systems Able to Perform ROS?: Yes (Interp #[id number]) Is the patient limited [place]serratian proficient: Yes Constitutional: Yes: Weakness. No: Chills, Diaphoresis, Fever, Loss of Appetite HEENTM: No: Symptoms Reported Respiratory: Yes: Shortness of Breath, SOB with Exertion. No: Cough, Stridor, Wheezing Cardiac (ROS): Yes: Edema, Irregular Heart Rate. No: Chest Pain, Palpitations, Syncope, Chest Tightness ABD/GI: No: Symptoms Reported, Diarrhea, Nausea, Rectal Bleeding, Vomiting, Tarry Stools : No: Symptoms Reported, Burning, Dysuria, Frequency, Incontinence, Pain Musculoskeletal: No: Symptoms Reported, Back Pain, Joint Pain, Muscle Weakness, Joint Stiffness Integumentary: No: Symptoms Reported Neurological: Yes: Unsteady Gait (unbalanbced on standing). No: Numbness, Paresthesia, Tingling, Weakness, Ataxia, Dizziness All Other Systems: Reviewed and Negative *Physical Exam - Vital Signs Last Vital Signs Temp Pulse Resp BP Pulse Ox 97.3 F L 17 100/69 95 06/13/19 12:18 06/13/19 12:18 06/13/19 12:18 06/13/19 12:18 - Physical Exam Comments: 06/13/19 13:41 Vitals reviewed, afebrile, HDS Gen: elderly gentleman, no distress, sitting on bed in [facility], points to his head stating something is wrong in my head HEENT: NCAT, EOMI, MMM, PERRLA CV: Irregular rhythm, nls1/s2, no murmurs or bruits appreciated Pulm: CTAbl with possible fine crackles in lower lung rodriguez, normal WOB Abd: soft, nontender, nondistended, no scars or markings Neuro: alert and oriented, 5+ strength b/l LE, 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 Pulses: 2+ radial, PT difficult to assess 2/2 edema, toes WWP, normal capillary refill Ext: no clubbing or cyanosis, 4+ pitting edema to the mid santo bilaterally ED Treatment Course - LABORATORY CBC & Chemistry Diagram: 06/13/19 13:18 06/13/19 13:18 - RADIOLOGY Radiology Studies Ordered: Category Date Time Status HEAD CT WITHOUT CONTRAST [CT] Stat CT Scan 06/13/19 13:18 Ordered CHEST X-RAY PORTABLE* [RAD] Stat Radiology 06/13/19 13:18 Ordered Medical Decision Making - Medical Decision Making 06/13/19 13:28 83yo man with PMH HTN, HLD, prostate CA, anemia, GERD, gastritis, new CHF and Afib w/ RvR recently admitted 05/21/19-06/07/19 for new CHF presenting today with 1 week of worsening sensation of poor balance and generalized weakness / fatigue. History notable for week+ duration with progression, concurrent edema and SOB, negative lightheadedness. Exam reassuring for negative cerebellar signs aside from balance (difficulty standing) and otherwise normal/nonfocal neuro exam, notable for 4+ edema in b/l LE. DDX includes but is not limited to r /o posterior stroke, CHF exacerbation, arrhythmia, medication side effect / metabolic derangement, anemia, orthostatic hypotension 2/2 relative hypovolemia. No urine studies indicated in patient without urinary symptoms. Denies vertiginous signs / symptoms. -CBC, CMP, Cardiac Profile, BNP -Heel Seam Rubber while in the department -EKG, CXR, NCHCT -After CMP back, plan to give 40 Lasix IV (home dose) 06/13/19 14:35 -JOHN 2.3 on CKD with 1.5 baseline -Mild liver enzyme elevation (AST 72), Alk Phos 147 -Troponin negative, EKG unchanged from prior without ischemic changes -BNP elebvated to 10,515.6 c/w acute CHF exacerbation, third spacing -Concern for intravascular depletion with third spaced volume -Pt at CT, will take orthostatic pressures once back -Might give half-dose lasix, will re-evaluate with BPs and CXR results 06/13/19 15:28 -Leukocytes 114, new maximum, similar to prior admission (90s), patient with ongoing outpatient leukemia workup -Repeat CBC ordered -NCHCT without acute intracranial findings -CXR with large heart, new congestive findings since 05/27 study 06/13/19 15:52 -Leukemia alone could cause symptom constellation, questionable fluid status / CHF exacerbation -UA, UCx ordered, collected, and sent -Orthostatics: 125/76 laying, 117/79 sitting, 124/72 standing -Pt admitted to Dr. Marquez *DC/Admit/Observation/Transfer Diagnosis at time of Disposition: JOHN (acute kidney injury), Balance problem CHF exacerbation Qualifiers: Heart failure type: unspecified Qualified Code(s): I50.9 - Heart failure, unspecified Leukocytosis Qualifiers: Leukocytosis type: unspecified Qualified Code(s): D72.829 - Elevated white blood cell count, unspecified - Discharge Dispostion Condition at time of disposition: Guarded Decision to Admit order: Yes - Referrals Referrals: Gabbie Marquez MD [Primary Care Provider] - - Patient Instructions - Post Discharge Activity
[2019-06-13 14:15] LABS: ALBUMIN 3.2 g/dl (3.4-5.0); ALK PHOS 147 U/L (45-117); ANION GAP 10 MMOL/L (8-16); BILIRUBIN,TOTAL 0.6 mg/dL (0.2-1); BLOOD UREA NITROGEN 42.8 mg/dL (7-18); CALCIUM 8.5 mg/dL (8.5-10.1); CHLORIDE 100 mmol/L (98-107); CO2 29 mmol/L (21-32); CREATININE 2.3 mg/dL (0.55-1.3); GLUCOSE,RANDOM 117 mg/dL (74-106); POTASSIUM 4.2 mmol/L (3.5-5.1); SGOT/AST 72 U/L (15-37); SGPT/ALT 49 U/L (13-61); SODIUM 138 mmol/L (136-145); TOT PROT 6.1 g/dl (6.4-8.2)
--- NOTE | 2019-06-13 14:23 | PDOC ---
Attending Attestation - Resident Resident Name: Saul Mcneal - ED Attending Attestation I have performed the following: I have examined & evaluated the patient, The case was reviewed & discussed with the resident, I agree w/resident's findings & plan, Exceptions are as noted - HPI HPI: 06/13/19 14:14 Mr Arguelles is an 83 yo M PMH HTN, HLD, prostate CA, anemia, GERD, gastritis, new diagnosis of CHF and Afib w/ RvR He was recently admitted 05/21/19-06/07/19 for new CHF. He notes that since his discharge he has had worsening weakness, fatigue He has fallen twice He reports orthostasis - Physicial Exam PE: 06/13/19 14:23 GENERAL: The patient is in no acute distress, weak appearing EYES: EOMI, no nystagmus, conjunctiva nml. ENT: Ears normal, nares patent, oropharynx clear without exudates. Moist mucous membranes. NECK: Normal range of motion, supple LUNGS: Breath sounds equal, clear to auscultation bilaterally. No wheezes, and no crackles. HEART: Irregularly irregular, no murmur ABDOMEN: Soft, nontender EXTREMITIES: Normal range of motion, 3+ pitting edema. NEUROLOGICAL: Cranial nerves II through XII grossly intact. Normal speech. No focal neurological deficits. SKIN: Warm, Dry, normal turgor, no rashes or lesions noted. - Medical Decision Making 06/13/19 14:24 83 yo M presenting with a complaint of weakness Pt is rate controlled Does appear to be fluid overloaded 06/13/19 14:30 EKG: Afib rate of 81 bpm, axis nml, no st elevation or depression 06/13/19 14:32 Laboratory Tests 06/06/19 06/06/19 06/13/19 06:20 06:20 13:18 WBC 18.5 H Hgb 12.6 Hct 36.8 Plt Count 174 D Sodium 138 Potassium 4.2 Chloride 100 Carbon Dioxide 29 BUN 42.8 H Creatinine 1.8 H 2.3 H Random Glucose 93 117 H Creatine Kinase 107 Troponin I < 0.02 B-Natriuretic Peptide 06/13/19 13:18 WBC Hgb Hct Plt Count Sodium Potassium Chloride Carbon Dioxide BUN Creatinine Random Glucose Creatine Kinase Troponin I B-Natriuretic Peptide 44142.6 H 06/13/19 15:52 Laboratory Tests 06/06/19 06/13/19 06:20 13:18 WBC 18.5 H 114.7 H* Hgb 12.6 10.1 L Hct 36.8 30.0 L D Plt Count 174 D 357 D Pt demonstrates no orthostasis Labs reveal an elevated WBC and JOHN Was seen by Rita, undergoing a work up for this ? cause of his weakness Will plan to Admit Clinical impression: weakness, initial presentation Leukocytosis, initial presentation JOHN, initial presentation
[2019-06-13 14:54] LABS: BASO % 0.2 % (0-2.0); EOS % 0.1 % (0-4.5); HEMOGLOBIN 10.1 GM/dL (11.7-16.9); LYMPH % 22.2 % (8-40); MCH 30.9 pg (25.7-33.7); MCHC 33.8 g/dl (32.0-35.9); MEAN CELL VOLUME 91.4 fl (80-96); MEAN PLT VOLUME 10.1 fl (7.5-11.1); MONO % 16.4 % (3.8-10.2); NEUT % 61.1 % (42.8-82.8); PLATELET COUNT 357 K/MM3 (134-434); RBC 3.28 M/mm3 (4.00-5.60); RDW 13.9 % (11.9-15.9)
[2019-06-13 15:13] LABS: WHITE BLOOD COUNT 114.7 K/mm3 (4.0-10.0)
[2019-06-13 16:28] LABS: PH,URINE 6.5 (5.0-8.0); URINE APPEARANCE CLEAR; URINE BILIRUBIN NEGATIVE (NEGATIVE); URINE COLOR YELLOW; URINE GLUCOSE (UA) NEGATIVE (NEGATIVE); URINE KETONE NEGATIVE (NEGATIVE); URINE LEUK ESTERASE NEGATIVE (NEGATIVE); URINE NITRITE NEGATIVE (NEGATIVE); URINE PROTEIN NEGATIVE (NEGATIVE); URINE UROBILINOGEN 0.2 mg/dL (0.2-1.0)
--- NOTE | 2019-06-13 18:17 | HP ---
Admitting History and Physical - Primary Care Physician PCP: Gabbie Marquez - Admission Chief Complaint: weakness, unsteady gait History of Present Illness: discharged from hospital 6 days ago, long admission at that time for : -new onset afib, chf -fluctuating leukocytosis of unknown origin flow cytometry neg.MDS, JAK2 neg, pos for clonal marrow disorder, no B symptoms, T-LGL MAR pos. but rest of rheum w/up negative, no symptoms of rheum ds. 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 -EGD mild gastritis -colonoscopy diverticulosis, polyps, mild diverticular stricture returns 6 days later with loss of appetite, weakness, unsteady gait has been compliant with his medications at home History Source: Patient Limitations to Obtaining History: No Limitations - Past Medical History Cardiovascular: Yes: AFIB, CHF, HTN, Hyperlipdemia Gastrointestinal: Yes: Diverticulosis ( colonoscopy diverticulosis, polyps , mild diverticular stricture), Gastritis (), GERD, 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 , and .), Hiatal Hernia, Other (descending colon adenomas removed 12/09) Renal/: Yes: Cancer (Prostate cancer with radical prostatectomy in 2002) Heme/Onc: Yes: Other (leukocytosis) - Past Surgical History Past Surgical History: Yes: Colonoscopy (), Prostatectomy (radical prostatectomy 2002 for cancer), Upper Endoscopy () - Smoking History Smoking history: Never smoked Have you smoked in the past 12 months: No If you are a former smoker, when did you quit?: 1999 - Alcohol/Substance Use Hx Alcohol Use: Yes History of Substance Use: reports: None - Social History ADL: Independent Home Medications - Allergies Allergies/Adverse Reactions: Allergies Allergy/AdvReac Type Severity Reaction Status Date / Time Sulfa (Sulfonamide Allergy Mild Rash Verified 05/21/19 20:24 Antibiotics) - Home Medications Home Medications: Ambulatory Orders Calcium Citrate/Vitamin D3 [Calcium Cit 315-Vit D3 200 Cpt] 2 each PO DAILY Allopurinol [Zyloprim -] 100 mg PO DAILY 30 Days #30 tablet 06/07/19 Apixaban [Eliquis -] 2.5 mg PO BID 30 Days #60 tablet 08/10/19 Atorvastatin Ca [Lipitor] 10 mg PO HS 30 Days #30 tablet 06/07/19 Calcium (Oyster Shell) [Os-Dionicio 500MG -] 1,000 mg PO DAILY tablet 06/07/19 Diltiazem Cd [Cardizem Cd -] 120 mg PO DAILY 30 Days #30 cap.cd.24h 06/07/19 Furosemide [Lasix -] 40 mg PO BID@0600,1400 30 Days #60 tablet 06/07/19 Metoprolol Succinate [Toprol XL -] 100 mg PO BID 30 Days #60 tab.sr.24h Pantoprazole Sodium [Protonix -] 40 mg PO BID 30 Days #30 tablet.ec 06/07/19 Potassium Chloride [K-Dur -] 20 meq PO DAILY 30 Days #30 tablet.er 06/07/19 Thiamine Mononitrate [Vitamin B-1] 100 mg PO DAILY 30 Days #30 tablet 06/07/19 Family Disease History - Family Disease History Family Disease History: CA: Father ( prostate cancer), Other: Mother ( of CVA), Brother (seizure disorder) Review of Systems - Review of Systems Constitutional: reports: Loss of Appetite, Weakness. denies: Chills, Fever, Lethargy Eyes: reports: No Symptoms HENT: reports: No Symptoms Neck: reports: No Symptoms Cardiovascular: reports: No Symptoms. denies: Chest Pain, Palpitations, Shortness of Breath Respiratory: denies: Orthopnea, SOB on Exertion, Wheezing Gastrointestinal: denies: Abdominal Pain, Constipation, Diarrhea, Melena, Rectal Bleeding, Vomiting Musculoskeletal: reports: No Symptoms Integumentary: reports: No Symptoms Neurological: reports: Dizziness, Weakness. denies: Headache, Incoordination, Numbness, Parasthesia Hematology/Lymphatic: denies: Easily Bruised, Excessive Bleeding, Swollen Glands Psychiatric: reports: No Symptoms Physical Examination Vital Signs: Vital Signs Temperature 97.3 F L 06/13/19 12:18 Pulse Rate 93 H 06/13/19 15:56 Respiratory Rate 18 06/13/19 15:56 Blood Pressure 122/84 06/13/19 15:55 O2 Sat by Pulse Oximetry (%) 98 06/13/19 15:56 Constitutional: Yes: No Distress, Calm Eyes: Yes: Conjunctiva Clear, EOM Intact HENT: Yes: Atraumatic, Normocephalic Neck: Yes: Supple, Trachea Midline. No: Lymphadenopathy Cardiovascular: Yes: Pulse Irregular Respiratory: Yes: Regular, CTA Bilaterally, Poor Air Entry Gastrointestinal: Yes: Normal Bowel Sounds, Soft. No: Ascites, Palpable Mass, Tenderness Musculoskeletal: Yes: WNL Edema: LLE: 2+, RLE: 2+ Peripheral Pulses WNL: Yes Integumentary: Yes: WNL. No: Petechiae Neurological: Yes: WNL ...Motor Strength: WNL Psychiatric: Yes: WNL Labs: CBC, BMP 06/13/19 13:18 Laboratory Results - last 24 hr 06/13/19 06/13/19 06/13/19 13:18 13:18 13:18 WBC 114.7 H* RBC 3.28 L Hgb 10.1 L Hct 30.0 L D MCV 91.4 MCH 30.9 MCHC 33.8 RDW 13.9 Plt Count 357 D MPV 10.1 D Absolute Neuts (auto) 60.6 H Neutrophils % 61.1 D Lymphocytes % 22.2 D Monocytes % 16.4 H Eosinophils % 0.1 Basophils % 0.2 Nucleated RBC % 0 Sodium 138 Potassium 4.2 Chloride 100 Carbon Dioxide 29 Anion Gap 10 BUN 42.8 H Creatinine 2.3 H Est GFR (CKD-EPI)AfAm 29.34 Est GFR (CKD-EPI)NonAf 25.31 Random Glucose 117 H Calcium 8.5 Total Bilirubin 0.6 AST 72 H ALT 49 Alkaline Phosphatase 147 H Creatine Kinase 107 Troponin I < 0.02 B-Natriuretic Peptide 15282.6 H Total Protein 6.1 L Albumin 3.2 L Urine Color Urine Appearance Urine pH Ur Specific [place] Urine Protein Urine Glucose (UA) Urine Ketones Urine Blood Urine Nitrite Urine Bilirubin Urine Urobilinogen Ur Leukocyte Esterase 06/13/19 15:50 WBC RBC Hgb Hct MCV MCH MCHC RDW Plt Count MPV Absolute Neuts (auto) Neutrophils % Lymphocytes % Monocytes % Eosinophils % Basophils % Nucleated RBC % Sodium Potassium Chloride Carbon Dioxide Anion Gap BUN Creatinine Est GFR (CKD-EPI)AfAm Est GFR (CKD-EPI)NonAf Random Glucose Calcium Total Bilirubin AST ALT Alkaline Phosphatase Creatine Kinase Troponin I B-Natriuretic Peptide Total Protein Albumin Urine Color Yellow Urine Appearance Clear Urine pH 6.5 Ur Specific [place] 1.008 L Urine Protein Negative Urine Glucose (UA) Negative Urine Ketones Negative Urine Blood Negative Urine Nitrite Negative Urine Bilirubin Negative Urine Urobilinogen 0.2 Ur Leukocyte Esterase Negative Imaging - Results Chest X-ray: Report Reviewed (vascular congestion) Problem List - Problems (1) Atrial fibrillation Code(s): I48.91 - UNSPECIFIED ATRIAL FIBRILLATION Qualifiers: Atrial fibrillation type: chronic Qualified Code(s): I48.2 - Chronic atrial fibrillation (2) JOHN (acute kidney injury) Code(s): N17.9 - ACUTE KIDNEY FAILURE, UNSPECIFIED (3) Balance problem Code(s): R26.89 - OTHER ABNORMALITIES OF GAIT AND MOBILITY (4) Leukocytosis Code(s): D72.829 - ELEVATED WHITE BLOOD CELL COUNT, UNSPECIFIED Qualifiers: Leukocytosis type: unspecified Qualified Code(s): D72.829 - Elevated white blood cell count, unspecified (5) Hyperlipidemia Code(s): E78.5 - HYPERLIPIDEMIA, UNSPECIFIED Qualifiers: Hyperlipidemia type: unspecified Qualified Code(s): E78.5 - Hyperlipidemia , unspecified (6) Hypertension Code(s): I10 - ESSENTIAL (PRIMARY) HYPERTENSION Qualifiers: Hypertension type: essential hypertension Qualified Code(s): I10 - Essential (primary) hypertension Assessment/Plan 250 cc iv fluidx1 continue home medications tenuous fluid balance with JOHN requested heme follow up regarding leukocytosis, T-LGL does not appear to be toxic, blood cultures, urine culture collected, repeat CBC , will monitor off of abx physical therapy
[2019-06-13 20:53] LABS: MCHC 33.3 g/dl (32.0-35.9); MEAN CELL VOLUME 91.6 fl (80-96); RDW 14.4 % (11.9-15.9)
[2019-06-13 20:56] LABS: MEAN PLT VOLUME 9.8 fl (7.5-11.1); PLATELET COUNT 385 K/MM3 (134-434)
[2019-06-13 20:58] LABS: WHITE BLOOD COUNT 138.3 K/mm3 (4.0-10.0)
[2019-06-13] MEDS: PANTOPRAZOLE 40 MG TABLET (FP) PO SCH (21:33)
[2019-06-13] MEDS: ATORVASTATIN CA 10 MG TABLET (FP) PO SCH (21:33)
[2019-06-13] MEDS: APIXABAN 2.5 MG TABLET PO SCH (21:33)
[2019-06-13 22:08] LABS: PLATELET ESTIMATE ADEQUATE
[2019-06-13 22:16] LABS: PLATELET ESTIMATE ADEQUATE
[2019-06-13] MEDS: SODIUM CHLORIDE 0.45% 250 ML IV SCH (23:27)
[2019-06-14 00:37] VITALS: BMI 22.4
[2019-06-14] MEDS: FUROSEMIDE 40 MG TABLET (FP) PO SCH ×2 (06:38→14:00)
[2019-06-14 07:39] LABS: BILIRUBIN,TOTAL 0.7 mg/dL (0.2-1); BLOOD UREA NITROGEN 39.3 mg/dL (7-18); CALCIUM 8.3 mg/dL (8.5-10.1); CREATININE 1.9 mg/dL (0.55-1.3); TOT PROT 5.5 g/dl (6.4-8.2); URIC ACID 9.1 mg/dL (2.6-7.2)
[2019-06-14 07:42] LABS: POTASSIUM 2.8 mmol/L (3.5-5.1)
--- NOTE | 2019-06-14 08:58 | CONSULT ---
Consult - text type - Consultation Consultation Note: Coverage for Dr. Ceja Renal consult for JOHN/CKD This is a 83 year old gentleman with history of CKD, hypertension, hyperlipdemia , CHF, AFib, prostate cancer, who presents with poor balance and weakness and noted to have Cr of 2.3. Pt s/p recent admission for new onset CHF and Afib. Pt seen and examined at the bedside. Reports sob, but not much worse then baseline. Denies any chest pain, abd pain, nausea, vomitting or diarrhea. No fever or chills. Feels fatigued. No dizziness when sitting in bed. PMHx: as above Allergies: NKDA Family Hx: NC Social Hx: No T/A/D ROS: as per HPI, all other pertinent ros negative Home Medications Medication Instructions Recorded Calcium Citrate/Vitamin D3 2 each PO DAILY 05/21/19 [Calcium Cit 315-Vit D3 200 Cpt] Allopurinol [Zyloprim -] 100 mg PO DAILY 30 Days #30 tablet 06/07/19 Apixaban [Eliquis -] 2.5 mg PO BID 30 Days #60 tablet 06/07/19 Atorvastatin Ca [Lipitor] 10 mg PO HS 30 Days #30 tablet 06/07/19 Calcium (Oyster Shell) [Os-Dionicio 1,000 mg PO DAILY tablet 06/07/19 500MG -] Diltiazem Cd [Cardizem Cd -] 120 mg PO DAILY 30 Days #30 06/07/19 cap.cd.24h Furosemide [Lasix -] 40 mg PO BID@0600,1400 30 Days #60 06/07/19 tablet Metoprolol Succinate [Toprol XL -] 100 mg PO BID 30 Days #60 06/07/19 tab.sr.24h Pantoprazole Sodium [Protonix -] 40 mg PO BID 30 Days #30 tablet.ec 06/07/19 Potassium Chloride [K-Dur -] 20 meq PO DAILY 30 Days #30 06/07/19 tablet.er Thiamine Mononitrate [Vitamin B-1] 100 mg PO DAILY 30 Days #30 tablet 06/07/19 Vital Signs Temperature 98.0 F 06/14/19 08:52 Pulse Rate 78 06/14/19 08:52 Respiratory Rate 22 H 06/14/19 08:52 Blood Pressure 119/78 06/14/19 08:52 O2 Sat by Pulse Oximetry (%) 98 08/16/19 15:56 Intake & Output 06/11/19 06/12/19 06/13/19 06/14/19 23:59 23:59 23:59 23:59 Intake Total 250 Output Total 450 Balance -200 Weight 68.946 kg 68.855 kg NAD, on room air neck supple, no JVD irregular, no M/R Dec BS, no rales soft NT/ND no bladder distension + edema in LE CBC, BMP 06/14/19 06:28 Laboratory Tests 06/04/19 06/05/19 06/06/19 05:46 05:58 06:20 Creatinine 1.4 H 1.6 H 1.8 H 06/13/19 06/14/19 13:18 06:28 Creatinine 2.3 H 1.9 H Current Medications Allopurinol (Zyloprim -) 100 mg PO DAILY [facility] Apixaban (Eliquis -) 2.5 mg PO BID [facility] Last Admin: 06/13/19 21:33 Dose: 2.5 mg Atorvastatin Calcium (Lipitor -) 10 mg PO HS [facility] Last Admin: 06/13/19 21:33 Dose: 10 mg Diltiazem HCl (Cardizem Cd -) 120 mg PO DAILY [facility] Furosemide (Lasix -) 40 mg PO BID@0600,1400 [facility] Last Admin: 06/14/19 06:38 Dose: 40 mg Sodium Chloride (1/2 Normal Saline) 250 mls @ 42 mls/hr IV ASDIR [facility] Last Admin: 06/13/19 23:27 Dose: 42 mls/hr Potassium Chloride (Potassium Chloride 10 Meq Premix Ivpb -) 10 meq in 100 mls @ 100 mls/hr IVPB Q60M [facility] Stop: 06/14/19 11:59 Metoprolol Succinate (Toprol Xl -) 100 mg PO BID [facility] Last Admin: 06/13/19 21:33 Dose: 100 mg Pantoprazole Sodium (Protonix -) 40 mg PO BID [facility] Last Admin: 06/13/19 21:33 Dose: 40 mg Potassium Chloride (K-Dur -) 20 meq PO DAILY [facility] Thiamine HCl (Vitamin B1 -) 100 mg PO DAILY [facility] 83 year old gentleman with history of CKD, hypertension, hyperlipdemia, CHF, AFib, prostate cancer, who presents with poor balance and weakness and noted to have Cr of 2.3 1. JOHN on CKD 2. CKD (baseline Cr 1.4-1.8) 3. CHF 4. Afib 5. Hypokalemia in setting of diuretics 6. Leukocytosis Cr improved from yesterday, ? from IV fluid hydration. However pt has CXR consistent with HF and LE edema. Will hold further IVF and maintain on PO Lasix. IF no change in clinical status, can covert to IV Lasix in AM. Check urine studies for FeUrea, UPCR. Cardiology evaluation. Check orthostatics for dizziness. Supplement K with IV K-Cl Hematology evaluation/follow up regarding leukocytosis. Thank you Bar Mcdaniel DO
[2019-06-14] MEDS: KCL 10 MEQ IVPB 10 MEQ/100 ML INFUS.BAG IVPB SCH ×3 (09:58→13:42)
[2019-06-14] MEDS: ALLOPURINOL 100 MG TABLET (FP) PO SCH (09:58)
[2019-06-14] MEDS: POTASSIUM CHLORIDE TABS 20 MEQ TABLET.ER (FP) PO SCH (09:58)
[2019-06-14] MEDS: APIXABAN 2.5 MG TABLET PO SCH ×2 (09:58→21:22)
[2019-06-14] MEDS: PANTOPRAZOLE 40 MG TABLET (FP) PO SCH ×2 (09:58→21:21)
[2019-06-14] MEDS: THIAMINE HCL 100 MG TABLET (FP) PO SCH (09:59)
[2019-06-14 11:41] LABS: HEMOGLOBIN 9.6 GM/dL (11.7-16.9); LYMPH % 44.5 % (8-40); MCH 32.1 pg (25.7-33.7); MCHC 35.7 g/dl (32.0-35.9); MEAN CELL VOLUME 90.1 fl (80-96); MEAN PLT VOLUME 8.6 fl (7.5-11.1); MONO % 19.9 % (3.8-10.2); NEUT % 35.6 % (42.8-82.8); PLATELET COUNT 320 K/MM3 (134-434)
[2019-06-14 11:55] LABS: WHITE BLOOD COUNT 82.9 K/mm3 (4.0-10.0)
--- NOTE | 2019-06-14 12:15 | PN ---
Progress Note, Physician Chief Complaint: He is better but still week no fever or chills but c/osob on min exertion History of Present Illness: He was admitted for worsening of chf to hospital and has h/o afib, htn and renal insufficiency - Current Medication List Current Medications: Active Medications Allopurinol (Zyloprim -) 100 mg PO DAILY [facility] Last Admin: 06/14/19 09:58 Dose: 100 mg Apixaban (Eliquis -) 2.5 mg PO BID [facility] Last Admin: 06/14/19 09:58 Dose: 2.5 mg Atorvastatin Calcium (Lipitor -) 10 mg PO HS [facility] Last Admin: 06/13/19 21:33 Dose: 10 mg Diltiazem HCl (Cardizem Cd -) 120 mg PO DAILY [facility] Last Admin: 06/14/19 09:58 Dose: 120 mg Furosemide (Lasix -) 40 mg PO BID@0600,1400 [facility] Last Admin: 06/14/19 06:38 Dose: 40 mg Sodium Chloride (1/2 Normal Saline) 250 mls @ 42 mls/hr IV ASDIR [facility] Last Admin: 06/13/19 23:27 Dose: 42 mls/hr Metoprolol Succinate (Toprol Xl -) 100 mg PO BID [facility] Last Admin: 06/14/19 09:58 Dose: 100 mg Pantoprazole Sodium (Protonix -) 40 mg PO BID [facility] Last Admin: 06/14/19 09:58 Dose: 40 mg Potassium Chloride (K-Dur -) 20 meq PO DAILY [facility] Last Admin: 06/14/19 09:58 Dose: 20 meq Thiamine HCl (Vitamin B1 -) 100 mg PO DAILY [facility] Last Admin: 06/14/19 09:59 Dose: 100 mg - Objective Vital Signs: Vital Signs Temperature 98.0 F 06/14/19 08:52 Pulse Rate 78 06/14/19 08:52 Respiratory Rate 22 H 06/14/19 09:00 Blood Pressure 119/78 06/14/19 08:52 O2 Sat by Pulse Oximetry (%) 92 L 06/14/19 09:00 Constitutional: Yes: Well Nourished, No Distress Eyes: Yes: Conjunctiva Clear Neck: Yes: Supple Cardiovascular: Yes: Pulse Irregular, Murmur Respiratory: Yes: CTA Bilaterally Gastrointestinal: Yes: Normal Bowel Sounds Edema: Yes Edema: LLE: 1+, RLE: 1+ Integumentary: Yes: WNL Labs: CBC, BMP 06/14/19 06:28 06/14/19 06:28 Problem List - Problems (1) Hypokalemia Code(s): E87.6 - HYPOKALEMIA (2) Atrial fibrillation Assessment/Plan: shawnee replace today and it is due to lasix Code(s): I48.91 - UNSPECIFIED ATRIAL FIBRILLATION Qualifiers: Atrial fibrillation type: chronic Qualified Code(s): I48.2 - Chronic atrial fibrillation (3) CHF exacerbation Assessment/Plan: lasix and shoshana his rate is controled on beta cayetano and digoxin Code(s): I50.9 - HEART FAILURE, UNSPECIFIED Qualifiers: Heart failure type: unspecified Qualified Code(s): I50.9 - Heart failure, unspecified (4) Leukocytosis Assessment/Plan: spoke to dr juárez and she said his flow cytometery back and 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 Code(s): D72.829 - ELEVATED WHITE BLOOD CELL COUNT, UNSPECIFIED Qualifiers: Leukocytosis type: unspecified Qualified Code(s): D72.829 - Elevated white blood cell count, unspecified
--- NOTE | 2019-06-14 16:58 | CONSULT ---
Consult Consult Specialty:: Hematology Reason for Consultation:: Leukocytosis. History of T-LGL - History of Present Illness Chief Complaint: Fatigue. Failure to thrive History of Present Illness: 83 y/o gentleman recently admitted with Atrial Fibrillation and CHF with significant PMH of cirrhosis and GAVE discharged recently now readmitted due to Failure to thrive, lack of apetite, poor energy, etc. He denied any acute complaints at the time of my interview. No acute bleeding, easy brusing, fevers , chills, no acute complaints - History Source History Provided By: Patient, Family Member Limitations to Obtaining History: No Limitations - Past Medical History Cardio/Vascular: Yes: AFIB, CHF, HTN, Hyperlipdemia Gastrointestinal: Yes: Diverticulosis ( colonoscopy diverticulosis, polyps , mild diverticular stricture), Gastritis (), GERD, 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 , and .), Hiatal Hernia, Other (descending colon adenomas removed 12/09) Renal/: Yes: Cancer (Prostate cancer with radical prostatectomy in 2002) Heme/Onc: Yes: Other (T-LGL) - Past Surgical History Past Surgical History: Yes: Colonoscopy (), Prostatectomy (radical prostatectomy 2002 for cancer), Upper Endoscopy () - Alcohol/Substance Use Hx Alcohol Use: Yes History of Substance Use: reports: None - Smoking History Smoking history: Never smoked Have you smoked in the past 12 months: No If you are a former smoker, when did you quit?: 1999 - Social History Usual Living Arrangement: With Spouse ADL: Independent Home Medications - Allergies Allergies/Adverse Reactions: Allergies Allergy/AdvReac Type Severity Reaction Status Date / Time Sulfa (Sulfonamide Allergy Mild Rash Verified 05/21/19 20:24 Antibiotics) - Home Medications Home Medications: Ambulatory Orders Calcium Citrate/Vitamin D3 [Calcium Cit 315-Vit D3 200 Cpt] 2 each PO DAILY Allopurinol [Zyloprim -] 100 mg PO DAILY 30 Days #30 tablet 06/07/19 Apixaban [Eliquis -] 2.5 mg PO BID 30 Days #60 tablet 06/07/19 Atorvastatin Ca [Lipitor] 10 mg PO HS 30 Days #30 tablet 06/07/19 Calcium (Oyster Shell) [Os-Dionicio 500MG -] 1,000 mg PO DAILY tablet 06/07/19 Diltiazem Cd [Cardizem Cd -] 120 mg PO DAILY 30 Days #30 cap.cd.24h 06/07/19 Furosemide [Lasix -] 40 mg PO BID@0600,1400 30 Days #60 tablet 06/07/19 Metoprolol Succinate [Toprol XL -] 100 mg PO BID 30 Days #60 tab.sr.24h Pantoprazole Sodium [Protonix -] 40 mg PO BID 30 Days #30 tablet.ec 06/07/19 Potassium Chloride [K-Dur -] 20 meq PO DAILY 30 Days #30 tablet.er 06/07/19 Thiamine Mononitrate [Vitamin B-1] 100 mg PO DAILY 30 Days #30 tablet 06/07/19 Family Disease History - Family Disease History Family Disease History: CA: Father ( prostate cancer), Other: Mother ( of CVA), Brother (seizure disorder) Review of Systems - Review of Systems Constitutional: reports: No Symptoms, Malaise, Weakness Eyes: reports: No Symptoms HENT: reports: No Symptoms Neck: reports: No Symptoms Cardiovascular: reports: Shortness of Breath Respiratory: reports: Exercise Intolerance Gastrointestinal: reports: No Symptoms Genitourinary: reports: No Symptoms Musculoskeletal: reports: No Symptoms Integumentary: reports: No Symptoms Neurological: reports: No Symptoms Endocrine: reports: No Symptoms Hematology/Lymphatic: reports: No Symptoms Psychiatric: reports: No Symptoms Physical Exam Vital Signs: Vital Signs Temperature 97.9 F 06/14/19 14:00 Pulse Rate 93 H 06/14/19 14:00 Respiratory Rate 22 H 06/14/19 09:00 Blood Pressure 110/68 06/14/19 14:00 O2 Sat by Pulse Oximetry (%) 92 L 06/14/19 09:00 Constitutional: Yes: Well Nourished, No Distress, Calm Eyes: Yes: WNL, Conjunctiva Clear, EOM Intact Neck: Yes: WNL, Supple, Trachea Midline Cardiovascular: Yes: Pulse Irregular Respiratory: Yes: WNL, Regular, Rales Gastrointestinal: Yes: WNL, Normal Bowel Sounds, Soft ...Rectal Exam: Yes: Deferred. No: WNL, Erythema, Guaiac Negative, Guaiac Positive, Guaiac Trace, Hemorrhoids/External, Hemorrhoids/Internal, Induration, Inflammation, Mass, Sphincter Tone Normal, Sphincter Tone Poor, Other Renal/: Yes: WNL Breast(s): Yes: WNL Musculoskeletal: Yes: WNL Extremities: Yes: WNL Peripheral Pulses WNL: Yes Integumentary: Yes: WNL Neurological: Yes: WNL, Alert, Oriented Labs: CBC, BMP 06/14/19 06:28 06/14/19 06:28 Assessment/Plan 83 y/o gentleman with A-Fib and CHF readmitted for failure to thrive. Hematology consulted for leukocytosis. 1. 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 Peripheral blood smear reviewed and leukocytosis appears to be artifactual due to the presence of a cold agglutinin. Cryofibrinogen and cryoglobulins have been ordered and are pending. Suggest to repeat Flow in 2-3 days if Leukocytosis still present. He does not have any symptoms. A similar pattern of leukocytosis was observed in his prior admission prompting Flow Cytometry analysis reported above. Will continue to monitor 2. Agree with Cryofibrinogen and cryoglobulin testing 3. Thank you for this consultation
[2019-06-14] MEDS: ATORVASTATIN CA 10 MG TABLET (FP) PO SCH (21:21)
[2019-06-14] MEDS: SODIUM CHLORIDE 0.45% 250 ML IV SCH (21:24)
[2019-06-14 23:07] LABS: RATIO URIN PROTEIN/URIN CREAT 0.25 MG/DL
[2019-06-15] MEDS: FUROSEMIDE 40 MG TABLET (FP) PO SCH ×2 (06:21→13:22)
--- NOTE | 2019-06-15 09:29 | PN ---
Progress Note (short form) - Note Progress Note: Coverage for Dr. Ceja Renal follow up for CKD Pt seen and examined at the bedside reports mild sob, no chest pain, abd pain, fever or chills making urine Vital Signs Temperature 98 F 06/15/19 05:49 Pulse Rate 89 06/15/19 05:49 Respiratory Rate 20 06/15/19 05:49 Blood Pressure 119/85 06/15/19 05:49 O2 Sat by Pulse Oximetry (%) 97 06/14/19 21:00 Intake & Output 06/12/19 06/13/19 06/14/19 06/15/19 23:59 23:59 23:59 23:59 Intake Total 860 624 Output Total 1600 300 Balance -740 324 Weight 68.946 kg 68.855 kg 69.672 kg NAD, on room air neck supple, no JVD irregular, no M/R Dec BS, no rales soft NT/ND no bladder distension + edema in LE CBC, BMP 06/14/19 06:28 06/14/19 06:28 Current Medications Allopurinol (Zyloprim -) 100 mg PO DAILY [facility] Last Admin: 06/14/19 09:58 Dose: 100 mg Apixaban (Eliquis -) 2.5 mg PO BID [facility] Last Admin: 06/14/19 21:22 Dose: 2.5 mg Atorvastatin Calcium (Lipitor -) 10 mg PO HS [facility] Last Admin: 06/14/19 21:21 Dose: 10 mg Diltiazem HCl (Cardizem Cd -) 120 mg PO DAILY [facility] Last Admin: 06/15/19 09:29 Dose: 120 mg Furosemide (Lasix -) 40 mg PO BID@0600,1400 [facility] Last Admin: 06/15/19 06:21 Dose: 40 mg Sodium Chloride (1/2 Normal Saline) 250 mls @ 42 mls/hr IV ASDIR [facility] Last Admin: 06/14/19 21:24 Dose: Not Given Potassium Chloride (Potassium Chloride 10 Meq Premix Ivpb -) 10 meq in 100 mls @ 100 mls/hr IVPB Q60M [facility] Stop: 06/15/19 12:14 Metoprolol Succinate (Toprol Xl -) 100 mg PO BID [facility] Last Admin: 06/15/19 09:29 Dose: 100 mg Pantoprazole Sodium (Protonix -) 40 mg PO BID [facility] Last Admin: 06/14/19 21:21 Dose: 40 mg Potassium Chloride (K-Dur -) 20 meq PO DAILY [facility] Last Admin: 06/14/19 09:58 Dose: 20 meq Thiamine HCl (Vitamin B1 -) 100 mg PO DAILY [facility] Last Admin: 06/14/19 09:59 Dose: 100 mg 83 year old gentleman with history of CKD, hypertension, hyperlipdemia, CHF, AFib, prostate cancer, who presents with poor balance and weakness and noted to have Cr of 2.3 1. JOHN on CKD 2. CKD (baseline Cr 1.4-1.8) 3. CHF 4. Afib 5. Hypokalemia in setting of diuretics 6. 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
--- NOTE | 2019-06-15 10:41 | CON.CARD ---
Consult Consult Specialty:: Cardiology Referred by:: Jimmy Reason for Consultation:: CHF - History of Present Illness Chief Complaint: weakness, unsteady gait History of Present Illness: 83yo male with PMH of HTN, HLD, prostate CA, GAVE recently admitted with new- onset CHF and atrial fibrillation with RVR. Now presents with weakness, sob and unsteady gait. Echo 05/22/19: normal EF, dilated RV, mild dec RV function. mod LAE/KARRIE. trace to mild MR. Mod to sev TR RVSP 40-50. 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 , and .), Hiatal Hernia, Other (descending colon adenomas removed 12/09) Renal/: Yes: Cancer (Prostate cancer with radical prostatectomy in 2002) - Past Surgical History Past Surgical History: Yes: Colonoscopy (), Prostatectomy (radical prostatectomy 2002 for cancer), Upper Endoscopy () - Alcohol/Substance Use Hx Alcohol Use: Yes History of Substance Use: reports: None - Smoking History Smoking history: Never smoked Have you smoked in the past 12 months: No If you are a former smoker, when did you quit?: 1999 - Social History Usual Living Arrangement: With Spouse ADL: Independent Home Medications - Allergies Allergies/Adverse Reactions: Allergies Allergy/AdvReac Type Severity Reaction Status Date / Time Sulfa (Sulfonamide Allergy Mild Rash Verified 05/21/19 20:24 Antibiotics) - Home Medications Home Medications: Ambulatory Orders Calcium Citrate/Vitamin D3 [Calcium Cit 315-Vit D3 200 Cpt] 2 each PO DAILY Allopurinol [Zyloprim -] 100 mg PO DAILY 30 Days #30 tablet 06/07/19 Apixaban [Eliquis -] 2.5 mg PO BID 30 Days #60 tablet 06/07/19 Atorvastatin Ca [Lipitor] 10 mg PO HS 30 Days #30 tablet 06/07/19 Calcium (Oyster Shell) [Os-Dionicio 500MG -] 1,000 mg PO DAILY tablet 06/07/19 Diltiazem Cd [Cardizem Cd -] 120 mg PO DAILY 30 Days #30 cap.cd.24h 06/07/19 Furosemide [Lasix -] 40 mg PO BID@0600,1400 30 Days #60 tablet 06/07/19 Metoprolol Succinate [Toprol XL -] 100 mg PO BID 30 Days #60 tab.sr.24h Pantoprazole Sodium [Protonix -] 40 mg PO BID 30 Days #30 tablet.ec 06/07/19 Potassium Chloride [K-Dur -] 20 meq PO DAILY 30 Days #30 tablet.er 06/07/19 Thiamine Mononitrate [Vitamin B-1] 100 mg PO DAILY 30 Days #30 tablet 06/07/19 Family Disease History - Family Disease History Family Disease History: CA: Father ( prostate cancer), Other: Mother ( of CVA), Brother (seizure disorder) Vital Signs: Vital Signs Temperature 98 F 06/15/19 09:00 Pulse Rate 140 H 06/15/19 09:00 Respiratory Rate 20 06/15/19 09:00 Blood Pressure 122/74 06/15/19 09:00 O2 Sat by Pulse Oximetry (%) 97 06/15/19 09:00 Constitutional: Yes: Well Nourished, No Distress Eyes: Yes: Conjunctiva Clear, EOM Intact HENT: Yes: Atraumatic, Normocephalic Neck: Yes: Supple, Trachea Midline Respiratory: Yes: CTA Bilaterally Gastrointestinal: Yes: Normal Bowel Sounds, Soft Cardiovascular: Yes: Regular Rate and Rhythm JVD: Yes Carotid Bruit: No PMI: Non-Displaced Heart Sounds: Yes: S1, S2 Murmur: Yes: Systolic Murmur, Grade 2 Musculoskeletal: Yes: Muscle Weakness Extremities: Yes: WNL Edema: Yes Edema: LLE: 1+, RLE: 1+ Peripheral Pulses WNL: Yes - Other Data Labs, Other Data: CBC, BMP 06/14/19 06:28 06/14/19 06:28 Imaging - Results Chest X-ray: Report Reviewed EKG: Report Reviewed Other: Report Reviewed (CT) Assessment/Plan 83yo male with PMH of HTN, HLD, prostate CA, GAVE recently admitted with new- onset CHF and atrial fibrillation with RVR. Now presents with weakness, sob and unsteady gait. Found with JOHN on CKD. likely overdiuresis. CHF -continue lasix 40 bid. -daily wts, I/O -low Na diet -renal eval -avoid ACEI/ARB/entresto for now Chronic atrial fibrillation -continue eliquis adjusted for age and renal function. -rates are controlled. -continue diltiazem
[2019-06-15] MEDS: APIXABAN 2.5 MG TABLET PO SCH ×2 (10:42→21:15)
[2019-06-15] MEDS: PANTOPRAZOLE 40 MG TABLET (FP) PO SCH ×2 (10:42→21:15)
[2019-06-15] MEDS: POTASSIUM CHLORIDE TABS 20 MEQ TABLET.ER (FP) PO SCH (10:42)
[2019-06-15] MEDS: ALLOPURINOL 100 MG TABLET (FP) PO SCH (10:42)
[2019-06-15] MEDS: KCL 10 MEQ IVPB 10 MEQ/100 ML INFUS.BAG IVPB SCH ×3 (10:42→16:09)
[2019-06-15] MEDS: THIAMINE HCL 100 MG TABLET (FP) PO SCH (10:43)
--- NOTE | 2019-06-15 11:41 | EKG ---
Test Reason : Blood Pressure : / mmHG Vent. Rate : 081 BPM Atrial Rate : 079 BPM P-R Int : 000 ms QRS Dur : 100 ms QT Int : 402 ms P-R-T Axes : 000 051 021 degrees QTc Int : 466 ms ATRIAL FIBRILLATION WITH A COMPETING JUNCTIONAL PACEMAKER INCOMPLETE RIGHT BUNDLE BRANCH BLOCK ABNORMAL ECG WHEN COMPARED WITH ECG OF 21-MAY-2019 21:20, NO SIGNIFICANT CHANGE WAS FOUND Confirmed by JOSE ANTONIO MARIA MD ([id number]) on 06/15/2019 11:41:03 AM Referred By: Confirmed By:JOSE ANTONIO MARIA MD
[2019-06-15 12:37] LABS: ALBUMIN 3.1 g/dl (3.4-5.0); BILIRUBIN,TOTAL 0.5 mg/dL (0.2-1); BLOOD UREA NITROGEN 42.8 mg/dL (7-18); CALCIUM 7.9 mg/dL (8.5-10.1); MAGNESIUM 2.2 mg/dL (1.8-2.4); PHOSPHOROUS 2.7 mg/dL (2.5-4.9); POTASSIUM 3.4 mmol/L (3.5-5.1); TOT PROT 5.7 g/dl (6.4-8.2)
--- NOTE | 2019-06-15 13:46 | PN ---
Progress Note, Physician Chief Complaint: He is better but still week no fever or chills but c/osob on min exertion History of Present Illness: He was admitted for worsening of chf to hospital and has h/o afib, htn and renal insufficiency - Current Medication List Current Medications: Active Medications Allopurinol (Zyloprim -) 100 mg PO DAILY [facility] Last Admin: 06/15/19 10:42 Dose: 100 mg Apixaban (Eliquis -) 2.5 mg PO BID [facility] Last Admin: 06/15/19 10:42 Dose: 2.5 mg Atorvastatin Calcium (Lipitor -) 10 mg PO HS [facility] Last Admin: 06/14/19 21:21 Dose: 10 mg Diltiazem HCl (Cardizem Cd -) 120 mg PO DAILY [facility] Last Admin: 06/15/19 09:29 Dose: 120 mg Furosemide (Lasix -) 40 mg PO BID@0600,1400 [facility] Last Admin: 06/15/19 13:22 Dose: 40 mg Sodium Chloride (1/2 Normal Saline) 250 mls @ 42 mls/hr IV ASDIR [facility] Last Admin: 06/14/19 21:24 Dose: Not Given Metoprolol Succinate (Toprol Xl -) 100 mg PO BID [facility] Last Admin: 06/15/19 09:29 Dose: 100 mg Pantoprazole Sodium (Protonix -) 40 mg PO BID [facility] Last Admin: 06/15/19 10:42 Dose: 40 mg Potassium Chloride (K-Dur -) 20 meq PO DAILY [facility] Last Admin: 06/15/19 10:42 Dose: 20 meq Thiamine HCl (Vitamin B1 -) 100 mg PO DAILY [facility] Last Admin: 06/15/19 10:43 Dose: 100 mg - Objective Vital Signs: Vital Signs Temperature 98 F 06/15/19 09:00 Pulse Rate 140 H 06/15/19 09:00 Respiratory Rate 20 06/15/19 09:00 Blood Pressure 122/74 06/15/19 09:00 O2 Sat by Pulse Oximetry (%) 97 06/15/19 09:00 Constitutional: Yes: No Distress Eyes: Yes: Conjunctiva Clear HENT: Yes: Normocephalic Neck: Yes: Trachea Midline Cardiovascular: Yes: Regular Rate and Rhythm, Pulse Irregular Respiratory: Yes: CTA Bilaterally Gastrointestinal: Yes: Normal Bowel Sounds Edema: Yes Edema: LLE: 1+, RLE: 1+ Labs: CBC, BMP 06/15/19 11:40 Problem List - Problems (1) Hypokalemia Code(s): E87.6 - HYPOKALEMIA (2) Atrial fibrillation Assessment/Plan: shawnee replace today and it is due to lasix Code(s): I48.91 - UNSPECIFIED ATRIAL FIBRILLATION Qualifiers: Atrial fibrillation type: chronic Qualified Code(s): I48.2 - Chronic atrial fibrillation (3) CHF exacerbation Assessment/Plan: lasix and shoshana his rate is controled on beta cayetano and digoxin Code(s): I50.9 - HEART FAILURE, UNSPECIFIED Qualifiers: Heart failure type: unspecified Qualified Code(s): I50.9 - Heart failure, unspecified (4) Leukocytosis Assessment/Plan: spoke to dr juárez and she said his flow cytometery back and 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 Code(s): D72.829 - ELEVATED WHITE BLOOD CELL COUNT, UNSPECIFIED Qualifiers: Leukocytosis type: unspecified Qualified Code(s): D72.829 - Elevated white blood cell count, unspecified
[2019-06-15 14:26] LABS: ERYTHROCYTE SEDIMENTATION RATE 82 mm/hr (0-20)
[2019-06-15 14:30] LABS: BASO % 0.5 % (0-2.0); EOS % 0.2 % (0-4.5); HEMATOCRIT 29.7 % (35.4-49); HEMOGLOBIN 10.1 GM/dL (11.7-16.9); LYMPH % 24.5 % (8-40); MCH 30.5 pg (25.7-33.7); MCHC 33.9 g/dl (32.0-35.9); MEAN CELL VOLUME 89.8 fl (80-96); MEAN PLT VOLUME 8.9 fl (7.5-11.1); MONO % 14.6 % (3.8-10.2); NEUT % 60.2 % (42.8-82.8); PLATELET COUNT 295 K/MM3 (134-434); RBC 3.31 M/mm3 (4.00-5.60); RDW 13.7 % (11.9-15.9)
[2019-06-15 14:36] LABS: WHITE BLOOD COUNT 83.6 K/mm3 (4.0-10.0)
--- NOTE | 2019-06-15 15:06 | CONSULT ---
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 Consult requested to r/o rheumatoid arthritis based on Dx of T-LGL. HPI On the previous admission the patient was found to have a positive MAR and creatinine elevation with normal urinary sediment. Laboratory work-up revealed MAR 1:320 with nucleolar pattern. Anti-DNAds, anti-Sm, anti-AERONAUTICAL INSPECTOR, transgutaminase IgG and IgA, glomerular basal membrane antibody, ANCA, myeloperoxidase and proteinse-3 were all normal. 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 At the present time the patient denies joint pain, morning stfiffness, skin rash or Sicca syndrome. Laboratory work-up on this admission: creatinine on 06/05/19: 1.6, on 06/15/19: 2.0. Urinalysis normal. CBC with WBC 83.6, Hgb 10.1 and platelets 295. Rheumatoid factor was negative. 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 ,' and .), Hiatal Hernia, Other (descending colon adenomas removed 12/09) Renal/: Yes: Cancer (Prostate cancer with radical prostatectomy in 2002) - Past Surgical History Past Surgical History: Yes: Colonoscopy (), Prostatectomy (radical prostatectomy 2002 for cancer), Upper Endoscopy () - Alcohol/Substance Use Hx Alcohol Use: Yes History of Substance Use: reports: None - Smoking History Smoking history: Never smoked Have you smoked in the past 12 months: No If you are a former smoker, when did you quit?: 1999 - Social History Usual Living Arrangement: With Spouse ADL: Independent Home Medications - Allergies Allergies/Adverse Reactions: Allergies Allergy/AdvReac Type Severity Reaction Status Date / Time Sulfa (Sulfonamide Allergy Mild Rash Verified 05/21/19 20:24 Antibiotics) - Home Medications Home Medications: Ambulatory Orders Calcium Citrate/Vitamin D3 [Calcium Cit 315-Vit D3 200 Cpt] 2 each PO DAILY Allopurinol [Zyloprim -] 100 mg PO DAILY 30 Days #30 tablet 06/07/19 Apixaban [Eliquis -] 2.5 mg PO BID 30 Days #60 tablet 06/07/19 Atorvastatin Ca [Lipitor] 10 mg PO HS 30 Days #30 tablet 06/07/19 Calcium (Oyster Shell) [Os-Dionicio 500MG -] 1,000 mg PO DAILY tablet 06/07/19 Diltiazem Cd [Cardizem Cd -] 120 mg PO DAILY 30 Days #30 cap.cd.24h 06/07/19 Furosemide [Lasix -] 40 mg PO BID@0600,1400 30 Days #60 tablet 06/07/19 Metoprolol Succinate [Toprol XL -] 100 mg PO BID 30 Days #60 tab.sr.24h Pantoprazole Sodium [Protonix -] 40 mg PO BID 30 Days #30 tablet.ec 06/07/19 Potassium Chloride [K-Dur -] 20 meq PO DAILY 30 Days #30 tablet.er 06/07/19 Thiamine Mononitrate [Vitamin B-1] 100 mg PO DAILY 30 Days #30 tablet 06/07/19 Family Disease History - Family Disease History Family Disease History: CA: Father ( prostate cancer), Other: Mother ( of CVA), Brother (seizure disorder) Review of Systems - Review of Systems Constitutional: reports: Malaise Eyes: reports: No Symptoms HENT: reports: No Symptoms Cardiovascular: reports: Shortness of Breath Respiratory: reports: SOB Gastrointestinal: reports: No Symptoms Breasts: reports: Lumps Musculoskeletal: reports: Other (No active joints and no stigmata of chronic inflammatory arthritis) Physical Exam Vital Signs: Vital Signs Temperature 98 F 06/15/19 09:00 Pulse Rate 140 H 06/15/19 09:00 Respiratory Rate 20 06/15/19 09:00 Blood Pressure 122/74 06/15/19 09:00 O2 Sat by Pulse Oximetry (%) 97 06/15/19 09:00 Constitutional: Yes: Moderate Distress Eyes: Yes: WNL HENT: Yes: WNL Neck: Yes: WNL Cardiovascular: Yes: WNL Respiratory: Yes: Other (Few crackles in bases.) Gastrointestinal: Yes: WNL Renal/: Yes: WNL Musculoskeletal: Yes: Other (No active joints.) Labs: CBC, BMP 06/15/19 11:40 06/15/19 11:40 Laboratory Tests 06/13/19 06/13/19 06/14/19 13:18 15:50 06:28 ESR Haptoglobin Calcium Phosphorus Magnesium Total Bilirubin AST ALT Alkaline Phosphatase Creatine Kinase 107 C-Reactive Protein Total Protein Albumin TSH Urine Color Yellow Urine Appearance Clear Urine pH 6.5 Ur Specific [place] 1.008 L Urine Protein Negative Urine Glucose (UA) Negative Urine Ketones Negative Urine Blood Negative Urine Nitrite Negative Urine Bilirubin Negative Urine Urobilinogen 0.2 Ur Leukocyte Esterase Negative Ur Random Creatinine U Random Total Protein Rheumatoid Factor < 10.0 06/14/19 06/14/19 06/14/19 06:28 18:15 18:15 ESR Haptoglobin 171 Calcium Phosphorus Magnesium Total Bilirubin AST ALT Alkaline Phosphatase Creatine Kinase C-Reactive Protein Total Protein Albumin TSH Urine Color Urine Appearance Urine pH Ur Specific [place] Urine Protein Urine Glucose (UA) Urine Ketones Urine Blood Urine Nitrite Urine Bilirubin Urine Urobilinogen Ur Leukocyte Esterase Ur Random Creatinine 70.0 U Random Total Protein 17.4 H Rheumatoid Factor 06/15/19 06/15/19 11:40 11:40 ESR 82 H Haptoglobin Calcium 7.9 L Phosphorus 2.7 Magnesium 2.2 Total Bilirubin 0.5 AST 62 H ALT 55 Alkaline Phosphatase 167 H Creatine Kinase C-Reactive Protein 0.9 H Total Protein 5.7 L Albumin 3.1 L TSH 2.24 D Urine Color Urine Appearance Urine pH Ur Specific [place] Urine Protein Urine Glucose (UA) Urine Ketones Urine Blood Urine Nitrite Urine Bilirubin Urine Urobilinogen Ur Leukocyte Esterase Ur Random Creatinine U Random Total Protein Rheumatoid Factor Problem List - Problems (1) MAR positive Assessment/Plan: The patient has a false positive MAR. He has T-LG leukemia which is frequently associated with rheumatoid arthritis, however he does not have inflammatory arthritis and rheumatoid factor is negative. No further work-up is required for this possibility, Code(s): R76.8 - OTHER SPECIFIED ABNORMAL IMMUNOLOGICAL FINDINGS IN SERUM
[2019-06-15 20:09] LABS: PLATELET ESTIMATE ADEQUATE
[2019-06-15] MEDS: ATORVASTATIN CA 10 MG TABLET (FP) PO SCH (21:15)
[2019-06-16] MEDS: FUROSEMIDE 40 MG TABLET (FP) PO SCH ×2 (06:24→14:30)
[2019-06-16] MEDS ORDERED: LIDOCAINE HCL 1%, 10 MG/ML (20ML VIAL) ONE (08:25)
--- NOTE | 2019-06-16 08:57 | PN ---
Progress Note (short form) - Note Progress Note: still weak CBC, BMP 06/15/19 11:40 06/15/19 11:40 Vital Signs Period Temp Pulse Resp BP Sys/Brewer Pulse Ox Last 24 Hr 97.9 F-98.5 F 86-140 20-20 114-132/73-80 97-97 S1S2 irreg.irreg. 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 with underlying CKD heme follow up for possible bone marrow biopsy today physical therapy cont diuresis Problem List - Problems (1) Atrial fibrillation Code(s): I48.91 - UNSPECIFIED ATRIAL FIBRILLATION Qualifiers: Atrial fibrillation type: chronic Qualified Code(s): I48.2 - Chronic atrial fibrillation (2) JOHN (acute kidney injury) Code(s): N17.9 - ACUTE KIDNEY FAILURE, UNSPECIFIED (3) Balance problem Code(s): R26.89 - OTHER ABNORMALITIES OF GAIT AND MOBILITY (4) Leukocytosis Code(s): D72.829 - ELEVATED WHITE BLOOD CELL COUNT, UNSPECIFIED Qualifiers: Leukocytosis type: unspecified Qualified Code(s): D72.829 - Elevated white blood cell count, unspecified (5) Hyperlipidemia Code(s): E78.5 - HYPERLIPIDEMIA, UNSPECIFIED Qualifiers: Hyperlipidemia type: unspecified Qualified Code(s): E78.5 - Hyperlipidemia , unspecified (6) Hypertension Code(s): I10 - ESSENTIAL (PRIMARY) HYPERTENSION Qualifiers: Hypertension type: essential hypertension Qualified Code(s): I10 - Essential (primary) hypertension
[2019-06-16] MEDS: THIAMINE HCL 100 MG TABLET (FP) PO SCH (10:34)
[2019-06-16] MEDS: PANTOPRAZOLE 40 MG TABLET (FP) PO SCH ×2 (10:35→22:15)
[2019-06-16] MEDS: ALLOPURINOL 100 MG TABLET (FP) PO SCH (10:35)
[2019-06-16] MEDS: POTASSIUM CHLORIDE TABS 20 MEQ TABLET.ER (FP) PO SCH (10:35)
--- NOTE | 2019-06-16 11:24 | PN ---
Progress Note (short form) - Note Progress Note: PULMONARY CONSULTATION DICTATED IMP DYSPNEA ACUTE ON CHRONIC CHF AFIB WITH RVR PULMONARY HTN H/O GAVE ANEMIA ACUTE ON CHRONIC KIDNEY DISEASE LEFT PERICARDIAL CYST BECKY H/O PROSTATE CA S/P PROSTATECTOMY WEAKNESS PLAN LASIX SUPPLEMENTAL O2 RATE CONTROL PER CARDIOLOGY AC MONITOR LYTES,RENAL FUNCTION MONITOR CBC NORMAL TRANSFUSION THRESHOLD DR CARABALLO Problem List - Problems (1) Atrial fibrillation Code(s): I48.91 - UNSPECIFIED ATRIAL FIBRILLATION Qualifiers: Atrial fibrillation type: chronic Qualified Code(s): I48.2 - Chronic atrial fibrillation (2) CHF exacerbation Code(s): I50.9 - HEART FAILURE, UNSPECIFIED Qualifiers: Heart failure type: unspecified Qualified Code(s): I50.9 - Heart failure, unspecified (3) Leukocytosis Code(s): D72.829 - ELEVATED WHITE BLOOD CELL COUNT, UNSPECIFIED Qualifiers: Leukocytosis type: unspecified Qualified Code(s): D72.829 - Elevated white blood cell count, unspecified (4) GAVE (gastric antral vascular ectasia) Code(s): K31.819 - ANGIODYSPLASIA OF STOMACH AND DUODENUM WITHOUT BLEEDING (5) History of radical prostatectomy Code(s): Z90.79 - ACQUIRED ABSENCE OF OTHER GENITAL ORGAN(S) (6) Hyperlipidemia Code(s): E78.5 - HYPERLIPIDEMIA, UNSPECIFIED Qualifiers: Hyperlipidemia type: unspecified Qualified Code(s): E78.5 - Hyperlipidemia , unspecified (7) Hypertension Code(s): I10 - ESSENTIAL (PRIMARY) HYPERTENSION Qualifiers: Hypertension type: essential hypertension Qualified Code(s): I10 - Essential (primary) hypertension (8) Leukocytosis Code(s): D72.829 - ELEVATED WHITE BLOOD CELL COUNT, UNSPECIFIED Qualifiers: Leukocytosis type: unspecified Qualified Code(s): D72.829 - Elevated white blood cell count, unspecified (9) New onset of congestive heart failure Code(s): I50.9 - HEART FAILURE, UNSPECIFIED (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
--- NOTE | 2019-06-16 13:07 | PN ---
Progress Note, Physician History of Present Illness: Pt seen and examined at bedside. He feels that his lower ext edema is improved. is at bedside and care was discussed with her. - Current Medication List Current Medications: Active Medications Allopurinol (Zyloprim -) 100 mg PO DAILY [facility] Last Admin: 06/16/19 10:35 Dose: 100 mg Atorvastatin Calcium (Lipitor -) 10 mg PO HS [facility] Last Admin: 06/15/19 21:15 Dose: 10 mg Diltiazem HCl (Cardizem Cd -) 120 mg PO DAILY [facility] Last Admin: 06/16/19 10:34 Dose: 120 mg Furosemide (Lasix -) 40 mg PO BID@0600,1400 [facility] Last Admin: 06/16/19 06:24 Dose: 40 mg Sodium Chloride (1/2 Normal Saline) 250 mls @ 42 mls/hr IV ASDIR [facility] Last Admin: 06/14/19 21:24 Dose: Not Given Metoprolol Succinate (Toprol Xl -) 100 mg PO BID [facility] Last Admin: 06/16/19 10:35 Dose: 100 mg Pantoprazole Sodium (Protonix -) 40 mg PO BID [facility] Last Admin: 06/16/19 10:35 Dose: 40 mg Potassium Chloride (K-Dur -) 20 meq PO DAILY [facility] Last Admin: 06/16/19 10:35 Dose: 20 meq Thiamine HCl (Vitamin B1 -) 100 mg PO DAILY [facility] Last Admin: 06/16/19 10:34 Dose: 100 mg - Objective Vital Signs: Vital Signs Temperature 98.4 F 06/16/19 09:00 Pulse Rate 94 H 06/16/19 09:00 Respiratory Rate 20 06/16/19 09:00 Blood Pressure 131/77 06/16/19 09:00 O2 Sat by Pulse Oximetry (%) 97 06/16/19 09:00 Constitutional: Yes: Calm Eyes: Yes: Conjunctiva Clear HENT: Yes: Atraumatic Neck: Yes: Supple Cardiovascular: Yes: S1, S2 Respiratory: Yes: CTA Bilaterally Gastrointestinal: Yes: Soft Genitourinary: Yes: WNL Musculoskeletal: Yes: WNL Edema: Yes Edema: LLE: 1+, RLE: 1+ Neurological: Yes: Oriented Psychiatric: Yes: Oriented Labs: CBC, BMP 06/15/19 11:40 06/15/19 11:40 Problem List - Problems (1) JOHN (acute kidney injury) Code(s): N17.9 - ACUTE KIDNEY FAILURE, UNSPECIFIED (2) ANDRE positive Code(s): R76.8 - OTHER SPECIFIED ABNORMAL IMMUNOLOGICAL FINDINGS IN SERUM (3) CHF exacerbation Code(s): I50.9 - HEART FAILURE, UNSPECIFIED Qualifiers: Heart failure type: unspecified Qualified Code(s): I50.9 - Heart failure, unspecified (4) Leukocytosis Code(s): D72.829 - ELEVATED WHITE BLOOD CELL COUNT, UNSPECIFIED Qualifiers: Leukocytosis type: unspecified Qualified Code(s): D72.829 - Elevated white blood cell count, unspecified Assessment/Plan Current Medications Generic Name Dose Route Start Last Admin Trade Name Freq PRN Reason Stop Dose Admin Allopurinol 100 mg 06/14/19 10:00 06/16/19 10:35 Zyloprim - PO 100 mg DAILY MILI Administration Atorvastatin Calcium 10 mg 06/13/19 22:00 06/15/19 21:15 Lipitor - PO 10 mg HS MILI Administration Diltiazem HCl 120 mg 06/14/19 10:00 06/16/19 10:34 Cardizem Cd - PO 120 mg DAILY MILI Administration Furosemide 40 mg 06/14/19 06:00 06/16/19 06:24 Lasix - PO 40 mg BID@0600,1400 MILI Administration Sodium Chloride 250 mls @ 42 mls/hr 06/13/19 18:30 06/14/19 21:24 1/2 Normal Saline IV Not Given ASDIR MILI Metoprolol Succinate 100 mg 06/13/19 22:00 06/16/19 10:35 Toprol Xl - PO 100 mg BID MILI Administration Pantoprazole Sodium 40 mg 06/13/19 22:00 06/16/19 10:35 Protonix - PO 40 mg BID MILI Administration Potassium Chloride 20 meq 06/14/19 10:00 06/16/19 10:35 K-Dur - PO 20 meq DAILY MILI Administration Thiamine HCl 100 mg 06/14/19 10:00 06/16/19 10:34 Vitamin B1 - PO 100 mg DAILY MILI Administration Impression 1. JOHN 2. chf 3. a-fib 4. htn 5. gerd 6. hypokalemia 7. positive andre 8. leukocytosis 9. CKD Plan - replace potassium - rheum input appreciated - check mag level - onc follow up - renal function approaching baseline
[2019-06-16] MEDS: SODIUM CHLORIDE 0.45% 250 ML IV SCH (13:58)
--- NOTE | 2019-06-16 16:22 | PN ---
Progress Note, Physician Chief Complaint: Weakness Unsteady gait History of Present Illness: This is an 83 year old male with a PMH of HTN, HLD, prostate CA, GAVE recently admitted with new-onset CHF and atrial fibrillation with RVR. He was home from the hospital for one week and presents again with weakness, sob and unsteady gait. Noted to have rales on physical exam. Echo 05/22/19: normal EF, dilated RV, mild dec RV function. mod LAE/KARRIE. trace to mild MR. Mod to sev TR RVSP 40-50. - Current Medication List Current Medications: Active Medications Allopurinol (Zyloprim -) 100 mg PO DAILY [facility] Last Admin: 06/16/19 10:35 Dose: 100 mg Atorvastatin Calcium (Lipitor -) 10 mg PO HS [facility] Last Admin: 06/15/19 21:15 Dose: 10 mg Diltiazem HCl (Cardizem Cd -) 120 mg PO DAILY [facility] Last Admin: 06/16/19 10:34 Dose: 120 mg Furosemide (Lasix -) 40 mg PO BID@0600,1400 [facility] Last Admin: 06/16/19 14:30 Dose: 40 mg Sodium Chloride (1/2 Normal Saline) 250 mls @ 42 mls/hr IV ASDIR [facility] Last Admin: 06/16/19 13:58 Dose: 42 mls/hr Metoprolol Succinate (Toprol Xl -) 100 mg PO BID [facility] Last Admin: 06/16/19 10:35 Dose: 100 mg Pantoprazole Sodium (Protonix -) 40 mg PO BID [facility] Last Admin: 06/16/19 10:35 Dose: 40 mg Potassium Chloride (K-Dur -) 20 meq PO DAILY [facility] Last Admin: 06/16/19 10:35 Dose: 20 meq Thiamine HCl (Vitamin B1 -) 100 mg PO DAILY [facility] Last Admin: 06/16/19 10:34 Dose: 100 mg - Objective Vital Signs: Vital Signs Temperature 98.4 F 06/16/19 09:00 Pulse Rate 86 06/16/19 14:25 Respiratory Rate 20 06/16/19 14:25 Blood Pressure 108/74 06/16/19 14:25 O2 Sat by Pulse Oximetry (%) 97 06/16/19 09:00 Constitutional: Yes: No Distress Eyes: Yes: WNL HENT: Yes: WNL Neck: Yes: WNL Cardiovascular: Yes: Pulse Irregular, S1, S2 Respiratory: Yes: Rales (Bibasilar) Gastrointestinal: Yes: Normal Bowel Sounds, Soft Extremities: Yes: WNL Edema: LLE: Trace, RLE: Trace Neurological: Yes: Oriented (Sleepy) Labs: CBC, BMP 06/15/19 11:40 06/15/19 11:40 Assessment/Plan 83 year old male with a PMH of HTN, HLD, prostate CA, GAVE recently admitted with new-onset CHF and atrial fibrillation with RVR. He was home from the hospital for one week and presents again with weakness, sob and unsteady gait. Noted to have rales on physical exam. Echo 05/22/19: normal EF, dilated RV, mild dec RV function. mod LAE/KARRIE. trace to mild MR. Mod to sev TR RVSP 40-50. CHF Acute on chronic diastolic CHF Lasix 40 mg IVSS BID Daily I's/O's/Wt's/Lytes Cr. 2.3 Continue Metoprolol XL 100 mg BID as tolerated AFIB Currently not on AC (past severe anema although endoscopy and colonoscopy was negative Continue rate control with Metoprolol and Diltiazem Elevated WBC, evaluation in progress
--- NOTE | 2019-06-16 19:17 | CONS ---
PULMONARY CONSULTATION DATE OF CONSULTATION: 06/16/2019 REFERRING PHYSICIAN: Gabbie Marquez MD The patient is an 83-year-old male with past medical history of recently diagnosed CHF with atrial fibrillation; hypertension; hyperlipidemia; history of GAVE; BECKY; prostate CA, status post prostatectomy; anemia; pulmonary hypertension; dyspnea, recently hospitalized at [facility] secondary to CHF, was readmitted on June 13 with complaint of increasing shortness of breath, unsteady gait, and weakness. As stated before, patient was recently hospitalized secondary to CHF and atrial fibrillation. He was discharged home in stable condition. Of note, he has had an echo performed on May 22, which revealed dilated RV, mild decrease in RV function, [id number]-[id number] tricuspid regurgitation with [id number]-[id number] pulmonary hypertension, RVSP of 40 to 50. Patient is readmitted now with the above complaints. On admission, the patient underwent a CT scan of the head, which revealed no evidence of acute pathology. Of note, in a previous hospitalization, he underwent a CAT scan of the chest, which revealed left pericardial cyst. Patient denies any history of occupational exposure to chemicals or fumes, and he is a nonsmoker. On admission, he was evaluated by Dr. Puentes for cardiology consultation and placed on Lasix. PAST MEDICAL HISTORY: Again includes atrial fibrillation; CHF; GAVE; BECKY; history of prostate CA, status post prostatectomy; [id number] kidney disease; anemia; pulmonary hypertension. REVIEW OF SYSTEMS: Positive shortness of breath. Positive weakness. No chest pain. No palpitations. No nausea. No vomiting. No hemoptysis. CURRENT MEDICATIONS: Include Zyloprim, Toprol, Cardizem, Lipitor, Lasix, Protonix, K-Dur, normal saline, and vitamin B1. PHYSICAL EXAMINATION: General: The patient is an elderly male, well developed, awake, alert , in no acute distress. Vital Signs: Blood pressure is 131/77. Respiratory rate is 20. O2 saturation is 97% on room air. Temperature 98.4. HEENT: Normocephalic, atraumatic. Neck: Supple. Heart: Tachycardia. Irregularly irregular. S1, S2. Chest: Bilateral crackles 1/3 up. Abdomen: Soft. Bowel sounds are positive. Extremities: No cyanosis or edema. LABORATORY DATA: WBC is 8.3; hemoglobin 10.1; hematocrit 29.7; a platelet count of 295,000. INR is 1.74. BUN of 42, creatinine 2. Chest x-ray: Cardiomegaly, increased pulmonary vascular congestion. IMPRESSION: 1. Dyspnea secondary to fggiw-gt-dqtzpbx congestive heart failure. 2. Atrial fibrillation with rapid ventricular response. 3. Pulmonary hypertension. 4. Qjrsr-hi-byfibfv kidney injury. 5. History of prostate cancer, status post prostatectomy. 6. Hypertension. 7. Hyperlipidemia. 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 9. BECKY. 10. History of gastric antral vascular ectasia (GAVE). 11. Left pericardial cyst. PLAN: Continue Lasix, supplemental O2, rate control as per Cardiology, monitor electrolytes, renal function. Monitor CBC, normal transfusion threshold. ANNE CARABALLO M.D. [id number] MTDD
--- NOTE | 2019-06-16 19:42 | PN ---
Progress Note (short form) - Note Progress Note: Patient seen and examined c/o weakness and unsteady gait Last Vital Signs Temp Pulse Resp BP Pulse Ox 98.4 F 86 20 108/74 97 06/16/19 09:00 06/16/19 14:25 06/16/19 14:25 06/16/19 14:25 06/16/19 09:00 Cor: RSR, No murmurs, No gallops Lungs: Clear to P&A Abd: Soft, Normal bowel sounds, No organomegaly Ext:No significant edema Abnormal Lab Results 06/14/19 06/15/19 06:28 11:40 Monocytes % (Manual) 14 H D MAR Screen Positive H MAR Nucleolar Pattern 1:320 H Home Medication List Medication Instructions Recorded Confirmed Type Calcium Citrate/Vitamin D3 2 each PO DAILY 05/21/19 05/21/19 History [Calcium Cit 315-Vit D3 200 Cpt] Active Medications Generic Name Dose Route Start Last Admin Trade Name Freq PRN Reason Stop Dose Admin Allopurinol 100 mg 06/14/19 10:00 06/16/19 10:35 Zyloprim - PO 100 mg DAILY MILI Administration Atorvastatin Calcium 10 mg 06/13/19 22:00 06/15/19 21:15 Lipitor - PO 10 mg HS MILI Administration Diltiazem HCl 120 mg 06/14/19 10:00 06/16/19 10:34 Cardizem Cd - PO 120 mg DAILY MILI Administration Furosemide 40 mg 06/14/19 06:00 06/16/19 14:30 Lasix - PO 40 mg BID@0600,1400 MILI Administration Metoprolol Succinate 100 mg 06/13/19 22:00 06/16/19 10:35 Toprol Xl - PO 100 mg BID MILI Administration Pantoprazole Sodium 40 mg 06/13/19 22:00 06/16/19 10:35 Protonix - PO 40 mg BID MILI Administration Potassium Chloride 20 meq 06/14/19 10:00 06/16/19 10:35 K-Dur - PO 20 meq DAILY MILI Administration Thiamine HCl 100 mg 06/14/19 10:00 06/16/19 10:34 Vitamin B1 - PO 100 mg DAILY MILI Administration A/P 83 y/o patient with CHF, afib, admitted with shortness of breath Being treated for CHF 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 given multiple cytogenetic abnormalities on peripheral blood Discussed above in detail with patient and daughter. He is refusing BMBX today but will consider it this week Wll also request skin biopsy with Dr. Blackwood
[2019-06-16 19:55] LABS: BASO % 0.3 % (0-2.0); EOS % 0.5 % (0-4.5); HEMATOCRIT 22.2 % (35.4-49); HEMOGLOBIN 10.9 GM/dL (11.7-16.9); MEAN CELL VOLUME 90.1 fl (80-96); MEAN PLT VOLUME 12.2 fl (7.5-11.1); MONO % 14.8 % (3.8-10.2); NEUT % 58.4 % (42.8-82.8); PLATELET COUNT 301 K/MM3 (134-434); RBC 2.46 M/mm3 (4.00-5.60); RDW 14.2 % (11.9-15.9)
[2019-06-16 20:26] LABS: MCH 44.3 pg (25.7-33.7); MCHC 49.2 g/dl (32.0-35.9); WHITE BLOOD COUNT 60.1 K/mm3 (4.0-10.0)
--- NOTE | 2019-06-16 22:13 | CON.GI ---
Consult Consult Specialty:: Gastroenterology Referred by:: Dr Kya Gore Reason for Consultation:: GI bleed - History of Present Illness Chief Complaint: Rectal bleeding History of Present Illness: 83M is admitted with profound weakness and loss of balance. 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 I evaluated him for bleeding. EGD and colonoscopy were performed on 06/04/19. EGD revealed a resolving alcoholic gastritis which I felt had caused earlier bleeding ( endoscopies delayed by need to control his BECKY and hold A/C). His colonoscopy was incomplete as only the hepatic flexure could be reached using a gastroscope which was the only instrument that I could negotiate through a sigmoid stricture by severe diverticular disease. Two tubular adenomas were removed from the transverse colon and the stricture biopsy was benign. Hemorrhoids were also noted. A gastrograffin enema revealed no masses in the ascending colon and cecum. He was advised to completely abstain from alcohol as he also had alcoholic hepatitis on that admission. He tells me that he has had hematochezia since being hospitalized. He again has marked elevation of his WBCs but his Hb is stable. He tells me that his appetite is poor. 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 Resolved at 06/04/19 EGD), Hiatal Hernia, Other (descending colon adenomas removed 12/09, transverse colon adenomas 06/04/19) Hepatobiliary: Yes: Other (alcoholic hepatitis 06/16) Renal/: Yes: Cancer (Prostate cancer with radical prostatectomy in 2002) Heme/Onc: Yes: Anemia, Myeloproliferative Synd (T cell - LDL ) - Past Surgical History Past Surgical History: Yes: Colonoscopy (), Prostatectomy (radical prostatectomy 2002 for cancer), Upper Endoscopy () - Alcohol/Substance Use Hx Alcohol Use: Yes (quit 06/16, drank 6-12 beers daily plus vodka ) History of Substance Use: reports: None - Smoking History Smoking history: Former smoker Have you smoked in the past 12 months: No If you are a former smoker, when did you quit?: 1999 - Social History Usual Living Arrangement: With Spouse ADL: Independent Place of : Other ([place]) Came to [place] (year): age 50 Home Medications - Allergies Allergies/Adverse Reactions: Allergies Allergy/AdvReac Type Severity Reaction Status Date / Time Sulfa (Sulfonamide Allergy Mild Rash Verified 05/21/19 20:24 Antibiotics) - Home Medications Home Medications: Ambulatory Orders Calcium Citrate/Vitamin D3 [Calcium Cit 315-Vit D3 200 Cpt] 2 each PO DAILY Allopurinol [Zyloprim -] 100 mg PO DAILY 30 Days #30 tablet 06/07/19 Apixaban [Eliquis -] 2.5 mg PO BID 30 Days #60 tablet 06/07/19 Atorvastatin Ca [Lipitor] 10 mg PO HS 30 Days #30 tablet 06/07/19 Calcium (Oyster Shell) [Os-Dionicio 500MG -] 1,000 mg PO DAILY tablet 06/07/19 Diltiazem Cd [Cardizem Cd -] 120 mg PO DAILY 30 Days #30 cap.cd.24h 06/07/19 Furosemide [Lasix -] 40 mg PO BID@0600,1400 30 Days #60 tablet 06/07/19 Metoprolol Succinate [Toprol XL -] 100 mg PO BID 30 Days #60 tab.sr.24h Pantoprazole Sodium [Protonix -] 40 mg PO BID 30 Days #30 tablet.ec 06/07/19 Potassium Chloride [K-Dur -] 20 meq PO DAILY 30 Days #30 tablet.er 06/07/19 Thiamine Mononitrate [Vitamin B-1] 100 mg PO DAILY 30 Days #30 tablet 06/07/19 Family Disease History - Family Disease History Family Disease History: CA: Father ( prostate cancer), Other: Mother ( of CVA), Brother (seizure disorder) Physical Exam-GI Vital Signs: Vital Signs Temperature 98.7 F 06/16/19 17:00 Pulse Rate 87 06/16/19 17:00 Respiratory Rate 20 06/16/19 17:00 Blood Pressure 114/76 06/16/19 17:00 O2 Sat by Pulse Oximetry (%) 97 06/16/19 09:00 CBC,CMP WBC 60.1 K/mm3 (4.0-10.0) H* 06/16/19 18:50 RBC 2.46 M/mm3 (4.00-5.60) L 06/16/19 18:50 Hgb 10.9 GM/dL (11.7-16.9) L 06/16/19 18:50 Hct 22.2 % (35.4-49) L D 06/16/19 18:50 MCV 90.1 fl (80-96) 06/16/19 18:50 MCH 44.3 pg (25.7-33.7) H D 06/16/19 18:50 MCHC 49.2 g/dl (32.0-35.9) H 06/16/19 18:50 RDW 14.2 % (11.9-15.9) 06/16/19 18:50 Plt Count 301 K/MM3 (134-434) 06/16/19 18:50 MPV 12.2 fl (7.5-11.1) H D 06/16/19 18:50 Absolute Neuts (auto) 35.1 K/mm3 (1.5-8.0) H 06/16/19 18:50 Total Counted 100 06/16/19 18:50 Neutrophils % 58.4 % (42.8-82.8) 06/16/19 18:50 Neutrophils % (Manual) 50.0 % (42.8-82.8) 06/16/19 18:50 Band Neutrophils % 2.0 % 06/15/19 11:40 Lymphocytes % 26.0 % (8-40) 06/16/19 18:50 Lymphocytes % (Manual) 48.0 % (8-40) H D 06/16/19 18:50 Monocytes % 14.8 % (3.8-10.2) H 06/16/19 18:50 Monocytes % (Manual) 2 % (3.8-10.2) L D 06/16/19 18:50 Eosinophils % 0.5 % (0-4.5) D 06/16/19 18:50 Basophils % 0.3 % (0-2.0) 06/16/19 18:50 Basophils % (Manual) 1.0 % (0-2.0) D 06/14/19 06:28 Nucleated RBC % 1 % (0-0) H 06/16/19 18:50 Differential Comment Man diff performed 06/15/19 11:40 Platelet Estimate Adequate 06/15/19 11:40 Platelet Comment 06/15/19 11:40 Polychromasia 1+ 06/13/19 15:09 ESR 82 mm/hr (0-20) H 06/15/19 11:40 Retic Count Cancelled 06/14/19 06:28 Haptoglobin 171 mg/dL (34-200) 06/14/19 06:28 Sodium 137 mmol/L (136-145) 06/15/19 11:40 Potassium 3.4 mmol/L (3.5-5.1) L 06/15/19 11:40 Chloride 98 mmol/L (98-107) 06/15/19 11:40 Carbon Dioxide 28 mmol/L (21-32) 06/15/19 11:40 Anion Gap 10 MMOL/L (8-16) 06/15/19 11:40 BUN 42.8 mg/dL (7-18) H 06/15/19 11:40 Creatinine 2.0 mg/dL (0.55-1.3) H 06/15/19 11:40 Est GFR (CKD-EPI)AfAm 34.74 06/15/19 11:40 Est GFR (CKD-EPI)NonAf 29.97 06/15/19 11:40 Random Glucose 141 mg/dL (74-106) H 06/15/19 11:40 Uric Acid 9.1 mg/dL (2.6-7.2) H 06/14/19 06:28 Calcium 7.9 mg/dL (8.5-10.1) L 06/15/19 11:40 Phosphorus 2.7 mg/dL (2.5-4.9) 06/15/19 11:40 Magnesium 2.2 mg/dL (1.8-2.4) 06/15/19 11:40 Total Bilirubin 0.5 mg/dL (0.2-1) 06/15/19 11:40 AST 62 U/L (15-37) H 06/15/19 11:40 ALT 55 U/L (13-61) 06/15/19 11:40 Alkaline Phosphatase 167 U/L (45-117) H 06/15/19 11:40 LD Total 192 U/L (87-246) 06/14/19 06:28 Creatine Kinase 107 U/L (26-308) 06/13/19 13:18 Troponin I < 0.02 ng/ml (0.00-0.05) 06/13/19 13:18 C-Reactive Protein 0.9 MG/DL (0.00-0.3) H 06/15/19 11:40 B-Natriuretic Peptide 06060.6 pg/ml (5-450) H 06/13/19 13:18 Total Protein 5.7 g/dl (6.4-8.2) L 06/15/19 11:40 Albumin 3.1 g/dl (3.4-5.0) L 06/15/19 11:40 TSH 2.24 uIU/ml (0.358-3.74) D 06/15/19 11:40 Free T4 1.11 ng/dl (0.76-1.16) 06/15/19 11:40 Current Medications Generic Name Dose Route Start Last Admin Trade Name Freq PRN Reason Stop Dose Admin Allopurinol 100 mg 06/14/19 10:00 06/16/19 10:35 Zyloprim - PO 100 mg DAILY MILI Administration Apixaban 2.5 mg 06/16/19 22:00 06/16/19 22:15 Eliquis - PO 2.5 mg BID MILI Administration Atorvastatin Calcium 10 mg 06/13/19 22:00 06/16/19 22:15 Lipitor - PO 10 mg HS MILI Administration Diltiazem HCl 120 mg 06/14/19 10:00 06/16/19 10:34 Cardizem Cd - PO 120 mg DAILY MILI Administration Furosemide 40 mg 06/14/19 06:00 06/16/19 14:30 Lasix - PO 40 mg BID@0600,1400 MILI Administration Metoprolol Succinate 100 mg 06/13/19 22:00 06/16/19 22:15 Toprol Xl - PO 100 mg BID MILI Administration Pantoprazole Sodium 40 mg 06/13/19 22:00 06/16/19 22:15 Protonix - PO 40 mg BID IMLI Administration Potassium Chloride 20 meq 06/14/19 10:00 06/16/19 10:35 K-Dur - PO 20 meq DAILY MILI Administration Thiamine HCl 100 mg 06/14/19 10:00 06/16/19 10:34 Vitamin B1 - PO 100 mg DAILY MILI Administration Constitutional: Yes: Anxious Eyes: Yes: Conjunctiva Clear HENT: Yes: Atraumatic Neck: Yes: Supple Cardiovascular: Yes: Pulse Irregular Respiratory: Yes: Rales (bases) Gastrointestinal Inspection: Yes: Scars (healed vertical suprapubic and RIH) ...Auscultate: Yes: Normoactive Bowel Sounds ...Palpate: Yes: Soft, Other (nontender) ...Rectal Exam: Yes: Guaiac Positive (stool with fresh pink blood), Hemorrhoids/ External Psychiatric: Yes: Alert Labs: CBC, BMP 06/16/19 18:50 06/15/19 11:40 Laboratory Tests 06/13/19 06/14/19 06/14/19 15:09 06:28 06:28 WBC 138.3 H* 82.9 H* Hgb 9.6 L Haptoglobin 171 Total Bilirubin AST ALT Alkaline Phosphatase C-Reactive Protein 06/15/19 06/15/19 06/16/19 11:40 11:40 18:50 WBC 83.6 H* 60.1 H* Hgb 10.1 L 10.9 L Haptoglobin Total Bilirubin 0.5 AST 62 H ALT 55 Alkaline Phosphatase 167 H C-Reactive Protein 0.9 H Laboratory Tests 06/06/19 06/13/19 06/14/19 06:20 13:18 06:28 AST 38 H 72 H 45 H ALT 34 49 40 06/15/19 11:40 AST 62 H ALT 55 Problem List - Problems (1) GI bleed Code(s): K92.2 - GASTROINTESTINAL HEMORRHAGE, UNSPECIFIED Qualifiers: GI bleed type/associated pathology: unspecified gastrointestinal hemorrhage type Qualified Code(s): K92.2 - Gastrointestinal hemorrhage, unspecified (2) Atrial fibrillation Code(s): I48.91 - UNSPECIFIED ATRIAL FIBRILLATION Qualifiers: Atrial fibrillation type: chronic Qualified Code(s): I48.2 - Chronic atrial fibrillation (3) Balance problem Code(s): R26.89 - OTHER ABNORMALITIES OF GAIT AND MOBILITY (4) Leukocytosis Code(s): D72.829 - ELEVATED WHITE BLOOD CELL COUNT, UNSPECIFIED Qualifiers: Leukocytosis type: unspecified Qualified Code(s): D72.829 - Elevated white blood cell count, unspecified (5) Alcoholic gastritis with bleeding Code(s): K29.21 - ALCOHOLIC GASTRITIS WITH BLEEDING (6) Colon adenomas Code(s): D12.6 - BENIGN NEOPLASM OF COLON, UNSPECIFIED (7) Diverticulosis Code(s): K57.90 - DVRTCLOS OF INTEST, PART UNSP, W/O PERF OR ABSCESS W/O BLEED (8) History of radical prostatectomy Code(s): Z90.79 - ACQUIRED ABSENCE OF OTHER GENITAL ORGAN(S) (9) Leukocytosis Code(s): D72.829 - ELEVATED WHITE BLOOD CELL COUNT, UNSPECIFIED Qualifiers: Leukocytosis type: unspecified Qualified Code(s): D72.829 - Elevated white blood cell count, unspecified (10) Prostate cancer Code(s): C61 - MALIGNANT NEOPLASM OF PROSTATE (11) Sigmoid stricture Code(s): K56.699 - OTHER INTESTNL OBST UNSP TO PARTIAL VERSUS COMPLETE OBST (12) Alcoholic hepatitis without ascites Code(s): K70.10 - ALCOHOLIC HEPATITIS WITHOUT ASCITES Assessment/Plan Assessment - I believe that given his stable Hb Maximino's current bleeding is hemorrhoidal in origin rather than diverticular or a postpolypectomy bleed. If he resumed drinking his alcoholic gastritis may prove to be the source again. - Alcoholic hepatitis- He denies alcohol intake since his discharge. If this is true then his current transaminitis could be T cell infiltration of liver parenchyma or reactive to this leukemia - Sigmoid stricture due to severe diverticular disease would account for chronic loose stools - Personal h/o colon adenoma - Resolved GAVE syndrome Plan: -- PPI therapy empirically -- Daily CBCs & LFTs -- Watch for DTs
[2019-06-16] MEDS: ATORVASTATIN CA 10 MG TABLET (FP) PO SCH (22:15)
[2019-06-16] MEDS: APIXABAN 2.5 MG TABLET PO SCH (22:15)
--- NOTE | 2019-06-16 23:47 | CONSULT ---
Consult Consult Specialty:: General Surgery Reason for Consultation:: skin biopsy back - History of Present Illness Chief Complaint: weakness History of Present Illness: 83yo male PMH HTN, HLD, prostate CA, anemia, GERD, gastritis, new CHF and Afib w / RvR recently admitted 05/21/19-06/07/19 for new CHF presenting today with 1 week of worsening sensation of poor balance and generalized weakness / fatigue. Patient reports sensation of loss of balance began while he was in the hospital shortly before discharge, he reports standing from the toilet and feeling like he was falling forward. Sense getting home the sensation has become more frequent and he has had at least 2 falls forward without hitting his head, without subsequent aches or pains. Denies that the room feels like it is spinning, denies feeling lightheaded. Endorses some shortness of breath, swelling of the ankles, and an intention tremor that has been going on since discharge. Has felt an irregular heart rate while at home. We were called to obtain a skin biopsy from the rash on his back. 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 Resolved at 06/04/19 EGD), Hiatal Hernia, Other (descending colon adenomas removed 12/09, transverse colon adenomas 06/04/19) Hepatobiliary: Yes: Other (alcoholic hepatitis 06/16) Renal/: Yes: Cancer (Prostate cancer with radical prostatectomy in 2002) - Past Surgical History Past Surgical History: Yes: Colonoscopy (), Prostatectomy (radical prostatectomy 2002 for cancer), Upper Endoscopy () - Alcohol/Substance Use Hx Alcohol Use: Yes (quit 06/16, drank 6-12 beers daily plus vodka ) History of Substance Use: reports: None - Smoking History Smoking history: Former smoker Have you smoked in the past 12 months: No If you are a former smoker, when did you quit?: 1999 - Social History Usual Living Arrangement: With Spouse ADL: Independent Home Medications - Allergies Allergies/Adverse Reactions: Allergies Allergy/AdvReac Type Severity Reaction Status Date / Time Sulfa (Sulfonamide Allergy Mild Rash Verified 05/21/19 20:24 Antibiotics) - Home Medications Home Medications: Ambulatory Orders Calcium Citrate/Vitamin D3 [Calcium Cit 315-Vit D3 200 Cpt] 2 each PO DAILY Allopurinol [Zyloprim -] 100 mg PO DAILY 30 Days #30 tablet 06/07/19 Apixaban [Eliquis -] 2.5 mg PO BID 30 Days #60 tablet 06/07/19 Atorvastatin Ca [Lipitor] 10 mg PO HS 30 Days #30 tablet 06/07/19 Calcium (Oyster Shell) [Os-Dionicio 500MG -] 1,000 mg PO DAILY tablet 06/07/19 Diltiazem Cd [Cardizem Cd -] 120 mg PO DAILY 30 Days #30 cap.cd.24h 06/07/19 Furosemide [Lasix -] 40 mg PO BID@0600,1400 30 Days #60 tablet 06/07/19 Metoprolol Succinate [Toprol XL -] 100 mg PO BID 30 Days #60 tab.sr.24h Pantoprazole Sodium [Protonix -] 40 mg PO BID 30 Days #30 tablet.ec 06/07/19 Potassium Chloride [K-Dur -] 20 meq PO DAILY 30 Days #30 tablet.er 06/07/19 Thiamine Mononitrate [Vitamin B-1] 100 mg PO DAILY 30 Days #30 tablet 06/07/19 Family Disease History - Family Disease History Family Disease History: CA: Father ( prostate cancer), Other: Mother ( of CVA), Brother (seizure disorder) Review of Systems - Review of Systems Constitutional: reports: Lethargy, Weakness. denies: Chills, Fever Eyes: denies: Blind Spots, Recent Change in Vision HENT: denies: Difficult Swallowing, Throat Pain Neck: denies: Pain on Movement, Tenderness Cardiovascular: denies: Chest Pain, Palpitations Respiratory: denies: Cough, SOB Gastrointestinal: denies: Abdominal Pain, Bloating, Constipation Genitourinary: denies: Discharge, Dysuria Breasts: reports: No Symptoms Reported. denies: Pain Musculoskeletal: reports: Joint Pain, Muscle Weakness. denies: Crepitus Integumentary: reports: Rash. denies: Lesions, Lump, Pallor Neurological: denies: Syncope, Tremors Endocrine: denies: Unexplained Weight Gain, Unexplained Weight Loss Hematology/Lymphatic: denies: Easily Bruised Psychiatric: denies: Anxiety, Depression Physical Exam Vital Signs: Vital Signs Temperature 98.7 F 06/16/19 17:00 Pulse Rate 87 06/16/19 17:00 Respiratory Rate 20 06/16/19 17:00 Blood Pressure 114/76 06/16/19 17:00 O2 Sat by Pulse Oximetry (%) 97 06/16/19 09:00 Constitutional: Yes: Well Nourished, No Distress, Calm, Thin Eyes: Yes: Conjunctiva Clear, EOM Intact HENT: Yes: Atraumatic, Normocephalic Neck: Yes: Supple, Trachea Midline Cardiovascular: Yes: Regular Rate and Rhythm, S1, S2 Respiratory: Yes: Regular, CTA Bilaterally Gastrointestinal: Yes: Normal Bowel Sounds, Soft. No: Distention, Tenderness ...Rectal Exam: Yes: Deferred Renal/: No: CVA Tenderness - Left, CVA Tenderness - Right Musculoskeletal: Yes: Joint Stiffness, Muscle Weakness. 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 We are happy to oblige. The indication being tissue evaluation He is refusing bone marrow biopsy and skin biopsy. Bedside biopsy Resume diet recall as needed Code(s): R21 - RASH AND OTHER NONSPECIFIC SKIN ERUPTION (2) Alcoholic hepatitis without ascites Code(s): K70.10 - ALCOHOLIC HEPATITIS WITHOUT ASCITES (3) Atrial fibrillation Code(s): I48.91 - UNSPECIFIED ATRIAL FIBRILLATION Qualifiers: Atrial fibrillation type: chronic Qualified Code(s): I48.2 - Chronic atrial fibrillation (4) CHF exacerbation Code(s): I50.9 - HEART FAILURE, UNSPECIFIED Qualifiers: Heart failure type: unspecified Qualified Code(s): I50.9 - Heart failure, unspecified (5) Hyperlipidemia Code(s): E78.5 - HYPERLIPIDEMIA, UNSPECIFIED Qualifiers: Hyperlipidemia type: unspecified Qualified Code(s): E78.5 - Hyperlipidemia , unspecified (6) Prostate cancer Code(s): C61 - MALIGNANT NEOPLASM OF PROSTATE
[2019-06-17] MEDS: FUROSEMIDE 40 MG TABLET (FP) PO SCH ×2 (05:51→14:58)
[2019-06-17 07:15] LABS: ALBUMIN 3.2 g/dl (3.4-5.0); BILIRUBIN,TOTAL 0.7 mg/dL (0.2-1); BLOOD UREA NITROGEN 47.2 mg/dL (7-18); CALCIUM 8.5 mg/dL (8.5-10.1); CREATININE 1.9 mg/dL (0.55-1.3); POTASSIUM 3.6 mmol/L (3.5-5.1); TOT PROT 5.9 g/dl (6.4-8.2); URIC ACID 8.4 mg/dL (2.6-7.2)
[2019-06-17 07:21] LABS: INR 1.73 (0.83-1.09); PROTHROMBIN TIME (PATIENT) 20.5 SEC (9.7-13.0)
[2019-06-17 07:24] LABS: ACTIVATED PTT 31.4 SECONDS (25.2-36.5)
[2019-06-17] MEDS: THIAMINE HCL 100 MG TABLET (FP) PO SCH ×2 (09:07→09:30)
[2019-06-17] MEDS: PANTOPRAZOLE 40 MG TABLET (FP) PO SCH ×3 (09:07→21:27)
[2019-06-17] MEDS: APIXABAN 2.5 MG TABLET PO SCH ×3 (09:07→21:27)
[2019-06-17] MEDS: POTASSIUM CHLORIDE TABS 20 MEQ TABLET.ER (FP) PO SCH ×2 (09:07→09:30)
[2019-06-17] MEDS: ALLOPURINOL 100 MG TABLET (FP) PO SCH ×2 (09:07→09:30)
[2019-06-17 10:09] LABS: DRVVT - 86.3 sec (0.0-47.0); DRVVT CONFIRM SECONDS 1.3 ratio (0.8-1.2); dRVVT MIX 57.4 sec (0.0-47.0)
--- NOTE | 2019-06-17 11:14 | PN ---
Progress Note, Physician History of Present Illness: pulmonary alert,comfortable,-resp distress - Current Medication List Current Medications: Active Medications Allopurinol (Zyloprim -) 100 mg PO DAILY [facility] Last Admin: 06/17/19 09:30 Dose: 100 mg Apixaban (Eliquis -) 2.5 mg PO BID [facility] Last Admin: 06/17/19 09:30 Dose: 2.5 mg Atorvastatin Calcium (Lipitor -) 10 mg PO HS [facility] Last Admin: 06/16/19 22:15 Dose: 10 mg Diltiazem HCl (Cardizem Cd -) 120 mg PO DAILY [facility] Last Admin: 06/17/19 09:30 Dose: 120 mg Furosemide (Lasix -) 40 mg PO BID@0600,1400 [facility] Last Admin: 06/17/19 05:51 Dose: Not Given Metoprolol Succinate (Toprol Xl -) 100 mg PO BID [facility] Last Admin: 06/17/19 09:29 Dose: 100 mg Pantoprazole Sodium (Protonix -) 40 mg PO BID [facility] Last Admin: 06/17/19 09:30 Dose: 40 mg Potassium Chloride (K-Dur -) 20 meq PO DAILY [facility] Last Admin: 06/17/19 09:30 Dose: 20 meq Thiamine HCl (Vitamin B1 -) 100 mg PO DAILY [facility] Last Admin: 06/17/19 09:30 Dose: 100 mg - Objective Vital Signs: Vital Signs Temperature 98.2 F 06/17/19 06:00 Pulse Rate 89 06/17/19 06:00 Respiratory Rate 20 06/17/19 06:00 Blood Pressure 123/81 06/17/19 06:00 O2 Sat by Pulse Oximetry (%) 98 06/16/19 21:00 Constitutional: Yes: Well Nourished, Calm Eyes: Yes: WNL HENT: Yes: WNL Neck: Yes: WNL Cardiovascular: Yes: Pulse Irregular, S1, S2 Respiratory: Yes: Rales (bibasilar rales) Gastrointestinal: Yes: Normal Bowel Sounds, Soft Extremities: Yes: WNL Edema: No Labs: CBC, BMP 06/16/19 18:50 06/17/19 06:20 INR, PTT INR 1.73 (0.83-1.09) H 06/17/19 06:20 Fibrinogen 404.0 mg/dL (238-498) 06/17/19 06:20 Problem List - Problems (1) Atrial fibrillation Code(s): I48.91 - UNSPECIFIED ATRIAL FIBRILLATION Qualifiers: Atrial fibrillation type: chronic Qualified Code(s): I48.2 - Chronic atrial fibrillation (2) CHF exacerbation Code(s): I50.9 - HEART FAILURE, UNSPECIFIED Qualifiers: Heart failure type: unspecified Qualified Code(s): I50.9 - Heart failure, unspecified (3) Leukocytosis Code(s): D72.829 - ELEVATED WHITE BLOOD CELL COUNT, UNSPECIFIED Qualifiers: Leukocytosis type: unspecified Qualified Code(s): D72.829 - Elevated white blood cell count, unspecified (4) GAVE (gastric antral vascular ectasia) Code(s): K31.819 - ANGIODYSPLASIA OF STOMACH AND DUODENUM WITHOUT BLEEDING (5) History of radical prostatectomy Code(s): Z90.79 - ACQUIRED ABSENCE OF OTHER GENITAL ORGAN(S) (6) Hyperlipidemia Code(s): E78.5 - HYPERLIPIDEMIA, UNSPECIFIED Qualifiers: Hyperlipidemia type: unspecified Qualified Code(s): E78.5 - Hyperlipidemia , unspecified (7) Hypertension Code(s): I10 - ESSENTIAL (PRIMARY) HYPERTENSION Qualifiers: Hypertension type: essential hypertension Qualified Code(s): I10 - Essential (primary) hypertension (8) Leukocytosis Code(s): D72.829 - ELEVATED WHITE BLOOD CELL COUNT, UNSPECIFIED Qualifiers: Leukocytosis type: unspecified Qualified Code(s): D72.829 - Elevated white blood cell count, unspecified (9) New onset of congestive heart failure Code(s): I50.9 - HEART FAILURE, UNSPECIFIED (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 Assessment/Plan IMP DYSPNEA IMPROVING ACUTE ON CHRONIC CHF AFIB WITH RVR PULMONARY HTN H/O GAVE ANEMIA ACUTE ON CHRONIC KIDNEY DISEASE LEFT PERICARDIAL CYST BECKY H/O PROSTATE CA S/P PROSTATECTOMY WEAKNESS PLAN LASIX SUPPLEMENTAL O2 RATE CONTROL PER CARDIOLOGY AC MONITOR LYTES,RENAL FUNCTION MONITOR CBC NORMAL TRANSFUSION THRESHOLD DR CARABALLO Problem List - Problems (1) Atrial fibrillation Code(s): I48.91 - UNSPECIFIED ATRIAL FIBRILLATION Qualifiers: Atrial fibrillation type: chronic Qualified Code(s): I48.2 - Chronic atrial fibrillation (2) CHF exacerbation Code(s): I50.9 - HEART FAILURE, UNSPECIFIED Qualifiers: Heart failure type: unspecified Qualified Code(s): I50.9 - Heart failure, unspecified (3) Leukocytosis Code(s): D72.829 - ELEVATED WHITE BLOOD CELL COUNT, UNSPECIFIED Qualifiers: Leukocytosis type: unspecified Qualified Code(s): D72.829 - Elevated white blood cell count, unspecified (4) GAVE (gastric antral vascular ectasia) Code(s): K31.819 - ANGIODYSPLASIA OF STOMACH AND DUODENUM WITHOUT BLEEDING (5) History of radical prostatectomy Code(s): Z90.79 - ACQUIRED ABSENCE OF OTHER GENITAL ORGAN(S) (6) Hyperlipidemia Code(s): E78.5 - HYPERLIPIDEMIA, UNSPECIFIED Qualifiers: Hyperlipidemia type: unspecified Qualified Code(s): E78.5 - Hyperlipidemia , unspecified (7) Hypertension Code(s): I10 - ESSENTIAL (PRIMARY) HYPERTENSION Qualifiers: Hypertension type: essential hypertension Qualified Code(s): I10 - Essential (primary) hypertension (8) Leukocytosis Code(s): D72.829 - ELEVATED WHITE BLOOD CELL COUNT, UNSPECIFIED Qualifiers: Leukocytosis type: unspecified Qualified Code(s): D72.829 - Elevated white blood cell count, unspecified (9) New onset of congestive heart failure Code(s): I50.9 - HEART FAILURE, UNSPECIFIED (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
--- NOTE | 2019-06-17 11:52 | PN ---
Progress Note (short form) - Note Progress Note: still weak, HR in 120-140 on minimal exertion CBC, BMP 06/16/19 18:50 06/17/19 06:20 Vital Signs Period Temp Pulse Resp BP Sys/Brewer Pulse Ox Last 24 Hr 97.6 F-98.7 F 87-98 18-20 116-142/78-88 96-97 S1S2 irreg.irreg. 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 heme follow up for possible bone marrow biopsy and skin biopsy for hopefully definitive diagnosis if patient agrees physical therapy cont diuresis increase cardizem to improve rate eliquis held in view of possible biopsy and recent GI blood loss, though stable h/h if no biopsy or after biopsy plan dc to SNF Problem List - Problems (1) Atrial fibrillation Code(s): I48.91 - UNSPECIFIED ATRIAL FIBRILLATION Qualifiers: Atrial fibrillation type: chronic Qualified Code(s): I48.2 - Chronic atrial fibrillation (2) JOHN (acute kidney injury) Code(s): N17.9 - ACUTE KIDNEY FAILURE, UNSPECIFIED (3) Balance problem Code(s): R26.89 - OTHER ABNORMALITIES OF GAIT AND MOBILITY (4) Leukocytosis Code(s): D72.829 - ELEVATED WHITE BLOOD CELL COUNT, UNSPECIFIED Qualifiers: Leukocytosis type: unspecified Qualified Code(s): D72.829 - Elevated white blood cell count, unspecified (5) Hyperlipidemia Code(s): E78.5 - HYPERLIPIDEMIA, UNSPECIFIED Qualifiers: Hyperlipidemia type: unspecified Qualified Code(s): E78.5 - Hyperlipidemia , unspecified (6) Hypertension Code(s): I10 - ESSENTIAL (PRIMARY) HYPERTENSION Qualifiers: Hypertension type: essential hypertension Qualified Code(s): I10 - Essential (primary) hypertension
--- NOTE | 2019-06-17 12:23 | PN ---
Progress Note, Physician History of Present Illness: seen and examined today in nad. - Current Medication List Current Medications: Active Medications Allopurinol (Zyloprim -) 100 mg PO DAILY [facility] Last Admin: 06/17/19 09:30 Dose: 100 mg Apixaban (Eliquis -) 2.5 mg PO BID [facility] Last Admin: 06/17/19 09:30 Dose: 2.5 mg Atorvastatin Calcium (Lipitor -) 10 mg PO HS [facility] Last Admin: 06/16/19 22:15 Dose: 10 mg Diltiazem HCl (Cardizem Cd -) 180 mg PO DAILY [facility] Furosemide (Lasix -) 40 mg PO BID@0600,1400 [facility] Last Admin: 06/17/19 05:51 Dose: Not Given Metoprolol Succinate (Toprol Xl -) 100 mg PO BID [facility] Last Admin: 06/17/19 09:29 Dose: 100 mg Pantoprazole Sodium (Protonix -) 40 mg PO BID [facility] Last Admin: 06/17/19 09:30 Dose: 40 mg Potassium Chloride (K-Dur -) 20 meq PO DAILY [facility] Last Admin: 06/17/19 09:30 Dose: 20 meq Thiamine HCl (Vitamin B1 -) 100 mg PO DAILY [facility] Last Admin: 06/17/19 09:30 Dose: 100 mg - Objective Vital Signs: Vital Signs Temperature 98.2 F 06/17/19 06:00 Pulse Rate 89 06/17/19 06:00 Respiratory Rate 20 06/17/19 06:00 Blood Pressure 123/81 06/17/19 06:00 O2 Sat by Pulse Oximetry (%) 98 06/16/19 21:00 Constitutional: Yes: No Distress, Calm Eyes: Yes: Conjunctiva Clear, EOM Intact HENT: Yes: Atraumatic, Normocephalic Neck: Yes: Supple, Trachea Midline Cardiovascular: Yes: S1, S2. No: Bradycardia, Tachycardia, Pulse Irregular, Bruit, JVD, Gallop, Murmur, Rub, S3, S4, Varicosities Respiratory: Yes: Regular, Diminished. No: Rales, Rhonchi, SOB, Wheezes Gastrointestinal: Yes: Normal Bowel Sounds, Soft. No: Distention, Tenderness Extremities: Yes: WNL Edema: No Peripheral Pulses WNL: Yes Neurological: Yes: Alert Psychiatric: Yes: Alert Labs: CBC, BMP 06/16/19 18:50 06/17/19 06:20 INR, PTT INR 1.73 (0.83-1.09) H 06/17/19 06:20 Fibrinogen 404.0 mg/dL (238-498) 06/17/19 06:20 - ....Imaging Chest X-ray: Report Reviewed, Image Reviewed EKG: Report Reviewed, Image Reviewed Other: Report Reviewed, Image Reviewed Assessment/Plan 83 year old male with a PMH of HTN, HLD, prostate CA, GAVE recently admitted with new-onset CHF and atrial fibrillation with RVR. He was home from the hospital for one week and presents again with weakness, sob and unsteady gait. Noted to have rales on physical exam. Echo 05/22/19: normal EF, dilated RV, mild dec RV function. mod LAE/KARRIE. trace to mild MR. Mod to sev TR RVSP 40-50. CHF Acute on chronic diastolic CHF Lasix 40 mg po BID monitor I's/O's/Wt's/Lytes Continue Metoprolol XL 100 mg BID as tolerated ok to dc tele AFIB-HR adequately controlled Currently not on AC (past severe anemia although endoscopy and colonoscopy was negative) Continue rate control with Metoprolol and Diltiazem Ok to dc tele Elevated WBC, evaluation in progress
--- NOTE | 2019-06-17 13:15 | PN ---
Progress Note, Physician History of Present Illness: Pt seen and examined at bedside. He is awake and appears comfortable. He feels that his lower ext edema is improved. - Current Medication List Current Medications: Active Medications Allopurinol (Zyloprim -) 100 mg PO DAILY [facility] Last Admin: 06/17/19 09:30 Dose: 100 mg Apixaban (Eliquis -) 2.5 mg PO BID [facility] Last Admin: 06/17/19 09:30 Dose: 2.5 mg Atorvastatin Calcium (Lipitor -) 10 mg PO HS [facility] Last Admin: 06/16/19 22:15 Dose: 10 mg Diltiazem HCl (Cardizem Cd -) 180 mg PO DAILY [facility] Furosemide (Lasix -) 40 mg PO BID@0600,1400 [facility] Last Admin: 06/17/19 05:51 Dose: Not Given Metoprolol Succinate (Toprol Xl -) 100 mg PO BID [facility] Last Admin: 06/17/19 09:29 Dose: 100 mg Pantoprazole Sodium (Protonix -) 40 mg PO BID [facility] Last Admin: 06/17/19 09:30 Dose: 40 mg Potassium Chloride (K-Dur -) 20 meq PO DAILY [facility] Last Admin: 06/17/19 09:30 Dose: 20 meq Thiamine HCl (Vitamin B1 -) 100 mg PO DAILY [facility] Last Admin: 06/17/19 09:30 Dose: 100 mg - Objective Vital Signs: Vital Signs Temperature 98.2 F 06/17/19 06:00 Pulse Rate 89 06/17/19 06:00 Respiratory Rate 20 06/17/19 06:00 Blood Pressure 123/81 06/17/19 06:00 O2 Sat by Pulse Oximetry (%) 98 06/16/19 21:00 Constitutional: Yes: Calm Eyes: Yes: Conjunctiva Clear HENT: Yes: Atraumatic Neck: Yes: Supple Cardiovascular: Yes: S1, S2 Respiratory: Yes: CTA Bilaterally Gastrointestinal: Yes: Normal Bowel Sounds, Soft Genitourinary: Yes: WNL Musculoskeletal: Yes: WNL Edema: Yes Edema: LLE: Trace, RLE: Trace Integumentary: Yes: Venous Stasis Changes Neurological: Yes: Oriented Psychiatric: Yes: Oriented Labs: CBC, BMP 06/16/19 18:50 06/17/19 06:20 INR, PTT INR 1.73 (0.83-1.09) H 06/17/19 06:20 Fibrinogen 404.0 mg/dL (238-498) 06/17/19 06:20 Problem List - Problems (1) JOHN (acute kidney injury) Code(s): N17.9 - ACUTE KIDNEY FAILURE, UNSPECIFIED (2) ANDRE positive Code(s): R76.8 - OTHER SPECIFIED ABNORMAL IMMUNOLOGICAL FINDINGS IN SERUM (3) CHF exacerbation Code(s): I50.9 - HEART FAILURE, UNSPECIFIED Qualifiers: Heart failure type: unspecified Qualified Code(s): I50.9 - Heart failure, unspecified (4) Leukocytosis Code(s): D72.829 - ELEVATED WHITE BLOOD CELL COUNT, UNSPECIFIED Qualifiers: Leukocytosis type: unspecified Qualified Code(s): D72.829 - Elevated white blood cell count, unspecified Assessment/Plan Current Medications Generic Name Dose Route Start Last Admin Trade Name Freq PRN Reason Stop Dose Admin Allopurinol 100 mg 06/14/19 10:00 06/17/19 09:30 Zyloprim - PO 100 mg DAILY [facility] Administration Apixaban 2.5 mg 06/16/19 22:00 06/17/19 09:30 Eliquis - PO 2.5 mg BID [facility] Administration Atorvastatin Calcium 10 mg 06/13/19 22:00 06/16/19 22:15 Lipitor - PO 10 mg HS [facility] Administration Diltiazem HCl 180 mg 06/18/19 10:00 Cardizem Cd - PO DAILY [facility] Furosemide 40 mg 06/14/19 06:00 06/17/19 05:51 Lasix - PO Not Given BID@0600,1400 [facility] Metoprolol Succinate 100 mg 06/13/19 22:00 06/17/19 09:29 Toprol Xl - PO 100 mg BID [facility] Administration Pantoprazole Sodium 40 mg 06/13/19 22:00 06/17/19 09:30 Protonix - PO 40 mg BID [facility] Administration Potassium Chloride 20 meq 06/14/19 10:00 06/17/19 09:30 K-Dur - PO 20 meq DAILY [facility] Administration Thiamine HCl 100 mg 06/14/19 10:00 06/17/19 09:30 Vitamin B1 - PO 100 mg DAILY [facility] Administration Impression 1. JOHN 2. chf 3. a-fib 4. htn 5. gerd 6. hypokalemia 7. positive andre 8. leukocytosis 9. CKD Plan - cont lasix - monitor renal function - oncology follow up - renal function is stable - mag level is normal
[2019-06-17] MEDS ORDERED: PT OWN MED DRAWER 7, Y5N ONE (15:15)
--- NOTE | 2019-06-17 16:51 | PN.GI ---
GI Progress Note Subjective: GI Note: No further bloody BMs. I have emphasized the need for Maximino to consent for the bone marrow and skin biopsy to establish a diagnosis. I explained that he has a form of leukemia. He now tells me that he will consent. In response to my questions he complaints that his hands are always cold and in particular when his BP is being measured. He gets pain when he reaches into a freezer suggesting Raynaud's. He tells me that he prefers to lie down as his breathing is most comfortable in this position. 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 - Objective Vital Signs: Vital Signs Temperature 98.4 F 06/17/19 14:00 Pulse Rate 87 06/17/19 14:00 Respiratory Rate 20 06/17/19 14:00 Blood Pressure 116/78 06/17/19 14:00 O2 Sat by Pulse Oximetry (%) 96 06/17/19 10:00 Constitutional: Anxious ...Auscultate: Yes: Normoactive Bowel Sounds ...Palpate: Yes: Soft, Other (nontender) Extremities: Yes: Cyanosis (of hands) Labs: CBC, BMP 06/16/19 18:50 06/17/19 06:20 INR, PTT INR 1.73 (0.83-1.09) H 06/17/19 06:20 Fibrinogen 404.0 mg/dL (238-498) 06/17/19 06:20 Assessment/Plan Assessment - Hemorrhoidal bleeding - Alcoholic hepatitis- He denies alcohol intake since his discharge. 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 Plan: -- PPI therapy empirically -- Daily CBCs & LFTs -- Watch for DTs Problem List - Problems (1) GI bleed Code(s): K92.2 - GASTROINTESTINAL HEMORRHAGE, UNSPECIFIED Qualifiers: GI bleed type/associated pathology: unspecified gastrointestinal hemorrhage type Qualified Code(s): K92.2 - Gastrointestinal hemorrhage, unspecified (2) Atrial fibrillation Code(s): I48.91 - UNSPECIFIED ATRIAL FIBRILLATION Qualifiers: Atrial fibrillation type: chronic Qualified Code(s): I48.2 - Chronic atrial fibrillation (3) Balance problem Code(s): R26.89 - OTHER ABNORMALITIES OF GAIT AND MOBILITY (4) Leukocytosis Code(s): D72.829 - ELEVATED WHITE BLOOD CELL COUNT, UNSPECIFIED Qualifiers: Leukocytosis type: unspecified Qualified Code(s): D72.829 - Elevated white blood cell count, unspecified (5) Alcoholic gastritis with bleeding Code(s): K29.21 - ALCOHOLIC GASTRITIS WITH BLEEDING (6) Colon adenomas Code(s): D12.6 - BENIGN NEOPLASM OF COLON, UNSPECIFIED (7) Diverticulosis Code(s): K57.90 - DVRTCLOS OF INTEST, PART UNSP, W/O PERF OR ABSCESS W/O BLEED (8) History of radical prostatectomy Code(s): Z90.79 - ACQUIRED ABSENCE OF OTHER GENITAL ORGAN(S) (9) Leukocytosis Code(s): D72.829 - ELEVATED WHITE BLOOD CELL COUNT, UNSPECIFIED Qualifiers: Leukocytosis type: unspecified Qualified Code(s): D72.829 - Elevated white blood cell count, unspecified (10) Prostate cancer Code(s): C61 - MALIGNANT NEOPLASM OF PROSTATE (11) Sigmoid stricture Code(s): K56.699 - OTHER INTESTNL OBST UNSP TO PARTIAL VERSUS COMPLETE OBST (12) Alcoholic hepatitis without ascites Code(s): K70.10 - ALCOHOLIC HEPATITIS WITHOUT ASCITES (13) Raynauds disease Code(s): I73.00 - RAYNAUD'S SYNDROME WITHOUT GANGRENE
--- NOTE | 2019-06-17 21:08 | PN ---
Progress Note (short form) - Note Progress Note: Patient seen and examined Complains of dizziness Denies chest pain Some SOB Unsteadiness of gait Last Vital Signs Temp Pulse Resp BP Pulse Ox 98.0 F 96 H 20 125/84 97 06/17/19 19:53 06/17/19 19:53 06/17/19 19:53 06/17/19 19:53 06/17/19 19:53 No icterus Lungs diminished brath sounds Cor-irregular Abdomen -soft Ext- no significant edema CBC, BMP 06/16/19 18:50 06/17/19 06:20 Current Medications Generic Name Dose Route Start Last Admin Trade Name Freq PRN Reason Stop Dose Admin Allopurinol 100 mg 06/14/19 10:00 06/17/19 09:30 Zyloprim - PO 100 mg DAILY [facility] Administration Apixaban 2.5 mg 06/16/19 22:00 06/17/19 09:30 Eliquis - PO 2.5 mg BID [facility] Administration Atorvastatin Calcium 10 mg 06/13/19 22:00 06/16/19 22:15 Lipitor - PO 10 mg HS [facility] Administration Diltiazem HCl 180 mg 06/18/19 10:00 Cardizem Cd - PO DAILY [facility] Furosemide 40 mg 06/14/19 06:00 06/17/19 14:58 Lasix - PO 40 mg BID@0600,1400 [facility] Administration Metoprolol Succinate 100 mg 06/13/19 22:00 06/17/19 09:29 Toprol Xl - PO 100 mg BID [facility] Administration Pantoprazole Sodium 40 mg 06/13/19 22:00 06/17/19 09:30 Protonix - PO 40 mg BID [facility] Administration Potassium Chloride 20 meq 06/14/19 10:00 06/17/19 09:30 K-Dur - PO 20 meq DAILY [facility] Administration Thiamine HCl 100 mg 06/14/19 10:00 06/17/19 09:30 Vitamin B1 - PO 100 mg DAILY [facility] Administration Impression: Volume overload T-LGL with multiple cytogenetic abnormalities Fall in Hct may be artifactual - due to agglutination of RBC 's Hb relatively stable. TO MONITOR patient still considering bone marrow which can be done later this week.
[2019-06-17] MEDS: ATORVASTATIN CA 10 MG TABLET (FP) PO SCH (21:27)
[2019-06-17 22:09] LABS: HEP B CORE AB, TOT Negative (Negative)
[2019-06-18] MEDS: FUROSEMIDE 40 MG TABLET (FP) PO SCH ×2 (05:41→14:02)
[2019-06-18] MEDS: THIAMINE HCL 100 MG TABLET (FP) PO SCH (09:52)
[2019-06-18] MEDS: PANTOPRAZOLE 40 MG TABLET (FP) PO SCH ×2 (09:52→23:01)
[2019-06-18] MEDS: ALLOPURINOL 100 MG TABLET (FP) PO SCH (09:52)
[2019-06-18] MEDS: APIXABAN 2.5 MG TABLET PO SCH (09:52)
[2019-06-18] MEDS: POTASSIUM CHLORIDE TABS 20 MEQ TABLET.ER (FP) PO SCH (09:52)
[2019-06-18] MEDS ORDERED: LIDOCAINE 1%/EPI 1:100000 (20 ML MULTI DOSE VIAL) IJ ONE (10:16)
--- NOTE | 2019-06-18 11:05 | PN ---
Progress Note, Physician History of Present Illness: PULMONARY ALERT,NO DISTRESS,DYSPNEA IMPROVING,COMFORTABLE - Current Medication List Current Medications: Active Medications Allopurinol (Zyloprim -) 100 mg PO DAILY [facility] Last Admin: 06/18/19 09:52 Dose: 100 mg Apixaban (Eliquis -) 2.5 mg PO BID [facility] Last Admin: 06/18/19 09:52 Dose: 2.5 mg Atorvastatin Calcium (Lipitor -) 10 mg PO HS [facility] Last Admin: 06/17/19 21:27 Dose: 10 mg Diltiazem HCl (Cardizem Cd -) 180 mg PO DAILY [facility] Last Admin: 06/18/19 09:52 Dose: 180 mg Furosemide (Lasix -) 40 mg PO BID@0600,1400 [facility] Last Admin: 06/18/19 05:41 Dose: 40 mg Metoprolol Succinate (Toprol Xl -) 100 mg PO BID [facility] Last Admin: 06/18/19 09:52 Dose: 100 mg Pantoprazole Sodium (Protonix -) 40 mg PO BID [facility] Last Admin: 06/18/19 09:52 Dose: 40 mg Potassium Chloride (K-Dur -) 20 meq PO DAILY [facility] Last Admin: 06/18/19 09:52 Dose: 20 meq Thiamine HCl (Vitamin B1 -) 100 mg PO DAILY [facility] Last Admin: 06/18/19 09:52 Dose: 100 mg - Objective Vital Signs: Vital Signs Temperature 98.3 F 06/18/19 09:00 Pulse Rate 91 H 06/18/19 09:00 Respiratory Rate 20 06/18/19 09:00 Blood Pressure 132/77 06/18/19 09:00 O2 Sat by Pulse Oximetry (%) 97 06/18/19 09:00 Constitutional: Yes: Well Nourished, Calm Eyes: Yes: WNL HENT: Yes: WNL Neck: Yes: WNL Cardiovascular: Yes: Pulse Irregular, S1, S2 Respiratory: Yes: Diminished Gastrointestinal: Yes: Normal Bowel Sounds, Soft Extremities: Yes: WNL Edema: No Labs: CBC, BMP 06/16/19 18:50 INR, PTT INR 1.73 (0.83-1.09) H 06/17/19 06:20 Fibrinogen 404.0 mg/dL (238-498) 06/17/19 06:20 Problem List - Problems (1) Atrial fibrillation Code(s): I48.91 - UNSPECIFIED ATRIAL FIBRILLATION Qualifiers: Atrial fibrillation type: chronic Qualified Code(s): I48.2 - Chronic atrial fibrillation (2) CHF exacerbation Code(s): I50.9 - HEART FAILURE, UNSPECIFIED Qualifiers: Heart failure type: unspecified Qualified Code(s): I50.9 - Heart failure, unspecified (3) Leukocytosis Code(s): D72.829 - ELEVATED WHITE BLOOD CELL COUNT, UNSPECIFIED Qualifiers: Leukocytosis type: unspecified Qualified Code(s): D72.829 - Elevated white blood cell count, unspecified (4) GAVE (gastric antral vascular ectasia) Code(s): K31.819 - ANGIODYSPLASIA OF STOMACH AND DUODENUM WITHOUT BLEEDING (5) History of radical prostatectomy Code(s): Z90.79 - ACQUIRED ABSENCE OF OTHER GENITAL ORGAN(S) (6) Hyperlipidemia Code(s): E78.5 - HYPERLIPIDEMIA, UNSPECIFIED Qualifiers: Hyperlipidemia type: unspecified Qualified Code(s): E78.5 - Hyperlipidemia , unspecified (7) Hypertension Code(s): I10 - ESSENTIAL (PRIMARY) HYPERTENSION Qualifiers: Hypertension type: essential hypertension Qualified Code(s): I10 - Essential (primary) hypertension (8) Leukocytosis Code(s): D72.829 - ELEVATED WHITE BLOOD CELL COUNT, UNSPECIFIED Qualifiers: Leukocytosis type: unspecified Qualified Code(s): D72.829 - Elevated white blood cell count, unspecified (9) New onset of congestive heart failure Code(s): I50.9 - HEART FAILURE, UNSPECIFIED (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 Assessment/Plan IMP DYSPNEA IMPROVING ACUTE ON CHRONIC CHF IMPROVING AFIB WITH RVR PULMONARY HTN H/O GAVE ANEMIA ACUTE ON CHRONIC KIDNEY DISEASE LEFT PERICARDIAL CYST BECKY H/O PROSTATE CA S/P PROSTATECTOMY WEAKNESS T-LGL PLAN LASIX SUPPLEMENTAL O2 RATE CONTROL PER CARDIOLOGY AC MONITOR LYTES,RENAL FUNCTION MONITOR CBC NORMAL TRANSFUSION THRESHOLD DR CARABALLO Problem List - Problems (1) Atrial fibrillation Code(s): I48.91 - UNSPECIFIED ATRIAL FIBRILLATION Qualifiers: Atrial fibrillation type: chronic Qualified Code(s): I48.2 - Chronic atrial fibrillation (2) CHF exacerbation Code(s): I50.9 - HEART FAILURE, UNSPECIFIED Qualifiers: Heart failure type: unspecified Qualified Code(s): I50.9 - Heart failure, unspecified (3) Leukocytosis Code(s): D72.829 - ELEVATED WHITE BLOOD CELL COUNT, UNSPECIFIED Qualifiers: Leukocytosis type: unspecified Qualified Code(s): D72.829 - Elevated white blood cell count, unspecified (4) GAVE (gastric antral vascular ectasia) Code(s): K31.819 - ANGIODYSPLASIA OF STOMACH AND DUODENUM WITHOUT BLEEDING (5) History of radical prostatectomy Code(s): Z90.79 - ACQUIRED ABSENCE OF OTHER GENITAL ORGAN(S) (6) Hyperlipidemia Code(s): E78.5 - HYPERLIPIDEMIA, UNSPECIFIED Qualifiers: Hyperlipidemia type: unspecified Qualified Code(s): E78.5 - Hyperlipidemia , unspecified (7) Hypertension Code(s): I10 - ESSENTIAL (PRIMARY) HYPERTENSION Qualifiers: Hypertension type: essential hypertension Qualified Code(s): I10 - Essential (primary) hypertension (8) Leukocytosis Code(s): D72.829 - ELEVATED WHITE BLOOD CELL COUNT, UNSPECIFIED Qualifiers: Leukocytosis type: unspecified Qualified Code(s): D72.829 - Elevated white blood cell count, unspecified (9) New onset of congestive heart failure Code(s): I50.9 - HEART FAILURE, UNSPECIFIED (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
[2019-06-18 12:46] LABS: HEMATOCRIT 34.4 % (35.4-49); MCH 32.1 pg (25.7-33.7); MEAN CELL VOLUME 91.7 fl (80-96); MEAN PLT VOLUME 9.7 fl (7.5-11.1); PLATELET COUNT 249 K/MM3 (134-434); RBC 3.75 M/mm3 (4.00-5.60)
[2019-06-18 12:49] LABS: WHITE BLOOD COUNT 36.2 K/mm3 (4.0-10.0)
--- NOTE | 2019-06-18 14:24 | PN ---
Progress Note (short form) - Note Progress Note: no new complaints, still c/o unsteady gait, tinnitus CBC, BMP 06/18/19 08:16 06/17/19 06:20 Vital Signs Period Temp Pulse Resp BP Sys/Brewer Pulse Ox Last 24 Hr 97.6 F-98.3 F 88-98 20-20 125-142/77-88 97-97 S1S2 irreg.irreg. 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 positive lupus anticoagulant agreeable to bone marrow biopsy tomorrow, will hold eliquis physical therapy cont diuresis cont cardizem and lopressor ENT f/up requested regarding tinnitus-has had MRI a month ago, results noted, small vessel microvascular changes dc planning to snf Problem List - Problems (1) Atrial fibrillation Code(s): I48.91 - UNSPECIFIED ATRIAL FIBRILLATION Qualifiers: Atrial fibrillation type: chronic Qualified Code(s): I48.2 - Chronic atrial fibrillation (2) JOHN (acute kidney injury) Code(s): N17.9 - ACUTE KIDNEY FAILURE, UNSPECIFIED (3) Balance problem Code(s): R26.89 - OTHER ABNORMALITIES OF GAIT AND MOBILITY (4) Leukocytosis Code(s): D72.829 - ELEVATED WHITE BLOOD CELL COUNT, UNSPECIFIED Qualifiers: Leukocytosis type: unspecified Qualified Code(s): D72.829 - Elevated white blood cell count, unspecified (5) Hyperlipidemia Code(s): E78.5 - HYPERLIPIDEMIA, UNSPECIFIED Qualifiers: Hyperlipidemia type: unspecified Qualified Code(s): E78.5 - Hyperlipidemia , unspecified (6) Hypertension Code(s): I10 - ESSENTIAL (PRIMARY) HYPERTENSION Qualifiers: Hypertension type: essential hypertension Qualified Code(s): I10 - Essential (primary) hypertension
[2019-06-18] MEDS ORDERED: PT OWN MED DRAWER 7, Y5N ONE (15:36)
--- NOTE | 2019-06-18 16:27 | PN ---
Progress Note, Physician History of Present Illness: Pt seen and examined at bedside. He appears comfortable. He denies shortness of breath at rest. - Current Medication List Current Medications: Active Medications Allopurinol (Zyloprim -) 100 mg PO DAILY [facility] Last Admin: 06/18/19 09:52 Dose: 100 mg Apixaban (Eliquis -) 2.5 mg PO BID [facility] Last Admin: 06/18/19 09:52 Dose: 2.5 mg Atorvastatin Calcium (Lipitor -) 10 mg PO HS [facility] Last Admin: 06/17/19 21:27 Dose: 10 mg Diltiazem HCl (Cardizem Cd -) 180 mg PO DAILY [facility] Last Admin: 06/18/19 09:52 Dose: 180 mg Furosemide (Lasix -) 40 mg PO BID@0600,1400 [facility] Last Admin: 06/18/19 14:02 Dose: 40 mg Metoprolol Succinate (Toprol Xl -) 100 mg PO BID [facility] Last Admin: 06/18/19 09:52 Dose: 100 mg Pantoprazole Sodium (Protonix -) 40 mg PO BID [facility] Last Admin: 06/18/19 09:52 Dose: 40 mg Potassium Chloride (K-Dur -) 20 meq PO DAILY [facility] Last Admin: 06/18/19 09:52 Dose: 20 meq Thiamine HCl (Vitamin B1 -) 100 mg PO DAILY [facility] Last Admin: 06/18/19 09:52 Dose: 100 mg - Objective Vital Signs: Vital Signs Temperature 97.6 F 06/18/19 14:00 Pulse Rate 120 H 06/18/19 14:00 Respiratory Rate 20 06/18/19 14:00 Blood Pressure 124/93 06/18/19 14:00 O2 Sat by Pulse Oximetry (%) 97 06/18/19 09:00 Constitutional: Yes: Calm Eyes: Yes: Conjunctiva Clear HENT: Yes: Atraumatic Neck: Yes: Supple Cardiovascular: Yes: S1, S2 Respiratory: Yes: CTA Bilaterally Gastrointestinal: Yes: Normal Bowel Sounds, Soft Genitourinary: Yes: WNL Musculoskeletal: Yes: WNL Edema: Yes Edema: LLE: 1+, RLE: 1+ Neurological: Yes: Oriented Psychiatric: Yes: Oriented Labs: CBC, BMP 06/18/19 08:16 06/17/19 06:20 INR, PTT INR 1.73 (0.83-1.09) H 06/17/19 06:20 Fibrinogen 404.0 mg/dL (238-498) 06/17/19 06:20 Problem List - Problems (1) JOHN (acute kidney injury) Code(s): N17.9 - ACUTE KIDNEY FAILURE, UNSPECIFIED (2) ANDRE positive Code(s): R76.8 - OTHER SPECIFIED ABNORMAL IMMUNOLOGICAL FINDINGS IN SERUM (3) CHF exacerbation Code(s): I50.9 - HEART FAILURE, UNSPECIFIED Qualifiers: Heart failure type: unspecified Qualified Code(s): I50.9 - Heart failure, unspecified (4) Leukocytosis Code(s): D72.829 - ELEVATED WHITE BLOOD CELL COUNT, UNSPECIFIED Qualifiers: Leukocytosis type: unspecified Qualified Code(s): D72.829 - Elevated white blood cell count, unspecified Assessment/Plan Current Medications Generic Name Dose Route Start Last Admin Trade Name Freq PRN Reason Stop Dose Admin Allopurinol 100 mg 06/14/19 10:00 06/18/19 09:52 Zyloprim - PO 100 mg DAILY MILI Administration Apixaban 2.5 mg 06/16/19 22:00 06/18/19 09:52 Eliquis - PO 2.5 mg BID MILI Administration Atorvastatin Calcium 10 mg 06/13/19 22:00 06/17/19 21:27 Lipitor - PO 10 mg HS MILI Administration Diltiazem HCl 180 mg 06/18/19 10:00 06/18/19 09:52 Cardizem Cd - PO 180 mg DAILY [facility]I Administration Furosemide 40 mg 06/14/19 06:00 06/18/19 14:02 Lasix - PO 40 mg BID@0600,1400 MILI Administration Metoprolol Succinate 100 mg 06/13/19 22:00 06/18/19 09:52 Toprol Xl - PO 100 mg BID MILI Administration Pantoprazole Sodium 40 mg 06/13/19 22:00 06/18/19 09:52 Protonix - PO 40 mg BID MILI Administration Potassium Chloride 20 meq 06/14/19 10:00 06/18/19 09:52 K-Dur - PO 20 meq DAILY MILI Administration Thiamine HCl 100 mg 06/14/19 10:00 06/18/19 09:52 Vitamin B1 - PO 100 mg DAILY MILI Administration Laboratory Tests 11/21/10 05/23/19 05/25/19 13:45 06:35 06:19 VIVIANA M-Nathan Not observed ANDRE Screen c-ANCA Proteinase 3 (PR3) p-ANCA Atypical p-ANCA Myeloperoxidase Ab Mitochon/Sm Musc Ab Titr 7.4 Double Strand DNA Ab Tiss Transglutamin IgG < 2 Glomerular Base Memb Ab Hep Bs Antigen Hep Bs Antibody Hep B Core Total Ab Hep B Core IgM Ab 05/25/19 06/14/19 06/14/19 06:19 06:28 06:28 VIVIANA M-Nathan ANDRE Screen Positive H c-ANCA <1:20 Proteinase 3 (PR3) <3.5 p-ANCA <1:20 Atypical p-ANCA <1:20 Myeloperoxidase Ab <9.0 Mitochon/Sm Musc Ab Titr Double Strand DNA Ab <1 Tiss Transglutamin IgG Glomerular Base Memb Ab 2 Hep Bs Antigen Negative Hep Bs Antibody Non reactive Hep B Core Total Ab Negative Hep B Core IgM Ab Negative Impression 1. JOHN 2. chf 3. a-fib 4. htn 5. gerd 6. hypokalemia 7. positive andre 8. leukocytosis 9. CKD Plan - volume status is stabilizing - follow light chains - cont to monitor renal function - discussed with medical team - repeat labs in am
--- NOTE | 2019-06-18 16:33 | PN ---
Progress Note, Physician Chief Complaint: rash on the back History of Present Illness: 83yo male PMH HTN, HLD, prostate CA, anemia, GERD, gastritis, new CHF and Afib w / RvR recently admitted 05/21/19-06/07/19 for new CHF presenting today with 1 week of worsening sensation of poor balance and generalized weakness / fatigue. We were called to obtain a skin biopsy from the rash on his back. - Current Medication List Current Medications: Active Medications Allopurinol (Zyloprim -) 100 mg PO DAILY [facility] Last Admin: 06/18/19 09:52 Dose: 100 mg Apixaban (Eliquis -) 2.5 mg PO BID [facility] Last Admin: 06/18/19 09:52 Dose: 2.5 mg Atorvastatin Calcium (Lipitor -) 10 mg PO HS [facility] Last Admin: 06/17/19 21:27 Dose: 10 mg Diltiazem HCl (Cardizem Cd -) 180 mg PO DAILY [facility] Last Admin: 06/18/19 09:52 Dose: 180 mg Furosemide (Lasix -) 40 mg PO BID@0600,1400 [facility] Last Admin: 06/18/19 14:02 Dose: 40 mg Metoprolol Succinate (Toprol Xl -) 100 mg PO BID [facility] Last Admin: 06/18/19 09:52 Dose: 100 mg Pantoprazole Sodium (Protonix -) 40 mg PO BID [facility] Last Admin: 06/18/19 09:52 Dose: 40 mg Potassium Chloride (K-Dur -) 20 meq PO DAILY [facility] Last Admin: 06/18/19 09:52 Dose: 20 meq Thiamine HCl (Vitamin B1 -) 100 mg PO DAILY [facility] Last Admin: 06/18/19 09:52 Dose: 100 mg - Objective Vital Signs: Vital Signs Temperature 97.6 F 06/18/19 14:00 Pulse Rate 120 H 06/18/19 14:00 Respiratory Rate 20 06/18/19 14:00 Blood Pressure 124/93 06/18/19 14:00 O2 Sat by Pulse Oximetry (%) 97 06/18/19 09:00 Vital Signs Period Temp Pulse Resp BP Sys/Brewer Pulse Ox Last 24 Hr 97.6 F-98.3 F 88-120 20-20 124-142/77-93 97-97 Intake & Output 06/18/19 06/18/19 06/18/19 07:59 15:59 23:59 Intake Total 0 Balance 0 Weight 154 lb 12.8 oz Intake: IVPB 0 Other: Voiding Method Toilet Toilet Bowel Movement Yes # Bowel Movements 1 Weight Measurement Method Standing Scale Constitutional: Yes: Well Nourished, No Distress, Calm Eyes: Yes: Conjunctiva Clear, EOM Intact HENT: Yes: Atraumatic, Normocephalic Neck: Yes: Supple, Trachea Midline Cardiovascular: Yes: Regular Rate and Rhythm, S1, S2 Respiratory: Yes: Regular, CTA Bilaterally Gastrointestinal: Yes: Normal Bowel Sounds, Soft. No: Tenderness ...Rectal Exam: Yes: Deferred Genitourinary: No: CVA Tenderness - Left, CVA Tenderness - Right Breast(s): No: Mass, Skin Changes Musculoskeletal: No: Muscle Pain, Muscle Weakness Extremities: No: Cool, Cyanosis Edema: No Peripheral Pulses WNL: Yes Integumentary: Yes: Rash (diffuse lacy rash upper back vascularly congested). 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 Resume diet Bedside skin biopsy from back Discussed with patient risks, benefits and alternatives of aforementioned procedure, including but not limited to bleeding, infection, injury to adjacent structures, non-healing scar, wound infection ineed for further procedures, ; alternatives include antibiotics, delayed or no surgery - risks of this include failure of nonoperative therapy, worsening condition due to lack of diagnosis, recurrence, . Patient desires to proceed with operation - will take to OR for above. Informed consent signed for same. Code(s): R21 - RASH AND OTHER NONSPECIFIC SKIN ERUPTION (2) Alcoholic hepatitis without ascites Code(s): K70.10 - ALCOHOLIC HEPATITIS WITHOUT ASCITES (3) Atrial fibrillation Code(s): I48.91 - UNSPECIFIED ATRIAL FIBRILLATION Qualifiers: Atrial fibrillation type: chronic Qualified Code(s): I48.2 - Chronic atrial fibrillation (4) CHF exacerbation Code(s): I50.9 - HEART FAILURE, UNSPECIFIED Qualifiers: Heart failure type: unspecified Qualified Code(s): I50.9 - Heart failure, unspecified (5) Hyperlipidemia Code(s): E78.5 - HYPERLIPIDEMIA, UNSPECIFIED Qualifiers: Hyperlipidemia type: unspecified Qualified Code(s): E78.5 - Hyperlipidemia , unspecified (6) Prostate cancer Code(s): C61 - MALIGNANT NEOPLASM OF PROSTATE
--- NOTE | 2019-06-18 16:39 | PROC ---
Incision and Drainage Indication/Location: right upper back Risks and Benefits Explained: Yes Consent on Chart: Yes Betadine cleansed: Yes Anesthesia: 1% Lidocaine w/ Epi (6ml SQ area block) Blade Size: #15 Drainage: N/A Skin biopsy sent fresh in 0.9% normal saline sent to pathology Irrigated with Normal Saline: No Plain packing: No Sterile Dressing Applied: Yes - Remarks Remarks: formal time out completed site terri was confirmed 1.5cm vertical ellipse was made near the terri on the right upper back in an area of normal and rash containing skin two #2-0 Nylon Vertical mattress sutures were placed across the defect to apprximate the skin edges bacitracin and sterile dressing was placed
[2019-06-18 17:07] LABS: FREE KAPPA,SERUM 135.8 mg/L (3.3-19.4)
--- NOTE | 2019-06-18 17:28 | PN ---
Progress Note (short form) - Note Progress Note: The patient reports shortness on breath an denies joint pain. P/E lungs clear. S1 and S2 normal, no murmur. No active joints, Dr. Grande informed me that in previous work-up the patient was found to have a positive lupus anticoagulant. Furthermore, in the present visit there is suspicion of cold agglutinin or cryoglobiulinemia. Testing for cold agglutinins was negative. Cryoglobulins are pending, however very often is negative when the sample is handled in routine manner. 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 Plan: Rule ut lupus, rule out cryoglobulinemia I will request serology for lupus and complement. Continue same medications. Problem List - Problems (1) MAR positive Code(s): R76.8 - OTHER SPECIFIED ABNORMAL IMMUNOLOGICAL FINDINGS IN SERUM
--- NOTE | 2019-06-18 18:46 | PN ---
Progress Note (short form) - Note Progress Note: Patient seen and examined Seen by rheumatology - for w/u of collagen vascular disease Skin biopsy performed If patient consents- for bone marrow biopsy 06/19 Last Vital Signs Temp Pulse Resp BP Pulse Ox 97.6 F 120 H 20 124/93 97 06/18/19 14:00 06/18/19 14:00 06/18/19 14:00 06/18/19 14:00 06/18/19 09:00 HEENT: FREDY, EOM Intact Cor: atrial fib Lungs: Clear to P&A Abd: Soft, Normal bowel sounds, No organomegaly Ext:No significant edema Skin: s/p biopsy CBC, BMP 06/18/19 08:16 06/17/19 06:20 Current Medications Generic Name Dose Route Start Last Admin Trade Name Calebq PRN Reason Stop Dose Admin Allopurinol 100 mg 06/14/19 10:00 06/18/19 09:52 Zyloprim - PO 100 mg DAILY MILI Administration Apixaban 2.5 mg 06/16/19 22:00 06/18/19 09:52 Eliquis - PO 2.5 mg BID MILI Administration Atorvastatin Calcium 10 mg 06/13/19 22:00 06/17/19 21:27 Lipitor - PO 10 mg HS MILI Administration Diltiazem HCl 180 mg 06/18/19 10:00 06/18/19 09:52 Cardizem Cd - PO 180 mg DAILY [facility]I Administration Furosemide 40 mg 06/14/19 06:00 06/18/19 14:02 Lasix - PO 40 mg BID@0600,1400 MILI Administration Metoprolol Succinate 100 mg 06/13/19 22:00 06/18/19 09:52 Toprol Xl - PO 100 mg BID MILI Administration Pantoprazole Sodium 40 mg 06/13/19 22:00 06/18/19 09:52 Protonix - PO 40 mg BID MILI Administration Potassium Chloride 20 meq 06/14/19 10:00 06/18/19 09:52 K-Dur - PO 20 meq DAILY MILI Administration Thiamine HCl 100 mg 06/14/19 10:00 06/18/19 09:52 Vitamin B1 - PO 100 mg DAILY [facility]I Administration 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
[2019-06-18] MEDS: ATORVASTATIN CA 10 MG TABLET (FP) PO SCH (23:01)
[2019-06-19] MEDS: FUROSEMIDE 40 MG TABLET (FP) PO SCH ×2 (05:58→13:44)
--- NOTE | 2019-06-19 08:15 | PN ---
Progress Note (short form) - Note Progress Note: no new complaints s/p skin biopsy yesterday, became tachy afyter procedure-did receive epi at the time of biopsy CBC, BMP 06/18/19 08:16 06/17/19 06:20 Vital Signs Period Temp Pulse Resp BP Sys/Brewer Pulse Ox Last 24 Hr 97.4 F-98.3 F 91-120 20-20 116-141/77-100 97-98 S1S2 irreg.irreg. 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 positive lupus anticoagulant s/p skin biopsy 06.18.19 agreeable to bone marrow biopsy today, held eliquis physical therapy cont diuresis cont cardizem and lopressor ENT f/up requested regarding tinnitus-has had MRI a month ago, results noted, small vessel microvascular changes dc planning to snf Problem List - Problems (1) Atrial fibrillation Code(s): I48.91 - UNSPECIFIED ATRIAL FIBRILLATION Qualifiers: Atrial fibrillation type: chronic Qualified Code(s): I48.2 - Chronic atrial fibrillation (2) JOHN (acute kidney injury) Code(s): N17.9 - ACUTE KIDNEY FAILURE, UNSPECIFIED (3) Balance problem Code(s): R26.89 - OTHER ABNORMALITIES OF GAIT AND MOBILITY (4) Leukocytosis Code(s): D72.829 - ELEVATED WHITE BLOOD CELL COUNT, UNSPECIFIED Qualifiers: Leukocytosis type: unspecified Qualified Code(s): D72.829 - Elevated white blood cell count, unspecified (5) Hyperlipidemia Code(s): E78.5 - HYPERLIPIDEMIA, UNSPECIFIED Qualifiers: Hyperlipidemia type: unspecified Qualified Code(s): E78.5 - Hyperlipidemia , unspecified (6) Hypertension Code(s): I10 - ESSENTIAL (PRIMARY) HYPERTENSION Qualifiers: Hypertension type: essential hypertension Qualified Code(s): I10 - Essential (primary) hypertension
[2019-06-19] MEDS: ALLOPURINOL 100 MG TABLET (FP) PO SCH (09:31)
[2019-06-19] MEDS: PANTOPRAZOLE 40 MG TABLET (FP) PO SCH ×2 (09:31→22:53)
[2019-06-19] MEDS: POTASSIUM CHLORIDE TABS 20 MEQ TABLET.ER (FP) PO SCH (09:31)
[2019-06-19] MEDS: THIAMINE HCL 100 MG TABLET (FP) PO SCH (09:31)
--- NOTE | 2019-06-19 12:01 | PN ---
Progress Note, Physician History of Present Illness: pulmonary alert,still c/o sob,-cp - Current Medication List Current Medications: Active Medications Allopurinol (Zyloprim -) 100 mg PO DAILY [facility] Last Admin: 06/19/19 09:31 Dose: 100 mg Atorvastatin Calcium (Lipitor -) 10 mg PO HS [facility] Last Admin: 06/18/19 23:01 Dose: 10 mg Diltiazem HCl (Cardizem Cd -) 180 mg PO DAILY [facility] Last Admin: 06/19/19 09:31 Dose: 180 mg Furosemide (Lasix -) 40 mg PO BID@0600,1400 [facility] Last Admin: 06/19/19 05:58 Dose: 40 mg Metoprolol Succinate (Toprol Xl -) 100 mg PO BID [facility] Last Admin: 06/19/19 09:31 Dose: 100 mg Pantoprazole Sodium (Protonix -) 40 mg PO BID [facility] Last Admin: 06/19/19 09:31 Dose: 40 mg Potassium Chloride (K-Dur -) 20 meq PO DAILY [facility] Last Admin: 06/19/19 09:31 Dose: 20 meq Thiamine HCl (Vitamin B1 -) 100 mg PO DAILY [facility] Last Admin: 06/19/19 09:31 Dose: 100 mg - Objective Vital Signs: Vital Signs Temperature 97.4 F L 06/19/19 08:15 Pulse Rate 110 H 06/19/19 08:15 Respiratory Rate 20 06/19/19 08:15 Blood Pressure 134/84 06/19/19 08:15 O2 Sat by Pulse Oximetry (%) 100 06/19/19 08:16 Constitutional: Yes: Well Nourished, Calm, Other (mildly dyspneic) Eyes: Yes: WNL HENT: Yes: WNL Neck: Yes: WNL Cardiovascular: Yes: Pulse Irregular, S1, S2 Respiratory: Yes: Rales (bibasilar crackles) Gastrointestinal: Yes: Normal Bowel Sounds, Soft Extremities: Yes: WNL Edema: No Labs: CBC, BMP 06/18/19 08:16 06/17/19 06:20 INR, PTT INR 1.73 (0.83-1.09) H 06/17/19 06:20 Fibrinogen 404.0 mg/dL (238-498) 06/17/19 06:20 Problem List - Problems (1) Atrial fibrillation Code(s): I48.91 - UNSPECIFIED ATRIAL FIBRILLATION Qualifiers: Atrial fibrillation type: chronic Qualified Code(s): I48.2 - Chronic atrial fibrillation (2) CHF exacerbation Code(s): I50.9 - HEART FAILURE, UNSPECIFIED Qualifiers: Heart failure type: unspecified Qualified Code(s): I50.9 - Heart failure, unspecified (3) Leukocytosis Code(s): D72.829 - ELEVATED WHITE BLOOD CELL COUNT, UNSPECIFIED Qualifiers: Leukocytosis type: unspecified Qualified Code(s): D72.829 - Elevated white blood cell count, unspecified (4) GAVE (gastric antral vascular ectasia) Code(s): K31.819 - ANGIODYSPLASIA OF STOMACH AND DUODENUM WITHOUT BLEEDING (5) History of radical prostatectomy Code(s): Z90.79 - ACQUIRED ABSENCE OF OTHER GENITAL ORGAN(S) (6) Hyperlipidemia Code(s): E78.5 - HYPERLIPIDEMIA, UNSPECIFIED Qualifiers: Hyperlipidemia type: unspecified Qualified Code(s): E78.5 - Hyperlipidemia , unspecified (7) Hypertension Code(s): I10 - ESSENTIAL (PRIMARY) HYPERTENSION Qualifiers: Hypertension type: essential hypertension Qualified Code(s): I10 - Essential (primary) hypertension (8) Leukocytosis Code(s): D72.829 - ELEVATED WHITE BLOOD CELL COUNT, UNSPECIFIED Qualifiers: Leukocytosis type: unspecified Qualified Code(s): D72.829 - Elevated white blood cell count, unspecified (9) New onset of congestive heart failure Code(s): I50.9 - HEART FAILURE, UNSPECIFIED (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 Assessment/Plan IMP DYSPNEA ACUTE ON CHRONIC CHF IMPROVING AFIB WITH RVR PULMONARY HTN H/O GAVE RESOLVED ANEMIA ACUTE ON CHRONIC KIDNEY DISEASE LEFT PERICARDIAL CYST BECKY H/O PROSTATE CA S/P PROSTATECTOMY WEAKNESS T-LGL PLAN LASIX SUPPLEMENTAL O2 RATE CONTROL PER CARDIOLOGY AC MONITOR LYTES,RENAL FUNCTION MONITOR CBC NORMAL TRANSFUSION THRESHOLD RHEUM W/U DR CARABALLO Problem List - Problems (1) Atrial fibrillation Code(s): I48.91 - UNSPECIFIED ATRIAL FIBRILLATION Qualifiers: Atrial fibrillation type: chronic Qualified Code(s): I48.2 - Chronic atrial fibrillation (2) CHF exacerbation Code(s): I50.9 - HEART FAILURE, UNSPECIFIED Qualifiers: Heart failure type: unspecified Qualified Code(s): I50.9 - Heart failure, unspecified (3) Leukocytosis Code(s): D72.829 - ELEVATED WHITE BLOOD CELL COUNT, UNSPECIFIED Qualifiers: Leukocytosis type: unspecified Qualified Code(s): D72.829 - Elevated white blood cell count, unspecified (4) GAVE (gastric antral vascular ectasia) Code(s): K31.819 - ANGIODYSPLASIA OF STOMACH AND DUODENUM WITHOUT BLEEDING (5) History of radical prostatectomy Code(s): Z90.79 - ACQUIRED ABSENCE OF OTHER GENITAL ORGAN(S) (6) Hyperlipidemia Code(s): E78.5 - HYPERLIPIDEMIA, UNSPECIFIED Qualifiers: Hyperlipidemia type: unspecified Qualified Code(s): E78.5 - Hyperlipidemia , unspecified (7) Hypertension Code(s): I10 - ESSENTIAL (PRIMARY) HYPERTENSION Qualifiers: Hypertension type: essential hypertension Qualified Code(s): I10 - Essential (primary) hypertension (8) Leukocytosis Code(s): D72.829 - ELEVATED WHITE BLOOD CELL COUNT, UNSPECIFIED Qualifiers: Leukocytosis type: unspecified Qualified Code(s): D72.829 - Elevated white blood cell count, unspecified (9) New onset of congestive heart failure Code(s): I50.9 - HEART FAILURE, UNSPECIFIED (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
[2019-06-19] MEDS ORDERED: LIDOCAINE HCL 1%, 10 MG/ML (20ML VIAL) ONE (12:28)
--- NOTE | 2019-06-19 13:20 | PN ---
Progress Note, Physician History of Present Illness: Pt seen and examined at bedside. He is awake and alert. He denies shortness of breath. - Current Medication List Current Medications: Active Medications Allopurinol (Zyloprim -) 100 mg PO DAILY [facility] Last Admin: 06/19/19 09:31 Dose: 100 mg Atorvastatin Calcium (Lipitor -) 10 mg PO HS [facility] Last Admin: 06/18/19 23:01 Dose: 10 mg Diltiazem HCl (Cardizem Cd -) 180 mg PO DAILY [facility] Last Admin: 06/19/19 09:31 Dose: 180 mg Furosemide (Lasix -) 40 mg PO BID@0600,1400 [facility] Last Admin: 06/19/19 05:58 Dose: 40 mg Metoprolol Succinate (Toprol Xl -) 100 mg PO BID [facility] Last Admin: 06/19/19 09:31 Dose: 100 mg Pantoprazole Sodium (Protonix -) 40 mg PO BID [facility] Last Admin: 06/19/19 09:31 Dose: 40 mg Potassium Chloride (K-Dur -) 20 meq PO DAILY [facility] Last Admin: 06/19/19 09:31 Dose: 20 meq Thiamine HCl (Vitamin B1 -) 100 mg PO DAILY [facility] Last Admin: 06/19/19 09:31 Dose: 100 mg - Objective Vital Signs: Vital Signs Temperature 97.4 F L 06/19/19 08:15 Pulse Rate 110 H 06/19/19 08:15 Respiratory Rate 20 06/19/19 08:15 Blood Pressure 134/84 06/19/19 08:15 O2 Sat by Pulse Oximetry (%) 100 06/19/19 08:16 Constitutional: Yes: Calm Eyes: Yes: Conjunctiva Clear HENT: Yes: Atraumatic Neck: Yes: Supple Cardiovascular: Yes: S1, S2 Respiratory: Yes: CTA Bilaterally Gastrointestinal: Yes: Soft Genitourinary: Yes: WNL Musculoskeletal: Yes: WNL Extremities: Yes: WNL Edema: Yes Edema: LLE: Trace, RLE: Trace Integumentary: Yes: Venous Stasis Changes Neurological: Yes: Oriented Psychiatric: Yes: Oriented Labs: CBC, BMP 06/18/19 08:16 06/17/19 06:20 INR, PTT INR 1.73 (0.83-1.09) H 06/17/19 06:20 Fibrinogen 404.0 mg/dL (238-498) 06/17/19 06:20 Problem List - Problems (1) JOHN (acute kidney injury) Code(s): N17.9 - ACUTE KIDNEY FAILURE, UNSPECIFIED (2) ANDRE positive Code(s): R76.8 - OTHER SPECIFIED ABNORMAL IMMUNOLOGICAL FINDINGS IN SERUM (3) CHF exacerbation Code(s): I50.9 - HEART FAILURE, UNSPECIFIED Qualifiers: Heart failure type: unspecified Qualified Code(s): I50.9 - Heart failure, unspecified (4) Leukocytosis Code(s): D72.829 - ELEVATED WHITE BLOOD CELL COUNT, UNSPECIFIED Qualifiers: Leukocytosis type: unspecified Qualified Code(s): D72.829 - Elevated white blood cell count, unspecified Assessment/Plan Current Medicat Current Medications Generic Name Dose Route Start Last Admin Trade Name Freq PRN Reason Stop Dose Admin Allopurinol 100 mg 06/14/19 10:00 06/19/19 09:31 Zyloprim - PO 100 mg DAILY MILI Administration Atorvastatin Calcium 10 mg 06/13/19 22:00 06/18/19 23:01 Lipitor - PO 10 mg HS MILI Administration Diltiazem HCl 180 mg 06/18/19 10:00 06/19/19 09:31 Cardizem Cd - PO 180 mg DAILY MILI Administration Furosemide 40 mg 06/14/19 06:00 06/19/19 05:58 Lasix - PO 40 mg BID@0600,1400 MILI Administration Metoprolol Succinate 100 mg 06/13/19 22:00 06/19/19 09:31 Toprol Xl - PO 100 mg BID MILI Administration Pantoprazole Sodium 40 mg 06/13/19 22:00 06/19/19 09:31 Protonix - PO 40 mg BID MILI Administration Potassium Chloride 20 meq 06/14/19 10:00 06/19/19 09:31 K-Dur - PO 20 meq DAILY MILI Administration Thiamine HCl 100 mg 06/14/19 10:00 06/19/19 09:31 Vitamin B1 - PO 100 mg DAILY MILI Administration 11/21/10 05/23/19 05/25/19 13:45 06:35 06:19 VIVIANA M-Nathan Not observed ANDRE Screen c-ANCA Proteinase 3 (PR3) p-ANCA Atypical p-ANCA Myeloperoxidase Ab Mitochon/Sm Musc Ab Titr 7.4 Double Strand DNA Ab Tiss Transglutamin IgG < 2 Glomerular Base Memb Ab Hep Bs Antigen Hep Bs Antibody Hep B Core Total Ab Hep B Core IgM Ab 05/25/19 06/14/19 06/14/19 06:19 06:28 06:28 VIVIANA M-Nathan ANDRE Screen Positive H c-ANCA <1:20 Proteinase 3 (PR3) <3.5 p-ANCA <1:20 Atypical p-ANCA <1:20 Myeloperoxidase Ab <9.0 Mitochon/Sm Musc Ab Titr Double Strand DNA Ab <1 Tiss Transglutamin IgG Glomerular Base Memb Ab 2 Hep Bs Antigen Negative Hep Bs Antibody Non reactive Hep B Core Total Ab Negative Hep B Core IgM Ab Negative Impression 1. JOHN 2. chf 3. a-fib 4. htn 5. gerd 6. hypokalemia 7. positive andre 8. leukocytosis 9. CKD Plan - oncology eval in progress, poss bone marrow - cont to monitor renal function - avoid nsaids - cont lasix - volume status is improved
--- NOTE | 2019-06-19 18:51 | PROC ---
Bone Marrow Aspiration/Biopsy - Consent Risks and Benefits Explained: Yes - Procedure Location: Right Iliac Crest Anesthesia: 1% Lidocaine Sterile Technique: Yes Specimen: Obtained Patient tolerated procedure: Well with minimal pain Sterile Dressing Applied: Yes Remarks: T-LGL
--- NOTE | 2019-06-19 19:21 | PN ---
Progress Note (short form) - Note Progress Note: Patient seen and examined c/o weakness and unsteady gait Last Vital Signs Temp Pulse Resp BP Pulse Ox 97.7 F 112 H 20 125/90 100 06/19/19 14:00 06/19/19 14:00 06/19/19 14:00 06/19/19 14:00 06/19/19 08:16 Cor: RSR, No murmurs, No gallops Lungs: Clear to P&A Abd: Soft, Normal bowel sounds, No organomegaly Ext:No significant edema Abnormal Lab Results 06/17/19 06:20 Blood Viscosity 1.5 L Home Medication List Medication Instructions Recorded Confirmed Type Calcium Citrate/Vitamin D3 2 each PO DAILY 05/21/19 05/21/19 History [Calcium Cit 315-Vit D3 200 Cpt] Active Medications Generic Name Dose Route Start Last Admin Trade Name Freq PRN Reason Stop Dose Admin Allopurinol 100 mg 06/14/19 10:00 06/19/19 09:31 Zyloprim - PO 100 mg DAILY MILI Administration Atorvastatin Calcium 10 mg 06/13/19 22:00 06/18/19 23:01 Lipitor - PO 10 mg HS MILI Administration Diltiazem HCl 180 mg 06/18/19 10:00 06/19/19 09:31 Cardizem Cd - PO 180 mg DAILY MILI Administration Furosemide 40 mg 06/14/19 06:00 06/19/19 13:44 Lasix - PO 40 mg BID@0600,1400 MILI Administration Metoprolol Succinate 100 mg 06/13/19 22:00 06/19/19 09:31 Toprol Xl - PO 100 mg BID MILI Administration Pantoprazole Sodium 40 mg 06/13/19 22:00 06/19/19 09:31 Protonix - PO 40 mg BID MILI Administration Potassium Chloride 20 meq 06/14/19 10:00 06/19/19 09:31 K-Dur - PO 20 meq DAILY MILI Administration Thiamine HCl 100 mg 06/14/19 10:00 06/19/19 09:31 Vitamin B1 - PO 100 mg DAILY MILI Administration A/P 83 y/o patient with CHF, afib, admitted with shortness of breath Being treated for CHF 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 Frederick. Will check C3, C4, CH50,antids DNA f/u skin biopsy s/p bone marrow biopsy --to r/o any other marrow pathology in addition to TLGL given multiple cytogenetic abdnormalities discussed in great detail with daughter will need follow up outpatient with rheumatology/cardiology and us ( [phone])
[2019-06-19] MEDS: ATORVASTATIN CA 10 MG TABLET (FP) PO SCH (22:53)
[2019-06-20] MEDS: FUROSEMIDE 40 MG TABLET (FP) PO SCH ×2 (06:29→13:40)
[2019-06-20 08:08] LABS: ALBUMIN 3.2 g/dl (3.4-5.0); BILIRUBIN,TOTAL 0.8 mg/dL (0.2-1); BLOOD UREA NITROGEN 53.7 mg/dL (7-18); CALCIUM 8.6 mg/dL (8.5-10.1); CREATININE 2.2 mg/dL (0.55-1.3); POTASSIUM 3.6 mmol/L (3.5-5.1); TOT PROT 5.5 g/dl (6.4-8.2); URIC ACID 8.5 mg/dL (2.6-7.2)
--- NOTE | 2019-06-20 08:39 | PN ---
Progress Note (short form) - Note Progress Note: no new complaints s/p bone marrow biopsy yesterday,tolerated procedure well. Laboratory Last Values WBC 36.2 K/mm3 (4.0-10.0) H* 06/18/19 08:16 RBC 3.75 M/mm3 (4.00-5.60) L 06/18/19 08:16 Hgb 12.0 GM/dL (11.7-16.9) 06/18/19 08:16 Hct 34.4 % (35.4-49) L D 06/18/19 08:16 MCV 91.7 fl (80-96) 06/18/19 08:16 MCH 32.1 pg (25.7-33.7) D 06/18/19 08:16 MCHC 35.0 g/dl (32.0-35.9) 06/18/19 08:16 RDW 14.0 % (11.9-15.9) 06/18/19 08:16 Plt Count 249 K/MM3 (134-434) 06/18/19 08:16 MPV 9.7 fl (7.5-11.1) D 06/18/19 08:16 Absolute Neuts (auto) 35.1 K/mm3 (1.5-8.0) H 06/16/19 18:50 Total Counted 100 06/16/19 18:50 Neutrophils % 58.4 % (42.8-82.8) 06/16/19 18:50 Neutrophils % (Manual) 50.0 % (42.8-82.8) 06/16/19 18:50 Band Neutrophils % 2.0 % 06/15/19 11:40 Lymphocytes % 26.0 % (8-40) 06/16/19 18:50 Lymphocytes % (Manual) 48.0 % (8-40) H D 06/16/19 18:50 Monocytes % 14.8 % (3.8-10.2) H 06/16/19 18:50 Monocytes % (Manual) 2 % (3.8-10.2) L D 06/16/19 18:50 Eosinophils % 0.5 % (0-4.5) D 06/16/19 18:50 Basophils % 0.3 % (0-2.0) 06/16/19 18:50 Basophils % (Manual) 1.0 % (0-2.0) D 06/14/19 06:28 Nucleated RBC % 1 % (0-0) H 06/16/19 18:50 Differential Comment Man diff performed 06/15/19 11:40 Platelet Estimate Adequate 06/15/19 11:40 Platelet Comment 06/15/19 11:40 Polychromasia 1+ 06/13/19 15:09 ESR 82 mm/hr (0-20) H 06/15/19 11:40 Retic Count 0.95 % (0.5-1.5) D 06/18/19 06:51 Haptoglobin 194 mg/dL (34-200) 06/18/19 06:51 Blood Viscosity 1.5 cp (1.6-1.9) L 06/17/19 06:20 PT with INR 20.50 SEC (9.7-13.0) H 06/17/19 06:20 INR 1.73 (0.83-1.09) H 06/17/19 06:20 PTT (Actin FS) 31.4 SECONDS (25.2-36.5) 06/17/19 06:20 Fibrinogen 404.0 mg/dL (238-498) 06/17/19 06:20 LA PTT Baseline 34.6 sec (0.0-51.9) 06/14/19 06:28 dRVVT Confirm Interp 1.3 ratio (0.8-1.2) H 06/14/19 06:28 dRVVT Mixing Study 57.4 sec (0.0-47.0) H 06/14/19 06:28 Lupus Anticoag Comment Comment: (.) 06/14/19 06:28 Sodium 138 mmol/L (136-145) 06/20/19 07:10 Potassium 3.6 mmol/L (3.5-5.1) 06/20/19 07:10 Chloride 98 mmol/L (98-107) 06/20/19 07:10 Carbon Dioxide 30 mmol/L (21-32) 06/20/19 07:10 Anion Gap 9 MMOL/L (8-16) 06/20/19 07:10 BUN 53.7 mg/dL (7-18) H 06/20/19 07:10 Creatinine 2.2 mg/dL (0.55-1.3) H 06/20/19 07:10 Est GFR (CKD-EPI)AfAm 30.96 06/20/19 07:10 Est GFR (CKD-EPI)NonAf 26.71 06/20/19 07:10 Random Glucose 93 mg/dL (74-106) 06/20/19 07:10 Uric Acid 8.5 mg/dL (2.6-7.2) H 06/20/19 07:10 Calcium 8.6 mg/dL (8.5-10.1) 06/20/19 07:10 Phosphorus 2.7 mg/dL (2.5-4.9) 06/15/19 11:40 Magnesium 2.0 mg/dL (1.8-2.4) 06/17/19 06:20 Total Bilirubin 0.8 mg/dL (0.2-1) 06/20/19 07:10 AST 99 U/L (15-37) H 06/20/19 07:10 ALT 107 U/L (13-61) H 06/20/19 07:10 Alkaline Phosphatase 198 U/L (45-117) H 06/20/19 07:10 LD Total 198 U/L (87-246) 06/20/19 07:10 Creatine Kinase 107 U/L (26-308) 06/13/19 13:18 Troponin I < 0.02 ng/ml (0.00-0.05) 06/13/19 13:18 C-Reactive Protein 0.9 MG/DL (0.00-0.3) H 06/15/19 11:40 B-Natriuretic Peptide 17396.6 pg/ml (5-450) H 06/13/19 13:18 Total Protein 5.5 g/dl (6.4-8.2) L 06/20/19 07:10 Albumin 3.2 g/dl (3.4-5.0) L 06/20/19 07:10 TSH 2.24 uIU/ml (0.358-3.74) D 06/15/19 11:40 Free T4 1.11 ng/dl (0.76-1.16) 06/15/19 11:40 Urine Color Yellow 06/13/19 15:50 Urine Appearance Clear 06/13/19 15:50 Urine pH 6.5 (5.0-8.0) 06/13/19 15:50 Ur Specific [place] 1.008 (1.010-1.035) L 06/13/19 15:50 Urine Protein Negative (NEGATIVE) 06/13/19 15:50 Urine Glucose (UA) Negative (NEGATIVE) 06/13/19 15:50 Urine Ketones Negative (NEGATIVE) 06/13/19 15:50 Urine Blood Negative (NEGATIVE) 06/13/19 15:50 Urine Nitrite Negative (NEGATIVE) 06/13/19 15:50 Urine Bilirubin Negative (NEGATIVE) 06/13/19 15:50 Urine Urobilinogen 0.2 mg/dL (0.2-1.0) 06/13/19 15:50 Ur Leukocyte Esterase Negative (NEGATIVE) 06/13/19 15:50 Ur Random Creatinine 70.0 mg/dL (30-150) 06/14/19 18:15 U Random Total Protein 17.4 mg/dl (0-11.9) H 06/14/19 18:15 Ur Random Urea Nitrogn 405 mg/dL (350-1000) 06/14/19 18:15 Urine Creatinine 68.0 mg/dL (20-320) 06/14/19 18:15 Protein/Creatinin Ratio 0.250 MG/DL 06/14/19 18:15 IgM 297 mg/dL (15-143) H 06/14/19 06:28 Serum Cryoglobulins (None detected) 06/14/19 06:28 Rheumatoid Factor < 10.0 IU/mL (0-15) 06/14/19 06:28 Cold Agglutinins Negative TITER (Neg <1:32) 06/14/19 06:28 MAR Screen Positive (.) H 06/14/19 06:28 MAR Homogeneous Pattern TNP 06/14/19 06:28 MAR Nucleolar Pattern 1:320 (.) H 06/14/19 06:28 MAR Spindle Cristina Pattern TNP 06/14/19 06:28 MAR Midbody Pattern TNP 06/14/19 06:28 MAR Centriole Pattern TNP 06/14/19 06:28 MAR Nuclear Dot Pattern TNP 06/14/19 06:28 MAR PCNA Pattern TNP 06/14/19 06:28 MAR Nuclear Membr Pat TNP 06/14/19 06:28 MAR Speckled Pattern TNP 06/14/19 06:28 MAR Centromere Pattern TNP 06/14/19 06:28 Free [place] LC, Quant 135.8 mg/L (3.3-19.4) H 06/17/19 06:20 Free Lambda LC, Quant 16.0 mg/L (5.7-26.3) 06/17/19 06:20 Free [place]/Lambda Ratio 8.49 (0.26-1.65) H 06/17/19 06:20 Hep A IgM Ab Confirm Negative (Negative) 06/14/19 06:28 Hepatitis A Ab Total Positive (Negative) H 06/14/19 06:28 Hep Bs Antigen Negative (Negative) 06/14/19 06:28 Hep Bs Antibody Non reactive (.) 06/14/19 06:28 Hep B Core Total Ab Negative (Negative) 06/14/19 06:28 Hep B Core IgM Ab Negative (Negative) 06/14/19 06:28 Hepatitis Be Antibody Negative (Negative) 06/14/19 06:28 Hepatitis Be Antigen Negative (Negative) 06/14/19 06:28 Blood Type O POSITIVE 06/15/19 11:40 Antibody Screen Negative 06/15/19 11:40 Direct Antiglob Test Negative (NEGATIVE) 06/18/19 06:51 S1S2 irreg.irreg. 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 s/p skin biopsy 8 s/p bone marrow biopsy 06.19.19 in view of rising renal and liver function will delay dc to SNF until tomorrow if levels stabilize dc in am f/up pathology results as outpt T-LGL + multiple cytogenetic abnormalities T-LGL typically is treated when it causes cytopenias.He does not have neutropenia/thrombocytopenia he is not expected to require chemotherapy in the near future expect STR ~2 weeks until patient is strong enough to go home with family Problem List - Problems (1) Atrial fibrillation Code(s): I48.91 - UNSPECIFIED ATRIAL FIBRILLATION Qualifiers: Atrial fibrillation type: chronic Qualified Code(s): I48.2 - Chronic atrial fibrillation (2) JOHN (acute kidney injury) Code(s): N17.9 - ACUTE KIDNEY FAILURE, UNSPECIFIED (3) Balance problem Code(s): R26.89 - OTHER ABNORMALITIES OF GAIT AND MOBILITY (4) Leukocytosis Code(s): D72.829 - ELEVATED WHITE BLOOD CELL COUNT, UNSPECIFIED Qualifiers: Leukocytosis type: unspecified Qualified Code(s): D72.829 - Elevated white blood cell count, unspecified (5) Hyperlipidemia Code(s): E78.5 - HYPERLIPIDEMIA, UNSPECIFIED Qualifiers: Hyperlipidemia type: unspecified Qualified Code(s): E78.5 - Hyperlipidemia , unspecified (6) Hypertension Code(s): I10 - ESSENTIAL (PRIMARY) HYPERTENSION Qualifiers: Hypertension type: essential hypertension Qualified Code(s): I10 - Essential (primary) hypertension
[2019-06-20 09:38] LABS: CORRECTED WBC 22.21 K/mm3; HEMATOCRIT 31.3 % (35.4-49); HEMOGLOBIN 12.2 GM/dL (11.7-16.9); MCH 34.7 pg (25.7-33.7); MCHC 38.8 g/dl (32.0-35.9); MEAN CELL VOLUME 89.4 fl (80-96); RBC 3.51 M/mm3 (4.00-5.60); RDW 13.8 % (11.9-15.9); WHITE BLOOD COUNT 25.1 K/mm3 (4.0-10.0)
[2019-06-20] MEDS: POTASSIUM CHLORIDE TABS 20 MEQ TABLET.ER (FP) PO SCH (09:52)
[2019-06-20] MEDS: ALLOPURINOL 100 MG TABLET (FP) PO SCH (09:53)
[2019-06-20] MEDS: PANTOPRAZOLE 40 MG TABLET (FP) PO SCH ×2 (09:53→21:43)
[2019-06-20] MEDS: THIAMINE HCL 100 MG TABLET (FP) PO SCH (09:53)
--- NOTE | 2019-06-20 10:24 | PN ---
Progress Note, Physician History of Present Illness: pulmonary alert,less dyspneic,sitting up in bed,-cp - Current Medication List Current Medications: Active Medications Allopurinol (Zyloprim -) 100 mg PO DAILY [facility] Last Admin: 06/20/19 09:53 Dose: 100 mg Atorvastatin Calcium (Lipitor -) 10 mg PO HS [facility] Last Admin: 06/19/19 22:53 Dose: 10 mg Diltiazem HCl (Cardizem Cd -) 180 mg PO DAILY [facility] Last Admin: 06/20/19 09:52 Dose: 180 mg Furosemide (Lasix -) 40 mg PO BID@0600,1400 [facility] Last Admin: 06/20/19 06:29 Dose: 40 mg Metoprolol Succinate (Toprol Xl -) 100 mg PO BID [facility] Last Admin: 06/20/19 09:53 Dose: 100 mg Pantoprazole Sodium (Protonix -) 40 mg PO BID [facility] Last Admin: 06/20/19 09:53 Dose: 40 mg Potassium Chloride (K-Dur -) 20 meq PO DAILY [facility] Last Admin: 06/20/19 09:52 Dose: 20 meq Thiamine HCl (Vitamin B1 -) 100 mg PO DAILY [facility] Last Admin: 06/20/19 09:53 Dose: 100 mg - Objective Vital Signs: Vital Signs Temperature 97.7 F 06/20/19 08:13 Pulse Rate 94 H 06/20/19 08:13 Respiratory Rate 20 06/20/19 08:16 Blood Pressure 119/71 06/20/19 08:13 O2 Sat by Pulse Oximetry (%) 95 06/20/19 08:16 Constitutional: Yes: Well Nourished, Calm Eyes: Yes: WNL HENT: Yes: WNL Neck: Yes: WNL Cardiovascular: Yes: Pulse Irregular, S1, S2 Respiratory: Yes: Rales (bilateral rales 1/3 up) Gastrointestinal: Yes: Normal Bowel Sounds, Soft Extremities: Yes: WNL Edema: Yes Labs: CBC, BMP 06/20/19 07:10 06/20/19 07:10 INR, PTT INR 1.73 (0.83-1.09) H 06/17/19 06:20 Fibrinogen 404.0 mg/dL (238-498) 06/17/19 06:20 Problem List - Problems (1) Atrial fibrillation Code(s): I48.91 - UNSPECIFIED ATRIAL FIBRILLATION Qualifiers: Atrial fibrillation type: chronic Qualified Code(s): I48.2 - Chronic atrial fibrillation (2) CHF exacerbation Code(s): I50.9 - HEART FAILURE, UNSPECIFIED Qualifiers: Heart failure type: unspecified Qualified Code(s): I50.9 - Heart failure, unspecified (3) Leukocytosis Code(s): D72.829 - ELEVATED WHITE BLOOD CELL COUNT, UNSPECIFIED Qualifiers: Leukocytosis type: unspecified Qualified Code(s): D72.829 - Elevated white blood cell count, unspecified (4) GAVE (gastric antral vascular ectasia) Code(s): K31.819 - ANGIODYSPLASIA OF STOMACH AND DUODENUM WITHOUT BLEEDING (5) History of radical prostatectomy Code(s): Z90.79 - ACQUIRED ABSENCE OF OTHER GENITAL ORGAN(S) (6) Hyperlipidemia Code(s): E78.5 - HYPERLIPIDEMIA, UNSPECIFIED Qualifiers: Hyperlipidemia type: unspecified Qualified Code(s): E78.5 - Hyperlipidemia , unspecified (7) Hypertension Code(s): I10 - ESSENTIAL (PRIMARY) HYPERTENSION Qualifiers: Hypertension type: essential hypertension Qualified Code(s): I10 - Essential (primary) hypertension (8) Leukocytosis Code(s): D72.829 - ELEVATED WHITE BLOOD CELL COUNT, UNSPECIFIED Qualifiers: Leukocytosis type: unspecified Qualified Code(s): D72.829 - Elevated white blood cell count, unspecified (9) New onset of congestive heart failure Code(s): I50.9 - HEART FAILURE, UNSPECIFIED (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 Assessment/Plan IMP DYSPNEA ACUTE ON CHRONIC CHF IMPROVING AFIB WITH RVR PULMONARY HTN H/O GAVE RESOLVED ANEMIA ACUTE ON CHRONIC KIDNEY DISEASE LEFT PERICARDIAL CYST BECKY H/O PROSTATE CA S/P PROSTATECTOMY WEAKNESS T-LGL PLAN LASIX SUPPLEMENTAL O2 RATE CONTROL PER CARDIOLOGY AC MONITOR LYTES,RENAL FUNCTION MONITOR CBC NORMAL TRANSFUSION THRESHOLD RHEUM W/U check path bone marrow bx chest x-ray today DR CARABALLO Problem List - Problems (1) Atrial fibrillation Code(s): I48.91 - UNSPECIFIED ATRIAL FIBRILLATION Qualifiers: Atrial fibrillation type: chronic Qualified Code(s): I48.2 - Chronic atrial fibrillation (2) CHF exacerbation Code(s): I50.9 - HEART FAILURE, UNSPECIFIED Qualifiers: Heart failure type: unspecified Qualified Code(s): I50.9 - Heart failure, unspecified (3) Leukocytosis Code(s): D72.829 - ELEVATED WHITE BLOOD CELL COUNT, UNSPECIFIED Qualifiers: Leukocytosis type: unspecified Qualified Code(s): D72.829 - Elevated white blood cell count, unspecified (4) GAVE (gastric antral vascular ectasia) Code(s): K31.819 - ANGIODYSPLASIA OF STOMACH AND DUODENUM WITHOUT BLEEDING (5) History of radical prostatectomy Code(s): Z90.79 - ACQUIRED ABSENCE OF OTHER GENITAL ORGAN(S) (6) Hyperlipidemia Code(s): E78.5 - HYPERLIPIDEMIA, UNSPECIFIED Qualifiers: Hyperlipidemia type: unspecified Qualified Code(s): E78.5 - Hyperlipidemia , unspecified (7) Hypertension Code(s): I10 - ESSENTIAL (PRIMARY) HYPERTENSION Qualifiers: Hypertension type: essential hypertension Qualified Code(s): I10 - Essential (primary) hypertension (8) Leukocytosis Code(s): D72.829 - ELEVATED WHITE BLOOD CELL COUNT, UNSPECIFIED Qualifiers: Leukocytosis type: unspecified Qualified Code(s): D72.829 - Elevated white blood cell count, unspecified (9) New onset of congestive heart failure Code(s): I50.9 - HEART FAILURE, UNSPECIFIED (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
[2019-06-20 11:57] LABS: PLATELET COUNT 488 K/MM3 (134-434)
[2019-06-20 11:58] LABS: MEAN PLT VOLUME 8.9 fl (7.5-11.1)
[2019-06-20 11:59] LABS: PLATELET ESTIMATE MOD INCREASED; ROULEAU 4+
--- NOTE | 2019-06-20 14:57 | PN ---
Progress Note, Physician History of Present Illness: Pt seen and examined at bedside. He is awake and alert. He feels that his breathing is more comfortable. - Current Medication List Current Medications: Active Medications Allopurinol (Zyloprim -) 100 mg PO DAILY [facility] Last Admin: 06/20/19 09:53 Dose: 100 mg Atorvastatin Calcium (Lipitor -) 10 mg PO HS [facility] Last Admin: 06/19/19 22:53 Dose: 10 mg Diltiazem HCl (Cardizem Cd -) 180 mg PO DAILY [facility] Last Admin: 06/20/19 09:52 Dose: 180 mg Furosemide (Lasix -) 40 mg PO BID@0600,1400 [facility] Last Admin: 06/20/19 13:40 Dose: 40 mg Metoprolol Succinate (Toprol Xl -) 100 mg PO BID [facility] Last Admin: 06/20/19 09:53 Dose: 100 mg Pantoprazole Sodium (Protonix -) 40 mg PO BID [facility] Last Admin: 06/20/19 09:53 Dose: 40 mg Potassium Chloride (K-Dur -) 20 meq PO DAILY [facility] Last Admin: 06/20/19 09:52 Dose: 20 meq Thiamine HCl (Vitamin B1 -) 100 mg PO DAILY [facility] Last Admin: 06/20/19 09:53 Dose: 100 mg - Objective Vital Signs: Vital Signs Temperature 97.7 F 06/20/19 08:13 Pulse Rate 94 H 06/20/19 08:13 Respiratory Rate 20 06/20/19 08:16 Blood Pressure 119/71 06/20/19 08:13 O2 Sat by Pulse Oximetry (%) 95 06/20/19 08:16 Constitutional: Yes: Calm Eyes: Yes: Conjunctiva Clear HENT: Yes: Atraumatic Cardiovascular: Yes: S1, S2 Respiratory: Yes: CTA Bilaterally Gastrointestinal: Yes: Normal Bowel Sounds, Soft Genitourinary: Yes: WNL Musculoskeletal: Yes: WNL Edema: Yes Edema: LLE: Trace, RLE: Trace Integumentary: Yes: Venous Stasis Changes Neurological: Yes: Oriented Psychiatric: Yes: Oriented Labs: CBC, BMP 06/20/19 07:10 06/20/19 07:10 INR, PTT INR 1.73 (0.83-1.09) H 06/17/19 06:20 Fibrinogen 404.0 mg/dL (238-498) 06/17/19 06:20 Problem List - Problems (1) JOHN (acute kidney injury) Code(s): N17.9 - ACUTE KIDNEY FAILURE, UNSPECIFIED (2) ANDRE positive Code(s): R76.8 - OTHER SPECIFIED ABNORMAL IMMUNOLOGICAL FINDINGS IN SERUM (3) CHF exacerbation Code(s): I50.9 - HEART FAILURE, UNSPECIFIED Qualifiers: Heart failure type: unspecified Qualified Code(s): I50.9 - Heart failure, unspecified (4) Leukocytosis Code(s): D72.829 - ELEVATED WHITE BLOOD CELL COUNT, UNSPECIFIED Qualifiers: Leukocytosis type: unspecified Qualified Code(s): D72.829 - Elevated white blood cell count, unspecified Assessment/Plan Current Medications Generic Name Dose Route Start Last Admin Trade Name Freq PRN Reason Stop Dose Admin Allopurinol 100 mg 06/14/19 10:00 06/20/19 09:53 Zyloprim - PO 100 mg DAILY MILI Administration Atorvastatin Calcium 10 mg 06/13/19 22:00 06/19/19 22:53 Lipitor - PO 10 mg HS MILI Administration Diltiazem HCl 180 mg 06/18/19 10:00 06/20/19 09:52 Cardizem Cd - PO 180 mg DAILY [facility]I Administration Furosemide 40 mg 06/14/19 06:00 06/20/19 13:40 Lasix - PO 40 mg BID@0600,1400 MILI Administration Metoprolol Succinate 100 mg 06/13/19 22:00 06/20/19 09:53 Toprol Xl - PO 100 mg BID MILI Administration Pantoprazole Sodium 40 mg 06/13/19 22:00 06/20/19 09:53 Protonix - PO 40 mg BID MILI Administration Potassium Chloride 20 meq 06/14/19 10:00 06/20/19 09:52 K-Dur - PO 20 meq DAILY MILI Administration Thiamine HCl 100 mg 06/14/19 10:00 06/20/19 09:53 Vitamin B1 - PO 100 mg DAILY MILI Administration Impression 1. JOHN 2. chf 3. a-fib 4. htn 5. gerd 6. hypokalemia 7. positive andre 8. leukocytosis 9. CKD Plan - follow bone marrow - follow skin biopsy - monitor renal function - cont diuretics - avoid nsaids - volume status is improved
--- NOTE | 2019-06-20 16:35 | PN.GI ---
GI Progress Note Subjective: GI NOte: Feeling a bit better. Denies abdominal pain. No bleedingf - Objective Vital Signs: Vital Signs Temperature 98.2 F 06/20/19 14:00 Pulse Rate 77 06/20/19 14:00 Respiratory Rate 20 06/20/19 14:00 Blood Pressure 118/78 06/20/19 14:00 O2 Sat by Pulse Oximetry (%) 95 06/20/19 08:16 Laboratory Tests 06/14/19 06/16/19 06/18/19 06:28 18:50 08:16 WBC 60.1 H* 36.2 H* Hgb 10.9 L Total Bilirubin 0.7 AST 45 H ALT 40 Alkaline Phosphatase 130 H LD Total 06/20/19 06/20/19 07:10 07:10 WBC 25.1 H Hgb 12.2 Total Bilirubin 0.8 AST 99 H ALT 107 H Alkaline Phosphatase 198 H LD Total 198 Constitutional: No Distress ...Auscultate: Yes: Normoactive Bowel Sounds ...Palpate: Yes: Soft, Other (nontender) Labs: CBC, BMP 06/20/19 07:10 06/20/19 07:10 INR, PTT INR 1.73 (0.83-1.09) H 06/17/19 06:20 Fibrinogen 404.0 mg/dL (238-498) 06/17/19 06:20 Assessment/Plan Assessment - Hemorrhoidal bleeding resolved - Alcoholic hepatitis is likely resolved. His current transaminitis could be T cell infiltration of liver parenchyma or reactive to his hematologic processes - Sigmoid stricture due to severe diverticular disease would account for chronic loose stools - Personal h/o colon adenoma - Resolved GAVE syndrome Plan: -- PPI therapy empirically -- Follow LFTs Dr Patterson will be covering this weekend. Please call him as needed. Dr Smith will be covering next week. Problem List - Problems (1) GI bleed Code(s): K92.2 - GASTROINTESTINAL HEMORRHAGE, UNSPECIFIED Qualifiers: GI bleed type/associated pathology: unspecified gastrointestinal hemorrhage type Qualified Code(s): K92.2 - Gastrointestinal hemorrhage, unspecified (2) Atrial fibrillation Code(s): I48.91 - UNSPECIFIED ATRIAL FIBRILLATION Qualifiers: Atrial fibrillation type: chronic Qualified Code(s): I48.2 - Chronic atrial fibrillation (3) Balance problem Code(s): R26.89 - OTHER ABNORMALITIES OF GAIT AND MOBILITY (4) Leukocytosis Code(s): D72.829 - ELEVATED WHITE BLOOD CELL COUNT, UNSPECIFIED Qualifiers: Leukocytosis type: unspecified Qualified Code(s): D72.829 - Elevated white blood cell count, unspecified (5) Alcoholic gastritis with bleeding Code(s): K29.21 - ALCOHOLIC GASTRITIS WITH BLEEDING (6) Colon adenomas Code(s): D12.6 - BENIGN NEOPLASM OF COLON, UNSPECIFIED (7) Diverticulosis Code(s): K57.90 - DVRTCLOS OF INTEST, PART UNSP, W/O PERF OR ABSCESS W/O BLEED (8) History of radical prostatectomy Code(s): Z90.79 - ACQUIRED ABSENCE OF OTHER GENITAL ORGAN(S) (9) Leukocytosis Code(s): D72.829 - ELEVATED WHITE BLOOD CELL COUNT, UNSPECIFIED Qualifiers: Leukocytosis type: unspecified Qualified Code(s): D72.829 - Elevated white blood cell count, unspecified (10) Prostate cancer Code(s): C61 - MALIGNANT NEOPLASM OF PROSTATE (11) Sigmoid stricture Code(s): K56.699 - OTHER INTESTNL OBST UNSP TO PARTIAL VERSUS COMPLETE OBST (12) Alcoholic hepatitis without ascites Code(s): K70.10 - ALCOHOLIC HEPATITIS WITHOUT ASCITES (13) Raynauds disease Code(s): I73.00 - RAYNAUD'S SYNDROME WITHOUT GANGRENE
--- NOTE | 2019-06-20 19:40 | PN ---
Progress Note (short form) - Note Progress Note: Patient seen and examined Last Vital Signs Temp Pulse Resp BP Pulse Ox 98.4 F 76 20 119/67 95 06/20/19 16:32 06/20/19 16:32 06/20/19 16:32 06/20/19 16:32 06/20/19 08:16 Cor: RSR, No murmurs, No gallops Lungs: Clear to P&A Abd: Soft, Normal bowel sounds, No organomegaly Ext:No significant edema Abnormal Lab Results 06/20/19 06/20/19 07:10 07:10 WBC 25.1 H RBC 3.51 L Hct 31.3 L MCH 34.7 H MCHC 38.8 H Plt Count 488 H D BUN 53.7 H Creatinine 2.2 H Uric Acid 8.5 H AST 99 H ALT 107 H Alkaline Phosphatase 198 H Total Protein 5.5 L Albumin 3.2 L Active Medications Generic Name Dose Route Start Last Admin Trade Name Freq PRN Reason Stop Dose Admin Allopurinol 100 mg 06/14/19 10:00 06/20/19 09:53 Zyloprim - PO 100 mg DAILY MILI Administration Atorvastatin Calcium 10 mg 06/13/19 22:00 06/19/19 22:53 Lipitor - PO 10 mg HS MILI Administration Diltiazem HCl 180 mg 06/18/19 10:00 06/20/19 09:52 Cardizem Cd - PO 180 mg DAILY MILI Administration Furosemide 40 mg 06/14/19 06:00 06/20/19 13:40 Lasix - PO 40 mg BID@0600,1400 MILI Administration Metoprolol Succinate 100 mg 06/13/19 22:00 06/20/19 09:53 Toprol Xl - PO 100 mg BID MILI Administration Pantoprazole Sodium 40 mg 06/13/19 22:00 06/20/19 09:53 Protonix - PO 40 mg BID MILI Administration Potassium Chloride 20 meq 06/14/19 10:00 06/20/19 09:52 K-Dur - PO 20 meq DAILY MLII Administration Thiamine HCl 100 mg 06/14/19 10:00 06/20/19 09:53 Vitamin B1 - PO 100 mg DAILY MILI Administration A/P 83 y/o patient with CHF, afib, admitted with shortness of breath Being treated for CHF 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 Frederick. Will check C3, C4, CH50,antids DNA f/u skin biopsy s/p bone marrow biopsy --to r/o any other marrow pathology in addition to TLGL given multiple cytogenetic abdnormalities discussed in great detail with daughter will need follow up outpatient with rheumatology/cardiology and us ( [phone])
[2019-06-20] MEDS: ATORVASTATIN CA 10 MG TABLET (FP) PO SCH (21:43)
[2019-06-21] MEDS: FUROSEMIDE 40 MG TABLET (FP) PO SCH ×2 (05:35→13:25)
--- NOTE | 2019-06-21 08:31 | PN ---
Progress Note, Physician History of Present Illness: PULMONARY ALERT,NO CHANGE C/O SOB AT REST ALTHOUGH APPEARS COMFORTABLE - Current Medication List Current Medications: Active Medications Allopurinol (Zyloprim -) 100 mg PO DAILY [facility] Last Admin: 06/20/19 09:53 Dose: 100 mg Atorvastatin Calcium (Lipitor -) 10 mg PO HS [facility] Last Admin: 06/20/19 21:43 Dose: 10 mg Diltiazem HCl (Cardizem Cd -) 180 mg PO DAILY [facility] Last Admin: 06/20/19 09:52 Dose: 180 mg Furosemide (Lasix -) 40 mg PO BID@0600,1400 [facility] Last Admin: 06/21/19 05:35 Dose: 40 mg Metoprolol Succinate (Toprol Xl -) 100 mg PO BID [facility] Last Admin: 06/20/19 21:43 Dose: 100 mg Pantoprazole Sodium (Protonix -) 40 mg PO BID [facility] Last Admin: 06/20/19 21:43 Dose: 40 mg Potassium Chloride (K-Dur -) 20 meq PO DAILY [facility] Last Admin: 06/20/19 09:52 Dose: 20 meq Thiamine HCl (Vitamin B1 -) 100 mg PO DAILY [facility] Last Admin: 06/20/19 09:53 Dose: 100 mg - Objective Vital Signs: Vital Signs Temperature 97.6 F 06/21/19 06:00 Pulse Rate 68 06/21/19 06:00 Respiratory Rate 20 06/21/19 06:00 Blood Pressure 119/71 06/21/19 06:00 O2 Sat by Pulse Oximetry (%) 97 06/20/19 22:00 Constitutional: Yes: Well Nourished, Calm Eyes: Yes: WNL HENT: Yes: WNL Neck: Yes: WNL Cardiovascular: Yes: Pulse Irregular, S1, S2 Respiratory: Yes: Rales (BILATERAL RALES 1/2 UP) Gastrointestinal: Yes: Normal Bowel Sounds, Soft Extremities: Yes: WNL Edema: No Labs: CBC, BMP 06/20/19 07:10 06/20/19 07:10 INR, PTT INR 1.73 (0.83-1.09) H 06/17/19 06:20 Fibrinogen 404.0 mg/dL (238-498) 06/17/19 06:20 - ....Imaging Chest X-ray: Report Reviewed, Image Reviewed ( + CONGESTION,INCREASED RLL INFILTRATE/EFFUSION/ATELECTASIS) Problem List - Problems (1) Atrial fibrillation Code(s): I48.91 - UNSPECIFIED ATRIAL FIBRILLATION Qualifiers: Atrial fibrillation type: chronic Qualified Code(s): I48.2 - Chronic atrial fibrillation (2) CHF exacerbation Code(s): I50.9 - HEART FAILURE, UNSPECIFIED Qualifiers: Heart failure type: unspecified Qualified Code(s): I50.9 - Heart failure, unspecified (3) Leukocytosis Code(s): D72.829 - ELEVATED WHITE BLOOD CELL COUNT, UNSPECIFIED Qualifiers: Leukocytosis type: unspecified Qualified Code(s): D72.829 - Elevated white blood cell count, unspecified (4) GAVE (gastric antral vascular ectasia) Code(s): K31.819 - ANGIODYSPLASIA OF STOMACH AND DUODENUM WITHOUT BLEEDING (5) History of radical prostatectomy Code(s): Z90.79 - ACQUIRED ABSENCE OF OTHER GENITAL ORGAN(S) (6) Hyperlipidemia Code(s): E78.5 - HYPERLIPIDEMIA, UNSPECIFIED Qualifiers: Hyperlipidemia type: unspecified Qualified Code(s): E78.5 - Hyperlipidemia , unspecified (7) Hypertension Code(s): I10 - ESSENTIAL (PRIMARY) HYPERTENSION Qualifiers: Hypertension type: essential hypertension Qualified Code(s): I10 - Essential (primary) hypertension (8) Leukocytosis Code(s): D72.829 - ELEVATED WHITE BLOOD CELL COUNT, UNSPECIFIED Qualifiers: Leukocytosis type: unspecified Qualified Code(s): D72.829 - Elevated white blood cell count, unspecified (9) New onset of congestive heart failure Code(s): I50.9 - HEART FAILURE, UNSPECIFIED (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 Assessment/Plan IMP DYSPNEA ACUTE ON CHRONIC CHF IMPROVING AFIB WITH RVR PULMONARY HTN H/O GAVE RESOLVED ANEMIA ACUTE ON CHRONIC KIDNEY DISEASE LEFT PERICARDIAL CYST BECKY H/O PROSTATE CA S/P PROSTATECTOMY WEAKNESS T-LGL PLAN LASIX SUPPLEMENTAL O2 RATE CONTROL PER CARDIOLOGY AC MONITOR LYTES,RENAL FUNCTION MONITOR CBC NORMAL TRANSFUSION THRESHOLD check path bone marrow bx DR CARABALLO Problem List - Problems (1) Atrial fibrillation Code(s): I48.91 - UNSPECIFIED ATRIAL FIBRILLATION Qualifiers: Atrial fibrillation type: chronic Qualified Code(s): I48.2 - Chronic atrial fibrillation (2) CHF exacerbation Code(s): I50.9 - HEART FAILURE, UNSPECIFIED Qualifiers: Heart failure type: unspecified Qualified Code(s): I50.9 - Heart failure, unspecified (3) Leukocytosis Code(s): D72.829 - ELEVATED WHITE BLOOD CELL COUNT, UNSPECIFIED Qualifiers: Leukocytosis type: unspecified Qualified Code(s): D72.829 - Elevated white blood cell count, unspecified (4) GAVE (gastric antral vascular ectasia) Code(s): K31.819 - ANGIODYSPLASIA OF STOMACH AND DUODENUM WITHOUT BLEEDING (5) History of radical prostatectomy Code(s): Z90.79 - ACQUIRED ABSENCE OF OTHER GENITAL ORGAN(S) (6) Hyperlipidemia Code(s): E78.5 - HYPERLIPIDEMIA, UNSPECIFIED Qualifiers: Hyperlipidemia type: unspecified Qualified Code(s): E78.5 - Hyperlipidemia , unspecified (7) Hypertension Code(s): I10 - ESSENTIAL (PRIMARY) HYPERTENSION Qualifiers: Hypertension type: essential hypertension Qualified Code(s): I10 - Essential (primary) hypertension (8) Leukocytosis Code(s): D72.829 - ELEVATED WHITE BLOOD CELL COUNT, UNSPECIFIED Qualifiers: Leukocytosis type: unspecified Qualified Code(s): D72.829 - Elevated white blood cell count, unspecified (9) New onset of congestive heart failure Code(s): I50.9 - HEART FAILURE, UNSPECIFIED (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
[2019-06-21] MEDS: THIAMINE HCL 100 MG TABLET (FP) PO SCH (09:21)
[2019-06-21] MEDS: POTASSIUM CHLORIDE TABS 20 MEQ TABLET.ER (FP) PO SCH (09:21)
[2019-06-21] MEDS: ALLOPURINOL 100 MG TABLET (FP) PO SCH (09:21)
[2019-06-21] MEDS: PANTOPRAZOLE 40 MG TABLET (FP) PO SCH ×2 (09:21→22:56)
--- NOTE | 2019-06-21 10:03 | PN ---
Progress Note (short form) - Note Progress Note: no new complaints refused blood tests Vital Signs Period Temp Pulse Resp BP Sys/Brewer Pulse Ox Last 24 Hr 97.6 F-98.4 F 68-89 18-20 117-125/67-86 97 S1S2 irreg.irreg. 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 today, will check labs in am and dc on sunday if all is stable f/up pathology results as outpt T-LGL + multiple cytogenetic abnormalities T-LGL typically is treated when it causes cytopenias.He does not have neutropenia/thrombocytopenia he is not expected to require chemotherapy in the near future expect STR ~2 weeks until patient is strong enough to go home with family Problem List - Problems (1) Atrial fibrillation Code(s): I48.91 - UNSPECIFIED ATRIAL FIBRILLATION Qualifiers: Atrial fibrillation type: chronic Qualified Code(s): I48.2 - Chronic atrial fibrillation (2) JOHN (acute kidney injury) Code(s): N17.9 - ACUTE KIDNEY FAILURE, UNSPECIFIED (3) Balance problem Code(s): R26.89 - OTHER ABNORMALITIES OF GAIT AND MOBILITY (4) Leukocytosis Code(s): D72.829 - ELEVATED WHITE BLOOD CELL COUNT, UNSPECIFIED Qualifiers: Leukocytosis type: unspecified Qualified Code(s): D72.829 - Elevated white blood cell count, unspecified (5) Hyperlipidemia Code(s): E78.5 - HYPERLIPIDEMIA, UNSPECIFIED Qualifiers: Hyperlipidemia type: unspecified Qualified Code(s): E78.5 - Hyperlipidemia , unspecified (6) Hypertension Code(s): I10 - ESSENTIAL (PRIMARY) HYPERTENSION Qualifiers: Hypertension type: essential hypertension Qualified Code(s): I10 - Essential (primary) hypertension
--- NOTE | 2019-06-21 10:48 | PN ---
Progress Note (short form) - Note Progress Note: Seen in follow up. No complaints this morning. Meds reviewed. Current Medications Current Medications Allopurinol (Zyloprim -) 100 mg PO DAILY [facility] Last Admin: 06/21/19 09:21 Dose: 100 mg Atorvastatin Calcium (Lipitor -) 10 mg PO HS [facility] Last Admin: 06/20/19 21:43 Dose: 10 mg Diltiazem HCl (Cardizem Cd -) 180 mg PO DAILY [facility] Last Admin: 06/21/19 09:21 Dose: 180 mg Furosemide (Lasix -) 40 mg PO BID@0600,1400 [facility] Last Admin: 06/21/19 05:35 Dose: 40 mg Metoprolol Succinate (Toprol Xl -) 100 mg PO BID [facility] Last Admin: 06/21/19 09:21 Dose: 100 mg Pantoprazole Sodium (Protonix -) 40 mg PO BID [facility] Last Admin: 06/21/19 09:21 Dose: 40 mg Potassium Chloride (K-Dur -) 20 meq PO DAILY [facility] Last Admin: 06/21/19 09:21 Dose: 20 meq Thiamine HCl (Vitamin B1 -) 100 mg PO DAILY [facility] Last Admin: 06/21/19 09:21 Dose: 100 mg On exam: CBC, BMP 06/20/19 07:10 06/20/19 07:10 General:S Sitting at bedside, look well. Extremities: mild pedal edema Chest:good AE bilaterally, clear Abdomen: Soft, no organomegaly, no masses. Neuro: Alert, oriented, non-focal. CVS: Normal sinus rhythm, S1, S2, no gallop or murmur. Labs reviewed (yesterday's0: CBC, BMP 06/20/19 07:10 06/20/19 07:10 Assessment. Patient admitted initially for CHF, found to have widely fluctuant leukocytosis (marked neutrophilia AND lymphocytosis), of unclear etiology. 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 In addition reportedly multiple cytogenetic abnormalities. Bone marrow biopsy yesterday - awaiting results. Will continue to follow.
--- NOTE | 2019-06-21 13:04 | PN ---
Progress Note, Physician History of Present Illness: Pt seen and examined at bedside. He is awake and appears comfortable. He denies shortness of breath. - Current Medication List Current Medications: Active Medications Allopurinol (Zyloprim -) 100 mg PO DAILY [facility] Last Admin: 06/21/19 09:21 Dose: 100 mg Atorvastatin Calcium (Lipitor -) 10 mg PO HS [facility] Last Admin: 06/20/19 21:43 Dose: 10 mg Diltiazem HCl (Cardizem Cd -) 180 mg PO DAILY [facility] Last Admin: 06/21/19 09:21 Dose: 180 mg Furosemide (Lasix -) 40 mg PO BID@0600,1400 [facility] Last Admin: 06/21/19 05:35 Dose: 40 mg Metoprolol Succinate (Toprol Xl -) 100 mg PO BID [facility] Last Admin: 06/21/19 09:21 Dose: 100 mg Pantoprazole Sodium (Protonix -) 40 mg PO BID [facility] Last Admin: 06/21/19 09:21 Dose: 40 mg Potassium Chloride (K-Dur -) 20 meq PO DAILY [facility] Last Admin: 06/21/19 09:21 Dose: 20 meq Thiamine HCl (Vitamin B1 -) 100 mg PO DAILY [facility] Last Admin: 06/21/19 09:21 Dose: 100 mg - Objective Vital Signs: Vital Signs Temperature 98.4 F 06/21/19 08:44 Pulse Rate 89 06/21/19 08:44 Respiratory Rate 18 06/21/19 09:00 Blood Pressure 125/86 06/21/19 08:44 O2 Sat by Pulse Oximetry (%) 98 06/21/19 09:00 Constitutional: Yes: Calm Eyes: Yes: Conjunctiva Clear HENT: Yes: Atraumatic Neck: Yes: Supple Cardiovascular: Yes: S1, S2 Respiratory: Yes: On Nasal O2 Gastrointestinal: Yes: Soft Genitourinary: Yes: WNL Musculoskeletal: Yes: WNL Edema: Yes Edema: LLE: 1+, RLE: 1+ Neurological: Yes: Oriented Psychiatric: Yes: Oriented Labs: CBC, BMP 06/20/19 07:10 06/20/19 07:10 INR, PTT INR 1.73 (0.83-1.09) H 06/17/19 06:20 Fibrinogen 404.0 mg/dL (238-498) 06/17/19 06:20 Problem List - Problems (1) JOHN (acute kidney injury) Code(s): N17.9 - ACUTE KIDNEY FAILURE, UNSPECIFIED (2) ANDRE positive Code(s): R76.8 - OTHER SPECIFIED ABNORMAL IMMUNOLOGICAL FINDINGS IN SERUM (3) CHF exacerbation Code(s): I50.9 - HEART FAILURE, UNSPECIFIED Qualifiers: Heart failure type: unspecified Qualified Code(s): I50.9 - Heart failure, unspecified (4) Leukocytosis Code(s): D72.829 - ELEVATED WHITE BLOOD CELL COUNT, UNSPECIFIED Qualifiers: Leukocytosis type: unspecified Qualified Code(s): D72.829 - Elevated white blood cell count, unspecified Assessment/Plan Current Medications Generic Name Dose Route Start Last Admin Trade Name Freq PRN Reason Stop Dose Admin Allopurinol 100 mg 06/14/19 10:00 06/21/19 09:21 Zyloprim - PO 100 mg DAILY MILI Administration Atorvastatin Calcium 10 mg 06/13/19 22:00 06/20/19 21:43 Lipitor - PO 10 mg HS MILI Administration Diltiazem HCl 180 mg 06/18/19 10:00 06/21/19 09:21 Cardizem Cd - PO 180 mg DAILY MILI Administration Furosemide 40 mg 06/14/19 06:00 06/21/19 05:35 Lasix - PO 40 mg BID@0600,1400 MILI Administration Metoprolol Succinate 100 mg 06/13/19 22:00 06/21/19 09:21 Toprol Xl - PO 100 mg BID MILI Administration Pantoprazole Sodium 40 mg 06/13/19 22:00 06/21/19 09:21 Protonix - PO 40 mg BID MILI Administration Potassium Chloride 20 meq 06/14/19 10:00 06/21/19 09:21 K-Dur - PO 20 meq DAILY MILI Administration Thiamine HCl 100 mg 06/14/19 10:00 06/21/19 09:21 Vitamin B1 - PO 100 mg DAILY MILI Administration Impression 1. JOHN 2. chf 3. a-fib 4. htn 5. gerd 6. hypokalemia 7. positive andre 8. leukocytosis 9. CKD Plan - cont lasix - check bmp to evaluate renal function - follow biopsy results - avoid nsaids - volume status is improved
[2019-06-21] MEDS: ATORVASTATIN CA 10 MG TABLET (FP) PO SCH (22:56)
[2019-06-22] MEDS: FUROSEMIDE 40 MG TABLET (FP) PO SCH ×2 (06:50→13:58)
[2019-06-22 07:14] LABS: ALBUMIN 3.1 g/dl (3.4-5.0); BILIRUBIN,TOTAL 0.7 mg/dL (0.2-1); BLOOD UREA NITROGEN 45.5 mg/dL (7-18); CALCIUM 8.6 mg/dL (8.5-10.1); MAGNESIUM 1.9 mg/dL (1.8-2.4); POTASSIUM 3.5 mmol/L (3.5-5.1); TOT PROT 5.6 g/dl (6.4-8.2)
--- NOTE | 2019-06-22 08:27 | PN ---
Progress Note, Physician History of Present Illness: pulmonary awake,alert,feeling better,less dyspneic - Current Medication List Current Medications: Active Medications Allopurinol (Zyloprim -) 100 mg PO DAILY [facility] Last Admin: 06/21/19 09:21 Dose: 100 mg Atorvastatin Calcium (Lipitor -) 10 mg PO HS [facility] Last Admin: 06/21/19 22:56 Dose: 10 mg Diltiazem HCl (Cardizem Cd -) 180 mg PO DAILY [facility] Last Admin: 06/21/19 09:21 Dose: 180 mg Furosemide (Lasix -) 40 mg PO BID@0600,1400 [facility] Last Admin: 06/22/19 06:50 Dose: 40 mg Metoprolol Succinate (Toprol Xl -) 100 mg PO BID [facility] Last Admin: 06/21/19 22:56 Dose: 100 mg Pantoprazole Sodium (Protonix -) 40 mg PO BID [facility] Last Admin: 06/21/19 22:56 Dose: 40 mg Potassium Chloride (K-Dur -) 20 meq PO DAILY [facility] Last Admin: 06/21/19 09:21 Dose: 20 meq Thiamine HCl (Vitamin B1 -) 100 mg PO DAILY [facility] Last Admin: 06/21/19 09:21 Dose: 100 mg - Objective Vital Signs: Vital Signs Temperature 98.4 F 06/21/19 20:29 Pulse Rate 86 06/22/19 06:30 Respiratory Rate 20 06/22/19 06:30 Blood Pressure 129/86 06/22/19 06:30 O2 Sat by Pulse Oximetry (%) 98 06/21/19 20:27 Constitutional: Yes: Well Nourished, Calm Eyes: Yes: WNL HENT: Yes: WNL Neck: Yes: WNL Cardiovascular: Yes: Regular Rate and Rhythm, S1, S2 Respiratory: Yes: Rales (bibasilar cracklses) Gastrointestinal: Yes: Normal Bowel Sounds, Soft Extremities: Yes: WNL Edema: Yes Labs: CBC, BMP 06/22/19 06:15 INR, PTT INR 1.73 (0.83-1.09) H 06/17/19 06:20 Fibrinogen 404.0 mg/dL (238-498) 06/17/19 06:20 Problem List - Problems (1) Atrial fibrillation Code(s): I48.91 - UNSPECIFIED ATRIAL FIBRILLATION Qualifiers: Atrial fibrillation type: chronic Qualified Code(s): I48.2 - Chronic atrial fibrillation (2) CHF exacerbation Code(s): I50.9 - HEART FAILURE, UNSPECIFIED Qualifiers: Heart failure type: unspecified Qualified Code(s): I50.9 - Heart failure, unspecified (3) Leukocytosis Code(s): D72.829 - ELEVATED WHITE BLOOD CELL COUNT, UNSPECIFIED Qualifiers: Leukocytosis type: unspecified Qualified Code(s): D72.829 - Elevated white blood cell count, unspecified (4) GAVE (gastric antral vascular ectasia) Code(s): K31.819 - ANGIODYSPLASIA OF STOMACH AND DUODENUM WITHOUT BLEEDING (5) History of radical prostatectomy Code(s): Z90.79 - ACQUIRED ABSENCE OF OTHER GENITAL ORGAN(S) (6) Hyperlipidemia Code(s): E78.5 - HYPERLIPIDEMIA, UNSPECIFIED Qualifiers: Hyperlipidemia type: unspecified Qualified Code(s): E78.5 - Hyperlipidemia , unspecified (7) Hypertension Code(s): I10 - ESSENTIAL (PRIMARY) HYPERTENSION Qualifiers: Hypertension type: essential hypertension Qualified Code(s): I10 - Essential (primary) hypertension (8) Leukocytosis Code(s): D72.829 - ELEVATED WHITE BLOOD CELL COUNT, UNSPECIFIED Qualifiers: Leukocytosis type: unspecified Qualified Code(s): D72.829 - Elevated white blood cell count, unspecified (9) New onset of congestive heart failure Code(s): I50.9 - HEART FAILURE, UNSPECIFIED (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 Assessment/Plan IMP DYSPNEA IMPROVING ACUTE ON CHRONIC CHF IMPROVING AFIB WITH RVR PULMONARY HTN H/O GAVE RESOLVED ANEMIA ACUTE ON CHRONIC KIDNEY DISEASE LEFT PERICARDIAL CYST BECKY H/O PROSTATE CA S/P PROSTATECTOMY WEAKNESS T-LGL PLAN LASIX SUPPLEMENTAL O2 MONITOR LYTES,RENAL FUNCTION MONITOR CBC NORMAL TRANSFUSION THRESHOLD check path bone marrow bx DR CARABALLO Problem List - Problems (1) Atrial fibrillation Code(s): I48.91 - UNSPECIFIED ATRIAL FIBRILLATION Qualifiers: Atrial fibrillation type: chronic Qualified Code(s): I48.2 - Chronic atrial fibrillation (2) CHF exacerbation Code(s): I50.9 - HEART FAILURE, UNSPECIFIED Qualifiers: Heart failure type: unspecified Qualified Code(s): I50.9 - Heart failure, unspecified (3) Leukocytosis Code(s): D72.829 - ELEVATED WHITE BLOOD CELL COUNT, UNSPECIFIED Qualifiers: Leukocytosis type: unspecified Qualified Code(s): D72.829 - Elevated white blood cell count, unspecified (4) GAVE (gastric antral vascular ectasia) Code(s): K31.819 - ANGIODYSPLASIA OF STOMACH AND DUODENUM WITHOUT BLEEDING (5) History of radical prostatectomy Code(s): Z90.79 - ACQUIRED ABSENCE OF OTHER GENITAL ORGAN(S) (6) Hyperlipidemia Code(s): E78.5 - HYPERLIPIDEMIA, UNSPECIFIED Qualifiers: Hyperlipidemia type: unspecified Qualified Code(s): E78.5 - Hyperlipidemia , unspecified (7) Hypertension Code(s): I10 - ESSENTIAL (PRIMARY) HYPERTENSION Qualifiers: Hypertension type: essential hypertension Qualified Code(s): I10 - Essential (primary) hypertension (8) Leukocytosis Code(s): D72.829 - ELEVATED WHITE BLOOD CELL COUNT, UNSPECIFIED Qualifiers: Leukocytosis type: unspecified Qualified Code(s): D72.829 - Elevated white blood cell count, unspecified (9) New onset of congestive heart failure Code(s): I50.9 - HEART FAILURE, UNSPECIFIED (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
[2019-06-22] MEDS: PANTOPRAZOLE 40 MG TABLET (FP) PO SCH ×2 (09:59→23:00)
[2019-06-22] MEDS: POTASSIUM CHLORIDE TABS 20 MEQ TABLET.ER (FP) PO SCH (09:59)
[2019-06-22] MEDS: ALLOPURINOL 100 MG TABLET (FP) PO SCH (09:59)
[2019-06-22] MEDS: THIAMINE HCL 100 MG TABLET (FP) PO SCH (10:00)
--- NOTE | 2019-06-22 10:23 | PN ---
Progress Note (short form) - Note Progress Note: no new complaints CBC, BMP 06/22/19 06:15 Vital Signs Period Temp Pulse Resp BP Sys/Brewer Pulse Ox Last 24 Hr 97.6 F-98.4 F 75-86 18-20 106-129/64-86 98-98 S1S2 irreg.irreg. 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-leukocyte count widely varies throughout the hospital stay c-ANCA, p-ANCA negative a month ago JOHN with underlying CKD, more elevated again today alcoholic hepatitis-LFTs bumped again today GAVE -resolved on recent EGD positive lupus anticoagulant s/p skin biopsy 06.18.19 s/p bone marrow biopsy 06.19.19 dc plan tomorrow to [place] f/up pathology results as outpt T-LGL + multiple cytogenetic abnormalities T-LGL typically is treated when it causes cytopenias.He does not have neutropenia/thrombocytopenia he is not expected to require chemotherapy in the near future expect STR ~2 weeks until patient is strong enough to go home with family Problem List - Problems (1) Atrial fibrillation Code(s): I48.91 - UNSPECIFIED ATRIAL FIBRILLATION Qualifiers: Atrial fibrillation type: chronic Qualified Code(s): I48.2 - Chronic atrial fibrillation (2) JOHN (acute kidney injury) Code(s): N17.9 - ACUTE KIDNEY FAILURE, UNSPECIFIED (3) Balance problem Code(s): R26.89 - OTHER ABNORMALITIES OF GAIT AND MOBILITY (4) Leukocytosis Code(s): D72.829 - ELEVATED WHITE BLOOD CELL COUNT, UNSPECIFIED Qualifiers: Leukocytosis type: unspecified Qualified Code(s): D72.829 - Elevated white blood cell count, unspecified (5) Hyperlipidemia Code(s): E78.5 - HYPERLIPIDEMIA, UNSPECIFIED Qualifiers: Hyperlipidemia type: unspecified Qualified Code(s): E78.5 - Hyperlipidemia , unspecified (6) Hypertension Code(s): I10 - ESSENTIAL (PRIMARY) HYPERTENSION Qualifiers: Hypertension type: essential hypertension Qualified Code(s): I10 - Essential (primary) hypertension
[2019-06-22 10:44] LABS: HEMATOCRIT 36.2 % (35.4-49); HEMOGLOBIN 12.2 GM/dL (11.7-16.9); MCH 30.6 pg (25.7-33.7); MCHC 33.6 g/dl (32.0-35.9); MEAN CELL VOLUME 90.9 fl (80-96); MEAN PLT VOLUME 8.4 fl (7.5-11.1); PLATELET COUNT 263 K/MM3 (134-434); RBC 3.99 M/mm3 (4.00-5.60); RDW 13.7 % (11.9-15.9)
[2019-06-22 12:28] LABS: ANISOCYTOSIS 0; MACROCYTOSIS 0
[2019-06-22 12:30] LABS: PLATELET ESTIMATE ADEQUATE; ROULEAU 4+
[2019-06-22 12:50] LABS: WHITE BLOOD COUNT 34.6 K/mm3 (4.0-10.0)
--- NOTE | 2019-06-22 13:45 | PN ---
Progress Note, Physician History of Present Illness: Pt seen and examined at bedside. He is awake and appears comfortable. He feels that his breathing is improved. - Current Medication List Current Medications: Active Medications Allopurinol (Zyloprim -) 100 mg PO DAILY [facility] Last Admin: 06/22/19 09:59 Dose: 100 mg Atorvastatin Calcium (Lipitor -) 10 mg PO HS [facility] Last Admin: 06/21/19 22:56 Dose: 10 mg Diltiazem HCl (Cardizem Cd -) 180 mg PO DAILY [facility] Last Admin: 06/22/19 10:00 Dose: 180 mg Furosemide (Lasix -) 40 mg PO BID@0600,1400 [facility] Last Admin: 06/22/19 06:50 Dose: 40 mg Metoprolol Succinate (Toprol Xl -) 100 mg PO BID [facility] Last Admin: 06/22/19 09:59 Dose: 100 mg Pantoprazole Sodium (Protonix -) 40 mg PO BID [facility] Last Admin: 06/22/19 09:59 Dose: 40 mg Potassium Chloride (K-Dur -) 20 meq PO DAILY [facility] Last Admin: 06/22/19 09:59 Dose: 20 meq Thiamine HCl (Vitamin B1 -) 100 mg PO DAILY [facility] Last Admin: 06/22/19 10:00 Dose: 100 mg - Objective Vital Signs: Vital Signs Temperature 97.6 F 06/22/19 09:58 Pulse Rate 84 06/22/19 09:58 Respiratory Rate 18 06/22/19 09:58 Blood Pressure 119/79 06/22/19 09:58 O2 Sat by Pulse Oximetry (%) 98 06/22/19 09:00 Constitutional: Yes: Calm Eyes: Yes: Conjunctiva Clear HENT: Yes: Atraumatic Neck: Yes: Supple Cardiovascular: Yes: S1, S2 Respiratory: Yes: CTA Bilaterally, On Nasal O2 Gastrointestinal: Yes: Soft Genitourinary: Yes: WNL Musculoskeletal: Yes: WNL Edema: Yes Edema: LLE: Trace, RLE: Trace Neurological: Yes: Oriented Psychiatric: Yes: Oriented Labs: CBC, BMP 06/22/19 06:15 06/22/19 06:15 INR, PTT INR 1.73 (0.83-1.09) H 06/17/19 06:20 Fibrinogen 404.0 mg/dL (238-498) 06/17/19 06:20 Problem List - Problems (1) JOHN (acute kidney injury) Code(s): N17.9 - ACUTE KIDNEY FAILURE, UNSPECIFIED (2) ANDRE positive Code(s): R76.8 - OTHER SPECIFIED ABNORMAL IMMUNOLOGICAL FINDINGS IN SERUM (3) CHF exacerbation Code(s): I50.9 - HEART FAILURE, UNSPECIFIED Qualifiers: Heart failure type: unspecified Qualified Code(s): I50.9 - Heart failure, unspecified (4) Leukocytosis Code(s): D72.829 - ELEVATED WHITE BLOOD CELL COUNT, UNSPECIFIED Qualifiers: Leukocytosis type: unspecified Qualified Code(s): D72.829 - Elevated white blood cell count, unspecified Assessment/Plan Current Medications Generic Name Dose Route Start Last Admin Trade Name Freq PRN Reason Stop Dose Admin Allopurinol 100 mg 06/14/19 10:00 06/22/19 09:59 Zyloprim - PO 100 mg DAILY [facility]I Administration Atorvastatin Calcium 10 mg 06/13/19 22:00 06/21/19 22:56 Lipitor - PO 10 mg HS [facility]I Administration Diltiazem HCl 180 mg 06/18/19 10:00 06/22/19 10:00 Cardizem Cd - PO 180 mg DAILY [facility] Administration Furosemide 40 mg 06/14/19 06:00 06/22/19 06:50 Lasix - PO 40 mg BID@0600,1400 [facility]I Administration Metoprolol Succinate 100 mg 06/13/19 22:00 06/22/19 09:59 Toprol Xl - PO 100 mg BID [facility]I Administration Pantoprazole Sodium 40 mg 06/13/19 22:00 06/22/19 09:59 Protonix - PO 40 mg BID MILI Administration Potassium Chloride 20 meq 06/14/19 10:00 06/22/19 09:59 K-Dur - PO 20 meq DAILY [facility]I Administration Thiamine HCl 100 mg 06/14/19 10:00 06/22/19 10:00 Vitamin B1 - PO 100 mg DAILY [facility] Administration Impression 1. JOHN 2. chf 3. a-fib 4. htn 5. gerd 6. hypokalemia 7. positive andre 8. leukocytosis 9. CKD Plan - cont lasix - follow pathology - avoid nsaids - volume status is stable - cont oxygen and monitor pulse ox
[2019-06-22] MEDS ORDERED: PT OWN MED DRAWER 7, Y5N ONE (13:54)
--- NOTE | 2019-06-22 21:43 | PN ---
Progress Note (short form) - Note Progress Note: Seen in follow up. No new complaints this morning. Meds reviewed. Current Medications Allopurinol (Zyloprim -) 100 mg PO DAILY [facility] Last Admin: 06/21/19 09:21 Dose: 100 mg Atorvastatin Calcium (Lipitor -) 10 mg PO HS [facility] Last Admin: 06/20/19 21:43 Dose: 10 mg Diltiazem HCl (Cardizem Cd -) 180 mg PO DAILY [facility] Last Admin: 06/21/19 09:21 Dose: 180 mg Furosemide (Lasix -) 40 mg PO BID@0600,1400 [facility] Last Admin: 06/21/19 05:35 Dose: 40 mg Metoprolol Succinate (Toprol Xl -) 100 mg PO BID [facility] Last Admin: 06/21/19 09:21 Dose: 100 mg Pantoprazole Sodium (Protonix -) 40 mg PO BID [facility] Last Admin: 06/21/19 09:21 Dose: 40 mg Potassium Chloride (K-Dur -) 20 meq PO DAILY [facility] Last Admin: 06/21/19 09:21 Dose: 20 meq Thiamine HCl (Vitamin B1 -) 100 mg PO DAILY [facility] Last Admin: 06/21/19 09:21 Dose: 100 mg On exam: Last Vital Signs Temp Pulse Resp BP Pulse Ox 97.5 F L 73 20 125/83 98 06/22/19 17:00 06/22/19 17:00 06/22/19 17:00 06/22/19 17:00 06/22/19 09:00 General:S Sitting at bedside, look well. Extremities: mild pedal edema Chest:good AE bilaterally, clear Abdomen: Soft, no organomegaly, no masses. Neuro: Alert, oriented, non-focal. CVS: Normal sinus rhythm, S1, S2, no gallop or murmur. Labs reviewed CBC, BMP 06/22/19 06:15 06/22/19 06:15 Assessment. Patient admitted initially for CHF, found to have widely fluctuant leukocytosis (marked neutrophilia AND lymphocytosis), of unclear etiology. 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 In addition reportedly multiple cytogenetic abnormalities. Bone marrow biopsy Sunday - awaiting results. Will continue to follow.
[2019-06-22] MEDS: ATORVASTATIN CA 10 MG TABLET (FP) PO SCH (23:00)
[2019-06-23 00:06] VITALS: TEMP 97.8
[2019-06-23] MEDS: FUROSEMIDE 40 MG TABLET (FP) PO SCH (05:55)
--- NOTE | 2019-06-23 08:13 | DS ---
Physical Examination Vital Signs: Vital Signs Temperature 97.8 F 06/23/19 06:00 Pulse Rate 73 06/23/19 06:00 Respiratory Rate 20 06/23/19 06:00 Blood Pressure 135/91 06/23/19 06:00 O2 Sat by Pulse Oximetry (%) 94 L 06/22/19 22:00 Constitutional: Yes: No Distress, Calm Eyes: Yes: EOM Intact HENT: Yes: Normocephalic Neck: Yes: Trachea Midline Cardiovascular: Yes: Pulse Irregular Respiratory: Yes: CTA Bilaterally, Rales (coarse basal rales, otherwise clear) Gastrointestinal: Yes: Normal Bowel Sounds, Soft Musculoskeletal: Yes: WNL Edema: Yes Edema: LLE: 2+, RLE: 2+ Peripheral Pulses WNL: Yes Integumentary: Yes: Other (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 and back-resolves if supine) Neurological: Yes: WNL Psychiatric: Yes: WNL Labs: CBC, BMP 06/22/19 06:15 06/22/19 06:15 Discharge Summary Reason For Visit: weakness Current Active Problems JOHN (acute kidney injury) (Acute) MAR positive (Acute) Alcoholic hepatitis without ascites (Acute) Atrial fibrillation (Acute) Balance problem (Acute) CHF exacerbation (Acute) Hypokalemia (Acute) Leukocytosis (Acute) Pericardial cyst (Acute) Rash of back (Acute) Raynauds disease (Acute) Hospital Course: 83 yo man admitted to telemetry for weakness and chf with rapid afib and acute on chr. renal insuff. with leukocytosis. Afib-rate better, CHF-acute on chronic diastolic-hemodinamically stable with optimized volume status medically stable for dc to str. 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 Condition: Guarded - Instructions Diet, Activity, Other Instructions: Postoperative instructions: You had a skin biopsy on 06/18/[address] Mick Spencer of [facility]. Activity: Resume your usual activities gradually, but no heavy exertion or lifting more than 10-15 pounds for 4-6 weeks. Remove dressings 48 hours after surgery, if they are not already off. You may shower daily starting then, just pat the incision areas dry. No bath or swimming until skin incisions have healed. Sutures will be removed 2 weeks after the procedure. Eat lightly at first, but advance to your usual diet as tolerated. Pain: For pain, you may use and alternate Tylenol (acetaminophen) 1-2 pills and/ or ibuprofen 200 mg (1-3 pills) every 6 hours each as needed; this means that you can take one OR the other at 3-hour intervals. If you are prescribed a Tylenol/narcotic combination for severe pain, use it instead of plain Tylenol as needed and switch back when your pain starts decreasing. Do not take more than 4000 mg of acetaminophen in a day. Take medications as prescribed or indicated on the labeling. Follow-up: Call Dr. Spencer' office at [phone] to make your postop appointment (Sunday in approximately 2 weeks after surgery as advised). Clinic is held in the [facility] on the fifth floor, [facility]. Call the office if you have: * increasing pain not responsive to pain medication * fever of 101F or higher * unusual or increasing bleeding or drainage from wounds * increasing redness or swelling at wound sites Also, see your primary medical doctor within 1-2 weeks. skin biopsy suture removal ~9.4.19. will need follow up outpatient with rheumatology/cardiology and oncology ) monitor cbc, renal function. Disposition: CUSTODIAL FACILITY - Home Medications Comprehensive Discharge Medication List: Ambulatory Orders Calcium Citrate/Vitamin D3 [Calcium Cit 315-Vit D3 200 Cpt] 2 each PO DAILY Allopurinol [Zyloprim -] 100 mg PO DAILY 30 Days #30 tablet 06/07/19 Apixaban [Eliquis -] 2.5 mg PO BID 30 Days #60 tablet 06/07/19 Atorvastatin Ca [Lipitor] 10 mg PO HS 30 Days #30 tablet 06/07/19 Furosemide [Lasix -] 40 mg PO BID@0600,1400 30 Days #60 tablet 06/07/19 Metoprolol Succinate [Toprol XL -] 100 mg PO BID 30 Days #60 tab.sr.24h Pantoprazole Sodium [Protonix -] 40 mg PO BID 30 Days #30 tablet.ec 06/07/19 Potassium Chloride [K-Dur -] 20 meq PO DAILY 30 Days #30 tablet.er 06/07/19 Thiamine Mononitrate [Vitamin B-1] 100 mg PO DAILY 30 Days #30 tablet 06/07/19 Diltiazem Cd [Cardizem Cd -] 180 mg PO DAILY cap.cd.24h 06/23/19
[2019-06-23 09:31] VITALS: BP 136/79; PULSE 89
--- NOTE | 2019-06-23 10:03 | PN ---
Progress Note, Physician History of Present Illness: pulmonary alert,feeling better,dyspnea improved,-cp - Current Medication List Current Medications: Active Medications Allopurinol (Zyloprim -) 100 mg PO DAILY [facility] Last Admin: 06/22/19 09:59 Dose: 100 mg Atorvastatin Calcium (Lipitor -) 10 mg PO HS [facility] Last Admin: 06/22/19 23:00 Dose: 10 mg Diltiazem HCl (Cardizem Cd -) 180 mg PO DAILY [facility] Last Admin: 06/22/19 10:00 Dose: 180 mg Furosemide (Lasix -) 40 mg PO BID@0600,1400 [facility] Last Admin: 06/23/19 05:55 Dose: 40 mg Metoprolol Succinate (Toprol Xl -) 100 mg PO BID [facility] Last Admin: 06/22/19 23:00 Dose: 100 mg Pantoprazole Sodium (Protonix -) 40 mg PO BID [facility] Last Admin: 06/22/19 23:00 Dose: 40 mg Potassium Chloride (K-Dur -) 20 meq PO DAILY [facility] Last Admin: 06/22/19 09:59 Dose: 20 meq Thiamine HCl (Vitamin B1 -) 100 mg PO DAILY [facility] Last Admin: 06/22/19 10:00 Dose: 100 mg - Objective Vital Signs: Vital Signs Temperature 97.8 F 06/23/19 09:30 Pulse Rate 89 06/23/19 09:30 Respiratory Rate 20 06/23/19 09:30 Blood Pressure 136/79 06/23/19 09:30 O2 Sat by Pulse Oximetry (%) 94 L 06/22/19 22:00 Constitutional: Yes: Well Nourished, Calm Eyes: Yes: WNL HENT: Yes: WNL Neck: Yes: WNL Cardiovascular: Yes: Pulse Irregular, S1, S2 Respiratory: Yes: Diminished, Rales (few bibasilar rales) Gastrointestinal: Yes: Normal Bowel Sounds, Soft Extremities: Yes: WNL Edema: Yes Edema: LLE: Trace, RLE: Trace Labs: CBC, BMP 06/22/19 06:15 06/22/19 06:15 INR, PTT INR 1.73 (0.83-1.09) H 06/17/19 06:20 Fibrinogen 404.0 mg/dL (238-498) 06/17/19 06:20 Problem List - Problems (1) Atrial fibrillation Code(s): I48.91 - UNSPECIFIED ATRIAL FIBRILLATION Qualifiers: Atrial fibrillation type: chronic Qualified Code(s): I48.2 - Chronic atrial fibrillation (2) CHF exacerbation Code(s): I50.9 - HEART FAILURE, UNSPECIFIED Qualifiers: Heart failure type: unspecified Qualified Code(s): I50.9 - Heart failure, unspecified (3) Leukocytosis Code(s): D72.829 - ELEVATED WHITE BLOOD CELL COUNT, UNSPECIFIED Qualifiers: Leukocytosis type: unspecified Qualified Code(s): D72.829 - Elevated white blood cell count, unspecified (4) GAVE (gastric antral vascular ectasia) Code(s): K31.819 - ANGIODYSPLASIA OF STOMACH AND DUODENUM WITHOUT BLEEDING (5) History of radical prostatectomy Code(s): Z90.79 - ACQUIRED ABSENCE OF OTHER GENITAL ORGAN(S) (6) Hyperlipidemia Code(s): E78.5 - HYPERLIPIDEMIA, UNSPECIFIED Qualifiers: Hyperlipidemia type: unspecified Qualified Code(s): E78.5 - Hyperlipidemia , unspecified (7) Hypertension Code(s): I10 - ESSENTIAL (PRIMARY) HYPERTENSION Qualifiers: Hypertension type: essential hypertension Qualified Code(s): I10 - Essential (primary) hypertension (8) Leukocytosis Code(s): D72.829 - ELEVATED WHITE BLOOD CELL COUNT, UNSPECIFIED Qualifiers: Leukocytosis type: unspecified Qualified Code(s): D72.829 - Elevated white blood cell count, unspecified (9) New onset of congestive heart failure Code(s): I50.9 - HEART FAILURE, UNSPECIFIED (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 Assessment/Plan IMP DYSPNEA IMPROVED ACUTE ON CHRONIC CHF IMPROVED AFIB WITH RVR PULMONARY HTN H/O GAVE RESOLVED ANEMIA ACUTE ON CHRONIC KIDNEY DISEASE STABLE LEFT PERICARDIAL CYST BECKY H/O PROSTATE CA S/P PROSTATECTOMY WEAKNESS T-LGL PLAN LASIX OUTPATIENT F/U DR CARABALLO Problem List - Problems (1) Atrial fibrillation Code(s): I48.91 - UNSPECIFIED ATRIAL FIBRILLATION Qualifiers: Atrial fibrillation type: chronic Qualified Code(s): I48.2 - Chronic atrial fibrillation (2) CHF exacerbation Code(s): I50.9 - HEART FAILURE, UNSPECIFIED Qualifiers: Heart failure type: unspecified Qualified Code(s): I50.9 - Heart failure, unspecified (3) Leukocytosis Code(s): D72.829 - ELEVATED WHITE BLOOD CELL COUNT, UNSPECIFIED Qualifiers: Leukocytosis type: unspecified Qualified Code(s): D72.829 - Elevated white blood cell count, unspecified (4) GAVE (gastric antral vascular ectasia) Code(s): K31.819 - ANGIODYSPLASIA OF STOMACH AND DUODENUM WITHOUT BLEEDING (5) History of radical prostatectomy Code(s): Z90.79 - ACQUIRED ABSENCE OF OTHER GENITAL ORGAN(S) (6) Hyperlipidemia Code(s): E78.5 - HYPERLIPIDEMIA, UNSPECIFIED Qualifiers: Hyperlipidemia type: unspecified Qualified Code(s): E78.5 - Hyperlipidemia , unspecified (7) Hypertension Code(s): I10 - ESSENTIAL (PRIMARY) HYPERTENSION Qualifiers: Hypertension type: essential hypertension Qualified Code(s): I10 - Essential (primary) hypertension (8) Leukocytosis Code(s): D72.829 - ELEVATED WHITE BLOOD CELL COUNT, UNSPECIFIED Qualifiers: Leukocytosis type: unspecified Qualified Code(s): D72.829 - Elevated white blood cell count, unspecified (9) New onset of congestive heart failure Code(s): I50.9 - HEART FAILURE, UNSPECIFIED (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
[2019-06-23] MEDS: ALLOPURINOL 100 MG TABLET (FP) PO SCH (10:22)
[2019-06-23] MEDS: PANTOPRAZOLE 40 MG TABLET (FP) PO SCH (10:22)
[2019-06-23] MEDS: THIAMINE HCL 100 MG TABLET (FP) PO SCH (10:23)
[2019-06-23] MEDS: POTASSIUM CHLORIDE TABS 20 MEQ TABLET.ER (FP) PO SCH (10:23)
--- NOTE | 2019-06-23 11:26 | PN ---
Progress Note, Physician History of Present Illness: Pt seen and examined at bedside. He feels that his breathing is improved. He denies dysuria or hematuria. - Current Medication List Current Medications: Active Medications Allopurinol (Zyloprim -) 100 mg PO DAILY [facility] Last Admin: 06/23/19 10:22 Dose: 100 mg Atorvastatin Calcium (Lipitor -) 10 mg PO HS [facility] Last Admin: 06/22/19 23:00 Dose: 10 mg Diltiazem HCl (Cardizem Cd -) 180 mg PO DAILY [facility] Last Admin: 06/23/19 10:22 Dose: 180 mg Furosemide (Lasix -) 40 mg PO BID@0600,1400 [facility] Last Admin: 06/23/19 05:55 Dose: 40 mg Metoprolol Succinate (Toprol Xl -) 100 mg PO BID [facility] Last Admin: 06/23/19 10:22 Dose: 100 mg Pantoprazole Sodium (Protonix -) 40 mg PO BID [facility] Last Admin: 06/23/19 10:22 Dose: 40 mg Potassium Chloride (K-Dur -) 20 meq PO DAILY [facility] Last Admin: 06/23/19 10:23 Dose: 20 meq Thiamine HCl (Vitamin B1 -) 100 mg PO DAILY [facility] Last Admin: 06/23/19 10:23 Dose: 100 mg - Objective Vital Signs: Vital Signs Temperature 97.8 F 06/23/19 09:30 Pulse Rate 89 06/23/19 09:30 Respiratory Rate 20 06/23/19 09:30 Blood Pressure 136/79 06/23/19 09:30 O2 Sat by Pulse Oximetry (%) 94 L 06/22/19 22:00 Constitutional: Yes: Calm Eyes: Yes: Conjunctiva Clear HENT: Yes: Atraumatic Neck: Yes: Supple Cardiovascular: Yes: S1, S2 Respiratory: Yes: CTA Bilaterally Gastrointestinal: Yes: Normal Bowel Sounds, Soft Musculoskeletal: Yes: WNL Edema: Yes Edema: LLE: Trace, RLE: Trace Neurological: Yes: Oriented Psychiatric: Yes: Oriented Labs: CBC, BMP 06/22/19 06:15 06/22/19 06:15 INR, PTT INR 1.73 (0.83-1.09) H 06/17/19 06:20 Fibrinogen 404.0 mg/dL (238-498) 06/17/19 06:20 Problem List - Problems (1) JOHN (acute kidney injury) Code(s): N17.9 - ACUTE KIDNEY FAILURE, UNSPECIFIED (2) ANDRE positive Code(s): R76.8 - OTHER SPECIFIED ABNORMAL IMMUNOLOGICAL FINDINGS IN SERUM (3) CHF exacerbation Code(s): I50.9 - HEART FAILURE, UNSPECIFIED Qualifiers: Heart failure type: unspecified Qualified Code(s): I50.9 - Heart failure, unspecified (4) Leukocytosis Code(s): D72.829 - ELEVATED WHITE BLOOD CELL COUNT, UNSPECIFIED Qualifiers: Leukocytosis type: unspecified Qualified Code(s): D72.829 - Elevated white blood cell count, unspecified Assessment/Plan Current Medications Generic Name Dose Route Start Last Admin Trade Name Freq PRN Reason Stop Dose Admin Allopurinol 100 mg 06/14/19 10:00 06/23/19 10:22 Zyloprim - PO 100 mg DAILY MILI Administration Atorvastatin Calcium 10 mg 06/13/19 22:00 06/22/19 23:00 Lipitor - PO 10 mg HS MILI Administration Diltiazem HCl 180 mg 06/18/19 10:00 06/23/19 10:22 Cardizem Cd - PO 180 mg DAILY [facility]I Administration Furosemide 40 mg 06/14/19 06:00 06/23/19 05:55 Lasix - PO 40 mg BID@0600,1400 MILI Administration Metoprolol Succinate 100 mg 06/13/19 22:00 06/23/19 10:22 Toprol Xl - PO 100 mg BID MILI Administration Pantoprazole Sodium 40 mg 06/13/19 22:00 06/23/19 10:22 Protonix - PO 40 mg BID MILI Administration Potassium Chloride 20 meq 06/14/19 10:00 06/23/19 10:23 K-Dur - PO 20 meq DAILY [facility] Administration Thiamine HCl 100 mg 06/14/19 10:00 06/23/19 10:23 Vitamin B1 - PO 100 mg DAILY MILI Administration Impression 1. JOHN 2. chf 3. a-fib 4. htn 5. gerd 6. hypokalemia 7. positive andre 8. leukocytosis 9. CKD Plan - volume status stable - can see in office - follow biopsy results - cont lasix - avoid nsaids
--- NOTE | 2019-06-27 10:31 | PATH ---
Surgical Pathology Report Patient Name: KOKO DAVIS Med. Rec. #: [id number] /Age/Gender: 1935 (Age: 83) / M Account: [id number] Location: 4 W TELEMETRY U Taken: 06/19/2019 Received: 06/20/2019 Reported: 07/10/2019 Physicians: Christiane Altamirano M.D. Specimen(s) Received A: BONE MARROW BIOPSY B: BONE MARROW CLOT C: 2 GREEN TOP TUBES & 1 LAVENDAR TUBES Clinical History H/o T-LGL, lymphocytosis, monocytosis Final Diagnosis BONE MARROW MORPHOLOGY performed and interpreted at [facility] ([id number]) shows the following: DIAGNOSIS: Bone marrow biopsy, clot section and aspirate smears: CLONAL B-CELL POPULATION WITH A NONSPECIFIC IMMUNOPHENOTYPE. MONOCYTOSIS (16% OF TOTAL EVENTS). T-LARGE GRANULAR LYMPHOCYTES, 11.6% OF TOTAL EVENTS. COMMENT: The above diagnoses are based entirely on the flow cytometry results, which may simply represent peripheral blood. The bone marrow biopsy consists entirely of blood, without bone marrow elements. The bone marrow clot section consists almost entirely of blood, with only a single small poorly preserved fragment of hematopoietic marrow. Aspirate smears show significant degeneration artifact and are also noncontributory. Although flow cytometry identified multiple abnormalities, the extent to which these abnormalities are present in the patient's bone marrow cannot be assessed with the current biopsy. INTERPRETATION: See [facility] report for additional details ([id number]) COMPREHENSIVE FLOW PANEL performed and interpreted at [place], [place] ([id number]) shows the following: INTERPRETATION: Clonal B-cell population with nonspecific immunophenotype, 9% of total events, is detected. The monocytic cells are 16% of total events. The T-large granular lymphocytes (T-LGLs, CD3+/CD57+) are 11.6% of total events. No Increase of myeloblasts. See [facility] report ([id number]) for additional details. CYTOGENETIC KARYOTYPE ANALYSIS performed and interpreted at [facility] ([id number]) shows the following: RESULTS: 48,XY,+4,+18[2]/49,XY,t(7;14)(q34;q11.2)[3]/non-clonal rearrangements[5]/46,XY[16] INTERPRETATION: ABNORMAL KARYOTYPE- most consistent with T-cell leukemia the Two of twenty metaphase cells derived from T- and B-cell mitogen stimulated cultures revealed three copies each of whole chromosomes 4 and 18. Three cells exhibited a reciprocal translocation between the distal long arm of a chromosome 7 and the proximal long arm of a chromosome 14, probably resulting in a TRB/TRA gene rearrangement. Five cells showed non-clonal reciprocal translocations. The remaining sixteen cells had a normal chromosome complement. Compared to the previous study (see [id number], reported 06/09/2019), the clonal cell line with trisomy for chromosomes 4 and 18 with additional abnormalities was not observed in the present study. 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 The non-clonal translocations are likely indicative of genomic instability, with possibility of disease progression. Please correlate with clinical presentation and other diagnostic modalities. Analysis was performed on cells from an unstimulated culture and a culture tahtw as stimulated with lymphoid mitogens. See [facility] report for additional details ([id number]) MYELODYSPLASIA FISH PANEL performed and interpreted at [place], [place] ([id number]) shows the following: INTERPRETATION: No evidence of deletion 5q or monosomy 5 is present. No evidence of deletion 7q or monosomy 7 is present. No evidence of deletion 13q14.2 is present. No evidence of rearrangement of 11q23. No evidence of a deletion of the p53 (17p13) locus. No evidence of deletion 20q12 is present Myeloproliferative Disorder Fish PanelNo evidence of trisomy 8 (+8) is present. No BCR/ABL1 t(9;22) translocation is detected See [facility] report ([id number]) for additional details. Electronically Signed Robert Gonzales M.D. Addendum Reported: 07/11/2019 Addendum Diagnosis Molecular Pathology Report performed and interpreted at [place], [place] ([id number]) shows the following: T-Cell Gene Rearrangement Results: Clonal T-cell population detected. 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 Comment: This specimen contains a clonal population of T-cell lineage. Results should be interpreted in the context of clinical status and correlation with morphology and immunophenotype. This analysis can detect abnormal populations comprising greater than 5% of the T-cells present in the sample. Electronically Signed By: Dar Luke M.D See [facility] report ([id number]) for details. Gross Description: Received patient's bone marrow biopsy, clot, two green top and 1 lavender top tubes of aspiration which are forwarded to [facility] laboratory for processing and interpretation. See [facility] reports for gross description details. Robert Gonzales M.D.
--- NOTE | 2019-07-02 14:26 | PATH ---
Surgical Pathology Report Patient Name: KOKO ADVIS Med. Rec. #: [id number] /Age/Gender: 1935 (Age: 83) / M Account: [id number] Location: 4 W TELEMETRY U Taken: 06/18/2019 Received: 06/19/2019 Reported: 07/02/2019 Physicians: Vy Spence M.D. Specimen(s) Received FULL THICKNESS SKIN FROM BACK Clinical History Rash on back Final Diagnosis FULL THICKNESS SKIN FROM BACK, BIOPSY: NORMAL SKIN Note: There is no vasculitis, thrombi or neoplasm in this specimen. There is no significant inflammation. Case sent for consultation to Dr. Ezekiel Pringle from [facility], [place], [place] ([id number]), the diagnosis above reflects his opinion. See complete report ([id number]) from [facility], [place], [place] for additional details. Electronically Signed Robert Gonzales M.D. Gross Description Received in saline, labeled "full thickness skin from back" is a portion of skin measuring 2 x 0.8 x 0.5 cm. The skin surface is normal colored. The resection margin is inked green. The specimen is enitrel submitted in toto in one cassette after bisected. KWDen/06/19/2019 abad/06/19/2019
--- NOTE | 2019-07-07 10:09 | PN ---
Progress Note (short form) - Note Progress Note: Called patients daughter --- Discussed the results of BMBX --discussed that bx was inadequate but flow and cytogenetics were c/w T cell LGL. and cytogenetics from bone marrow indicate that the leukemia could be taking a more aggressive course. Discussed that he would need close follow up with us ( she has the contact nos. ) also discussed that she should follow up closely [facility] rheumatology/ -- given low complements, + MAR, + lupus anticoagulant ( needs repeat testing in 12 weeks) Discussed that we could help coordinate 2nd opinion if thats what they prefer Also discussed that iven his overall fraility, serious comorbidities, age, a conservative approach may be more reasonable. She is in agreement with the planand is to get back to us. Will inform ALBERTO louis
== END 2019-06-23 12:01 | DRG 291 ==
LOC: JER 11:54 → JERBED 15:56 → J4W 19:48 → JERBED 06-18 10:27 → J4W 06-18 10:29
PROVIDERS: ADMIT Internal Medicine; ATTEND Internal Medicine
PROC: 0HB6XZX Excision of Back Skin, External Approach, Diagnostic (ICD-10-PCS; principal; 2019-06-18)
PROC: 07DR3ZX Extraction of Iliac Bone Marrow, Percutaneous Approach, Diagnostic (ICD-10-PCS; 2019-06-19)
DX: I13.0 Hypertensive heart and chronic kidney disease with heart failure and stage 1 through stage 4 chronic kidney disease, or unspecified chronic kidney disease (principal); I50.33 Acute on chronic diastolic (congestive) heart failure; C91.Z0 Other lymphoid leukemia not having achieved remission; D68.62 Lupus anticoagulant syndrome; N17.9 Acute kidney failure, unspecified; I31.8 Other specified diseases of pericardium; K56.699 Other intestinal obstruction unspecified as to partial versus complete obstruction; K21.9 Gastro-esophageal reflux disease without esophagitis; E78.5 Hyperlipidemia, unspecified; D64.9 Anemia, unspecified; K29.60 Other gastritis without bleeding; D12.6 Benign neoplasm of colon, unspecified; K57.90 Diverticulosis of intestine, part unspecified, without perforation or abscess without bleeding; I48.2 Chronic atrial fibrillation; K70.10 Alcoholic hepatitis without ascites; E87.6 Hypokalemia; K44.9 Diaphragmatic hernia without obstruction or gangrene; I73.00 Raynaud's syndrome without gangrene; R26.81 Unsteadiness on feet; R21 Rash and other nonspecific skin eruption; R26.89 Other abnormalities of gait and mobility; R76.8 Other specified abnormal immunological findings in serum; I27.20 Pulmonary hypertension, unspecified; N18.9 Chronic kidney disease, unspecified; D89.1 Cryoglobulinemia; K64.4 Residual hemorrhoidal skin tags; Z85.46 Personal history of malignant neoplasm of prostate
CPT/HCPCS: 36415; 70450-TC; 71045-TC-FY; 80053; 81003; 82550; 82565; 82570; 82595; 82784; 83010; 83615; 83735; 83880; 83883; 84100; 84156; 84439; 84443; 84484; 84540; 84550; 85025; 85027; 85044; 85384; 85610; 85613; 85651; 85730; 85732; 85810; 86038; 86140; 86146; 86157; 86160; 86162; 86225; 86431; 86704; 86706; 86707; 86708; 86709; 86850; 86880; 86900; 86901; 87040; 87086; 87340; 88300-TC; 88305-TC; 93005; 93010; 97116-GP; 97161-GP; 99282-25

== ENCOUNTER 2019-07-10 02:23 | Inpatient (IN) | payer OTHER | END 2019-07-12 18:36 | LOC: JER 02:23 → JERBED 10:16 → J5S 14:30 ==

== ENCOUNTER 2019-08-07 22:45 | Emergency (ER) | payer OTHER ==
--- NOTE | 2019-08-07 23:06 | PDOC ---
History of Present Illness - General Stated Complaint: BLOOD IN URINE - History of Present Illness Initial Comments: The pt is an 83M w/ a history of HTN, HLD, prostate Ca s/p radical prostatectomy in 2002, cirrhosis (alcoholic), T-cell granular lymphocyte leukemia (T-LGL), GERD, CHF and Afib (eliquis), CKD, who presents for evaluation of hematuria x3. The pt denies dysuria, diarrhea, blood in his stool , vomiting, fevers, abdominal pain, or changes in sensation. He denies recent Urological procedures. 08/08/19 01:05 Past History - Past Medical History Allergies/Adverse Reactions: Allergies Allergy/AdvReac Type Severity Reaction Status Date / Time Sulfa (Sulfonamide Allergy Mild Rash Verified 08/07/19 23:21 Antibiotics) Home Medications: Ambulatory Orders Calcium Citrate/Vitamin D3 [Calcium Cit 315-Vit D3 200 Cpt] 2 each PO DAILY Allopurinol [Zyloprim -] 100 mg PO DAILY 30 Days #30 tablet 06/07/19 Apixaban [Eliquis -] 2.5 mg PO BID 30 Days #60 tablet 06/07/19 Atorvastatin Ca [Lipitor] 10 mg PO HS 30 Days #30 tablet 06/07/19 Metoprolol Succinate [Toprol XL -] 100 mg PO BID 30 Days #60 tab.sr.24h Pantoprazole Sodium [Protonix -] 40 mg PO BID 30 Days #30 tablet.ec 06/07/19 Thiamine Mononitrate [Vitamin B-1] 100 mg PO DAILY 30 Days #30 tablet 06/07/19 Diltiazem Cd [Cardizem Cd -] 180 mg PO DAILY cap.cd.24h 06/23/19 Potassium Chloride [K-Dur -] 40 meq PO DAILY 07/10/19 Anemia: Yes Asthma: No Cancer: Yes (prostate, lymphocytic leukemia) Cardiac Disorders: Yes (AFIB) CVA: No COPD: No CHF: Yes Dementia: No Diabetes: No GI Disorders: Yes (GERD, G-I bleed) Disorders: No HTN: Yes Hypercholesterolemia: Yes Liver Disease: Yes (cirrhosis) Seizures: No Thyroid Disease: No - Surgical History Abdominal Surgery: Yes (PROSTATECTOMY) Appendectomy: No Cardiac Surgery: No Cholecystectomy: No Lung Surgery: No Neurologic Surgery: No Orthopedic Surgery: No - Immunization History Immunization Up to Date: Yes - Psycho Social/Smoking Cessation Hx Smoking History: Former smoker Have you smoked in the past 12 months: No If you are a former smoker, when did you quit?: 1999 Hx Alcohol Use: No Drug/Substance Use Hx: No Substance Use Type: None Hx Substance Use Treatment: No Review of Systems - Review of Systems Able to Perform ROS?: Yes Comments:: GENERAL/CONSTITUTIONAL: No fever or chills. No weakness HEAD, EYES, EARS, NOSE AND THROAT: No change in vision. No change in hearing. No sore throat CARDIOVASCULAR: No chest pain or shortness of breath RESPIRATORY: Denies cough, hemoptysis GASTROINTESTINAL: No nausea, vomiting, diarrhea or constipation GENITOURINARY: +hematuria; denies dysuria, frequency MUSCULOSKELETAL: No joint or muscle swelling or pain. No neck or back pain SKIN: No rash NEUROLOGIC: No headache, vertigo, loss of consciousness, or change in strength/ sensation ENDOCRINE: No increased thirst. No abnormal weight change HEMATOLOGIC/LYMPHATIC: No anemia, easy bleeding, or history of blood clots ALLERGIC/IMMUNOLOGIC: No hives or skin allergy 08/07/19 23:05 Is the patient limited Croatian proficient: No *Physical Exam - Vital Signs Vital Signs Period Temp Pulse Resp BP Sys/Brewer Pulse Ox Last 24 Hr 97.3 F 88 20 128/76 98 08/08/19 01:18 - Physical Exam Comments: GENERAL: Awake, alert, and oriented to person/place/time, in no acute distress HEAD: No signs of trauma, normocephalic, atraumatic EYES: PERRLA, EOMI, sclera anicteric, conjunctiva clear ENT: Hearing grossly normal, nares patent, oropharynx clear without exudates. Moist mucosa LUNGS: No distress, speaks in full sentences, clear to auscultation bilaterally HEART: Regular rate and rhythm, normal S1 and S2, no murmurs appreciated, peripheral pulses normal and equal bilaterally ABDOMEN: Soft, nontender, normoactive bowel sounds. No guarding, no rebound EXTREMITIES: Normal inspection, Normal range of motion, no edema. No clubbing or cyanosis NEUROLOGICAL: Cranial nerves II through XII grossly intact. Normal speech, no focal sensorimotor deficits SKIN: Warm, Dry 08/07/19 23:05 ED Treatment Course - LABORATORY CBC & Chemistry Diagram: 08/08/19 00:50 08/08/19 00:50 Medical Decision Making - Medical Decision Making The pt is an 83M w/ a history of HTN, HLD, prostate Ca s/p radical prostatectomy in 2002, cirrhosis (alcoholic), T-cell granular lymphocyte leukemia (T-LGL), GERD, CHF and Afib (eliquis), CKD, who presents for evaluation of hematuria x3. ED Course CMP, CBC, UA, UCx CXR ECG 08/08/19 01:34 Lytes wnl Cr at baseline LFTs unremarkable 08/08/19 02:48 Leukocytosis to 19 -Pt noted to have highly fluctuant WBC counts in the past -No fever, no tachycardia Mild anemia, no indication to transfuse at this time CXR w/ congestive changes -Pt to continue lasix, no hypoxia, and no respiratory complaints 08/08/19 03:46 Plan for D/C w/ Urology and PCP f/u Discharge instructions and return precautions given Pt in agreement and verbalized understanding Dispo: home 08/08/19 04:00 Discharge - Discharge Information Problems reviewed: Yes Clinical Impression/Diagnosis: Hematuria Qualifiers: Hematuria type: unspecified type Qualified Code(s): R31.9 - Hematuria, unspecified Condition: Stable Disposition: HOME - Admission No - Follow up/Referral Referrals: Angel Luis Allan MD [Primary Care Provider] - Jack-Fran Wang MD [Staff Physician] - - Patient Discharge Instructions Patient Printed Discharge Instructions: DI for Hematuria Additional Instructions: You were seen in the Emergency Department for evaluation of blood in your urine. Your hemoglobin was stable. Review the handout provided at discharge and follow up with the Urology referral given. Follow up with your primary care provider within a week. Return if you develop fevers/chills, worsening symptoms , lightheadedness, chest pain, trouble breathing, passage of clots, pain with urination, or any new/concerning symptoms. Lo vieron en el departamento de emergencias para evaluar la ernst en garcia orina. Tu hemoglobina estaba estable. Revise el folleto proporcionado al keegan y jd un seguimiento con la referencia de Urologa duane. Jd un seguimiento con garcia proveedor de atencin primaria dentro de yudelka semana. Regrese si desarrolla fiebre / escalofros, empeoramiento de los sntomas, aturdimiento, dolor en el pecho, dificultad para respirar, paso de cogulos, dolor al orinar o cualquier sntoma nuevo o preocupante. Print Language: MAORI - Post Discharge Activity
[2019-08-07 23:21] VITALS: TEMP 97.3; BMI 25.2
--- NOTE | 2019-08-07 23:40 | PDOC ---
Attending Attestation - Resident Resident Name: Jaret Walker - ED Attending Attestation I have performed the following: I have examined & evaluated the patient, The case was reviewed & discussed with the resident, I agree w/resident's findings & plan, Exceptions are as noted - HPI HPI: 08/07/19 23:44 Mr. 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 Pt presents to the ER with a complaint of hematuria He has noted 3 episodes of hematuria Not associated with abdominal pain, fevers or chills No rectal bleeding 08/08/19 00:23 08/08/19 00:24 - Physicial Exam PE: 08/07/19 23:51 GENERAL: The patient is in no acute distress. ENT: Ears normal, nares patent, oropharynx clear without exudates. Moist mucous membranes. NECK: Normal range of motion, supple LUNGS: Breath sounds equal, clear to auscultation bilaterally. No wheezes, and no crackles. HEART:Regular rate and rhythm, normal S1 and S2 without murmur, rub or gallop. ABDOMEN: Soft, nontender, normoactive bowel sounds. EXTREMITIES: Normal range of motion, no edema. NEUROLOGICAL: Cranial nerves II through XII grossly intact. Normal speech. No focal neurological deficits. SKIN: Warm, Dry, normal turgor, no rashes or lesions noted. - Medical Decision Making 08/07/19 23:54 83 yo M presenting with a complaint of hematuria 08/08/19 00:33 Will do: Basic labs UA Re assess 08/08/19 02:08 Laboratory Tests 07/10/19 08/08/19 04:02 00:50 Sodium 140 Potassium 4.4 Chloride 103 Carbon Dioxide 31 Anion Gap 9 6 L Creatinine 1.6 H 1.6 H Random Glucose 88 120 H 08/08/19 20:08 Laboratory Tests 08/08/19 00:50 WBC 19.1 H Hgb 11.3 L Hct 34.5 L Plt Count 216 D Unclear how reliable pt CBC is (given history of leukocytosis and vast swings in wbc) No signs of infection at this time Will discharge to home Pt should be assessed by team at residential Clinical impression: hematuria which is resolving, initial presentation
[2019-08-08 01:48] LABS: BILIRUBIN,TOTAL 0.5 mg/dL (0.2-1); CALCIUM 8.3 mg/dL (8.5-10.1); CREATININE 1.6 mg/dL (0.55-1.3); POTASSIUM 4.4 mmol/L (3.5-5.1); TOT PROT 5.4 g/dl (6.4-8.2)
[2019-08-08 02:27] LABS: EPI CELLS 2.7 /HPF (0-5/HPF); HYALINE CASTS 7 /lpf (0-8); URINE APPEARANCE TURBID; URINE BACTERIA 0 /hpf (NEGATIVE); URINE BILIRUBIN NEGATIVE (NEGATIVE); URINE COLOR ORANGE; URINE GLUCOSE (UA) NEGATIVE (NEGATIVE); URINE KETONE NEGATIVE (NEGATIVE); URINE LEUK ESTERASE 1+ (NEGATIVE); URINE NITRITE NEGATIVE (NEGATIVE); URINE PROTEIN 2+ (NEGATIVE); URINE RBC 1140 /hpf (0-4); URINE WBC 26 /hpf (0-5)
[2019-08-08 02:29] LABS: INR 1.89 (0.83-1.09); PROTHROMBIN TIME (PATIENT) 22.4 SEC (9.7-13.0)
[2019-08-08 03:33] LABS: BASO % 0.5 % (0-2.0); EOS % 0.4 % (0-4.5); HEMATOCRIT 34.5 % (35.4-49); HEMOGLOBIN 11.3 GM/dL (11.7-16.9); LYMPH % 37.6 % (8-40); MCH 29.8 pg (25.7-33.7); MCHC 32.7 g/dl (32.0-35.9); MEAN PLT VOLUME 8.6 fl (7.5-11.1); NEUT % 43.5 % (42.8-82.8); PLATELET COUNT 216 K/MM3 (134-434); RBC 3.78 M/mm3 (4.00-5.60); RDW 14.6 % (11.9-15.9); WHITE BLOOD COUNT 19.1 K/mm3 (4.0-10.0)
[2019-08-08 04:56] VITALS: BP 144/78; PULSE 75
== END 2019-08-08 05:07 ==
LOC: JER 22:45
DX: R31.9 Hematuria, unspecified (principal); I13.0 Hypertensive heart and chronic kidney disease with heart failure and stage 1 through stage 4 chronic kidney disease, or unspecified chronic kidney disease; N18.9 Chronic kidney disease, unspecified; I50.89 Other heart failure; Z87.891 Personal history of nicotine dependence; I48.91 Unspecified atrial fibrillation; Z79.01 Long term (current) use of anticoagulants; E78.5 Hyperlipidemia, unspecified; K70.30 Alcoholic cirrhosis of liver without ascites; K21.9 Gastro-esophageal reflux disease without esophagitis; Z85.6 Personal history of leukemia; Z85.46 Personal history of malignant neoplasm of prostate; Z90.79 Acquired absence of other genital organ(s); D47.3 Essential (hemorrhagic) thrombocythemia; D72.829 Elevated white blood cell count, unspecified; Z88.2 Allergy status to sulfonamides; E78.00 Pure hypercholesterolemia, unspecified
CPT/HCPCS: 36415; 71045-TC-FY; 80053; 81003; 85025; 85610; 87086; 99283-25

== ENCOUNTER 2021-12-18 19:29 | Inpatient (IN) | payer OTHER ==
[2021-12-18] MEDS ORDERED: SODIUM CHLORIDE 0.9% 500 ML INFUS.BAG IV ONE (19:42)
[2021-12-18 20:50] LABS: VENOUS O2 SATURATION 49.7 % (70-80); VENOUS PCO2 45.7 mmHg (38-52); VENOUS PH 7.379 (7.310-7.410)
[2021-12-18 20:53] LABS: BASO % 1.2 % (0-2.0); EOS % 0.9 % (0-4.5); HEMATOCRIT 23.2 % (35.4-49); HEMOGLOBIN 7.7 GM/dL (11.7-16.9); LYMPH % 42.3 % (8-40); MCH 28.8 pg (25.7-33.7); MCHC 33.1 g/dl (32.0-35.9); MEAN CELL VOLUME 87.1 fl (80-96); MEAN PLT VOLUME 8.5 fl (7.5-11.1); MONO % 9.8 % (3.8-10.2); NEUT % 45.8 % (42.8-82.8); PLATELET COUNT 164 10^3/uL (134-434); RBC 2.66 M/mm3 (4.00-5.60); RDW 14.5 % (11.9-15.9); WHITE BLOOD COUNT 4.5 K/mm3 (4.0-10.0)
[2021-12-18 20:57] LABS: INR 1.39 (0.83-1.09)
[2021-12-18 21:00] LABS: ACTIVATED PTT 28.3 SECONDS (25.2-36.5)
[2021-12-18 21:07] LABS: CALCIUM 9.6 mg/dL (8.5-10.1)
[2021-12-18 21:08] LABS: ALBUMIN 2.7 g/dl (3.4-5.0); BLOOD UREA NITROGEN 90.4 mg/dL (7-18); MAGNESIUM 3.3 mg/dL (1.8-2.4)
[2021-12-18 21:11] LABS: CREATININE 6.6 mg/dL (0.55-1.3); PHOSPHOROUS 3.9 mg/dL (2.5-4.9)
[2021-12-18 21:12] LABS: BILIRUBIN,TOTAL 0.4 mg/dL (0.2-1); TOT PROT 6.6 g/dl (6.4-8.2)
[2021-12-18 21:16] LABS: N-TERMINAL BNP 25345.2 pg/ml (5-450)
[2021-12-18 21:37] LABS: RETICULOCYTES 1.21 % (0.5-1.5)
[2021-12-18 22:12] LABS: BASO % 0.5 % (0-2.0); EOS % 0.6 % (0-4.5); HEMATOCRIT 21.7 % (35.4-49); HEMOGLOBIN 7.4 GM/dL (11.7-16.9); LYMPH % 50.7 % (8-40); MCHC 34.1 g/dl (32.0-35.9); MEAN PLT VOLUME 8.2 fl (7.5-11.1); MONO % 11.6 % (3.8-10.2); NEUT % 36.6 % (42.8-82.8); PLATELET COUNT 160 10^3/uL (134-434); RBC 2.56 M/mm3 (4.00-5.60); RDW 14.3 % (11.9-15.9); WHITE BLOOD COUNT 4.7 K/mm3 (4.0-10.0)
[2021-12-18 23:10] LABS: EPI CELLS 7 /uL (0-25.1); HYALINE CASTS 2 /uL (0-3.1); PH,URINE 7.5 (5.0-8.0); URINE APPEARANCE CLEAR; URINE BACTERIA 3 /uL (0-1359); URINE BILIRUBIN NEGATIVE (NEGATIVE); URINE COLOR YELLOW; URINE GLUCOSE (UA) NEGATIVE (NEGATIVE); URINE KETONE NEGATIVE (NEGATIVE); URINE LEUK ESTERASE NEGATIVE (NEGATIVE); URINE NITRITE NEGATIVE (NEGATIVE); URINE PROTEIN 2+ (NEGATIVE); URINE RBC 4 /uL (0-23.9); URINE WBC 3 /uL (0-25.8)
[2021-12-19] MEDS ORDERED: PANTOPRAZOLE SODIUM 40 MG VIAL IVPUSH ONE (00:08)
[2021-12-19] MEDS ORDERED: PANTOPRAZOLE SODIUM 80 MG/200 ML BAG IVPB ONE (00:14)
[2021-12-19] MEDS ORDERED: ACETAMINOPHEN 325 MG TABLET (FP) PO PRN (07:03)
[2021-12-19] MEDS ORDERED: THIAMINE HCL 100 MG TABLET (FP) ONE (09:15)
[2021-12-19] MEDS: ALLOPURINOL 100 MG TABLET (FP) PO SCH (09:19)
[2021-12-19] MEDS: THIAMINE HCL 100 MG TABLET (FP) PO SCH (09:19)
[2021-12-19] MEDS: CALCIUM 500MG/VIT-D 200 UNITS COMBO TABLET (FP) PO SCH (09:51)
[2021-12-19 10:29] LABS: HEMATOCRIT 27.6 % (35.4-49); HEMOGLOBIN 9.4 GM/dL (11.7-16.9); MCH 29.2 pg (25.7-33.7); MEAN CELL VOLUME 85.8 fl (80-96); MEAN PLT VOLUME 8.1 fl (7.5-11.1); RBC 3.22 M/mm3 (4.00-5.60); RDW 14.6 % (11.9-15.9); WHITE BLOOD COUNT 5.3 K/mm3 (4.0-10.0)
[2021-12-19 11:00] LABS: CALCIUM 9.1 mg/dL (8.5-10.1)
[2021-12-19 11:01] LABS: BLOOD UREA NITROGEN 82.1 mg/dL (7-18)
[2021-12-19 11:04] LABS: CREATININE 6.3 mg/dL (0.55-1.3)
[2021-12-19 11:28] LABS: ANISOCYTOSIS 0; HELMET CELLS 0; HOWELL-JOLLY BODIES 0; MACROCYTOSIS 0; OVALOCYTE 0; ROULEAU 0; SICKELED CELLS 0; TARGET CELLS 0; TEAR DROP CELLS 0; TOXIC GRANULATION 0
[2021-12-19 11:33] LABS: PLATELET COUNT 156 10^3/uL (134-434)
[2021-12-19] MEDS: DEXTROSE 5%-0.45% SALINE 1,000 ML IV SCH (11:40)
[2021-12-19] MEDS ORDERED: FUROSEMIDE 40 MG/4 ML INJECTABLE VIAL IVPUSH ONE (15:11)
[2021-12-19 15:36] LABS: HEMATOCRIT 26.5 % (35.4-49); HEMOGLOBIN 9.1 GM/dL (11.7-16.9); MCH 29.3 pg (25.7-33.7); MCHC 34.2 g/dl (32.0-35.9); MEAN CELL VOLUME 85.6 fl (80-96); MEAN PLT VOLUME 7.7 fl (7.5-11.1); PLATELET COUNT 148 10^3/uL (134-434); RDW 14.1 % (11.9-15.9)
[2021-12-19 16:50] LABS: ANISOCYTOSIS 1+; MACROCYTOSIS 0
[2021-12-19] MEDS: SODIUM ZIRCONIUM CYCLOSILICATE (LOKELMA) 5 GM PACKET PO SCH (17:02)
[2021-12-19] MEDS: ATORVASTATIN CA 10 MG TABLET (FP) PO SCH (21:43)
[2021-12-20 07:38] LABS: HEMATOCRIT 25.6 % (35.4-49); HEMOGLOBIN 8.8 GM/dL (11.7-16.9); MCH 29.8 pg (25.7-33.7); MCHC 34.2 g/dl (32.0-35.9); MEAN PLT VOLUME 8.8 fl (7.5-11.1); PLATELET COUNT 150 10^3/uL (134-434); RBC 2.94 M/mm3 (4.00-5.60); RDW 14.7 % (11.9-15.9); WHITE BLOOD COUNT 4.4 K/mm3 (4.0-10.0)
[2021-12-20 08:01] LABS: CALCIUM 8.9 mg/dL (8.5-10.1)
[2021-12-20 08:02] LABS: BLOOD UREA NITROGEN 85.3 mg/dL (7-18)
[2021-12-20 08:04] LABS: CREATININE 6.4 mg/dL (0.55-1.3)
[2021-12-20 09:35] LABS: ANISOCYTOSIS 0; HELMET CELLS 0; HOWELL-JOLLY BODIES 0; MACROCYTOSIS 0; OVALOCYTE 0; ROULEAU 0; SICKELED CELLS 0; TARGET CELLS 0; TEAR DROP CELLS 0; TOXIC GRANULATION 0
[2021-12-20] MEDS: THIAMINE HCL 100 MG TABLET (FP) PO SCH (09:48)
[2021-12-20] MEDS: CALCIUM 500MG/VIT-D 200 UNITS COMBO TABLET (FP) PO SCH (09:48)
[2021-12-20] MEDS: ALLOPURINOL 100 MG TABLET (FP) PO SCH (09:48)
[2021-12-20] MEDS: PANTOPRAZOLE 40 MG TABLET PO SCH (09:49)
[2021-12-20] MEDS: SODIUM ZIRCONIUM CYCLOSILICATE (LOKELMA) 5 GM PACKET PO SCH (09:49)
[2021-12-20] MEDS: DEXTROSE 5%-0.45% SALINE 1,000 ML IV SCH (13:00)
[2021-12-20] MEDS: FUROSEMIDE 40 MG/4 ML INJECTABLE VIAL IVPUSH SCH (15:36)
[2021-12-20] MEDS: ATORVASTATIN CA 10 MG TABLET (FP) PO SCH (21:23)
[2021-12-21] MEDS ORDERED: traMADol HCL 50 MG TABLET PO ONE (03:30)
[2021-12-21 07:15] LABS: HEMATOCRIT 25.8 % (35.4-49); HEMOGLOBIN 8.6 GM/dL (11.7-16.9); MCH 28.7 pg (25.7-33.7); MCHC 33.4 g/dl (32.0-35.9); MEAN CELL VOLUME 85.9 fl (80-96); MEAN PLT VOLUME 8.8 fl (7.5-11.1); PLATELET COUNT 150 10^3/uL (134-434); RDW 14.8 % (11.9-15.9); WHITE BLOOD COUNT 4.6 K/mm3 (4.0-10.0)
[2021-12-21 07:37] LABS: ALBUMIN 2.5 g/dl (3.4-5.0); BLOOD UREA NITROGEN 86.3 mg/dL (7-18)
[2021-12-21 07:39] LABS: BILIRUBIN,DIRECT 0.2 mg/dL (0.0-0.2); CALCIUM 8.7 mg/dL (8.5-10.1); CREATININE 6.3 mg/dL (0.55-1.3)
[2021-12-21 07:41] LABS: BILIRUBIN,TOTAL 0.4 mg/dL (0.2-1); TOT PROT 6.2 g/dl (6.4-8.2)
[2021-12-21 09:32] LABS: ANISOCYTOSIS 1+
[2021-12-21] MEDS: CALCIUM 500MG/VIT-D 200 UNITS COMBO TABLET (FP) PO SCH (10:44)
[2021-12-21] MEDS: THIAMINE HCL 100 MG TABLET (FP) PO SCH (10:44)
[2021-12-21] MEDS: PANTOPRAZOLE 40 MG TABLET PO SCH (10:45)
[2021-12-21] MEDS: FUROSEMIDE 40 MG/4 ML INJECTABLE VIAL IVPUSH SCH (10:45)
[2021-12-21] MEDS: DEXTROSE 5%-0.45% SALINE 1,000 ML IV SCH (10:45)
[2021-12-21] MEDS: ALLOPURINOL 100 MG TABLET (FP) PO SCH (10:52)
[2021-12-21] MEDS: SODIUM ZIRCONIUM CYCLOSILICATE (LOKELMA) 5 GM PACKET PO SCH (11:04)
[2021-12-21] MEDS: ATORVASTATIN CA 10 MG TABLET (FP) PO SCH (21:38)
[2021-12-22] MEDS: DEXTROSE 5%-0.45% SALINE 1,000 ML IV SCH ×3 (07:00→20:00)
[2021-12-22 07:46] LABS: BASO % 0.2 % (0-2.0); HEMATOCRIT 26.6 % (35.4-49); HEMOGLOBIN 9.2 GM/dL (11.7-16.9); LYMPH % 59.7 % (8-40); MCH 31.5 pg (25.7-33.7); MCHC 34.8 g/dl (32.0-35.9); MEAN CELL VOLUME 90.7 fl (80-96); MEAN PLT VOLUME 8.6 fl (7.5-11.1); MONO % 6.9 % (3.8-10.2); NEUT % 32.2 % (42.8-82.8); PLATELET COUNT 147 10^3/uL (134-434); RBC 2.93 M/mm3 (4.00-5.60); RDW 14.4 % (11.9-15.9)
[2021-12-22 07:51] LABS: CALCIUM 8.1 mg/dL (8.5-10.1)
[2021-12-22 07:53] LABS: BLOOD UREA NITROGEN 82.1 mg/dL (7-18)
[2021-12-22 07:54] LABS: CREATININE 6.8 mg/dL (0.55-1.3)
[2021-12-22] MEDS ORDERED: SODIUM CHLORIDE 250 ML IV PRN (09:30)
[2021-12-22 10:42] LABS: PLATELET ESTIMATE NORMAL
[2021-12-22] MEDS: ALLOPURINOL 100 MG TABLET (FP) PO SCH (11:10)
[2021-12-22] MEDS: PANTOPRAZOLE 40 MG TABLET PO SCH (11:10)
[2021-12-22] MEDS: CALCIUM 500MG/VIT-D 200 UNITS COMBO TABLET (FP) PO SCH (11:10)
[2021-12-22] MEDS: THIAMINE HCL 100 MG TABLET (FP) PO SCH (11:10)
[2021-12-22] MEDS: SODIUM ZIRCONIUM CYCLOSILICATE (LOKELMA) 5 GM PACKET PO SCH (11:46)
[2021-12-22] MEDS: FUROSEMIDE 40 MG/4 ML INJECTABLE VIAL IVPUSH SCH (13:31)
[2021-12-22] MEDS ORDERED: LIDOCAINE HCL 1%, 10 MG/ML (20ML VIAL) ONE (15:42)
[2021-12-22] MEDS ORDERED: HEPARIN NA (PORCINE) 5,000 UNITS/ML 1ML VIAL ONE (15:42)
[2021-12-22] MEDS ORDERED: ceFAZolin SODIUM 1 GM VIAL IVPB ONE (17:27)
[2021-12-22] MEDS ORDERED: LIDOCAINE HCL 1%, 10 MG/ML (20ML VIAL) INF ONE (17:32)
[2021-12-22] MEDS: ATORVASTATIN CA 10 MG TABLET (FP) PO SCH (21:44)
[2021-12-23] MEDS ORDERED: ACETAMINOPHEN 1000 MG/100 ML BAG IVPB ONE (01:25)
[2021-12-23 09:04] LABS: HEMATOCRIT 23.8 % (35.4-49); MCH 29.2 pg (25.7-33.7); MCHC 33.8 g/dl (32.0-35.9); MEAN CELL VOLUME 86.5 fl (80-96); MEAN PLT VOLUME 9.1 fl (7.5-11.1); RBC 2.75 M/mm3 (4.00-5.60); RDW 14.4 % (11.9-15.9); WHITE BLOOD COUNT 5.3 K/mm3 (4.0-10.0)
[2021-12-23] MEDS ORDERED: SODIUM CHLORIDE 250 ML IV PRN (09:04)
[2021-12-23 09:06] LABS: PLATELET COUNT 127 10^3/uL (134-434)
[2021-12-23 09:22] LABS: BLOOD UREA NITROGEN 80.3 mg/dL (7-18); CALCIUM 8.1 mg/dL (8.5-10.1)
[2021-12-23 09:26] LABS: CREATININE 6.5 mg/dL (0.55-1.3)
[2021-12-23] MEDS ORDERED: FUROSEMIDE 40 MG/4 ML INJECTABLE VIAL IVPUSH SCH (10:00)
[2021-12-23] MEDS ORDERED: SODIUM ZIRCONIUM CYCLOSILICATE (LOKELMA) 5 GM PACKET PO SCH (10:00)
[2021-12-23] MEDS: VITAMIN B COMP W-C 1 EA TABLET (NEPHRO-VITE) PO SCH (10:19)
[2021-12-23] MEDS: CALCIUM 500MG/VIT-D 200 UNITS COMBO TABLET (FP) PO SCH (10:19)
[2021-12-23] MEDS: PANTOPRAZOLE 40 MG TABLET PO SCH (10:20)
[2021-12-23] MEDS: ALLOPURINOL 100 MG TABLET (FP) PO SCH (10:20)
[2021-12-23] MEDS: THIAMINE HCL 100 MG TABLET (FP) PO SCH (10:20)
[2021-12-23 10:45] LABS: ANISOCYTOSIS 2+; MACROCYTOSIS 1+; OVALOCYTE 1+; PLATELET ESTIMATE NORMAL
[2021-12-23] MEDS: POLYETHYLENE GLYCOL (HEALTHYLAX) 3350 17 GM PACKET PO SCH ×2 (13:43→21:08)
[2021-12-23] MEDS: DEXTROSE 5%-0.45% SALINE 1,000 ML IV SCH (14:00)
[2021-12-23] MEDS ORDERED: SODIUM CHLORIDE 500 ML IV STA (16:19)
[2021-12-23] MEDS ORDERED: ACETAMINOPHEN 325 MG TABLET (FP) PO PRN (18:26)
[2021-12-23] MEDS: ACETAMINOPHEN 1000 MG/100 ML BAG IVPB PRN (18:45)
[2021-12-23 18:50] LABS: BASO % 0.3 % (0-2.0); HEMATOCRIT 21.7 % (35.4-49); HEMOGLOBIN 7.5 GM/dL (11.7-16.9); LYMPH % 48.6 % (8-40); MCHC 34.5 g/dl (32.0-35.9); MEAN CELL VOLUME 86.8 fl (80-96); MEAN PLT VOLUME 8.7 fl (7.5-11.1); MONO % 7.5 % (3.8-10.2); NEUT % 43.6 % (42.8-82.8); PLATELET COUNT 106 10^3/uL (134-434); RDW 14.7 % (11.9-15.9); WHITE BLOOD COUNT 5.8 K/mm3 (4.0-10.0)
[2021-12-23 20:14] LABS: ANISOCYTOSIS 2+; MACROCYTOSIS 0; TARGET CELLS 1+
[2021-12-23] MEDS: ATORVASTATIN CA 10 MG TABLET (FP) PO SCH ×2 (21:08→23:20)
[2021-12-23 22:14] LABS: HEMATOCRIT 24.8 % (35.4-49); HEMOGLOBIN 8.3 GM/dL (11.7-16.9); MCH 28.9 pg (25.7-33.7); MCHC 33.2 g/dl (32.0-35.9); MEAN CELL VOLUME 87.1 fl (80-96); MEAN PLT VOLUME 8.6 fl (7.5-11.1); RBC 2.85 M/mm3 (4.00-5.60); RDW 14.5 % (11.9-15.9); WHITE BLOOD COUNT 6.8 K/mm3 (4.0-10.0)
[2021-12-23 22:48] LABS: PLATELET COUNT 115 10^3/uL (134-434)
[2021-12-24] MEDS: POLYETHYLENE GLYCOL (HEALTHYLAX) 3350 17 GM PACKET PO SCH ×3 (06:08→21:39)
[2021-12-24] MEDS: ALLOPURINOL 100 MG TABLET (FP) PO SCH (09:23)
[2021-12-24] MEDS: THIAMINE HCL 100 MG TABLET (FP) PO SCH (09:24)
[2021-12-24] MEDS: PANTOPRAZOLE 40 MG TABLET PO SCH (09:24)
[2021-12-24] MEDS: VITAMIN B COMP W-C 1 EA TABLET (NEPHRO-VITE) PO SCH (09:24)
[2021-12-24] MEDS: CALCIUM 500MG/VIT-D 200 UNITS COMBO TABLET (FP) PO SCH (09:24)
[2021-12-24] MEDS: DIGOXIN 0.125 MG TABLET PO SCH (18:09)
[2021-12-24] MEDS: ATORVASTATIN CA 10 MG TABLET (FP) PO SCH (21:40)
[2021-12-24] MEDS: METOPROLOL TARTRATE 25 MG TABLET (FP) PO SCH (21:40)
[2021-12-25] MEDS: DEXTROSE 5%-0.45% SALINE 1,000 ML IV SCH (05:53)
[2021-12-25] MEDS: POLYETHYLENE GLYCOL (HEALTHYLAX) 3350 17 GM PACKET PO SCH ×3 (05:53→21:21)
[2021-12-25] MEDS: THIAMINE HCL 100 MG TABLET (FP) PO SCH (09:55)
[2021-12-25] MEDS: PANTOPRAZOLE 40 MG TABLET PO SCH (09:55)
[2021-12-25] MEDS: VITAMIN B COMP W-C 1 EA TABLET (NEPHRO-VITE) PO SCH (09:55)
[2021-12-25] MEDS: METOPROLOL TARTRATE 25 MG TABLET (FP) PO SCH ×2 (09:55→21:24)
[2021-12-25] MEDS: CALCIUM 500MG/VIT-D 200 UNITS COMBO TABLET (FP) PO SCH (09:55)
[2021-12-25] MEDS: ALLOPURINOL 100 MG TABLET (FP) PO SCH (09:55)
[2021-12-25 17:39] LABS: HEMATOCRIT 20.9 % (35.4-49); HEMOGLOBIN 7.2 GM/dL (11.7-16.9); MCH 29.2 pg (25.7-33.7); MCHC 34.2 g/dl (32.0-35.9); MEAN CELL VOLUME 85.2 fl (80-96); MEAN PLT VOLUME 8.5 fl (7.5-11.1); PLATELET COUNT 130 10^3/uL (134-434); RBC 2.46 M/mm3 (4.00-5.60); RDW 14.8 % (11.9-15.9); WHITE BLOOD COUNT 4.1 K/mm3 (4.0-10.0)
[2021-12-25 17:41] LABS: CALCIUM 7.9 mg/dL (8.5-10.1)
[2021-12-25 17:42] LABS: BLOOD UREA NITROGEN 65.5 mg/dL (7-18)
[2021-12-25 17:45] LABS: CREATININE 5.3 mg/dL (0.55-1.3)
[2021-12-25] MEDS: ACETAMINOPHEN 1000 MG/100 ML BAG IVPB PRN (21:24)
[2021-12-25] MEDS: ATORVASTATIN CA 10 MG TABLET (FP) PO SCH (21:24)
[2021-12-26] MEDS: ACETAMINOPHEN 1000 MG/100 ML BAG IVPB PRN (03:55)
[2021-12-26] MEDS: POLYETHYLENE GLYCOL (HEALTHYLAX) 3350 17 GM PACKET PO SCH ×3 (06:04→21:57)
[2021-12-26] MEDS ORDERED: SODIUM CHLORIDE 250 ML IV PRN (07:00)
[2021-12-26] MEDS ORDERED: EPOETIN ALFA-EPBX 20,000 UNIT/ML VIAL IVPUSH ONE (08:00)
[2021-12-26] MEDS: METOPROLOL TARTRATE 25 MG TABLET (FP) PO SCH ×2 (10:00→21:57)
[2021-12-26 10:48] LABS: HEMOGLOBIN 7.4 GM/dL (11.7-16.9); MCH 27.9 pg (25.7-33.7); MCHC 33.4 g/dl (32.0-35.9); MEAN CELL VOLUME 83.6 fl (80-96); MEAN PLT VOLUME 8.8 fl (7.5-11.1); PLATELET COUNT 125 10^3/uL (134-434); RBC 2.63 M/mm3 (4.00-5.60); RDW 15.6 % (11.9-15.9); WHITE BLOOD COUNT 3.5 K/mm3 (4.0-10.0)
[2021-12-26] MEDS: DIGOXIN 0.125 MG TABLET PO SCH (17:24)
[2021-12-26] MEDS: CALCIUM 500MG/VIT-D 200 UNITS COMBO TABLET (FP) PO SCH (17:24)
[2021-12-26] MEDS: ALLOPURINOL 100 MG TABLET (FP) PO SCH (17:25)
[2021-12-26] MEDS: VITAMIN B COMP W-C 1 EA TABLET (NEPHRO-VITE) PO SCH (17:25)
[2021-12-26] MEDS: THIAMINE HCL 100 MG TABLET (FP) PO SCH (17:25)
[2021-12-26] MEDS: PANTOPRAZOLE 40 MG TABLET PO SCH (17:25)
[2021-12-26] MEDS: ATORVASTATIN CA 10 MG TABLET (FP) PO SCH (21:58)
[2021-12-27] MEDS: POLYETHYLENE GLYCOL (HEALTHYLAX) 3350 17 GM PACKET PO SCH ×3 (06:07→22:34)
[2021-12-27] MEDS: ALLOPURINOL 100 MG TABLET (FP) PO SCH (09:47)
[2021-12-27] MEDS: THIAMINE HCL 100 MG TABLET (FP) PO SCH (09:47)
[2021-12-27] MEDS: METOPROLOL TARTRATE 25 MG TABLET (FP) PO SCH ×2 (09:47→22:34)
[2021-12-27] MEDS: VITAMIN B COMP W-C 1 EA TABLET (NEPHRO-VITE) PO SCH (09:47)
[2021-12-27] MEDS: CALCIUM 500MG/VIT-D 200 UNITS COMBO TABLET (FP) PO SCH (09:47)
[2021-12-27] MEDS: PANTOPRAZOLE 40 MG TABLET PO SCH (09:47)
[2021-12-27 10:10] LABS: ALBUMIN 2.1 g/dl (3.4-5.0)
[2021-12-27 10:13] LABS: CREATININE 3.2 mg/dL (0.55-1.3)
[2021-12-27 10:14] LABS: TOT PROT 5.6 g/dl (6.4-8.2)
[2021-12-27 10:15] LABS: BILIRUBIN,TOTAL 0.4 mg/dL (0.2-1)
[2021-12-27 10:17] LABS: HEMATOCRIT 22.4 % (35.4-49); HEMOGLOBIN 7.8 GM/dL (11.7-16.9); MCHC 34.7 g/dl (32.0-35.9); MEAN CELL VOLUME 83.5 fl (80-96); MEAN PLT VOLUME 8.2 fl (7.5-11.1); PLATELET COUNT 123 10^3/uL (134-434); RBC 2.68 M/mm3 (4.00-5.60); RDW 15.3 % (11.9-15.9); WHITE BLOOD COUNT 3.4 K/mm3 (4.0-10.0)
[2021-12-27] MEDS ORDERED: SODIUM CHLORIDE 250 ML IV PRN (15:40)
[2021-12-27] MEDS ORDERED: GLYCERIN 1 RECTAL SUPPOSITORY, ADULT RC PRN (17:36)
[2021-12-27] MEDS: ACETAMINOPHEN 325 MG TABLET (FP) PO PRN (18:30)
[2021-12-27] MEDS: ATORVASTATIN CA 10 MG TABLET (FP) PO SCH (22:34)
[2021-12-28] MEDS: POLYETHYLENE GLYCOL (HEALTHYLAX) 3350 17 GM PACKET PO SCH ×3 (06:16→21:29)
[2021-12-28] MEDS ORDERED: EPOETIN ALFA-EPBX 20,000 UNIT/ML VIAL IVPUSH ONE (08:30)
[2021-12-28 09:24] LABS: CALCIUM 7.5 mg/dL (8.5-10.1)
[2021-12-28 09:25] LABS: ALBUMIN 1.9 g/dl (3.4-5.0); BLOOD UREA NITROGEN 32.3 mg/dL (7-18)
[2021-12-28 09:26] LABS: HEMATOCRIT 19.6 % (35.4-49); MCHC 33.2 g/dl (32.0-35.9); MEAN CELL VOLUME 84.3 fl (80-96); MEAN PLT VOLUME 8.8 fl (7.5-11.1); PLATELET COUNT 121 10^3/uL (134-434); RBC 2.33 M/mm3 (4.00-5.60); RDW 15.3 % (11.9-15.9); WHITE BLOOD COUNT 4.6 K/mm3 (4.0-10.0)
[2021-12-28 09:28] LABS: CREATININE 3.6 mg/dL (0.55-1.3)
[2021-12-28 09:29] LABS: TOT PROT 5.1 g/dl (6.4-8.2)
[2021-12-28 09:30] LABS: BILIRUBIN,TOTAL 0.5 mg/dL (0.2-1)
[2021-12-28 09:33] LABS: HEMOGLOBIN 6.5 GM/dL (11.7-16.9)
[2021-12-28] MEDS: PANTOPRAZOLE 40 MG TABLET PO SCH (13:26)
[2021-12-28] MEDS: VITAMIN B COMP W-C 1 EA TABLET (NEPHRO-VITE) PO SCH (13:26)
[2021-12-28] MEDS: CALCIUM 500MG/VIT-D 200 UNITS COMBO TABLET (FP) PO SCH (13:26)
[2021-12-28] MEDS: THIAMINE HCL 100 MG TABLET (FP) PO SCH (13:27)
[2021-12-28] MEDS: ALLOPURINOL 100 MG TABLET (FP) PO SCH (13:27)
[2021-12-28] MEDS: METOPROLOL TARTRATE 25 MG TABLET (FP) PO SCH ×2 (13:27→21:28)
[2021-12-28] MEDS: DIGOXIN 0.125 MG TABLET PO SCH (16:29)
[2021-12-28] MEDS: ATORVASTATIN CA 10 MG TABLET (FP) PO SCH (21:29)
[2021-12-29] MEDS: ACETAMINOPHEN 325 MG TABLET (FP) PO PRN ×2 (03:12→16:02)
[2021-12-29] MEDS: POLYETHYLENE GLYCOL (HEALTHYLAX) 3350 17 GM PACKET PO SCH ×3 (06:32→21:34)
[2021-12-29] MEDS ORDERED: MIDAZOLAM HCL 2 MG/2 ML SINGLE DOSE VIAL ONE (07:31)
[2021-12-29] MEDS ORDERED: PROPOFOL 20 ML ONE (07:31)
[2021-12-29] MEDS ORDERED: LIDOCAINE HCL 2% JELLY 10 ML CARTRIDGE ONE (07:33)
[2021-12-29] MEDS ORDERED: ceFAZolin SODIUM 1 GM VIAL IVPB ONE (08:02)
[2021-12-29] MEDS ORDERED: DEXAMETHASONE SOD PHOSPHATE 4 MG/1 ML VIAL ONE (08:12)
[2021-12-29] MEDS ORDERED: ceFAZolin SODIUM 1 GM VIAL ONE (08:12)
[2021-12-29] MEDS ORDERED: ACETAMINOPHEN 325 MG TABLET (FP) PO PRN (08:35)
[2021-12-29] MEDS ORDERED: SODIUM CHLORIDE 250 ML IV PRN ×2 (08:35→08:39)
[2021-12-29] MEDS ORDERED: GLYCERIN 1 RECTAL SUPPOSITORY, ADULT RC PRN ×2 (08:35→08:39)
[2021-12-29] MEDS ORDERED: ONDANSETRON 4 MG/2 ML VIAL IVPUSH PRN (08:56)
[2021-12-29] MEDS ORDERED: ALLOPURINOL 100 MG TABLET (FP) PO SCH (10:00)
[2021-12-29] MEDS ORDERED: VITAMIN B COMP W-C 1 EA TABLET (NEPHRO-VITE) PO SCH (10:00)
[2021-12-29] MEDS ORDERED: METOPROLOL TARTRATE 25 MG TABLET (FP) PO SCH (10:00)
[2021-12-29] MEDS ORDERED: PANTOPRAZOLE 40 MG TABLET PO SCH (10:00)
[2021-12-29] MEDS ORDERED: THIAMINE HCL 100 MG TABLET (FP) PO SCH (10:00)
[2021-12-29] MEDS ORDERED: CALCIUM 500MG/VIT-D 200 UNITS COMBO TABLET (FP) PO SCH (10:00)
[2021-12-29] MEDS: METOPROLOL TARTRATE 25 MG TABLET (FP) PO SCH ×2 (10:52→21:34)
[2021-12-29] MEDS: CALCIUM 500MG/VIT-D 200 UNITS COMBO TABLET (FP) PO SCH (10:53)
[2021-12-29] MEDS: VITAMIN B COMP W-C 1 EA TABLET (NEPHRO-VITE) PO SCH (10:53)
[2021-12-29] MEDS: THIAMINE HCL 100 MG TABLET (FP) PO SCH (10:53)
[2021-12-29] MEDS: PANTOPRAZOLE 40 MG TABLET PO SCH (10:53)
[2021-12-29] MEDS: ALLOPURINOL 100 MG TABLET (FP) PO SCH (10:54)
[2021-12-29] MEDS ORDERED: POLYETHYLENE GLYCOL (HEALTHYLAX) 3350 17 GM PACKET PO SCH (14:00)
[2021-12-29 16:18] LABS: DRVVT - 43.3 sec (0.0-47.0)
[2021-12-29] MEDS ORDERED: IRON SUCROSE INJECTION 100 MG in SODIUM CHLORIDE 95 ML IVPB ONE (17:00)
[2021-12-29 17:38] LABS: BLOOD UREA NITROGEN 24.5 mg/dL (7-18); CALCIUM 8.2 mg/dL (8.5-10.1)
[2021-12-29] MEDS: AMINO ACIDS/PROTEIN HYDROLYS 30 ML LIQUID.PKT PO SCH (17:38)
[2021-12-29 17:39] LABS: ALBUMIN 2.1 g/dl (3.4-5.0)
[2021-12-29 17:43] LABS: BILIRUBIN,TOTAL 0.4 mg/dL (0.2-1); TOT PROT 5.6 g/dl (6.4-8.2)
[2021-12-29 17:44] LABS: HEMATOCRIT 29.8 % (35.4-49); HEMOGLOBIN 10.3 GM/dL (11.7-16.9); MCH 29.4 pg (25.7-33.7); MCHC 34.7 g/dl (32.0-35.9); MEAN CELL VOLUME 84.9 fl (80-96); PLATELET COUNT 126 10^3/uL (134-434); RBC 3.51 M/mm3 (4.00-5.60); RDW 14.7 % (11.9-15.9); WHITE BLOOD COUNT 3.7 K/mm3 (4.0-10.0)
[2021-12-29] MEDS: ATORVASTATIN CA 10 MG TABLET (FP) PO SCH (21:34)
[2021-12-29] MEDS ORDERED: ATORVASTATIN CA 10 MG TABLET (FP) PO SCH (22:00)
[2021-12-30] MEDS: POLYETHYLENE GLYCOL (HEALTHYLAX) 3350 17 GM PACKET PO SCH ×3 (06:25→21:19)
[2021-12-30] MEDS ORDERED: SODIUM CHLORIDE 250 ML IV PRN (07:38)
[2021-12-30] MEDS ORDERED: TAMSULOSIN HCL 0.4 MG CAP PO SCH ×2 (08:30)
[2021-12-30] MEDS: TAMSULOSIN HCL 0.4 MG CAP PO SCH ×2 (08:39→16:31)
[2021-12-30] MEDS: AMINO ACIDS/PROTEIN HYDROLYS 30 ML LIQUID.PKT PO SCH ×2 (08:39→16:31)
[2021-12-30 08:48] LABS: INR 1.27 (0.83-1.09); PROTHROMBIN TIME (PATIENT) 14.6 SEC (9.7-13.0)
[2021-12-30] MEDS ORDERED: EPOETIN ALFA-EPBX 20,000 UNIT/ML VIAL SQ ONE (09:00)
[2021-12-30 09:04] LABS: BASO % 0.5 % (0-2.0); EOS % 0.8 % (0-4.5); HEMATOCRIT 27.5 % (35.4-49); HEMOGLOBIN 9.5 GM/dL (11.7-16.9); LYMPH % 39.7 % (8-40); MCH 29.2 pg (25.7-33.7); MCHC 34.3 g/dl (32.0-35.9); MEAN PLT VOLUME 9.2 fl (7.5-11.1); MONO % 7.8 % (3.8-10.2); NEUT % 51.2 % (42.8-82.8); PLATELET COUNT 110 10^3/uL (134-434); RBC 3.24 M/mm3 (4.00-5.60); RDW 14.9 % (11.9-15.9); WHITE BLOOD COUNT 4.8 K/mm3 (4.0-10.0)
[2021-12-30 09:15] LABS: BLOOD UREA NITROGEN 24.6 mg/dL (7-18); CALCIUM 8.1 mg/dL (8.5-10.1); CREATININE 2.7 mg/dL (0.55-1.3)
[2021-12-30 09:16] LABS: BILIRUBIN,TOTAL 0.4 mg/dL (0.2-1); TOT PROT 5.3 g/dl (6.4-8.2)
[2021-12-30] MEDS: METOPROLOL TARTRATE 25 MG TABLET (FP) PO SCH ×2 (09:16→21:19)
[2021-12-30] MEDS: VITAMIN B COMP W-C 1 EA TABLET (NEPHRO-VITE) PO SCH ×2 (09:16→16:32)
[2021-12-30] MEDS: PANTOPRAZOLE 40 MG TABLET PO SCH ×2 (09:17→16:32)
[2021-12-30] MEDS: ALLOPURINOL 100 MG TABLET (FP) PO SCH ×2 (09:17→16:32)
[2021-12-30] MEDS: CALCIUM 500MG/VIT-D 200 UNITS COMBO TABLET (FP) PO SCH ×2 (09:17→16:31)
[2021-12-30] MEDS: THIAMINE HCL 100 MG TABLET (FP) PO SCH ×2 (09:17→16:32)
[2021-12-30] MEDS: ZINC SULFATE 220 MG CAPSULE (FP) PO SCH ×2 (09:17→16:32)
[2021-12-30] MEDS ORDERED: DIGOXIN 0.125 MG TABLET PO SCH ×2 (16:30)
[2021-12-30] MEDS: ACETAMINOPHEN 325 MG TABLET (FP) PO PRN (21:19)
[2021-12-30] MEDS: ATORVASTATIN CA 10 MG TABLET (FP) PO SCH (21:19)
[2021-12-31] MEDS: POLYETHYLENE GLYCOL (HEALTHYLAX) 3350 17 GM PACKET PO SCH ×3 (06:23→22:28)
[2021-12-31 07:15] LABS: BASO % 0.4 % (0-2.0); EOS % 0.8 % (0-4.5); HEMATOCRIT 25.3 % (35.4-49); HEMOGLOBIN 8.8 GM/dL (11.7-16.9); LYMPH % 39.6 % (8-40); MCH 29.7 pg (25.7-33.7); MCHC 34.8 g/dl (32.0-35.9); MEAN CELL VOLUME 85.4 fl (80-96); MEAN PLT VOLUME 8.3 fl (7.5-11.1); MONO % 6.9 % (3.8-10.2); NEUT % 52.3 % (42.8-82.8); PLATELET COUNT 95 10^3/uL (134-434); RBC 2.97 M/mm3 (4.00-5.60); RDW 14.9 % (11.9-15.9); WHITE BLOOD COUNT 4.1 K/mm3 (4.0-10.0)
[2021-12-31 07:22] LABS: INR 1.34 (0.83-1.09); PROTHROMBIN TIME (PATIENT) 15.5 SEC (9.7-13.0)
[2021-12-31 07:24] LABS: ACTIVATED PTT 28.3 SECONDS (25.2-36.5)
[2021-12-31 07:32] LABS: BLOOD UREA NITROGEN 25.9 mg/dL (7-18); CALCIUM 8.2 mg/dL (8.5-10.1)
[2021-12-31 07:35] LABS: CREATININE 2.7 mg/dL (0.55-1.3)
[2021-12-31 07:37] LABS: BILIRUBIN,TOTAL 0.3 mg/dL (0.2-1)
[2021-12-31] MEDS: TAMSULOSIN HCL 0.4 MG CAP PO SCH (09:07)
[2021-12-31] MEDS: ZINC SULFATE 220 MG CAPSULE (FP) PO SCH (09:07)
[2021-12-31] MEDS: METOPROLOL TARTRATE 25 MG TABLET (FP) PO SCH ×2 (09:07→22:27)
[2021-12-31] MEDS: AMINO ACIDS/PROTEIN HYDROLYS 30 ML LIQUID.PKT PO SCH ×2 (09:07→16:29)
[2021-12-31] MEDS: THIAMINE HCL 100 MG TABLET (FP) PO SCH (09:07)
[2021-12-31] MEDS: ALLOPURINOL 100 MG TABLET (FP) PO SCH (09:08)
[2021-12-31] MEDS: CALCIUM 500MG/VIT-D 200 UNITS COMBO TABLET (FP) PO SCH (09:08)
[2021-12-31] MEDS: VITAMIN B COMP W-C 1 EA TABLET (NEPHRO-VITE) PO SCH (09:08)
[2021-12-31] MEDS: PANTOPRAZOLE 40 MG TABLET PO SCH (09:08)
[2021-12-31] MEDS: ATORVASTATIN CA 10 MG TABLET (FP) PO SCH (22:27)
[2022-01-01] MEDS: POLYETHYLENE GLYCOL (HEALTHYLAX) 3350 17 GM PACKET PO SCH ×3 (06:54→21:43)
[2022-01-01 07:24] LABS: BASO % 0.3 % (0-2.0); EOS % 0.8 % (0-4.5); HEMATOCRIT 24.6 % (35.4-49); HEMOGLOBIN 8.5 GM/dL (11.7-16.9); LYMPH % 37.1 % (8-40); MCH 29.9 pg (25.7-33.7); MCHC 34.5 g/dl (32.0-35.9); MEAN CELL VOLUME 86.6 fl (80-96); MEAN PLT VOLUME 8.7 fl (7.5-11.1); MONO % 5.4 % (3.8-10.2); NEUT % 56.4 % (42.8-82.8); PLATELET COUNT 90 10^3/uL (134-434); RBC 2.84 M/mm3 (4.00-5.60); RDW 15.2 % (11.9-15.9); WHITE BLOOD COUNT 4.3 K/mm3 (4.0-10.0)
[2022-01-01 07:45] LABS: BLOOD UREA NITROGEN 43.6 mg/dL (7-18)
[2022-01-01 07:47] LABS: CREATININE 3.3 mg/dL (0.55-1.3); URIC ACID 2.7 mg/dL (2.6-7.2)
[2022-01-01 07:49] LABS: BILIRUBIN,TOTAL 0.3 mg/dL (0.2-1); TOT PROT 5.1 g/dl (6.4-8.2)
[2022-01-01] MEDS: METOPROLOL TARTRATE 25 MG TABLET (FP) PO SCH ×2 (09:00→21:42)
[2022-01-01] MEDS: PANTOPRAZOLE 40 MG TABLET PO SCH (09:00)
[2022-01-01] MEDS: VITAMIN B COMP W-C 1 EA TABLET (NEPHRO-VITE) PO SCH (09:00)
[2022-01-01] MEDS: THIAMINE HCL 100 MG TABLET (FP) PO SCH (09:00)
[2022-01-01] MEDS: AMINO ACIDS/PROTEIN HYDROLYS 30 ML LIQUID.PKT PO SCH (09:00)
[2022-01-01] MEDS: ALLOPURINOL 100 MG TABLET (FP) PO SCH (09:00)
[2022-01-01] MEDS: CALCIUM 500MG/VIT-D 200 UNITS COMBO TABLET (FP) PO SCH (09:00)
[2022-01-01] MEDS: ZINC SULFATE 220 MG CAPSULE (FP) PO SCH (09:01)
[2022-01-01] MEDS: TAMSULOSIN HCL 0.4 MG CAP PO SCH (09:01)
[2022-01-01] MEDS ORDERED: SODIUM CHLORIDE 250 ML IV PRN (11:31)
[2022-01-01] MEDS ORDERED: GLYCERIN 1 RECTAL SUPPOSITORY, ADULT RC PRN (18:10)
[2022-01-01] MEDS: DIGOXIN 0.125 MG TABLET PO SCH (19:21)
[2022-01-01] MEDS: ATORVASTATIN CA 10 MG TABLET (FP) PO SCH (21:43)
[2022-01-01] MEDS: ACETAMINOPHEN 325 MG TABLET (FP) PO PRN (21:43)
[2022-01-02] MEDS: ACETAMINOPHEN 325 MG TABLET (FP) PO PRN ×2 (05:38→21:19)
[2022-01-02] MEDS: POLYETHYLENE GLYCOL (HEALTHYLAX) 3350 17 GM PACKET PO SCH ×3 (05:39→21:19)
[2022-01-02] MEDS: TAMSULOSIN HCL 0.4 MG CAP PO SCH (08:28)
[2022-01-02] MEDS: AMINO ACIDS/PROTEIN HYDROLYS 30 ML LIQUID.PKT PO SCH ×2 (08:28→18:06)
[2022-01-02] MEDS: ZINC SULFATE 220 MG CAPSULE (FP) PO SCH (09:45)
[2022-01-02] MEDS: ALLOPURINOL 100 MG TABLET (FP) PO SCH (09:45)
[2022-01-02] MEDS: VITAMIN B COMP W-C 1 EA TABLET (NEPHRO-VITE) PO SCH (09:45)
[2022-01-02] MEDS: METOPROLOL TARTRATE 25 MG TABLET (FP) PO SCH ×2 (09:45→21:20)
[2022-01-02] MEDS: THIAMINE HCL 100 MG TABLET (FP) PO SCH (09:45)
[2022-01-02] MEDS: CALCIUM 500MG/VIT-D 200 UNITS COMBO TABLET (FP) PO SCH (09:46)
[2022-01-02] MEDS: PANTOPRAZOLE 40 MG TABLET PO SCH (09:46)
[2022-01-02] MEDS ORDERED: EPOETIN ALFA-EPBX 10,000 UNIT/ML VIAL IVPUSH ONE (10:45)
[2022-01-02 17:08] LABS: IGA IMMUNOGLOBULIN 370 mg/dL (61-437); IGG QN IMMUNOGLOBULIN 1105 mg/dL (603-1613); IGM QN SERUM 158 mg/dL (15-143)
[2022-01-02] MEDS: ATORVASTATIN CA 10 MG TABLET (FP) PO SCH (21:19)
[2022-01-03] MEDS: POLYETHYLENE GLYCOL (HEALTHYLAX) 3350 17 GM PACKET PO SCH ×3 (06:05→21:17)
[2022-01-03] MEDS: AMINO ACIDS/PROTEIN HYDROLYS 30 ML LIQUID.PKT PO SCH ×2 (08:56→17:39)
[2022-01-03] MEDS: TAMSULOSIN HCL 0.4 MG CAP PO SCH (08:56)
[2022-01-03] MEDS: VITAMIN B COMP W-C 1 EA TABLET (NEPHRO-VITE) PO SCH (10:37)
[2022-01-03] MEDS: THIAMINE HCL 100 MG TABLET (FP) PO SCH (10:37)
[2022-01-03] MEDS: ALLOPURINOL 100 MG TABLET (FP) PO SCH (10:38)
[2022-01-03] MEDS: METOPROLOL TARTRATE 25 MG TABLET (FP) PO SCH ×2 (10:38→21:16)
[2022-01-03] MEDS: DIGOXIN 0.125 MG TABLET PO SCH (10:38)
[2022-01-03] MEDS: ZINC SULFATE 220 MG CAPSULE (FP) PO SCH (10:38)
[2022-01-03] MEDS: CALCIUM 500MG/VIT-D 200 UNITS COMBO TABLET (FP) PO SCH (10:38)
[2022-01-03] MEDS: PANTOPRAZOLE 40 MG TABLET PO SCH (10:38)
[2022-01-03 17:09] LABS: FREE KAPPA,SERUM 268.3 mg/L (3.3-19.4)
[2022-01-03] MEDS: ATORVASTATIN CA 10 MG TABLET (FP) PO SCH (21:16)
[2022-01-03] MEDS: ACETAMINOPHEN 325 MG TABLET (FP) PO PRN (21:16)
[2022-01-04 02:08] LABS: VON WILLEBRAND ANTIGEN 476 % (50-200)
[2022-01-04] MEDS: POLYETHYLENE GLYCOL (HEALTHYLAX) 3350 17 GM PACKET PO SCH ×3 (05:21→22:36)
[2022-01-04] MEDS ORDERED: SODIUM CHLORIDE 250 ML IV PRN (08:00)
[2022-01-04] MEDS ORDERED: EPOETIN ALFA-EPBX 10,000 UNIT/ML VIAL SQ ONE (08:30)
[2022-01-04 09:07] LABS: CALCIUM 8.1 mg/dL (8.5-10.1)
[2022-01-04 09:08] LABS: BLOOD UREA NITROGEN 49.3 mg/dL (7-18)
[2022-01-04 09:11] LABS: CREATININE 3.7 mg/dL (0.55-1.3)
[2022-01-04 09:13] LABS: BILIRUBIN,TOTAL 0.4 mg/dL (0.2-1); TOT PROT 5.2 g/dl (6.4-8.2)
[2022-01-04 09:30] LABS: HEMATOCRIT 23.8 % (35.4-49); HEMOGLOBIN 8.3 GM/dL (11.7-16.9); MCH 30.1 pg (25.7-33.7); RBC 2.77 M/mm3 (4.00-5.60); RDW 15.7 % (11.9-15.9)
[2022-01-04] MEDS: CALCIUM 500MG/VIT-D 200 UNITS COMBO TABLET (FP) PO SCH (13:06)
[2022-01-04] MEDS: ALLOPURINOL 100 MG TABLET (FP) PO SCH (13:06)
[2022-01-04] MEDS: AMINO ACIDS/PROTEIN HYDROLYS 30 ML LIQUID.PKT PO SCH (13:07)
[2022-01-04] MEDS: METOPROLOL TARTRATE 25 MG TABLET (FP) PO SCH ×2 (13:07→22:36)
[2022-01-04] MEDS: VITAMIN B COMP W-C 1 EA TABLET (NEPHRO-VITE) PO SCH (13:07)
[2022-01-04] MEDS: TAMSULOSIN HCL 0.4 MG CAP PO SCH (13:07)
[2022-01-04] MEDS: ZINC SULFATE 220 MG CAPSULE (FP) PO SCH (13:07)
[2022-01-04] MEDS: PANTOPRAZOLE 40 MG TABLET PO SCH (13:07)
[2022-01-04] MEDS: THIAMINE HCL 100 MG TABLET (FP) PO SCH (13:07)
[2022-01-04] MEDS ORDERED: ONDANSETRON 4 MG/2 ML VIAL IVPUSH PRN ×4 (16:39→19:11)
[2022-01-04] MEDS ORDERED: MIDAZOLAM HCL 2 MG/2 ML SINGLE DOSE VIAL ONE (16:49)
[2022-01-04] MEDS ORDERED: PROPOFOL 20 ML ONE (16:49)
[2022-01-04] MEDS ORDERED: GENTAMICIN SO4 80 MG/2 ML VIAL IVPB ONE (17:20)
[2022-01-04] MEDS ORDERED: GENTAMICIN SO4 80 MG/2 ML VIAL ONE (17:21)
[2022-01-04] MEDS ORDERED: DEXAMETHASONE SOD PHOSPHATE 4 MG/1 ML VIAL ONE (17:38)
[2022-01-04] MEDS ORDERED: SODIUM CHLORIDE 1,000 ML IV SCH (18:00)
[2022-01-04] MEDS ORDERED: GLYCERIN 1 RECTAL SUPPOSITORY, ADULT RC PRN (19:11)
[2022-01-04] MEDS ORDERED: ACETAMINOPHEN 325 MG TABLET (FP) PO PRN (19:11)
[2022-01-04 21:26] LABS: BASO % 0.5 % (0-2.0); HEMATOCRIT 24.1 % (35.4-49); HEMOGLOBIN 8.3 GM/dL (11.7-16.9); LYMPH % 28.2 % (8-40); MCH 29.8 pg (25.7-33.7); MCHC 34.5 g/dl (32.0-35.9); MEAN CELL VOLUME 86.5 fl (80-96); MEAN PLT VOLUME 8.4 fl (7.5-11.1); MONO % 3.3 % (3.8-10.2); RBC 2.78 M/mm3 (4.00-5.60); RDW 15.7 % (11.9-15.9); WHITE BLOOD COUNT 4.7 K/mm3 (4.0-10.0)
[2022-01-04 21:48] LABS: PLATELET COUNT 126 10^3/uL (134-434)
[2022-01-04 21:49] LABS: PLATELET ESTIMATE ADEQUATE
[2022-01-04 21:54] LABS: INR 1.31 (0.83-1.09); PROTHROMBIN TIME (PATIENT) 15.1 SEC (9.7-13.0)
[2022-01-04 21:57] LABS: ACTIVATED PTT 29.8 SECONDS (25.2-36.5)
[2022-01-04] MEDS: ATORVASTATIN CA 10 MG TABLET (FP) PO SCH (22:36)
[2022-01-04] MEDS: SODIUM CHLORIDE 1,000 ML IV SCH (22:39)
[2022-01-05] MEDS: DIGOXIN 0.125 MG TABLET PO SCH (09:32)
[2022-01-05] MEDS: VITAMIN B COMP W-C 1 EA TABLET (NEPHRO-VITE) PO SCH (09:32)
[2022-01-05] MEDS: PANTOPRAZOLE 40 MG TABLET PO SCH (09:32)
[2022-01-05] MEDS: TAMSULOSIN HCL 0.4 MG CAP PO SCH (09:32)
[2022-01-05] MEDS: THIAMINE HCL 100 MG TABLET (FP) PO SCH (09:33)
[2022-01-05] MEDS: ALLOPURINOL 100 MG TABLET (FP) PO SCH (09:33)
[2022-01-05] MEDS: AMINO ACIDS/PROTEIN HYDROLYS 30 ML LIQUID.PKT PO SCH ×2 (09:34→18:19)
[2022-01-05] MEDS: ZINC SULFATE 220 MG CAPSULE (FP) PO SCH (09:34)
[2022-01-05] MEDS: POLYETHYLENE GLYCOL (HEALTHYLAX) 3350 17 GM PACKET PO SCH ×3 (09:34→21:40)
[2022-01-05] MEDS: METOPROLOL TARTRATE 25 MG TABLET (FP) PO SCH ×2 (09:34→21:40)
[2022-01-05] MEDS: CALCIUM 500MG/VIT-D 200 UNITS COMBO TABLET (FP) PO SCH (09:35)
[2022-01-05] MEDS ORDERED: SODIUM CHLORIDE 250 ML IV PRN (12:10)
[2022-01-05 15:13] LABS: BASO % 0.4 % (0-2.0); EOS % 0.3 % (0-4.5); HEMATOCRIT 24.7 % (35.4-49); HEMOGLOBIN 8.1 GM/dL (11.7-16.9); LYMPH % 40.2 % (8-40); MCH 29.1 pg (25.7-33.7); MCHC 32.7 g/dl (32.0-35.9); MEAN CELL VOLUME 88.8 fl (80-96); MEAN PLT VOLUME 9.1 fl (7.5-11.1); MONO % 7.6 % (3.8-10.2); NEUT % 51.5 % (42.8-82.8); PLATELET COUNT 163 10^3/uL (134-434); RBC 2.78 M/mm3 (4.00-5.60); WHITE BLOOD COUNT 4.6 K/mm3 (4.0-10.0)
[2022-01-05 15:21] LABS: INR 1.33 (0.83-1.09); PROTHROMBIN TIME (PATIENT) 15.3 SEC (9.7-13.0)
[2022-01-05 15:24] LABS: ACTIVATED PTT 29.2 SECONDS (25.2-36.5)
[2022-01-05 15:39] LABS: CALCIUM 8.5 mg/dL (8.5-10.1)
[2022-01-05 15:40] LABS: ALBUMIN 2.3 g/dl (3.4-5.0); BLOOD UREA NITROGEN 35.6 mg/dL (7-18)
[2022-01-05 15:42] LABS: CREATININE 3.1 mg/dL (0.55-1.3)
[2022-01-05 15:44] LABS: BILIRUBIN,TOTAL 0.4 mg/dL (0.2-1); TOT PROT 5.7 g/dl (6.4-8.2)
[2022-01-05] MEDS: ATORVASTATIN CA 10 MG TABLET (FP) PO SCH (21:40)
[2022-01-05] MEDS: SODIUM CHLORIDE 1,000 ML IV SCH (21:40)
[2022-01-06] MEDS: POLYETHYLENE GLYCOL (HEALTHYLAX) 3350 17 GM PACKET PO SCH ×3 (06:51→21:21)
[2022-01-06] MEDS: CALCIUM 500MG/VIT-D 200 UNITS COMBO TABLET (FP) PO SCH (09:34)
[2022-01-06] MEDS: PANTOPRAZOLE 40 MG TABLET PO SCH (09:34)
[2022-01-06] MEDS: TAMSULOSIN HCL 0.4 MG CAP PO SCH (09:34)
[2022-01-06] MEDS: VITAMIN B COMP W-C 1 EA TABLET (NEPHRO-VITE) PO SCH (09:34)
[2022-01-06] MEDS: METOPROLOL TARTRATE 25 MG TABLET (FP) PO SCH ×2 (09:34→21:16)
[2022-01-06] MEDS: AMINO ACIDS/PROTEIN HYDROLYS 30 ML LIQUID.PKT PO SCH ×2 (09:34→17:29)
[2022-01-06] MEDS: THIAMINE HCL 100 MG TABLET (FP) PO SCH (09:34)
[2022-01-06] MEDS: ALLOPURINOL 100 MG TABLET (FP) PO SCH (09:34)
[2022-01-06] MEDS: ZINC SULFATE 220 MG CAPSULE (FP) PO SCH (09:34)
[2022-01-06] MEDS: SODIUM CHLORIDE 1,000 ML IV SCH (09:36)
[2022-01-06] MEDS ORDERED: EPOETIN ALFA-EPBX 10,000 UNIT/ML VIAL IVPUSH ONE (11:30)
[2022-01-06 12:32] LABS: HEMATOCRIT 23.4 % (35.4-49); MCH 29.8 pg (25.7-33.7); MCHC 34.1 g/dl (32.0-35.9); MEAN CELL VOLUME 87.4 fl (80-96); MEAN PLT VOLUME 8.4 fl (7.5-11.1); PLATELET COUNT 125 10^3/uL (134-434); RBC 2.68 M/mm3 (4.00-5.60); RDW 16.2 % (11.9-15.9); WHITE BLOOD COUNT 3.8 K/mm3 (4.0-10.0)
[2022-01-06 13:00] LABS: CALCIUM 8.1 mg/dL (8.5-10.1)
[2022-01-06 13:01] LABS: BLOOD UREA NITROGEN 36.6 mg/dL (7-18)
[2022-01-06 13:04] LABS: CREATININE 3.3 mg/dL (0.55-1.3)
[2022-01-06 13:06] LABS: BILIRUBIN,TOTAL 0.4 mg/dL (0.2-1); TOT PROT 5.2 g/dl (6.4-8.2)
[2022-01-06] MEDS ORDERED: INSULIN (NOVOLOG) ASPART 100 UNITS/ML 10ML VIAL ONE (21:02)
[2022-01-06] MEDS: ATORVASTATIN CA 10 MG TABLET (FP) PO SCH (21:16)
[2022-01-07] MEDS: POLYETHYLENE GLYCOL (HEALTHYLAX) 3350 17 GM PACKET PO SCH ×3 (06:16→21:43)
[2022-01-07] MEDS: THIAMINE HCL 100 MG TABLET (FP) PO SCH (10:15)
[2022-01-07] MEDS: TAMSULOSIN HCL 0.4 MG CAP PO SCH (10:15)
[2022-01-07] MEDS: ALLOPURINOL 100 MG TABLET (FP) PO SCH (10:15)
[2022-01-07] MEDS: AMINO ACIDS/PROTEIN HYDROLYS 30 ML LIQUID.PKT PO SCH ×2 (10:15→16:30)
[2022-01-07] MEDS: DIGOXIN 0.125 MG TABLET PO SCH (10:15)
[2022-01-07] MEDS: CALCIUM 500MG/VIT-D 200 UNITS COMBO TABLET (FP) PO SCH (10:15)
[2022-01-07] MEDS: PANTOPRAZOLE 40 MG TABLET PO SCH (10:15)
[2022-01-07] MEDS: METOPROLOL TARTRATE 25 MG TABLET (FP) PO SCH ×2 (10:15→21:43)
[2022-01-07] MEDS: VITAMIN B COMP W-C 1 EA TABLET (NEPHRO-VITE) PO SCH (10:15)
[2022-01-07] MEDS: ZINC SULFATE 220 MG CAPSULE (FP) PO SCH (10:15)
[2022-01-07] MEDS: ATORVASTATIN CA 10 MG TABLET (FP) PO SCH (21:43)
[2022-01-08] MEDS: POLYETHYLENE GLYCOL (HEALTHYLAX) 3350 17 GM PACKET PO SCH ×3 (06:30→21:32)
[2022-01-08] MEDS: ZINC SULFATE 220 MG CAPSULE (FP) PO SCH (09:44)
[2022-01-08] MEDS: AMINO ACIDS/PROTEIN HYDROLYS 30 ML LIQUID.PKT PO SCH ×3 (09:44→16:34)
[2022-01-08] MEDS: THIAMINE HCL 100 MG TABLET (FP) PO SCH (09:44)
[2022-01-08] MEDS: VITAMIN B COMP W-C 1 EA TABLET (NEPHRO-VITE) PO SCH (09:44)
[2022-01-08] MEDS: PANTOPRAZOLE 40 MG TABLET PO SCH (09:44)
[2022-01-08] MEDS: METOPROLOL TARTRATE 25 MG TABLET (FP) PO SCH ×2 (09:44→21:21)
[2022-01-08] MEDS: CALCIUM 500MG/VIT-D 200 UNITS COMBO TABLET (FP) PO SCH (09:44)
[2022-01-08] MEDS: ALLOPURINOL 100 MG TABLET (FP) PO SCH (09:44)
[2022-01-08] MEDS: TAMSULOSIN HCL 0.4 MG CAP PO SCH (09:44)
[2022-01-08] MEDS: ATORVASTATIN CA 10 MG TABLET (FP) PO SCH (21:21)
[2022-01-09] MEDS: POLYETHYLENE GLYCOL (HEALTHYLAX) 3350 17 GM PACKET PO SCH ×3 (06:05→21:07)
[2022-01-09] MEDS: AMINO ACIDS/PROTEIN HYDROLYS 30 ML LIQUID.PKT PO SCH ×2 (10:46→18:21)
[2022-01-09] MEDS: THIAMINE HCL 100 MG TABLET (FP) PO SCH (11:18)
[2022-01-09] MEDS: PANTOPRAZOLE 40 MG TABLET PO SCH (11:18)
[2022-01-09] MEDS: TAMSULOSIN HCL 0.4 MG CAP PO SCH (11:18)
[2022-01-09] MEDS: CALCIUM 500MG/VIT-D 200 UNITS COMBO TABLET (FP) PO SCH (11:18)
[2022-01-09] MEDS: ZINC SULFATE 220 MG CAPSULE (FP) PO SCH (11:18)
[2022-01-09] MEDS: VITAMIN B COMP W-C 1 EA TABLET (NEPHRO-VITE) PO SCH (11:18)
[2022-01-09] MEDS ORDERED: SODIUM CHLORIDE 250 ML IV PRN (12:47)
[2022-01-09] MEDS ORDERED: EPOETIN ALFA-EPBX 10,000 UNIT/ML VIAL IVPUSH ONE (13:15)
[2022-01-09 15:11] LABS: HEMATOCRIT 23.7 % (35.4-49); HEMOGLOBIN 7.9 GM/dL (11.7-16.9); MCH 29.6 pg (25.7-33.7); MCHC 33.3 g/dl (32.0-35.9); MEAN CELL VOLUME 88.9 fl (80-96); MEAN PLT VOLUME 9.1 fl (7.5-11.1); PLATELET COUNT 140 10^3/uL (134-434); RBC 2.67 M/mm3 (4.00-5.60); RDW 17.7 % (11.9-15.9); WHITE BLOOD COUNT 3.9 K/mm3 (4.0-10.0)
[2022-01-09 15:43] LABS: ALBUMIN 2.2 g/dl (3.4-5.0); CALCIUM 8.3 mg/dL (8.5-10.1)
[2022-01-09 15:44] LABS: BLOOD UREA NITROGEN 27.9 mg/dL (7-18)
[2022-01-09 15:46] LABS: CREATININE 2.7 mg/dL (0.55-1.3)
[2022-01-09 15:48] LABS: BILIRUBIN,TOTAL 0.8 mg/dL (0.2-1); TOT PROT 5.6 g/dl (6.4-8.2)
[2022-01-09] MEDS: METOPROLOL TARTRATE 25 MG TABLET (FP) PO SCH ×2 (17:03→21:07)
[2022-01-09] MEDS: DIGOXIN 0.125 MG TABLET PO SCH (17:30)
[2022-01-09] MEDS: ALLOPURINOL 100 MG TABLET (FP) PO SCH (17:30)
[2022-01-09] MEDS: ATORVASTATIN CA 10 MG TABLET (FP) PO SCH (21:07)
[2022-01-10] MEDS: POLYETHYLENE GLYCOL (HEALTHYLAX) 3350 17 GM PACKET PO SCH ×3 (06:07→21:55)
[2022-01-10] MEDS: TAMSULOSIN HCL 0.4 MG CAP PO SCH (08:58)
[2022-01-10] MEDS: AMINO ACIDS/PROTEIN HYDROLYS 30 ML LIQUID.PKT PO SCH ×2 (08:58→17:20)
[2022-01-10] MEDS: ZINC SULFATE 220 MG CAPSULE (FP) PO SCH (09:00)
[2022-01-10] MEDS: THIAMINE HCL 100 MG TABLET (FP) PO SCH (09:00)
[2022-01-10] MEDS: METOPROLOL TARTRATE 25 MG TABLET (FP) PO SCH ×2 (09:00→21:55)
[2022-01-10] MEDS: PANTOPRAZOLE 40 MG TABLET PO SCH (09:00)
[2022-01-10] MEDS: CALCIUM 500MG/VIT-D 200 UNITS COMBO TABLET (FP) PO SCH (09:00)
[2022-01-10] MEDS: VITAMIN B COMP W-C 1 EA TABLET (NEPHRO-VITE) PO SCH (09:00)
[2022-01-10] MEDS: ALLOPURINOL 100 MG TABLET (FP) PO SCH (09:01)
[2022-01-10] MEDS ORDERED: SODIUM CHLORIDE 250 ML IV PRN (14:56)
[2022-01-10] MEDS: ATORVASTATIN CA 10 MG TABLET (FP) PO SCH (21:55)
[2022-01-11] MEDS: POLYETHYLENE GLYCOL (HEALTHYLAX) 3350 17 GM PACKET PO SCH ×3 (06:44→21:31)
[2022-01-11] MEDS: ALLOPURINOL 100 MG TABLET (FP) PO SCH (09:51)
[2022-01-11] MEDS: METOPROLOL TARTRATE 25 MG TABLET (FP) PO SCH ×2 (09:51→21:31)
[2022-01-11] MEDS: CALCIUM 500MG/VIT-D 200 UNITS COMBO TABLET (FP) PO SCH (09:51)
[2022-01-11] MEDS: THIAMINE HCL 100 MG TABLET (FP) PO SCH (09:51)
[2022-01-11] MEDS: ZINC SULFATE 220 MG CAPSULE (FP) PO SCH (09:52)
[2022-01-11] MEDS: PANTOPRAZOLE 40 MG TABLET PO SCH (09:52)
[2022-01-11] MEDS: AMINO ACIDS/PROTEIN HYDROLYS 30 ML LIQUID.PKT PO SCH ×2 (09:52→17:11)
[2022-01-11] MEDS: VITAMIN B COMP W-C 1 EA TABLET (NEPHRO-VITE) PO SCH (09:52)
[2022-01-11] MEDS: TAMSULOSIN HCL 0.4 MG CAP PO SCH (09:52)
[2022-01-11] MEDS: DIGOXIN 0.125 MG TABLET PO SCH (09:52)
[2022-01-11 15:36] LABS: HEMATOCRIT 22.5 % (35.4-49); HEMOGLOBIN 7.5 GM/dL (11.7-16.9); MCH 29.4 pg (25.7-33.7); MCHC 33.2 g/dl (32.0-35.9); MEAN CELL VOLUME 88.7 fl (80-96); MEAN PLT VOLUME 8.7 fl (7.5-11.1); PLATELET COUNT 132 10^3/uL (134-434); RBC 2.54 M/mm3 (4.00-5.60); RDW 18.3 % (11.9-15.9); WHITE BLOOD COUNT 4.5 K/mm3 (4.0-10.0)
[2022-01-11] MEDS ORDERED: EPOETIN ALFA-EPBX 10,000 UNIT/ML VIAL SQ ONE (16:00)
[2022-01-11 16:05] LABS: CALCIUM 8.4 mg/dL (8.5-10.1)
[2022-01-11 16:06] LABS: ALBUMIN 2.1 g/dl (3.4-5.0); BLOOD UREA NITROGEN 40.3 mg/dL (7-18)
[2022-01-11 16:09] LABS: CREATININE 4.1 mg/dL (0.55-1.3)
[2022-01-11 16:10] LABS: BILIRUBIN,TOTAL 0.6 mg/dL (0.2-1)
[2022-01-11 16:11] LABS: TOT PROT 5.3 g/dl (6.4-8.2)
[2022-01-11] MEDS: ATORVASTATIN CA 10 MG TABLET (FP) PO SCH (21:31)
[2022-01-12] MEDS: POLYETHYLENE GLYCOL (HEALTHYLAX) 3350 17 GM PACKET PO SCH ×3 (06:41→21:07)
[2022-01-12] MEDS: PANTOPRAZOLE 40 MG TABLET PO SCH (09:00)
[2022-01-12] MEDS: THIAMINE HCL 100 MG TABLET (FP) PO SCH (09:00)
[2022-01-12] MEDS: METOPROLOL TARTRATE 25 MG TABLET (FP) PO SCH ×2 (09:00→21:07)
[2022-01-12] MEDS: ALLOPURINOL 100 MG TABLET (FP) PO SCH (09:00)
[2022-01-12] MEDS: ZINC SULFATE 220 MG CAPSULE (FP) PO SCH (09:00)
[2022-01-12] MEDS: CALCIUM 500MG/VIT-D 200 UNITS COMBO TABLET (FP) PO SCH (09:00)
[2022-01-12] MEDS: TAMSULOSIN HCL 0.4 MG CAP PO SCH (09:00)
[2022-01-12] MEDS: VITAMIN B COMP W-C 1 EA TABLET (NEPHRO-VITE) PO SCH (09:00)
[2022-01-12] MEDS: AMINO ACIDS/PROTEIN HYDROLYS 30 ML LIQUID.PKT PO SCH ×2 (09:01→16:30)
[2022-01-12 11:10] LABS: SARS-CoV-2 NAA Not Detected (Not Detected)
[2022-01-12] MEDS ORDERED: SODIUM CHLORIDE 250 ML IV PRN (12:19)
[2022-01-12] MEDS ORDERED: FUROSEMIDE 40 MG/4 ML INJECTABLE VIAL IVPUSH ONE (13:15)
[2022-01-12] MEDS: ATORVASTATIN CA 10 MG TABLET (FP) PO SCH (21:07)
[2022-01-13] MEDS: POLYETHYLENE GLYCOL (HEALTHYLAX) 3350 17 GM PACKET PO SCH ×3 (06:34→21:58)
[2022-01-13] MEDS ORDERED: EPOETIN ALFA-EPBX 10,000 UNIT/ML VIAL IVPUSH ONE (10:00)
[2022-01-13] MEDS: TAMSULOSIN HCL 0.4 MG CAP PO SCH (10:43)
[2022-01-13] MEDS: AMINO ACIDS/PROTEIN HYDROLYS 30 ML LIQUID.PKT PO SCH ×2 (10:43→17:35)
[2022-01-13] MEDS: METOPROLOL TARTRATE 25 MG TABLET (FP) PO SCH ×2 (10:44→21:58)
[2022-01-13] MEDS: DIGOXIN 0.125 MG TABLET PO SCH ×2 (10:44→16:09)
[2022-01-13] MEDS: ZINC SULFATE 220 MG CAPSULE (FP) PO SCH (10:44)
[2022-01-13] MEDS: VITAMIN B COMP W-C 1 EA TABLET (NEPHRO-VITE) PO SCH (10:44)
[2022-01-13] MEDS: THIAMINE HCL 100 MG TABLET (FP) PO SCH (10:45)
[2022-01-13] MEDS: ALLOPURINOL 100 MG TABLET (FP) PO SCH (10:45)
[2022-01-13] MEDS: CALCIUM 500MG/VIT-D 200 UNITS COMBO TABLET (FP) PO SCH (10:45)
[2022-01-13] MEDS: PANTOPRAZOLE 40 MG TABLET PO SCH (10:46)
[2022-01-13] MEDS: ATORVASTATIN CA 10 MG TABLET (FP) PO SCH (21:58)
[2022-01-14] MEDS: POLYETHYLENE GLYCOL (HEALTHYLAX) 3350 17 GM PACKET PO SCH ×3 (05:31→21:37)
[2022-01-14] MEDS: FUROSEMIDE 40 MG/4 ML INJECTABLE VIAL IVPB SCH (10:34)
[2022-01-14] MEDS: AMINO ACIDS/PROTEIN HYDROLYS 30 ML LIQUID.PKT PO SCH ×2 (11:42→17:45)
[2022-01-14] MEDS: TAMSULOSIN HCL 0.4 MG CAP PO SCH (11:42)
[2022-01-14] MEDS: VITAMIN B COMP W-C 1 EA TABLET (NEPHRO-VITE) PO SCH (11:42)
[2022-01-14] MEDS: ZINC SULFATE 220 MG CAPSULE (FP) PO SCH (11:43)
[2022-01-14] MEDS: CALCIUM 500MG/VIT-D 200 UNITS COMBO TABLET (FP) PO SCH (11:43)
[2022-01-14] MEDS: PANTOPRAZOLE 40 MG TABLET PO SCH (11:43)
[2022-01-14] MEDS: THIAMINE HCL 100 MG TABLET (FP) PO SCH (11:43)
[2022-01-14] MEDS: METOPROLOL TARTRATE 25 MG TABLET (FP) PO SCH ×2 (15:12→21:37)
[2022-01-14] MEDS: ALLOPURINOL 100 MG TABLET (FP) PO SCH (15:12)
[2022-01-14 18:26] VITALS: BMI 22.8
[2022-01-14] MEDS: ATORVASTATIN CA 10 MG TABLET (FP) PO SCH (21:37)
[2022-01-15] MEDS: POLYETHYLENE GLYCOL (HEALTHYLAX) 3350 17 GM PACKET PO SCH ×3 (06:19→22:08)
[2022-01-15] MEDS: AMINO ACIDS/PROTEIN HYDROLYS 30 ML LIQUID.PKT PO SCH ×3 (09:00→17:01)
[2022-01-15] MEDS: DIGOXIN 0.125 MG TABLET PO SCH (09:29)
[2022-01-15] MEDS: FUROSEMIDE 40 MG/4 ML INJECTABLE VIAL IVPB SCH (09:29)
[2022-01-15] MEDS: ALLOPURINOL 100 MG TABLET (FP) PO SCH (09:29)
[2022-01-15] MEDS: METOPROLOL TARTRATE 25 MG TABLET (FP) PO SCH ×2 (09:29→22:09)
[2022-01-15] MEDS: PANTOPRAZOLE 40 MG TABLET PO SCH (09:30)
[2022-01-15] MEDS: ZINC SULFATE 220 MG CAPSULE (FP) PO SCH (09:30)
[2022-01-15] MEDS: CALCIUM 500MG/VIT-D 200 UNITS COMBO TABLET (FP) PO SCH (09:31)
[2022-01-15] MEDS: TAMSULOSIN HCL 0.4 MG CAP PO SCH (09:31)
[2022-01-15] MEDS: VITAMIN B COMP W-C 1 EA TABLET (NEPHRO-VITE) PO SCH (09:31)
[2022-01-15] MEDS: THIAMINE HCL 100 MG TABLET (FP) PO SCH (09:31)
[2022-01-15] MEDS: ATORVASTATIN CA 10 MG TABLET (FP) PO SCH (22:09)
[2022-01-16] MEDS: POLYETHYLENE GLYCOL (HEALTHYLAX) 3350 17 GM PACKET PO SCH ×3 (06:50→22:19)
[2022-01-16] MEDS: THIAMINE HCL 100 MG TABLET (FP) PO SCH (09:08)
[2022-01-16] MEDS: PANTOPRAZOLE 40 MG TABLET PO SCH (09:08)
[2022-01-16] MEDS: ZINC SULFATE 220 MG CAPSULE (FP) PO SCH (09:08)
[2022-01-16] MEDS: ALLOPURINOL 100 MG TABLET (FP) PO SCH (09:08)
[2022-01-16] MEDS: METOPROLOL TARTRATE 25 MG TABLET (FP) PO SCH ×2 (09:08→22:15)
[2022-01-16] MEDS: CALCIUM 500MG/VIT-D 200 UNITS COMBO TABLET (FP) PO SCH (09:08)
[2022-01-16] MEDS: VITAMIN B COMP W-C 1 EA TABLET (NEPHRO-VITE) PO SCH (09:08)
[2022-01-16] MEDS: TAMSULOSIN HCL 0.4 MG CAP PO SCH (09:09)
[2022-01-16] MEDS: AMINO ACIDS/PROTEIN HYDROLYS 30 ML LIQUID.PKT PO SCH ×2 (09:10→17:12)
[2022-01-16 13:06] LABS: HEMATOCRIT 22.9 % (35.4-49); HEMOGLOBIN 7.6 GM/dL (11.7-16.9); MCH 29.7 pg (25.7-33.7); MCHC 33.4 g/dl (32.0-35.9); MEAN CELL VOLUME 88.8 fl (80-96); RBC 2.57 M/mm3 (4.00-5.60); WHITE BLOOD COUNT 4.5 K/mm3 (4.0-10.0)
[2022-01-16 13:27] LABS: CALCIUM 8.1 mg/dL (8.5-10.1)
[2022-01-16 13:29] LABS: BLOOD UREA NITROGEN 38.4 mg/dL (7-18)
[2022-01-16 13:31] LABS: CREATININE 4.6 mg/dL (0.55-1.3)
[2022-01-16 13:32] LABS: BILIRUBIN,TOTAL 0.6 mg/dL (0.2-1)
[2022-01-16 13:33] LABS: TOT PROT 5.4 g/dl (6.4-8.2)
[2022-01-16] MEDS ORDERED: SODIUM CHLORIDE 250 ML IV PRN (14:00)
[2022-01-16] MEDS ORDERED: EPOETIN ALFA-EPBX 10,000 UNIT/ML VIAL IVPUSH ONE (14:00)
[2022-01-16] MEDS: ALBUMIN HUMAN 25% 12.5 GM/50 ML VIAL IV SCH ×4 (14:10→16:20)
[2022-01-16 14:40] LABS: PLATELET COUNT 127 10^3/uL (134-434)
[2022-01-16] MEDS: ATORVASTATIN CA 10 MG TABLET (FP) PO SCH (22:20)
[2022-01-17] MEDS: POLYETHYLENE GLYCOL (HEALTHYLAX) 3350 17 GM PACKET PO SCH ×3 (06:17→21:46)
[2022-01-17] MEDS: CALCIUM 500MG/VIT-D 200 UNITS COMBO TABLET (FP) PO SCH (09:20)
[2022-01-17] MEDS: AMINO ACIDS/PROTEIN HYDROLYS 30 ML LIQUID.PKT PO SCH ×2 (09:20→17:30)
[2022-01-17] MEDS: THIAMINE HCL 100 MG TABLET (FP) PO SCH (09:20)
[2022-01-17] MEDS: DIGOXIN 0.125 MG TABLET PO SCH (09:20)
[2022-01-17] MEDS: TAMSULOSIN HCL 0.4 MG CAP PO SCH (09:20)
[2022-01-17] MEDS: ALLOPURINOL 100 MG TABLET (FP) PO SCH (09:20)
[2022-01-17] MEDS: VITAMIN B COMP W-C 1 EA TABLET (NEPHRO-VITE) PO SCH (09:21)
[2022-01-17] MEDS: ZINC SULFATE 220 MG CAPSULE (FP) PO SCH (09:21)
[2022-01-17] MEDS: METOPROLOL TARTRATE 25 MG TABLET (FP) PO SCH ×2 (09:21→21:46)
[2022-01-17] MEDS: PANTOPRAZOLE 40 MG TABLET PO SCH (09:22)
[2022-01-17] MEDS ORDERED: FUROSEMIDE 40 MG/4 ML INJECTABLE VIAL IVPUSH ONE (13:13)
[2022-01-17] MEDS: LORATADINE 10 MG TABLET PO SCH (14:06)
[2022-01-17 14:08] LABS: SARS-CoV-2 NAA Not Detected (Not Detected)
[2022-01-17] MEDS: ATORVASTATIN CA 10 MG TABLET (FP) PO SCH (21:46)
[2022-01-18] MEDS: POLYETHYLENE GLYCOL (HEALTHYLAX) 3350 17 GM PACKET PO SCH ×2 (05:10→14:19)
[2022-01-18] MEDS: ALLOPURINOL 100 MG TABLET (FP) PO SCH (09:14)
[2022-01-18] MEDS: THIAMINE HCL 100 MG TABLET (FP) PO SCH (09:14)
[2022-01-18] MEDS: AMINO ACIDS/PROTEIN HYDROLYS 30 ML LIQUID.PKT PO SCH ×2 (09:14→09:16)
[2022-01-18] MEDS: ZINC SULFATE 220 MG CAPSULE (FP) PO SCH (09:14)
[2022-01-18] MEDS: TAMSULOSIN HCL 0.4 MG CAP PO SCH (09:14)
[2022-01-18] MEDS: PANTOPRAZOLE 40 MG TABLET PO SCH (09:14)
[2022-01-18] MEDS: CALCIUM 500MG/VIT-D 200 UNITS COMBO TABLET (FP) PO SCH (09:14)
[2022-01-18] MEDS: METOPROLOL TARTRATE 25 MG TABLET (FP) PO SCH (09:14)
[2022-01-18] MEDS: LORATADINE 10 MG TABLET PO SCH (09:14)
[2022-01-18] MEDS: VITAMIN B COMP W-C 1 EA TABLET (NEPHRO-VITE) PO SCH (09:16)
[2022-01-18] MEDS ORDERED: SODIUM CHLORIDE 250 ML IV PRN (09:55)
[2022-01-18] MEDS ORDERED: EPOETIN ALFA-EPBX 10,000 UNIT, EPOETIN ALFA-EPBX 3,000 UNIT, EPOETIN ALFA-EPBX 2,000 UNIT IVPUSH SCH (10:00)
[2022-01-18 11:29] LABS: HEMATOCRIT 24.8 % (35.4-49); HEMOGLOBIN 8.2 GM/dL (11.7-16.9); MCH 29.7 pg (25.7-33.7); MCHC 33.1 g/dl (32.0-35.9); MEAN CELL VOLUME 89.7 fl (80-96); MEAN PLT VOLUME 8.8 fl (7.5-11.1); PLATELET COUNT 131 10^3/uL (134-434); RBC 2.77 M/mm3 (4.00-5.60); RDW 18.6 % (11.9-15.9); WHITE BLOOD COUNT 4.7 K/mm3 (4.0-10.0)
[2022-01-18 11:30] VITALS: TEMP 98.1
[2022-01-18 11:48] LABS: CALCIUM 8.4 mg/dL (8.5-10.1)
[2022-01-18 11:49] LABS: ALBUMIN 2.1 g/dl (3.4-5.0); BLOOD UREA NITROGEN 35.3 mg/dL (7-18)
[2022-01-18 11:53] LABS: CREATININE 4.4 mg/dL (0.55-1.3); PHOSPHOROUS 3.7 mg/dL (2.5-4.9)
[2022-01-18 11:54] LABS: BILIRUBIN,TOTAL 0.6 mg/dL (0.2-1); TOT PROT 5.4 g/dl (6.4-8.2)
[2022-01-18] MEDS ORDERED: EPOETIN ALFA-EPBX 10,000 UNIT/ML VIAL SQ ONE (13:14)
[2022-01-18 13:29] VITALS: PULSE 76
[2022-01-18 13:50] VITALS: BP 101/51
== END 2022-01-18 17:10 | DRG 291 ==
LOC: JER 19:29 → JERBED 12-19 02:32 → J4W 12-19 16:56 → J6S 01-01 18:07
PROVIDERS: ADMIT Hospitalist; ATTEND Internal Medicine
PROC: B548ZZA Ultrasonography of Superior Vena Cava, Guidance (ICD-10-PCS; 2021-12-22)
PROC: 02H633Z Insertion of Infusion Device into Right Atrium, Percutaneous Approach (ICD-10-PCS; principal; 2021-12-22 17:00)
PROC: 0T9B8ZZ Drainage of Bladder, Via Natural or Artificial Opening Endoscopic (ICD-10-PCS; 2021-12-29)
PROC: 0T9B8ZZ Drainage of Bladder, Via Natural or Artificial Opening Endoscopic (ICD-10-PCS; 2022-01-04)
PROC: 5A1D70Z Performance of Urinary Filtration, Intermittent, Less than 6 Hours Per Day (ICD-10-PCS; 2022-01-18)
DX: I13.2 Hypertensive heart and chronic kidney disease with heart failure and with stage 5 chronic kidney disease, or end stage renal disease (principal); N18.6 End stage renal disease; I50.33 Acute on chronic diastolic (congestive) heart failure; K92.2 Gastrointestinal hemorrhage, unspecified; N17.9 Acute kidney failure, unspecified; I48.20 Chronic atrial fibrillation, unspecified; D61.818 Other pancytopenia; C91.Z0 Other lymphoid leukemia not having achieved remission; Z79.01 Long term (current) use of anticoagulants; N40.0 Benign prostatic hyperplasia without lower urinary tract symptoms; R62.7 Adult failure to thrive; D64.9 Anemia, unspecified; K21.9 Gastro-esophageal reflux disease without esophagitis; K74.60 Unspecified cirrhosis of liver; I45.10 Unspecified right bundle-branch block; E87.5 Hyperkalemia; R31.0 Gross hematuria; R00.0 Tachycardia, unspecified; K31.819 Angiodysplasia of stomach and duodenum without bleeding; L89.152 Pressure ulcer of sacral region, stage 2
CPT/HCPCS: 36415; 36430; 36511; 71045-TC-FY; 71250-TC; 74176-TC; 74177-TC; 74178-TC; 76000-TC-FY; 76705-TC; 76775-TC; 76856-TC; 80048; 80053; 80076; 81003; 82272; 82728; 82784; 82803; 82962; 83010; 83540; 83550; 83615; 83735; 83880; 83883; 84100; 84153; 84155; 84165; 84484; 84550; 85025; 85027; 85032; 85045; 85240; 85246; 85247; 85291; 85300; 85379; 85384; 85610; 85613; 85730; 85732; 86038; 86334; 86705; 86803; 86850; 86880; 86900; 86901; 86922; 87040; 87086; 87340; 87517; 87522; 88300-TC; 93306-TC; 94760; 97116-GP; 97162-GP; 99291; C9803-CS; J1644; J1756; P9034; P9038; P9047; P9058; Q5106; Q9967; U0003; U0005